=== PATIENT | female | born 1950 | race Caucasian/White ===

== ENCOUNTER 2022-07-20 09:27 | Outpatient (CLI) | payer SELFPAY | END 2022-07-20 09:28 | disposition home or self-care (01) | LOC: NFLDREF 09:28 | PROVIDERS: PCP Family Medicine; Visit Provider Obstetrics & Gynecology | DX: R30.0 Dysuria (principal) | CPT/HCPCS: 87086; 87186 ==

== ENCOUNTER 2022-08-10 17:22 | Outpatient (CLI) | payer MEDICARE, OTHER, SELFPAY | END 2022-08-10 17:23 | disposition home or self-care (01) | PROVIDERS: PCP Family Medicine; Visit Provider Obstetrics & Gynecology | DX: N39.0 Urinary tract infection, site not specified (principal); A49.9 Bacterial infection, unspecified | CPT/HCPCS: 87086; 87186 ==

== ENCOUNTER 2022-09-08 09:39 | Outpatient (CLI) | payer MEDICARE, OTHER, SELFPAY ==
--- OUTSIDE RECORDS SUMMARY | 2022-09-10 11:45 | XMS_ITS | Clinical Summary ---
:1950 Author Organization [facility] [place] [address] Care Team Providers Name Role Phone Radha Stockton MD Primary Care Provider Antonio Holbrook MD Unavailable Vinod Saavedra MD Unavailable Inés Rust MD Unavailable Allergies Active Allergy Reactions Severity Noted Date Comments Hydrocodone-Acetaminophen Rash High 03/12/2021 Prednisone Rash 12/21/2008 Sulfamethoxazole-Trimethoprim Tachycardia, Rash High 2020 Medications Medication Sig Dispensed Refills Start End Date Status Date multivitamin Take 1 tablet by 0 Active (MVI) tablet mouth once daily. 1 calcium 600 mg Take 1 capsule by 0 Active capsule mouth 2 times 1 daily with meals. sodium chloride IRRIGATE 20 CHEMO 5000 mL 3 Active 0.9% 0.9 % CYCLE EACH NOSTRIL 6 irrigationIndicat FOUR TIMES DAILY ions: Sinus congestion fluticasone (50 Inhale 1 [place] 48 g 11 Active mcg per into both nostrils 0 actuation) nasal 2 times daily. solution (FLONASE)Indicati ons: Rhinitis, unspecified type cetirizine Take 1 tablet by 90 tablet 0 Ac tive (ZYRTEC) 10 mg mouth once daily. 0 tabletIndications : Rhinitis, unspecified type lisinopriL Take 1 Tablet (10 93 Tablet 3 A ctive (PRINIVIL; mg) by mouth once 2 ZESTRIL) 10 mg daily. tabletIndications : Essential hypertension estradioL 0 Active (VAGIFEM) 10 mcg 2 tab vaginal tablet amitriptyline Take 10 mg by 0 Ac tive (ELAVIL) 10 mg mouth once daily. 2 tablet medication order Estriol 0.3% 60 g 1 08/26/20 Discontinued composerIndicatio vaginal cream 1g 2 22 (*Discontinued ns: Vaginal of cream by anoth er atrophy intravaginally 1-2 c linician) times per week as needed amitriptyline Take 25 mg by 0 08/26/20 Di scontinued (ELAVIL) 25 mg mouth once daily. 2 22 (*Medication tablet adjustment ) nirmatrelvir-ranjana Take 2 30 Tablet 0 08/31/20 Ex pired navir 300-100mg, nirmatrelvir 150 2 22 EUA, (PAXLOVID, mg pink-oval EUA,) tablets and 1 tabletIndications ritonavir 100 mg : COVID-19 virus white-oval tablet infection together twice daily for 5 days. Date of Symptom Onset: 08/23/22; 07/02/2022: CREATININE 0.73 mg/dL Active Problems Problem Noted Date Urinary urgency 07/02/2022 Osteopenia of multiple sites 06/02/2021 DDD (degenerative disc disease), lumbar 05/11/2019 Adenomatous colon polyp 08/06/2011 Overview: Colonoscopy 2007 - folow up in 5 years Colonoscopy 03/2013 diverticulosis repeat in 5 years Colonoscopy 04/2017 hyperplastic polyp re peat in 5 years Otosclerosis, unspecified 11/22/2009 Overview: History of stapedectomy right Sensorineural hearing loss, unilateral 11/22/2009 Overview: left Mixed hearing loss, unilateral 11/22/2009 Overview: right Unspecified essential hypertension 06/09/2007 Esophageal reflux Overview: EGD: 2019 reactive gastropthy EGD 03/2011 Reactive gastropathy Salcedo workup 09/2011 negative for GERD - felt to be visceral hypersensitivity Hypertensive LES but normal swallow EGD 05/2016 mild gastritis normal esophag us and duodenum Encounters Date Type Specialty Care Team Description 08/26/2022 Phone Office Visit Radha Stockton, [facility] (COVID-19 MD positive - symp jarod onset 08/23/22 - coug h, fever, runny nose) 08/26/2022 Travel 07/24/2022 Orders Only Lab, [facility] 07/23/2022 Travel 07/07/2022 Orders Only Lab, [facility] 07/07/2022 Travel 07/02/2022 Office Visit Radha Stockton, Medicare A NNUAL (subsequent) MD Visit (72 year old female); Musculoskeletal Problem (Right leg pain at night when lying on b ack) 07/02/2022 Travel from Last 3 Months Immunizations Name Administration Dates Next Due COVID-19 vaccine ([employer] 08/14/2022 30mcg/0.3mL) 12YO+ BIVALENT BOOSTER PF, MDV COVID-19 vaccine ([employer] 02/18/2022 30mcg/0.3mL) 12YO+ TITI-SUCROSE PF, MDV COVID-19 vaccine ([employer] 07/30/2021, 12/21/2020, 30mcg/0.3mL) PF, MDV Influenza, Inactivated AIIV4 (Age 65+ 08/12/2020 Years) Preserv Free Pneumococcal Poly,23-Valent (Pneumovax) 02/20/2019 Pneumococcal conj 13-Valent (Prevnar 13) 06/21/2017 Td (Age >=7 Years) 02/16/1997 Tdap 10/19/2017, 06/09/2007 Zoster (Shingrix-RZV, recombinant) 09/24/2020, 07/10/2020 Zoster (Zostavax-ZVL, live) 10/21/2012 Family History Medical History Relation Name Comments Hypertension Brother 1 Diabetes Brother 2 Diabetes Father Hypertension Father Psychiatric illness Mother Dementia Cancer-breast No Family History Cancer-ovarian No Family History Relation Name Status Comments Brother 1 Brother 2 Father Mother Social History Tobacco Use Types Packs/Day Years Used Date Never Smoker Smokeless Tobacco: Never Used Tobacco Cessation: Counseling Given: Yes Alcohol Use Standard Drinks/Week Comments No 0 (1 standard drink = 0.6 oz pure alcoho l) Sex Assigned at Date Recorded Female 04/29/2020 2:36 PM CDT COVID-19 Exposure Response Date Recorded In the last 10 days, have you been in contact Unable to asse ss 08/26/2022 11:54 AM CDT with someone who was confirmed or suspected to have Coronavirus/COVID-19? Obstetrics History Para Term AB IAB SAB Ectopic Multiple Living Live Births 3 3 3 0 0 0 0 0 3 Date Outcome GA Total Labor/2nd/3rd Weight Sex Delivery Anes PTL Meghna A 1 A5 Name Clin Labor Term Term Term Last Filed Vital Signs Vital Sign Reading Time Taken Comments Blood Pressure 127/73 07/02/2022 9:42 AM CDT Pulse 89 07/02/2022 9:42 AM CDT Temperature 36.6 ??C (97.9 ??F) 08/05/2021 10:28 AM CDT Respiratory Rate 16 12/24/2021 9:02 AM PRODUCTION CELL LEADER Oxygen Saturation 100% 07/02/2022 9:42 AM CDT Inhaled Oxygen Concentration - - Weight 59.1 kg (130 lb 6.4 oz) 07/02/2022 9:42 AM CDT Height 155.8 cm (5' 1.34) 07/02/2022 9:42 AM CDT Body Mass Index 24.37 07/02/2022 9:42 AM CDT Plan of Treatment Upcoming Encounters Date Type Specialty Care Team Description 11/12/2022 Procedure Only Vinod Saavedra MD [address] [place], [place] [address] (Wo rk) Health Maintenance Due Date Last Done Comments Colonoscopy through age 75 05/20/2022 05/20/2017, 7, 04/20/2013, Additional history exists Influenza for age 65+ 06/25/2022 08/12/2020 Mammogram for age 45-75 06/08/2023 06/08/2022, 06/02/2021, 05/29/2020, Additional history exists BMI (ht and wt on same day) for 07/02/2023 07/02/2022, 07/25, age 18+ 06/02/2021, Additional history exists Depression screening for age 12+ 07/02/2023 07/02/2022, 06/2021, 05/29/2020, Additional history exists Medicare Wellness for age 65+ 07/02/2023 07/02/2022, 2020, 05/29/2020, Additional history exists Lipids for age 45-75 12/26/2025 12/26/2020, 01/15/2016, 11/15/2014, Additional history exists Tetanus booster 10/19/2027 10/19/2017, 06/09/2007, 02/16/1997 Tdap Completed 10/19/2017, 06/09/2007 Hepatitis C screening for age Completed 02/17/2018 18-79 Pneumococcal series for age 65+ Completed 02/20/2019, 05/26 Zoster (shingles) series for age Completed 09/24/2020, , 50+ 10/21/2012 DEXA/DXA scan for age 65+ Completed 06/09/2021, 04/12/2017 , 01/10/2013, Additional history exists COVID-19 vaccine series Completed 08/14/2022, 02/18/2022, 07/30/2021, Additional history exists Procedures Procedure Name Priority Date/Time Associated Diagnosis Comme nts URINALYSIS Routine 07/24/2022 3:22 PM UTI symptoms Results f or this MICROSCOPIC CDT procedure are i n the results section. UA W/ SEDIMENT EXAM Routine 07/24/2022 3:22 PM UTI symptoms Re sults for this REFLEXED PER CDT procedure are i n CRITERIA the results section. POTASSIUM Routine 07/07/2022 10:45 Serum potassium Results for this AM CDT elevated procedure are i n the results section. BASIC METABOLIC Routine 07/02/2022 10:44 Unspecified essential Results for this PANEL AM CDT hypertension procedure are i n the results section. from Last 3 Months Results (ABNORMAL) URINALYSIS MICROSCOPIC (07/24/2022 3:22 PM CDT) [facility] Method Time Signature RBC 3-5 (A) 0-2, None 07/24/2022 [facility] Seen /HPF 4:25 PM T [facility] WBC >100 (A) 0-2, 3-5, 07/24/2022 [facility] None Seen 4:25 PM CDT [place] /HPF CLINIC BACTERIA Many (A) None 07/24/2022 [facility] Seen, 4:25 PM CDT [place] Rare, Few CLINIC Bacteria/ HPF EPITHELIAL Moderate (A) None 07/24/2022 [facility] CELLS Seen, Few 4:25 PM T [place] Epi/HPF CLINIC YEAST Present (A) (none) 07/24/2022 [facility] 4:25 PM CDT [facility] Mucus Present 07/24/2022 [facility] 4:25 PM CDT [facility] WHITE CELL Present (A) (none) 07/24/2022 [facility] CLUMPS 4:25 PM [facility] Specimen Anatomical Collection Method Collection Time Receive d Time (Source) Location / / Volume Laterality Urine URINE SPECIMEN / Non-Blood / 07/24/2022 3:22 PM 07/24 3:22 Unknown Unknown CDT PM CDT Radha Stockton MD URINE Performing Organization Address City/State/ZIP Code Phon e Number [facility] [address] [place] [address] (ABNORMAL) UA W/ SEDIMENT EXAM REFLEXED PER CRITERIA (07/24/2022 3:22 PM CDT) [facility] Method Time Signature COLOR Yellow Yellow Color 07/24/2022 [facility] 4:22 PM [facility] CLARITY Slightly Clear 07/24/2022 [facility] Cloudy (A) Clarity 4:22 PM T [facility] SPECIFIC >=1.030 (A) 1.010, 07/24/2022 [facility] GRAVITY,URINE 1.015, 4:22 PM [facility] 1.020, 1.025 [facility] PH,URINE 5.5 6.0, 7.0, 07/24/2022 [facility] 8.0, 5.5, 4:22 PM [facility] 6.5, 7.5, CLINIC 8.5 UROBILINOGEN, Normal Normal EU/dl 07/24/2022 [facility] 4:22 PM CDT [facility] PROTEIN, Negative Negative 07/24/2022 [facility] URINE mg/dL 4:22 PM CDT [facility] GLUCOSE, Negative Negative 07/24/2022 [facility] URINE mg/dL 4:22 PM CDT [facility] KETONES,URINE Trace (A) Negative 07/24/2022 [facility] mg/dL 4:22 PM CDT [facility] BILIRUBIN,URI Negative Negative 07/24/2022 [facility] NE 4:22 PM CDT [facility] OCCULT Small (A) Negative 07/24/2022 [facility] BLOOD,URINE 4:22 PM CDT [facility] NITRITE Negative Negative 07/24/2022 [facility] 4:22 PM CDT [facility] LEUKOCYTE Negative Negative 07/24/2022 [facility] ESTERASE 4:22 PM CDT [facility] Specimen Anatomical Collection Method Collection Time Receive d Time (Source) Location / / Volume Laterality Urine URINE SPECIMEN / Non-Blood / 07/24/2022 3:22 PM 07/24 3:22 Unknown Unknown CDT PM CDT Radha Stockton MD URINE Performing Organization Address City/State/ZIP Code Phon e Number [facility] [address] [place] [address] POTASSIUM (07/07/2022 10:45 AM CDT) P athologist Signature POTASSIUM 4.8 3.5 - 5.0 07/08/2022 [facility] mmol/L 10:31 AM CDT [facility] Specimen Anatomical Collection Method / Collection Time Recei calvin Time (Source) Location / Volume Laterality Blood BLOOD SPECIMEN / Venipuncture / 07/07/2022 10:45 07/07 Unknown Unknown AM CDT 10:45 AM CDT Radha Stockton MD CHEMISTRY Performing Organization Address City/State/ZIP Code Phon e Number [facility] [address] [place] [address] LABORATORY-[facility]ENTRAL [address] LAB[facility]ATORY (ABNORMAL) BASIC METABOLIC PANEL (07/02/2022 10:44 AM CDT) Analysis Performed At Patho logist Time Signature SODIUM 140 135 - 145 07/03/2022 [facility] mmol/L 6:38 AM CDT [facility] POTASSIUM 5.3 (H) 3.5 - 5.0 07/03/2022 [facility] mmol/L 6:38 AM CDT [facility] CHLORIDE 103 98 - 110 07/03/2022 [facility] mmol/L 6:38 AM CDT [facility] CO2,TOTAL 30 21 - 31 07/03/2022 [facility] mmol/L 6:38 AM CDT [facility] ANION GAP 7 5 - 18 07/03/2022 [facility] 6:38 AM CDT [facility] GLUCOSE 83 65 - 100 07/03/2022 [facility] mg/dL 6:38 AM CDT [facility] CALCIUM 9.2 8.5 - 10.5 07/03/2022 [facility] mg/dL 6:38 AM CDT [facility] BUN 19 8 - 25 07/03/2022 [facility] mg/dL 6:38 AM CDT [facility] CREATININE 0.73 0.57 - 07/03/2022 [facility] 1.11 mg/dL 6:38 AM CDT [facility] BUN/CREAT RATIO 26 (H) 10 - 20 07/03/2022 [facility] 6:38 AM CDT [facility] eGFR 89 (L) >90 07/03/2022 [facility] mL/min/1.7 6:38 AM CDT [facility] 3m2 TRAL LABORATORY Comment: As of 2022, eGFR is calcu lated by the CKD-EPI creatinine equation without race adjustment. eGFR can be inf luenced by muscle mass, exercise, and diet. The reported eGFR is an estimation only and is only applicable if the renal function is stable. Specimen Anatomical Collection Method / Collection Time Recei calvin Time (Source) Location / Volume Laterality Blood BLOOD SPECIMEN / Venipuncture / 07/02/2022 10:44 07/02 Unknown Unknown AM CDT 10:45 AM CDT Radha Stockton MD CHEMISTRY Performing Organization Address City/State/ZIP Code Phon e Number [facility] [address] [place] [address] LAB[facility]ATORY[facility] [address] LABORATORY from Last 3 Months Insurance Payer Benefit Plan / Subscriber ID Effective Dates Phone Addre ss Type Group MEDICA MR MEDICA PRIME [id number] 2018-Present [address] [address] [place] [address] MEDICARE PART A MEDICARE PART A [id number] 2016-Present ATTN: CLAIMS - HB USE ONLY HB ONLY [address] [place] [address] MEDICARE PART B MEDICARE PART B [id number] 2018-Present ATTN: CLAIMS - HB USE ONLY HB ONLY [address] [place] [address] MEDICA MEDICA PRIME [id number] 2018-Present [address] [address] [place] [address] (Home) [place] [address] Care Teams Angio Technologist Relationship Specialty Start Date End Date Radha Stockton MD PCP - General Family Practice 07/02/22 [address] [place] [address] Antonio Holbrook MD Surgery - Urology 07/02/22 [address] [place] [address] Vinod Saavedra MD Gastroenterology 07/02/22 [address] [place] [address] Inés Rust MD Obstetrics and Gynecology 07/02/22[address] [place] [address]
== END 2022-09-08 09:40 | disposition home or self-care (01) ==
LOC: NFLDREF 09-10 11:43
PROVIDERS: PCP Family Medicine; Visit Provider Obstetrics & Gynecology
DX: N39.0 Urinary tract infection, site not specified (principal); N95.2 Postmenopausal atrophic vaginitis; I10 Essential (primary) hypertension
CPT/HCPCS: 87086

== ENCOUNTER 2023-11-12 15:17 | Outpatient (CLI) | payer MEDICARE, OTHER, SELFPAY ==
--- OUTSIDE RECORDS SUMMARY | 2023-11-12 15:27 | XMS_ITS | Clinical Summary ---
Author Name Unknown Organization [facility] Address [place], [place] [address] Care Team Providers Care Truckman Name Role Phone Antonio Holbrook MD Unavailable Vinod Saavedra MD Unavailable Inés Rust MD Unavailable Nancy Camara MD Primary Care Provider Allergies Active Allergy Reactions Criticality Noted Date Comments Hydrocodone-Acetaminophen Rash High 03/12/2021 Prednisone Rash 12/21/2008 Sulfamethoxazole-Trimethoprim Tachycardia,Rash High 08/06/2021 Medications Medication Sig Dispensed Refills Start Date End Date Status multivitamin (MVI) tablet Take 1 tablet by mouth once daily. 0 04/10/2011 Active calcium 600 mg capsule Take 1 capsule by mouth 2 times daily with meals. 0 04/10/2011 Active sodium chloride 0.9% 0.9 % irrigationIndicati ons:Sinus congestion IRRIGATE 20 CHEMO CYCLE EACH NOSTRIL FOUR TIMES DAILY 5000 mL 3 01/23/2016 Active fluticasone (50 mcg per actuation) nasal solution (FLONASE)Indicatio ns:Rhinitis, unspecified type Inhale 1 [place] into both nostrils 2 times daily. 48 g 11 05/29/2020 Active cetirizine (ZYRTEC) 10 mg tabletIndications: Rhinitis, unspecified type Take 1 tablet by mouth once daily. 90 tablet 0 05/29/2020 Active estradioL (VAGIFEM) 10 mcg tab vaginal tablet 0 08/15/2022 Active gabapentin 10 % crpk Apply topically to affected area(s). 0 Active lisinopriL (PRINIVIL; ZESTRIL) 10 mg tabletIndications: Essential hypertension Take 1 Tablet (10 mg) by mouth once daily. 100 Tablet 3 07/05/2023 Active Graduated Compression StockingsIndicatio ns:Varicose veins of both lower extremities with inflammation For personal use. Length: calf Strength: 20-30 mmHg Circumference in cm: Measure patient at pharmacy 1 Packet 0 07/19/2023 Active Active Problems Problem Noted Date Diagnosed Date Genitourinary syndrome of menopause 07/05/2023 Urinary urgency 07/02/2022 Osteopenia of multiple sites 06/02/2021 DDD (degenerative disc disease), lumbar 05/11/20 19 Adenomatous colon polyp 08/06/2011 Overview: Colonoscopy 2007 - folow up in 5 years Colonoscopy 03/2013 diverticulosis repeat in 5 years Colonoscopy 04/2017 hyperplastic polyp repeat in 5 years Colonoscopy 10/2022 diverticulosis, repeat in 10 years Otosclerosis, unspecified 11/22/2009 Overview: History of stapedectomy right Sensorineural hearing loss, unilateral 0 Overview: left Mixed hearing loss, unilateral 11/22/2009 Overview: right Unspecified essential hypertension 06/09/2007 Esophageal reflux Overview: EGD: 2019 reactive gastropthy EGD 03/2011 Reactive gastropathy Salcedo workup 09/2011 negative for GERD - felt to be visceral hypersensitivity Hypertensive LES but normal swallow EGD 05/2016 mild gastritis normal esophagus and duodenum Encounters Date Type Department Care Team Description 11/05/2023 2:10 PM MARKETING AND PROMOTIONS MANAGER Office Visit [facility] [address] [place] [address] Selma Rodriguez PA Arm Pain/problem (Pain in right deltoid area for about a month-hurts to raise arm up to a certain point-also with some burning in chest-hurts to push on area) 11/05/2023 Travel from Last 3 Months Immunizations Name Administration Dates Next Due COVID-19 vaccine ([facility] 30mcg/0.3mL) 12YO+ BIVALENT PF, MDV 08/14/2022 COVID-19 vaccine ([employer] 30mcg/0.3mL) 12YO+ TITI-SUCROSE PF, MDV 02/18/2022 COVID-19 vaccine ([facility] 30mcg/0.3mL) PF, MDV 07/30/2021,12/21/2020,11/30/2020 Influenza, Inactivated AIIV4 (Age 65+ Years) Preserv Free 09/21/2022,08/12/2020 Pneumococcal Poly,23-Valent (Pneumovax) 02/21/20 19 Pneumococcal conj 13-Valent (Prevnar 13) 017 Td (Age >=7 Years) 02/16/1997 Tdap 10/19/2017,06/09/2007 Zoster (Shingrix-RZV, recombinant) 09/24/2020, Zoster (Zostavax-ZVL, live) 10/21/2012 Family History Medical History Relation Name Comments Hypertension Brother 1 Diabetes Brother 2 Diabetes Father Hypertension Father Psychiatric illness Mother Dementia Cancer-breast No Family History Cancer-ovarian No Family History Relation Name Status Comments Brother 1 Brother 2 Father Mother Social History Tobacco Use Types Packs/Day Years Used Date Smoking Tobacco: Never Smokeless Tobacco: Never Tobacco Cessation:Counseling Given: Yes Alcohol Use Standard Drinks/Week Comments No 0 (1 standard drink = 0.6 oz pur e alcohol) PHQ-2 Answer Date Recorded PHQ-2 TOTAL SCORE 0 07/05/2023 Social Connections Answer Date Recorded Frequency of Communication with Friends and Fami ly 0 04/09/2023 Financial Resource Strain Answer Date R ecorded Difficulty of Paying Living Expenses 3 04/09/2023 Difficulty of Paying Living Expenses Not on file 04/09/2023 Food Insecurity Answer Date Recorded Worried About Running Out of Food in the Last Ye ar 1 04/09/2023 Transportation Needs Answer Date Record ed Lack of Transportation (Medical) 1 04/09/2023 Housing Stability Answer Date Recorded Unable to Pay for Housing in the Last Year 1 04/09/2023 Sex and Gender Information Value Date Recorded Sex Assigned at Female 04/29/2020 2:36 PM CDT Gender Identity Not on file Sexual Orientation Not on file Obstetrics History Para Term AB IAB SAB Ectopic Multiple Livin g Live Births 3 3 3 0 0 0 0 0 3 Date Outcome GA Total Labor Labor/2nd/3rd Weight Sex Delivery Anes PTL Meghna A1 A5 Name Cl in Term Term Term Last Filed Vital Signs Vital Sign Reading Time Taken Comments Blood Pressure 148/77 11/05/2023 2:09 PM MARKETING AND PROMOTIONS MANAGER Pulse 72 11/05/2023 2:09 PM MARKETING AND PROMOTIONS MANAGER Temperature 36.9 ??C (98.4 ??F) 04/20/2023 1:50 PM CD T Respiratory Rate 20 04/10/2023 12:56 PM CDT Oxygen Saturation 99% 11/05/2023 2:09 PM MARKETING AND PROMOTIONS MANAGER Inhaled Oxygen Concentration - - Weight 59.9 kg (132 lb) 11/05/2023 2:09 PM MARKETING AND PROMOTIONS MANAGER Height 156 cm (5' 1.42) 07/05/2023 10:05 AM CDT Body Mass Index 24.6 07/05/2023 10:05 AM CDT Plan of Treatment Health Maintenance Due Date Last Done Comments COVID-19 vaccine series ( season) 2023 08/14/2022, 02/18/2022, 07/30/2021, Additional history exists Influenza for age 65+ 06/25/2023 09/21/2022, 020 Medicare Wellness for age 65+ 07/04/2024, 07/02/2022, 06/02/2021, Additional history exists BMI (ht and wt on same day) for age 18+ 07/05/2024 07/05/2023, 07/02/2022, 08/05/2021, Additional history exists Depression screening for age 12+ 07/05/2024 07/05/2023, 07/02/2022, 06/02/2021, Additional history exists Mammogram for age 45-75 07/05/2024 07/05/20, 06/08/2022, 06/02/2021, Additional history exists Lipids for age 45-75 12/26/2025 12/26/2020, 01/15/2016, 11/15/2014, Additional history exists Tetanus booster 10/19/2027 10/19/2017, 05/25, 02/16/1997 Colonoscopy through age 75 11/12/203211/12, 11/12/2022, 05/20/2017, Additional history exists Tdap Completed 10/19/2017, 06/09/2007 Hepatitis C screening for ag e 18-79 Completed 02/17/2018 Pneumococcal series for age 65+ Completed 9, 06/21/2017 Zoster (shingles) series for age 50+ Completed 09/24/2020, 07/10/2020, 10/21/2012 DEXA/DXA scan for age 65+ Completed 2020, 04/12/2017, 01/10/2013, Additional history exists Care Teams Truckman Relationship Specialty Start Date End Date Nancy Camara MD [address] [place] [address] PCP - General Family Practice 03/08/23 Antonio Holbrook MD [address] [address] Surgery - Urology 07/02/22 Vinod Saavedra MD [address] [place] [id number] Gastroenterology 07/02/22 Inés Rust MD [address] [place] [address] Obstetrics and Gynecology 07/02/22
--- NOTE | 2023-11-12 15:30 | MR_ITS ---
[address] [address] Phone:?[phone] Fax:?[phone] Referring Physician Information: Marty William [address] [place] [address] Phone:?[phone] Fax:?[phone] Patient:Valeria Kirkland D.O.B:?1950 Sex:?Female Phone:?[phone] [facility] MRN:?[id number] Exam Date:?11/12/2023 EXAM: MRI RIGHT HUMERUS CLINICAL INFORMATION: The patient is a 73-year-old with right proximal upper arm pain. Evaluate for biceps tendon injury. TECHNICAL INFORMATION: Imaging was produced on a high-field, 1.5 Quynh MR scanner. Axial T2 and fat-suppressed T2 imaging was produced in addition to axial T1 imaging. Coronal proton-density, T2, and STIR imaging was performed in addition to sagittal proton-density and T2 imaging. There are no prior studies available for comparison. INTERPRETATION: Imaging of the right humerus shows no evidence for marrow edema or cortical injury. There is no evidence for fracture, stress injury, or destructive bony lesion. No evidence for periosteal reaction is identified. No definite evidence for acute bony abnormality of the right shoulder can be seen, however mild acromioclavicular joint arthrosis is noted. The long head of the biceps tendon appears intact. No injuries to the short head of the biceps tendon can be seen. No abnormalities of the visualized portions of the biceps muscle belly or myotendinous junction regions can be seen. There is a suspected tear involving the anterior and distal supraspinatus tendon fibers seen on axial series 4 images 5 and 6, measuring approximately 10 mm in greatest dimension. The finding is suboptimally evaluated in this humerus study and a dedicated MRI of the right shoulder may be helpful in further evaluation of the rotator cuff pathology if clinically warranted. No other well-defined rotator cuff abnormalities can be seen on the basis of this examination, however adjacent moderate subacromial/subdeltoid bursitis can be seen on coronal series 6 image 3 and on axial series 4 image 5. No other musculotendinous injuries are identified. No neurovascular abnormalities are seen. CONCLUSION: 1. No definite evidence for well-defined injury to the long head of the biceps or biceps muscle belly can be seen. The biceps myotendinous junction regions are within normal limits. 2. Suspected injury to the supraspinatus tendon distally. A dedicated MRI of the shoulder may be helpful in further evaluation of the patient's symptoms. 3. Moderate subacromial/subdeltoid bursal fluid, in keeping with changes of bursitis. 4. Mild acromioclavicular joint arthrosis. AEC Electronically signed on 11/15/2023 1:17:00 PM by Victoriano Day M.D.
== END 2023-11-12 15:18 | disposition home or self-care (01) ==
LOC: MRI 15:19
PROVIDERS: PCP Family Medicine; Visit Provider Physician Assistant
DX: M79.621 Pain in right upper arm (principal); M75.51 Bursitis of right shoulder
CPT/HCPCS: 73218

== ENCOUNTER 2023-11-24 14:13 | Outpatient (CLI) | payer MEDICARE, OTHER, SELFPAY ==
--- OUTSIDE RECORDS SUMMARY | 2023-11-24 14:20 | XMS_ITS | Clinical Summary ---
Author Name Unknown Organization [facility] Address [place], [place] [address] Care Team Providers Care 3Rd Grade Reading Teacher Name Role Phone Antonio Holbrook MD Unavailable [phone] Vindo Saavedra MD Unavailable Inés Rust MD Unavailable [...] solution (FLONASE)Indicatio ns:Rhinitis, unspecified type Inhale 1 [place] into both nostrils 2 times daily. 48 [...] Encounters Date Type Department Care Team Description 11/17/2023 Orders Only [facility] [address] [place] [address] Selma Rodriguez PA 1 scan: (1-Ord) [facility], MR HUMERUS RT WO CON, 11/12/2023 11/16/2023 Orders Only [facility] Scanner 1 scan: (1-Ord) INCOMING RECORDS-MRI, [facility], 11/16/2023 11/16/2023 Orders Only [facility] Scanner 1 scan: (1-Ord) INCOMING RECORDS-MRI, [facility], 11/16/2023 11/16/2023 Telephone [facility] [address] [facility] [address] Selma Rodriguez PA Questions (MRI ) 11/05/2023 2:10 PM FINE UNHAIRER Office Visit [facility] [address] [place] [address] Selma Rodriguez PA Arm Pain/problem (Pain in right deltoid area for about a month-hurts to raise arm up to a certain point-also with some burning in chest-hurts to push on area) 11/05/2023 Travel from Last 3 Months Immunizations Name Administration Dates Next Due COVID-19 vaccine (Pfizer-Bio NTech 30mcg/0.3mL) 12YO+ BIVALENT PF, MDV 08/14/2022 COVID-19 vaccine (Pfizer-Bio NTech 30mcg/0.3mL) 12YO+ TITI-SUCROSE PF, MDV 02/18/2022 COVID-19 vaccine (Pfizer-Bio NTech 30mcg/0.3mL) PF, MDV 07/30/2021,12/21/2020,11/30/2020 Influenza, Inactivated [...] Comments Blood Pressure 148/77 11/05/2023 2:09 PM FINE UNHAIRER Pulse 72 11/05/2023 2:09 PM FINE UNHAIRER Temperature 36.9 ??C (98.4 ??F) 04/20/2023 1:50 PM CD T Respiratory Rate 20 04/10/2023 12:56 PM CDT Oxygen Saturation 99% 11/05/2023 2:09 PM FINE UNHAIRER Inhaled Oxygen Concentration - - Weight 59.9 kg (132 lb) 11/05/2023 2:09 PM FINE UNHAIRER Height 156 cm (5' 1.42) 07/05/2023 10:05 [...] Completed 2020, 04/12/2017, 01/10/2013, Additional history exists Procedures Procedure Name Priority Date/Time Associated Diagnosis Comments SCAN CORRESP-IMAGING 11/16/2023 12:00 AM FINE UNHAIRER SCAN CORRESP-IMAGING 11/16/2023 12:00 AM FINE UNHAIRER MR HUMERUS RIGHT WO Routine 11/12/2023 1 2:00 AM FINE UNHAIRER Right arm pain Acquired deformity of right upper arm from Last 3 Months Results * SCAN CORRESP-IMAGING (11/16/2023 12:00 AM FINE UNHAIRER) Only the most recent of2 resultswithin the time period is included. Anatomical Region Laterality Modality Other Scanner OTHER * MR HUMERUS RIGHT WO (11/12/2023 12:00 AM FINE UNHAIRER) Anatomical Region Laterality Modality HUMERUS R Magnetic Resonan ce Selma HAMEED MR from Last 3 Months Care Teams 3Rd Grade Reading Teacher Relationship Specialty Start Date End Date Nancy Camara MD [address] [place] [address] PCP - General Family Practice 03/08/23 Antonio Holbrook MD [address] [facility] [address] Surgery - Urology 07/02/22 Vinod Saavedra MD [address] [place] [address] Gastroenterology 07/02/22 Inés Rust MD [address] [place] [address] (work) Obstetrics and Gynecology 07/02/22
--- NOTE | 2023-11-24 14:30 | MR_ITS ---
[address] [address] Phone:?[phone] Fax:?[phone] Referring Physician Information: Fan Cline M.D. [address] [facility] [address] Phone:?[phone] Fax:?[phone] Patient:Vaelria Kirkland D.O.B:?1950 Sex:?Female Phone:?[phone] [facility] MRN:?[id number] Exam Date:?11/24/2023 EXAM: MRI OF THE RIGHT SHOULDER CLINICAL INFORMATION: The patient is a 73-year-old with right shoulder pain. Evaluate rotator cuff. PRIOR SURGERY: None reported. COMPARISON STUDIES: There are no prior studies available for comparison. TECHNICAL INFORMATION: Using a 1.5T MR scanner and a localizing shoulder surface coil: 3.0 mm?coronal obliques: PD, T2, STIR 3.0 mm?sagittal obliques: PD, T2 3.0 mm?axials: PD, T2 FINDINGS: Articular/Extraarticular collections: Effusion: Mild. Subacromial/subdeltoid: Mild to moderate fluid is seen within the subacromial/subdeltoid bursa. Subcoracoid: No evidence for bursitis. Osseous structures: Proximal humerus: Reactive marrow edema can be seen involving the anterior aspect of the greater tuberosity in the region of the rotator cuff pathology discussed below. There is no evidence for greater or lesser tuberosity fracture. No Hill-Sachs or reverse Hill-Sachs lesion is identified. Glenoid: No acute bony abnormality of the glenoid fossa or glenoid neck can be seen. Acromioclavicular joint: Mild to moderate changes of acromioclavicular joint arthrosis are present. Coracoacromial arch: Acromion morphology: Type II. No evidence for os acromiale. Acromiohumeral space: Moderately narrowed. Coracohumeral space: Within normal limits. Rotator cuff and deltoid: Supraspinatus: Moderate changes of supraspinatus tendinosis are present. There is superimposed full-thickness or near full-thickness tearing of the anterior and distal tendon fibers, seen to best advantage on coronal series 4 image 9, coronal series 6 image 9, and on sagittal series 8 image 7. The area of full- thickness or near full-thickness tearing measures 9 mm in anteroposterior dimension and 10 mm in mediolateral dimension. No atrophic changes of the supraspinatus muscle belly are present. Infraspinatus: Mild to moderate infraspinatus tendinosis can be seen. There is no evidence for full or partial-thickness tearing. No atrophic changes of the infraspinatus muscle belly are identified. Teres minor: No evidence for tendinosis, tearing, or associated muscle belly atrophy. Subscapularis: Mild to moderate subscapularis tendinosis can be seen. There is no evidence for full or partial-thickness tearing. No atrophic changes of the subscapularis muscle belly are noted. Deltoid: No evidence for strain or tearing. Biceps tendon: The intra-articular and biceps sulcus portions of the biceps tendon are normal. There is no evidence for rupture, dislocation, or subluxation. Glenohumeral joint and labrum: Articular Cartilage: No chondral injuries along the articular surfaces of the glenohumeral articulation can be seen. No osteoarthritic changes are identified. Labrum: The anterior, posterior, superior, and inferior portions of the labrum appear intact. No evidence for paralabral ganglion cyst formation can be seen. Capsular Soft Tissues: No definite capsular abnormalities of the glenohumeral joint are seen. No evidence for capsular tearing is present and there are no MR signs of adhesive capsulitis. CONCLUSION: 1. Moderate supraspinatus tendinosis with superimposed full-thickness or near full-thickness tearing of the anterior and distal tendon fibers. 2. Mild to moderate infraspinatus and subscapularis tendinosis. 3. Mild to moderate subacromial/subdeltoid bursitis and mild glenohumeral joint effusion. 4. 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 5. No osteoarthritic changes of the glenohumeral articulation are seen. AEC Electronically signed on 11/25/2023 6:36:00 AM by Victoriano Day M.D.
== END 2023-11-24 14:14 | disposition home or self-care (01) ==
LOC: MRI 14:15
PROVIDERS: PCP Family Medicine; Visit Provider Orthopaedic Surgery
DX: M25.511 Pain in right shoulder (principal); M75.101 Unspecified rotator cuff tear or rupture of right shoulder, not specified as traumatic; M75.51 Bursitis of right shoulder; M25.411 Effusion, right shoulder; M19.011 Primary osteoarthritis, right shoulder
CPT/HCPCS: 73221

== ENCOUNTER 2024-02-14 09:55 | Outpatient (CLI) | payer MEDICARE, OTHER, SELFPAY ==
--- OUTSIDE RECORDS SUMMARY | 2024-02-14 09:59 | XMS_ITS | Clinical Summary ---
Author Name Unknown Organization [facility] Address [place], [place] [address] Care Team Providers Care Patient Support Associate Name Role Phone Antonio Holbrook MD Unavailable [phone] Vinod Saavedra MD Unavailable Inés Rust MD Unavailable Nancy Camara MD Primary Care Provider [phone] Allergies Active Allergy Reactions Criticality Noted Date [...] 04/10/2011 Active sodium chloride 0.9% 0.9 % irrigationIndicatio ns:Sinus congestion IRRIGATE 20 CHEMO CYCLE EACH NOSTRIL FOUR TIMES DAILY 5000 mL 3 01/23/2016 Active fluticasone (50 mcg per actuation) nasal solution (FLONASE)Indication s:Rhinitis, unspecified type Inhale 1 [place] into both nostrils 2 times daily. 48 g 11 05/29/2020 Active cetirizine (ZYRTEC) 10 mg tabletIndications:R hinitis, unspecified type Take 1 tablet by mouth once daily. 90 tablet 05/29/2020 Active estradioL (VAGIFEM) 10 mcg tab vaginal tablet 08/15/2022 Active gabapentin 10 % crpk Apply topically to affected area(s). Active lisinopriL (PRINIVIL; ZESTRIL) 10 mg tabletIndications:E ssential hypertension Take 1 Tablet (10 mg) by mouth once daily. 100 Tablet 3 07/05/2023 Active Graduated Compression StockingsIndication s:Varicose veins of both lower extremities with inflammation For personal use. Length: calf Strength: 20-30 mmHg Circumference in cm: Measure patient at pharmacy 1 Packet 07/19/2023 Active fluocinolone 0.01% TOPICAL (SYNALAR) 0.01 % external solution Apply topically to affected area(s) one time if needed. 08/20/2023 Active ciprofloxacin HCl (CIPRO) 500 mg tabletIndications:U TI (urinary tract infection), uncomplicated Take 1 Tablet (500 mg) by mouth two times daily for 5 days. 10 Tablet 02/11/2024 Active Active Problems Problem Noted Date Diagnosed [...] Encounters Date Type Department Care Team Description 02/11/2024 Telephone [facility] [address] [place] [address] Nancy Camara MD Follow Up (UTI Questions) 02/09/2024 11:30 AM CDT Orders Only [facility] [address] [facility] [id number] Lab, ld Lab 02/09/2024 Travel 02/02/2024 10:25 AM CDT Office Visit [facility] [place] [address] Nancy Camara MD Urinary Problem (frequency, x3 nightly, pressure of need to go) 02/02/2024 Travel 01/20/2024 9:45 AM CDT Orders Only [facility] [address] [place] [address] Lab, ld Lab 01/20/2024 Travel 01/18/2024 Telephone [facility] [place] [address] Nancy Camara MD Lab 01/14/2024 10:20 AM CDT Preop Visit [facility] [place] [address] Nancy Camara MD Preoperative Exam (01/27/2024, Right rotator cuff, Dr. Clifton, [facility]) 01/14/2024 Travel 11/30/2023 11:35 AM SCIENTIFIC PROCESS OPERATOR Office Visit [facility] [facility] [place] [address] Cassy Coffey PA Fatigue (Chills. //COVID-19- positive around november 03. ) 11/30/2023 Travel 11/24/2023 Orders Only [facility] Scanner 1 scan: (1-Ord) [facility], MR SHOULDER RT WO CON, 11/24/2023 11/17/2023 Orders Only [facility] [place] [address] Selma Rodriguez PA 1 scan: (1-Ord) [facility], MR HUMERUS RT WO CON, 11/12/2023 11/16/2023 Orders Only [facility] Scanner 1 scan: (1-Ord) INCOMING RECORDS-MRI, [facility], 11/16/2023 11/16/2023 Orders Only [facility] Scanner 1 scan: (1-Ord) INCOMING RECORDS-[facility], [facility] and [facility], 11/16/2023 11/16/2023 Telephone [facility] [address] [place] [address] Selma Rodriguez PA Questions (MRI ) from Last 3 Months Immunizations Name Administration Dates Next Due COVID-19 vaccine (Pfizer-Bio NTech 30mcg/0.3mL) 12YO+ BIVALENT PF, MDV 08/14/2022 COVID-19 vaccine (Pfizer-Bio NTech 30mcg/0.3mL) 12YO+ TITI-SUCROSE PF, MDV 02/18/2022 COVID-19 vaccine (Pfizer-Bio NTech 30mcg/0.3mL) PF, MDV 07/30/2021,12/21/2020,11/30/2020 Influenza, Inactivated AIIV4 (Age 65+ Years) Preserv Free 10/04/2023,09/21/2022,08/12/2020 Pneumococcal Poly,23-Valent (Pneumovax) 02/21/20 19 Pneumococcal conj [...] Answer Date Recorded PHQ-2 TOTAL SCORE 0 01/14/2024 Social Connections Answer Date Recorded Frequency of [...] Sign Reading Time Taken Comments Blood Pressure 137/78 02/02/2024 10:32 AM CDT Pulse 80 02/02/2024 10:32 AM CDT Temperature 36.9 ??C (98.4 ??F) 04/20/2023 1:50 PM CD T Respiratory Rate 20 04/10/2023 12:56 PM CDT Oxygen Saturation 100% 02/02/2024 10:32 AM CDT Inhaled Oxygen Concentration - - Weight 60.3 kg (133 lb) 02/02/2024 10:32 AM CDT Height 156.5 cm (5' 1.61) 01/14/2024 10:19 AM C DT Body Mass Index 24.63 01/14/2024 10:19 AM CDT Plan of Treatment Health Maintenance Due Date Last Done Comments COVID-19 vaccine series ( season) 2023 08/14/2022, 02/18/2022, 07/30/2021, Additional history exists Influenza for age 65+ 06/25/2024 10/04/2023 , 09/21/2022, 08/12/2020 Mammogram for age 45-75 07/05/2024 07/05/20 23, 06/08/2022, 06/02/2021, Additional history exists Medicare Wellness for age 65+ 07/05/2024, 07/02/2022, 06/02/2021, Additional history exists BMI (ht and wt on same day) for age 18+ 01/13/2025 01/14/2024, 07/05/2023, 07/02/2022, Additional history exists Depression screening for age 12+ 01/17/2025 01/18/2024, 01/14/2024, 07/05/2023, Additional history exists Lipids for age 45-75 [...] Procedure Name Priority Date/Time Associated Diagnosis Comments URINALYSIS MICROSCOPIC Routine 11:28 AM CDT Microscopic hematuria UA W/ SEDIMENT EXAM REFLEXED PER CRITERIA Routine 02/09/2024 11:28 AM CDT Microscopic hematuria TRICHOMONAS, CHAIM, AND BACTERIAL VAGINOSIS BY JOSE ANTONIO Routine 02/02/2024 11:31 AM CDT Vaginal irritation URINE CULTURE Add On 02/02/2024 10:24 AM CDT Frequency of urination URINALYSIS MICROSCOPIC Routine 10:24 AM CDT Frequency of urination UA W/ SEDIMENT EXAM REFLEXED PER CRITERIA Routine 02/02/2024 10:24 AM CDT Frequency of urination POTASSIUM Routine 01/20/2024 9:37 AM CDT Hyperkalemia POTASSIUM Routine 01/14/2024 11:16 AM CDT Pre-op exam CBC WITH AUTO DIFFERENTIAL Routine 11/30/2023 12:37 PM SCIENTIFIC PROCESS OPERATOR Chills Fatigue, unspecified type TSH WITH REFLEX Routine 11/30/2023 12:37 PM SCIENTIFIC PROCESS OPERATOR Fatigue, unspecified type FERRITIN Routine 11/30/2023 12:37 PM SCIENTIFIC PROCESS OPERATOR Fatigue, unspecified type Iron deficiency anemia, unspecified iron deficiency anemia type CBC WITH AUTO DIFFERENTIAL Routine 11/30/2023 12:37 PM SCIENTIFIC PROCESS OPERATOR Chills Fatigue, unspecified type VITAMIN D 25 (DEFICIENCY) Routine 11/30/2023 12:37 PM SCIENTIFIC PROCESS OPERATOR Fatigue, unspecified type Other obesity INFLUENZA A/B PCR Routine 11/30/2023 11: 38 AM SCIENTIFIC PROCESS OPERATOR Chills SCAN-MRI INTERPRETATION 11/24/2023 12:00 AM SCIENTIFIC PROCESS OPERATOR SCAN CORRESP-IMAGING 11/16/2023 12:00 AM SCIENTIFIC PROCESS OPERATOR SCAN CORRESP-IMAGING 11/16/2023 12:00 AM SCIENTIFIC PROCESS OPERATOR XR MAMMO BILAT SCREENING Routine 07/05/2023 9:51 AM CDT Visit for screening mammogram COLONOSCOPY 11/12/2022 10:51 AM SCIENTIFIC PROCESS OPERATOR XR DXA BONE DENSITY 2 SITES AXIAL Routine 06/09/2021 9:24 AM CDT Osteopenia, unspecified location Other specified disorders of bone density and structure, multiple sites LIPID PANEL W REFLEX MEASURED LDL Routine 12/26/2020 3:07 PM SCIENTIFIC PROCESS OPERATOR Screening for lipid disorders ANTI HCV Routine 02/17/2018 4:26 PM CDT Need for hepatitis C screening test from Last 3 Months or Most Recently Relevant to Health Maintenance Results * (ABNORMAL) URINALYSIS MICROSCOPIC (02/09/2024 11:28 AM CDT) Only the most recent of2 resultswithin the time period is included. RBC 3-5(A) 0-2, None Seen /HPF 02/09/2024 11:50 AM CDT [facility] WBC 3-5 0-2, 3-5, None Seen /HPF 02/09/2024 11:50 AM CDT [facility] BACTERIA Many(A) None Seen, Rare, Few Bacteria/H PF 02/09/2024 11:50 AM CDT [facility] EPITHELIAL CELLS Few None Seen, Few Epi/HPF 02/09/2024 11:50 AM CDT [facility] Urine URINE SPECIMEN / Unknown Non-Blood / Unknown 02/09/2024 11:28 AM CDT 02/09/2024 11:28 AM CDT Nancy Camara MD URINE [facility] [address] [place] [address], * (ABNORMAL) UA W/ SEDIMENT EXAM REFLEXED PER CRITERIA (02/09/2024 11:28 AM CDT) Only the most recent of2 resultswithin the time period is included. COLOR Yellow Yellow Color 02/09/2024 11:49 AM CDT [facility] CLARITY Clear Clear Clarity 02/09/2024 11:49 AM CDT [facility] SPECIFIC GRAVITY,URINE 1.015 1.010, 1.015, 1.020, 1.025 02/09/2024 11:49 AM CDT [facility] PH,URINE 5.5 6.0, 7.0, 8.0, 5.5, 6.5, 7.5, 8.5 02/09/2024 11:49 AM CDT [facility] UROBILINOGEN, QUALITATIVE Normal Normal EU/dl 02/09/2024 11:49 AM CDT [facility] PROTEIN, URINE Negative Negative mg/dL 02/09/2024 11:49 AM CDT [facility] GLUCOSE, URINE Negative Negative mg/dL 02/09/2024 11:49 AM CDT [facility] KETONES,URINE Negative Negative mg/dL 02/09/2024 11:49 AM CDT [facility] BILIRUBIN,URI NE Negative Negative 02/09/2024 11:49 AM CDT [facility] OCCULT BLOOD,URINE Trace(A) Negative 02/09/2024 11:49 AM CDT [facility] NITRITE Positive(A) Negative 02/09/2024 11:49 AM CDT [facility] LEUKOCYTE ESTERASE Negative Negative 02/09/2024 11:49 AM CDT [facility] Urine URINE SPECIMEN / Unknown Non-Blood / Unknown 02/09/2024 11:28 AM CDT 02/09/2024 11:28 AM CDT Nancy Camara MD URINE [facility] [address] [place] [address], * TRICHOMONAS, CHAIM, AND BACTERIAL VAGINOSIS BY JOSE ANTONIO (02/02/2024 11:31 AM CDT) CHAIM SPECIES Negative Negative 4 2:33 AM CDT [facility] CHAIM GLABRATA Negative Negative 02/03/2024 2:33 AM CDT [facility] TRICHOMONAS VVA Negative Negative 4 2:33 AM CDT [facility] BACTERIAL VAGINOSIS Negative Negative 02/03/2024 2:33 AM CDT [facility] Other VAGINAL SWAB / Unknown Non-Blood / Unknown 02/02/2024 11:31 AM CDT 02/02/2024 12:11 PM CDT Nancy Camara MD MICROBIOLOGY Performing Organization Address [facility] Co de Phone Number [facility] [address] [place] [address], [place] * URINE CULTURE (02/02/2024 10:24 AM CDT) CULTURE <10,000 CFU/mL multiple organisms 02/04/2024 11:04 AM CDT [facility] Urine URINE SPECIMEN / Unknown Non-Blood / Unknown 02/02/2024 10:24 AM CDT 02/02/2024 10:34 AM CDT Nancy Camara MD MICROBIOLOGY Performing Organization Address [facility] Co de Phone Number [facility] [address] [place] [address], [place] * POTASSIUM (01/20/2024 9:37 AM CDT) Only the most recent of2 resultswithin the time period is included. POTASSIUM 3.9 3.5 - 5.1 mmol/L 01/20/2024 4:57 PM CDT [facility] Blood BLOOD SPECIMEN / Unknown Venipuncture / Unknown 01/20/2024 9:37 AM CDT 01/20/2024 9:38 AM CDT Nancy Camara MD CHEMISTRY Performing Organization Address [facility] Co de Phone Number [facility] [address] [address], [place] * CBC WITH AUTO DIFFERENTIAL (11/30/2023 12:37 PM SCIENTIFIC PROCESS OPERATOR) WHITE BLOOD COUNT 8.2 4.5 - 11.0 thou/cu mm 11/30/2023 12:41 PM SCIENTIFIC PROCESS OPERATOR [facility] RED BLOOD COUNT 4.62 4.00 - 5.20 mil/cu mm 11/30/2023 12:41 PM [facility] HEMOGLOBIN 13.3 12.0 - 16.0 g/dL 11/30/2023 12:41 PM [facility] HEMATOCRIT 40.9 33.0 - 51.0 % 11/30/2023 12:41 PM [facility] MCV 89 80 - 100 fL 11/30/2023 12:41 PM [facility] MCH 28.8 26.0 - 34.0 pg 11/30/2023 12:41 PM [facility] MCHC 32.5 32.0 - 36.0 g/dL 11/30/2023 12:41 PM [facility] RDW 14.0 11.5 - 15.5 % 11/30/2023 12:41 PM [facility] PLATELET COUNT 259 140 - 440 thou/cu mm 11/30/2023 12:41 PM [facility] MPV 10.4 6.5 - 11.0 fL 11/30/2023 12:41 PM [facility] % NEUT 67.4 % 11/30/2023 12:41 PM [facility] % LYMPH 24.6 % 11/30/2023 12:41 PM [facility] % MONO 6.4 % 11/30/2023 12:41 PM [facility] % EOS 1.2 % 11/30/2023 12:41 PM [facility] % BASO 0.4 % 11/30/2023 12:41 PM [facility] ABSOLUTE NEUTROPHILS 5.6 1.7 - 7.0 thou/cu mm 11/30/2023 12:41 PM [facility] ABSOLUTE LYMPHOCYTES 2.0 0.9 - 2.9 thou/cu mm 11/30/2023 12:41 PM [facility] ABSOLUTE MONOCYTES 0.5 <0.9 thou/cu mm 11/30/2023 12:41 PM [facility] ABSOLUTE EOSINOPHILS 0.1 <0.5 thou/cu mm 11/30/2023 12:41 PM [facility] ABSOLUTE BASOPHILS 0.0 <0.3 thou/cu mm 11/30/2023 12:41 PM SCIENTIFIC PROCESS OPERATOR [facility] Blood BLOOD SPECIMEN / Unknown Venipuncture / Unknown 11/30/2023 12:37 PM SCIENTIFIC PROCESS OPERATOR 11/30/2023 12:37 PM SCIENTIFIC PROCESS OPERATOR Cassy HAMEED HEMATOLOGY [facility] [address] [place] [address], * TSH WITH REFLEX (11/30/2023 12:37 PM SCIENTIFIC PROCESS OPERATOR) TSH 1.33 0.27 - 4.20 uIU/mL 11/30/2023 10:34 PM SCIENTIFIC PROCESS OPERATOR [facility] Blood BLOOD SPECIMEN / Unknown Venipuncture / Unknown 11/30/2023 12:37 PM SCIENTIFIC PROCESS OPERATOR 11/30/2023 12:37 PM SCIENTIFIC PROCESS OPERATOR Narrative [facility] - 11/30/2023 10:34 PM SCIENTIFIC PROCESS OPERATOR In Adults, TSH values between 5.00 and 10.00 uIU/ml do not necessarily indicate the presence of Hypothyroidism. Correlation with clinical findings such as presence of goiter and/or Thyroperoxidase (TPO) Antibody may be helpful. For more information please refer to DELROY 2004; 291: 228-238. Cassy HAMEED CHEMISTRY [facility] [address] [place] [id number], * VITAMIN D 25 (DEFICIENCY) (11/30/2023 12:37 PM SCIENTIFIC PROCESS OPERATOR) VITAMIN D TOTAL 42.5 20.0 - 80.0 ng/mL 11/30/2023 10:34 PM SCIENTIFIC PROCESS OPERATOR [facility] Blood BLOOD SPECIMEN / Unknown Venipuncture / Unknown 11/30/2023 12:37 PM SCIENTIFIC PROCESS OPERATOR 11/30/2023 12:37 PM SCIENTIFIC PROCESS OPERATOR Narrative [facility] - 11/30/2023 10:34 PM SCIENTIFIC PROCESS OPERATOR ? Vitamin D Status Deficiency: ? <20 ng/mL Insufficiency: ?20-29 ng/mL Sufficiency: ?30-80 ng/mL Possible Toxicity: ??>80 ng/mL Based on [place] of Medicine recommendations Biotin supplements may cause clinically significant interference for this test assay. ??If interference is suspected, it is strongly recommended that biotin is discontinued for at least one week prior to retesting. Cassy HAMEED SEND OUTS Performing Organization Address City/[facility] Co de Phone Number [facility] [address] [place] [address], * FERRITIN (11/30/2023 12:37 PM SCIENTIFIC PROCESS OPERATOR) Pathologist [facility] FERRITIN 97.3 15.0 - 150.0 ng/mL 11/30/2023 10:34 PM SCIENTIFIC PROCESS OPERATOR [facility] Blood BLOOD SPECIMEN / Unknown Venipuncture / Unknown 11/30/2023 12:37 PM SCIENTIFIC PROCESS OPERATOR 11/30/2023 12:37 PM SCIENTIFIC PROCESS OPERATOR Cassy HAMEED CHEMISTRY Performing Organization Address [facility] Co de Phone Number [facility] [address] [place] [address], * INFLUENZA A/B PCR (11/30/2023 11:38 AM SCIENTIFIC PROCESS OPERATOR) Pathologist [facility] INFLUENZA A PCR Negative 12/01/2023 1:48 AM SCIENTIFIC PROCESS OPERATOR [facility] INFLUENZA B PCR Negative 12/01/2023 1:48 AM SCIENTIFIC PROCESS OPERATOR [facility] Other SPECIMEN FROM NASAL FOSSAE / Unknown Non-Blood / Unknown 11/30/2023 11:38 AM SCIENTIFIC PROCESS OPERATOR 11/30/2023 12:05 PM SCIENTIFIC PROCESS OPERATOR Cassy HAMEED MICROBIOLOGY Performing Organization Address [facility] Co de Phone Number [facility] [address] [place] [address], * SCAN-MRI INTERPRETATION (11/24/2023 12:00 AM SCIENTIFIC PROCESS OPERATOR) Anatomical Region Laterality Modality Other Scanner OTHER * SCAN CORRESP-IMAGING (11/16/2023 12:00 AM SCIENTIFIC PROCESS OPERATOR) Only the most recent of2 resultswithin the time period is included. Anatomical Region Laterality Modality Other Scanner OTHER * XR MAMMO BILAT SCREENING (07/05/2023 9:51 AM CDT) Anatomical Region Laterality Modality BREASTS, Breast Left, Breast Right Bilateral Mammography Impressions 07/05/2023 2:17 PM CDT ??There is no radiographic evidence for malignancy. ??Recommend annual mammograms. MAMMOGRAM ASSESSMENT: ??ACR 1 Negative PATIENTS: You will also receive a letter with your examination results in an easy to read format. ??If you have questions about your results, please contact your referring provider. Narrative 07/05/2023 2:17 PM CDT For Patients: As a result of the Century Cures Act, medical imaging exams and procedure reports are released immediately into your electronic medical record. You may view this report before your referring provider. If you have questions, please contact your health care provider. XR MAMMO BILAT SCREENING [[id number]] CLINICAL HISTORY: ??This is an asymptomatic 73 y.o. patient. INDICATION FOR EXAM: Mammogram Screening. TECHNIQUE: CC & MLO views were obtained. ??This study was evaluated with the assistance of Computer-Aided Detection. COMPARISON FILM: Yes 06/08/22 [facility] 06/02/21 [facility] FINDINGS: ??The breasts have scattered areas of fibroglandular density. There are no dominant masses, suspicious micro calcifications or areas of architectural distortion. Nancy Camara MD MAMMO * COLONOSCOPY (11/12/2022 10:51 AM SCIENTIFIC PROCESS OPERATOR) 11/12/2022 10:5 1 AM SCIENTIFIC PROCESS OPERATOR Narrative Transcriptions Vinod Saavedra MD - 11/12/2022 11:34 AM CST Patient Name: Kendy Kirkland Procedure Date: 11/12/2022 Gender: Female Date of : 1950 Admit Type: Outpatient Procedure: Colonoscopy Proceduralist: Vinod Saavedra MD , Cassy Carrasquillo RN (Nurse), Linsey Hill (Nurse) Indications/Pre-Op Diagnosis: High risk colon cancer surveillance:Personal history of colonic polyps, Last colonoscopy: April 2017 Medications: Fentanyl 100 micrograms IV, Midazolam 4 mgIV, The level of sedation administered wasmoderate Procedure Description: The patient had risks, benefits and alternatives explained to andgave informed consent. The patient had a stable cardiopulmonary status and judged an adequate candidate for conscious sedation. The endoscope [id number] was passed through the anus and advanced to the cecum, identified by appendiceal orifice and ileocecal valve. The colonoscopy was performed without difficulty. The patient toleratedthe procedure well. The quality of the bowel preparation was good. The ileocecal valve, appendiceal orifice, and rectum were photographed. Complications: No immediate complications. Estimated Blood Loss & Specimen: Estimated blood loss: none. Specimen collected - None Findings: The perianal and digital rectal examinations were normal. Scattered small-mouthed diverticula were found in the sigmoidcolon. The exam was otherwise without abnormality on direct and retroflexion views. Impressions/Post-Op Diagnosis: - Diverticulosis in the sigmoid colon. - The examination was otherwise normal on direct and retroflexionviews. - No specimens collected. Recommendation: - Patient has a contact number available for emergencies. The signsand symptoms of potential delayed complications were discussed with the patient. Return to normal activities tomorrow. Written discharge instructions were provided to the patient. - Resume previous diet. - Continue present medications. - Repeat colonoscopy in 10 years. Moderate Sedation: A time out was performed before the procedure. Moderate (conscious) sedation was administered by the endoscopy nurse and supervised bythe endoscopist. The following parameters were monitored: oxygensaturation, heart rate, blood pressure, EKG, CO2, respiratory rate, adequacy of pulmonary ventilation and reponse to care. Please refer to the patient's medical record flowsheets and nursing notes for moderate sedation details. Total physician intraservice time was 14 minutes. Vinod Saavedra MD 11/12/2022 11:34:03 AM This report has been signed electronically. Note Initiated On: 11/12/2022 10:51 AM Procedure Code(s): --- Professional --- 04603, Colonoscopy, flexible; diagnostic, including collection of specimen(s) bybrushing or washing, when performed (separateprocedure) Diagnosis Code(s): --- Professional --- Z86.010, Personal history of colonicpolyps K57.30, Diverticulosis of large intestine without perforation or abscess withoutbleeding CPT copyright 2020 [employer]. All rights reserved. The codes documented in this report are preliminary and upon nail feeder reviewmay be revised to meet current compliance requirements. Scope In: 11:18:51 AM Scope Withdrawal Time 0 hours 7 minutes 17 seconds Scope Out: 11:30:34 AM Vinod Saavedra MD PROCEDURE ORD * (ABNORMAL) XR DXA BONE DENSITY 2 SITES AXIAL (06/09/2021 9:24 AM CDT) Anatomical Region Laterality Modality Spine, HIPS, HIPL, HIPR Other Impressions 06/16/2021 10:10 AM CDT Osteopenia. RECOMMENDATIONS: The National Osteoporosis Foundation recommends pharmacologic treatment for patients with T-scores of -2.5 or less, patients with prior history of fragility fractures, or patients with 10-year probability of greater than 3% at hips or greater than 20% of suffering major osteoporotic fractures. Recommend continued optimization of calcium and vitamin D intake through dietary means and/or supplementation and regular exercise. Repeat scan recommended in 3-5 years. Barb Abernathy PA-C [facility] 06/16/2021 Narrative 06/16/2021 10:10 AM CDT For Patients: Results are automatically released to your [facility] ([employer]) account once available, in compliance with federal regulations. This means that you may see your results before your provider has had a chance to review them. Please allow 2-3 business days for your provider to comment on the results. XR DXA Bone Mineral Density (BMD) EXAM LOCATION: [facility] [address] [facility] [address] PATIENT NAME: Kendy Kirkland DATE OF : 1950 EXAM DATE: 06/09/2021 REQUESTING PROVIDER: Radha Stockton MD GENDER AT : female HEIGHT: 5' 1.42 (06/02/2021) WEIGHT: ??121 lb 9.6 oz (06/02/2021) MENOPAUSAL STATUS: Postmenopausal RACE/ETHNICITY: White RISK FACTORS: Weight < 127 lbs. and White Race CURRENT MEDICATION FOR BONE LOSS: NONE INDICATION: Follow-up of existing osteopenia COMPARISON DATE(S): 2017 DXA scans are compared to prior studies for a patient only when the two (or more) studies were performed on the same scanner. It is not possible to compare data generated on one scanner to data from another because there are not standards in DXA equipment. This applies even if the two scanners are made by the same strip winder. PROCEDURE: Dual-energy x-ray absorptiometry performed with routine technique. Reporting is completed in the form of a T-score. The T-score represents the standard deviation from peak bone mass based on young healthy adult. A Z-score is used for diagnosis in premenopausal women, and for men under the age of 50. FINDINGS: RESULT LUMBAR SPINE L1 - L4 BMD: 1.093 g/cm2 T-Score: - 0.7 Z-Score: + 1.3 Comparison to most recent scan ??in 2017: ??Decrease -0.8%. ?? RESULT FEMORAL NECK Right Femoral Neck T-Score: - 1.3 Left Femoral Neck T-Score: - 0.9 ?? Right Femoral Neck Z-Score: + 0.6 Left Femoral Neck Z-Score: + 1.0 RESULT TOTAL HIP Total T-Score: - 0.6 Total Z-Score: + 1.0 Comparison to most recent scan ??in 2017: ??Decrease -0.8%. ?? WHO criteria: Normal: T-score at or above -1 SD Osteopenia: T-score between -1.1 and -2.4 SD Osteoporosis: T-score at or below -2.5 SD FRAX RISK CALCULATION (USED FOR OSTEOPENIA ONLY): 10-year probability of major osteoporotic fracture: 8.9%. 10-year probability of hip fracture: 1.1%. Radha Stockton MD DEXA * LIPID PANEL W REFLEX MEASURED LDL (12/26/2020 3:07 PM SCIENTIFIC PROCESS OPERATOR) [facility] CHOLESTEROL,TOTAL 155 100 - 199 mg/dL 12/26/2020 10:26 PM SCIENTIFIC PROCESS OPERATOR [facility] TRIGLYCERIDES 72 <150 mg/dL 12/26/2020 10:26 PM SCIENTIFIC PROCESS OPERATOR [facility] HDL CHOLESTEROL 45 >40 mg/dL 10:26 PM SCIENTIFIC PROCESS OPERATOR [facility] NON-HDL CHOLESTEROL 110 <145 mg/dl 12/26/2020 10:26 PM SCIENTIFIC PROCESS OPERATOR [facility] CHOL/HDL RATIO 3.44 <4.50 12/26/2020 10:26 PM SCIENTIFIC PROCESS OPERATOR [facility] LDL CHOLESTEROL 96 <=130 mg/dL 12/26/2020 10:26 PM SCIENTIFIC PROCESS OPERATOR [facility] PROVIDER ORDERED STATUS RANDOM 12/26/2020 10:26 PM SCIENTIFIC PROCESS OPERATOR [facility] Blood BLOOD SPECIMEN / Unknown Venipuncture / Unknown 12/26/2020 3:07 PM SCIENTIFIC PROCESS OPERATOR 12/26/2020 3:07 PM SCIENTIFIC PROCESS OPERATOR Nicole HAMEED CHEMISTRY [facility] [address] [place] [address], [place] * ANTI HCV [61744.2] (02/17/2018 4:26 PM CDT) HEPATITIS C ANTIBODY Non-React rajiv Non-React rajiv 02/18/2018 2:40 PM CDT [facility] Comment:Antibodies to HCV no t detected; does not exclude the possibility of exposure to HCV. Blood BLOOD SPECIMEN / Unknown Venipuncture / Unknown 02/17/2018 4:26 PM CDT 02/17/2018 4:26 PM CDT Radha Stockton MD SEND OUTS [facility] [employer] [facility] [address] [place] [address], from Last 3 Months or Most Recently Relevant to Health Maintenance Care Teams Patient Support Associate Relationship Specialty Start Date End Date Nancy Camara MD [address] [place] [address] PCP - General Family Practice 03/08/23 Antonio Holbrook MD [address] [address] Surgery - Urology 07/02/22 Vinod Saavedra [facility] [place] [address] Gastroenterology 07/02/22 Inés Rust MD [address] [place] [address] Obstetrics and Gynecology 07/02/22
[2024-02-14 16:20] LABS: Bacterial Vaginosis* Negative (Negative); Candida glab/krus NOT DETECTED (No Detected); Candida species NOT DETECTED (No Detected); Trichomonas vaginalis NOT DETECTED (No Detected)
== END 2024-02-14 09:56 | disposition home or self-care (01) ==
PROVIDERS: PCP Family Medicine; Visit Provider Obstetrics & Gynecology
DX: N94.819 Vulvodynia, unspecified (principal); R82.90 Unspecified abnormal findings in urine
CPT/HCPCS: 81513; 87086; 87481; 87661

== ENCOUNTER 2024-02-17 06:49 | Day surgery (SDC) | payer MEDICARE, OTHER, SELFPAY ==
[2024-02-17] VITALS (17 sets, daily range): BP systolic 93–145; BP diastolic 49–70; PULSE 62–85; RESP 14–16; TEMP 36–36.6; O2SAT 90–98; BMI 25.0
--- OUTSIDE RECORDS SUMMARY | 2024-02-17 06:51 | XMS_ITS | Clinical Summary ---
Author Name Unknown Organization [employer] [employer] Address [place], [place] [address] Care Team Providers Care Marker Machine Name Role Phone Antonio Holbrook MD Unavailable [...] solution (FLONASE)Indicatio ns:Rhinitis, unspecified type Inhale 1 [place] into both nostrils 2 times daily. 48 g 11 05/29/2020 Active cetirizine (ZYRTEC) 10 mg tabletIndications: Rhinitis, unspecified type Take 1 tablet by mouth once daily. 90 tablet 05/29/2020 Active estradioL (VAGIFEM) 10 mcg tab vaginal tablet 08/15/2022 Active gabapentin 10 % crpk Apply topically to affected area(s). Active lisinopriL (PRINIVIL; ZESTRIL) 10 mg tabletIndications: [...] 08/20/2023 Active ciprofloxacin HCl (CIPRO) 500 mg tabletIndications: UTI (urinary tract infection), uncomplicated Take 1 Tablet (500 mg) by mouth two times daily for 5 days. 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 [place] workup 09/2011 negative for GERD - felt to be visceral hypersensitivity Hypertensive LES but normal swallow EGD 05/2016 mild gastritis normal esophagus and duodenum Encounters Date Type Department Care Team Description 02/16/2024 1:55 PM CDT Preop Visit [facility] [address] [place] [address] Mami Moore DO Pre-Op Exam (02/17/[address] [facility] [address] Cline ) 02/16/2024 Travel 02/11/2024 Telephone [facility] [address] [place] [address] Nancy Camara MD Follow Up (UTI Questions) 02/09/2024 11:30 AM CDT Orders Only [facility] [address] [place] [address] Lab [facility] Lab 02/09/2024 Travel 02/02/2024 10:25 AM CDT Office Visit [facility] [address] Nancy Camara MD Urinary Problem (frequency, x3 nightly, pressure of need to go) 02/02/2024 Travel 01/20/2024 9:45 AM CDT Orders Only [facility] [place] [address] [facility] Lab 01/20/2024 Travel 01/18/2024 Telephone [facility] [address] [facility] [address] Nancy Camara MD Lab 01/14/2024 10:20 AM CDT Preop Visit [facility] [place] [address] Nancy Camara MD Preoperative Exam (01/27/2024, Right rotator cuff, Dr. Clifton, [facility]) 01/14/2024 Travel 11/30/2023 11:35 AM SOCIAL MEDIA MARKETING SPECIALIST Office Visit [facility] [place] [address] Cassy Coffey PA Fatigue (Chills. //COVID-19- positive around november 03. ) 11/30/2023 Travel 11/24/2023 Orders Only [facility] Scanner 1 scan: (1-Ord) [facility], MR SHOULDER RT WO CON, 11/24/2023 from Last 3 Months Immunizations Name Administration [...] Sign Reading Time Taken Comments Blood Pressure 124/60 02/16/2024 2:41 PM CDT Pulse 70 02/16/2024 2:07 PM CDT Temperature 36.9 ??C (98.4 ??F) 04/20/2023 1:50 PM CD T Respiratory Rate 20 04/10/2023 12:56 PM CDT Oxygen Saturation 100% 02/16/2024 2:07 PM CDT Inhaled Oxygen Concentration - - Weight 60.1 kg (132 lb 8 oz) 02/16/2024 2:07 PM CDT Height 156.5 cm (5' 1.61) 01/14/2024 10:19 AM C DT Body Mass Index 24.54 01/14/2024 10:19 AM CDT Plan of Treatment [...] WITH AUTO DIFFERENTIAL Routine 11/30/2023 12:37 PM SOCIAL MEDIA MARKETING SPECIALIST Chills Fatigue, unspecified type TSH WITH REFLEX Routine 11/30/2023 12:37 PM SOCIAL MEDIA MARKETING SPECIALIST Fatigue, unspecified type FERRITIN Routine 11/30/2023 12:37 PM SOCIAL MEDIA MARKETING SPECIALIST Fatigue, unspecified type Iron deficiency anemia, unspecified iron deficiency anemia type CBC WITH AUTO DIFFERENTIAL Routine 11/30/2023 12:37 PM SOCIAL MEDIA MARKETING SPECIALIST Chills Fatigue, unspecified type VITAMIN D 25 (DEFICIENCY) Routine 11/30/2023 12:37 PM SOCIAL MEDIA MARKETING SPECIALIST Fatigue, unspecified type Other obesity INFLUENZA A/B PCR Routine 11/30/2023 11: 38 AM SOCIAL MEDIA MARKETING SPECIALIST Chills SCAN-MRI INTERPRETATION 11/24/2023 12:00 AM SOCIAL MEDIA MARKETING SPECIALIST XR MAMMO BILAT SCREENING Routine 07/05/2023 9:51 AM CDT Visit for screening mammogram COLONOSCOPY 11/12/2022 10:51 AM SOCIAL MEDIA MARKETING SPECIALIST XR DXA BONE DENSITY 2 SITES AXIAL Routine 06/09/2021 9:24 AM CDT Osteopenia, unspecified location Other specified disorders of bone density and structure, multiple sites LIPID PANEL W REFLEX MEASURED LDL Routine 12/26/2020 3:07 PM SOCIAL MEDIA MARKETING SPECIALIST Screening for lipid disorders ANTI HCV Routine 02/17/2018 4:26 PM CDT Need for hepatitis C screening test from Last 3 Months or Most Recently Relevant to Health Maintenance Results * (ABNORMAL) URINALYSIS MICROSCOPIC (02/09/2024 11:28 AM CDT) Only the most recent of2 resultswithin the time period is included. RBC 3-5(A) 0-2, None Seen /HPF 02/09/2024 11:50 AM CDT [facility] WBC 3-5 0-2, 3-5, None Seen /HPF 02/09/2024 11:50 AM CDT [facility] BACTERIA Many(A) None Seen, Rare, Few Bacteria/H PF 02/09/2024 11:50 AM CDT [facility] EPITHELIAL CELLS Few None Seen, Few Epi/HPF 02/09/2024 11:50 AM CDT [facility] Urine URINE SPECIMEN / Unknown Non-Blood / Unknown 02/09/2024 11:28 AM CDT 02/09/2024 11:28 AM CDT Nancy Camara MD URINE [facility] [address] [place] [address], * (ABNORMAL) UA W/ SEDIMENT EXAM REFLEXED PER CRITERIA (02/09/2024 11:28 AM CDT) Only the most recent of2 resultswithin the time period is included. COLOR Yellow Yellow Color 02/09/2024 11:49 AM CDT [facility] CLARITY Clear Clear Clarity 02/09/2024 11:49 AM CDT [facility] SPECIFIC GRAVITY,URINE 1.015 1.010, 1.015, 1.020, 1.025 02/09/2024 11:49 AM CDT [facility] PH,URINE 5.5 6.0, 7.0, 8.0, 5.5, 6.5, 7.5, 8.5 02/09/2024 11:49 AM CDT [facility] UROBILINOGEN, QUALITATIVE Normal Normal EU/dl 02/09/2024 11:49 AM CDT [facility] PROTEIN, URINE Negative Negative mg/dL 02/09/2024 11:49 AM CDT [facility] GLUCOSE, URINE Negative Negative mg/dL 02/09/2024 11:49 AM CDT [facility] KETONES,URINE Negative Negative mg/dL 02/09/2024 11:49 AM CDT [facility] BILIRUBIN,URI NE Negative Negative 02/09/2024 11:49 AM CDT [facility] OCCULT BLOOD,URINE Trace(A) Negative 02/09/2024 11:49 AM CDT [facility] NITRITE Positive(A) Negative 02/09/2024 11:49 AM CDT [facility] LEUKOCYTE ESTERASE Negative Negative 02/09/2024 11:49 AM CDT [facility] Urine URINE SPECIMEN / Unknown Non-Blood / Unknown 02/09/2024 11:28 AM CDT 02/09/2024 11:28 AM CDT Nancy Camara MD URINE [facility] [address] [place] [address], * TRICHOMONAS, CHAIM, AND BACTERIAL VAGINOSIS BY JOSE ANTONIO (02/02/2024 11:31 AM CDT) CHAIM SPECIES Negative Negative 2:33 AM CDT [facility] CHAIM GLABRATA Negative Negative 02/03/2024 2:33 AM CDT [facility] TRICHOMONAS VVA Negative Negative 2:33 AM CDT [facility] BACTERIAL VAGINOSIS Negative Negative 02/03/2024 2:33 AM CDT [facility] Other VAGINAL SWAB / Unknown Non-Blood / Unknown 02/02/2024 11:31 AM CDT 02/02/2024 12:11 PM CDT Nancy Camara MD MICROBIOLOGY [facility] [address] [place] [address], * URINE CULTURE (02/02/2024 10:24 AM CDT) CULTURE <10,000 CFU/mL multiple organisms 02/04/2024 11:04 AM CDT [facility] Urine URINE SPECIMEN / Unknown Non-Blood / Unknown 02/02/2024 10:24 AM CDT 02/02/2024 10:34 AM CDT Nancy Camara MD MICROBIOLOGY Performing Organization Address City/[facility]/ZIP Co de Phone Number [facility] [address] [place] [address], * POTASSIUM (01/20/2024 9:37 AM CDT) Only the most recent of2 resultswithin the time period is included. POTASSIUM 3.9 3.5 - 5.1 mmol/L 01/20/2024 4:57 PM CDT [facility] Blood BLOOD SPECIMEN / Unknown Venipuncture / Unknown 01/20/2024 9:37 AM CDT 01/20/2024 9:38 AM CDT Nancy Camara MD CHEMISTRY Performing Organization Address [facility]UST Co de Phone Number [facility] [address] [place] [address], * CBC WITH AUTO DIFFERENTIAL (11/30/2023 12:37 PM SOCIAL MEDIA MARKETING SPECIALIST) WHITE BLOOD COUNT 8.2 4.5 - 11.0 thou/cu mm 11/30/2023 12:41 PM SOCIAL MEDIA MARKETING SPECIALIST [facility] RED BLOOD COUNT 4.62 4.00 - 5.20 mil/cu mm 11/30/2023 12:41 PM SOCIAL MEDIA MARKETING SPECIALIST [facility] HEMOGLOBIN 13.3 12.0 - 16.0 g/dL 11/30/2023 12:41 PM SOCIAL MEDIA MARKETING SPECIALIST [facility] HEMATOCRIT 40.9 33.0 - 51.0 % 11/30/2023 12:41 PM SOCIAL MEDIA MARKETING SPECIALIST [facility] MCV 89 80 - 100 fL 11/30/2023 12:41 PM SOCIAL MEDIA MARKETING SPECIALIST [facility] MCH 28.8 26.0 - 34.0 pg 11/30/2023 12:41 PM SOCIAL MEDIA MARKETING SPECIALIST [facility] MCHC 32.5 32.0 - 36.0 g/dL 11/30/2023 12:41 PM [facility] RDW 14.0 11.5 - 15.5 % 11/30/2023 12:41 PM [facility] PLATELET COUNT 259 140 - 440 thou/cu mm 11/30/2023 12:41 PM [facility] MPV 10.4 6.5 - 11.0 fL 11/30/2023 12:41 PM [facility] % NEUT 67.4 % 11/30/2023 12:41 PM SOCIAL MEDIA MARKETING SPECIALIST [facility] % LYMPH 24.6 % 11/30/2023 12:41 PM [facility] % MONO 6.4 % 11/30/2023 12:41 PM [facility] % EOS 1.2 % 11/30/2023 12:41 PM [facility] % BASO 0.4 % 11/30/2023 12:41 PM [facility] ABSOLUTE NEUTROPHILS 5.6 1.7 - 7.0 thou/cu mm 11/30/2023 12:41 PM [facility] ABSOLUTE LYMPHOCYTES 2.0 0.9 - 2.9 thou/cu mm 11/30/2023 12:41 PM [facility] ABSOLUTE MONOCYTES 0.5 <0.9 thou/cu mm 11/30/2023 12:41 PM [facility] ABSOLUTE EOSINOPHILS 0.1 <0.5 thou/cu mm 11/30/2023 12:41 PM [facility] ABSOLUTE BASOPHILS 0.0 <0.3 thou/cu mm 11/30/2023 12:41 PM [facility] Blood BLOOD SPECIMEN / Unknown Venipuncture / Unknown 11/30/2023 12:37 PM SOCIAL MEDIA MARKETING SPECIALIST 11/30/2023 12:37 PM SOCIAL MEDIA MARKETING SPECIALIST Cassy HAMEED HEMATOLOGY [facility] [address] [place] [address], [place] [phone] * TSH WITH REFLEX (11/30/2023 12:37 PM SOCIAL MEDIA MARKETING SPECIALIST) TSH 1.33 0.27 - 4.20 uIU/mL 11/30/2023 10:34 PM SOCIAL MEDIA MARKETING SPECIALIST [facility] Blood BLOOD SPECIMEN / Unknown Venipuncture / Unknown 11/30/2023 12:37 PM SOCIAL MEDIA MARKETING SPECIALIST 11/30/2023 12:37 PM SOCIAL MEDIA MARKETING SPECIALIST Narrative [facility] - 11/30/2023 10:34 PM SOCIAL MEDIA MARKETING SPECIALIST In Adults, TSH values between 5.00 and 10.00 uIU/ml do not necessarily indicate the presence of Hypothyroidism. Correlation with clinical findings such as presence of goiter and/or Thyroperoxidase (TPO) Antibody may be helpful. For more information please refer to DELROY 2004; 291: 228-238. Cassy HAMEED CHEMISTRY Performing Organization Address [facility] Co de Phone Number [facility] [address] [place] [address], * VITAMIN D 25 (DEFICIENCY) (11/30/2023 12:37 PM SOCIAL MEDIA MARKETING SPECIALIST) Pathologist [facility] VITAMIN D TOTAL 42.5 20.0 - 80.0 ng/mL 11/30/2023 10:34 PM SOCIAL MEDIA MARKETING SPECIALIST [facility] Blood BLOOD SPECIMEN / Unknown Venipuncture / Unknown 11/30/2023 12:37 PM SOCIAL MEDIA MARKETING SPECIALIST 11/30/2023 12:37 PM SOCIAL MEDIA MARKETING SPECIALIST Narrative [facility] - 11/30/2023 10:34 PM SOCIAL MEDIA MARKETING SPECIALIST ? Vitamin D Status Deficiency: ? <20 ng/mL Insufficiency: ?20-29 ng/mL Sufficiency: ?30-80 ng/mL Possible Toxicity: ??>80 ng/mL Based on [place] of Medicine recommendations Biotin supplements may cause clinically significant interference for this test assay. ??If interference is suspected, it is strongly recommended that biotin is discontinued for at least one week prior to retesting. Cassy HAMEED SEND OUTS Performing Organization Address City/[facility]/ZIP Co de Phone Number [facility] [address] [place] [id number], * FERRITIN (11/30/2023 12:37 PM SOCIAL MEDIA MARKETING SPECIALIST) FERRITIN 97.3 15.0 - 150.0 ng/mL 11/30/2023 10:34 PM SOCIAL MEDIA MARKETING SPECIALIST [facility] Blood BLOOD SPECIMEN / Unknown Venipuncture / Unknown 11/30/2023 12:37 PM SOCIAL MEDIA MARKETING SPECIALIST 11/30/2023 12:37 PM SOCIAL MEDIA MARKETING SPECIALIST Cassy HAMEED CHEMISTRY Performing Organization Address City/[facility]/ZIP Co de Phone Number [facility] [address] [place] [address], * INFLUENZA A/B PCR (11/30/2023 11:38 AM SOCIAL MEDIA MARKETING SPECIALIST) INFLUENZA A PCR Negative 12/01/2023 1:48 AM SOCIAL MEDIA MARKETING SPECIALIST [facility] INFLUENZA B PCR Negative 12/01/2023 1:48 AM SOCIAL MEDIA MARKETING SPECIALIST [facility] Other SPECIMEN FROM NASAL FOSSAE / Unknown Non-Blood / Unknown 11/30/2023 11:38 AM SOCIAL MEDIA MARKETING SPECIALIST 11/30/2023 12:05 PM SOCIAL MEDIA MARKETING SPECIALIST Cassy HAMEED MICROBIOLOGY Performing Organization Address City/[facility] Co de Phone Number [facility] [address] [place] [address], * SCAN-MRI INTERPRETATION (11/24/2023 12:00 AM SOCIAL MEDIA MARKETING SPECIALIST) Anatomical Region Laterality Modality Other Scanner OTHER [...] health care provider. XR MAMMO BILAT SCREENING [[id number]] CLINICAL HISTORY: ??This is an asymptomatic 73 y.o. patient. INDICATION FOR EXAM: Mammogram Screening. TECHNIQUE: CC & MLO views were obtained. ??This study was evaluated with the assistance of Computer-Aided Detection. COMPARISON FILM: Yes 06/08/22 [facility] 06/02/21 [facility] FINDINGS: ??The breasts have scattered areas of fibroglandular density. There are no dominant masses, suspicious micro calcifications or areas of architectural distortion. Nancy Camara MD MAMMO * COLONOSCOPY (11/12/2022 10:51 AM SOCIAL MEDIA MARKETING SPECIALIST) 11/12/2022 10:5 1 AM SOCIAL MEDIA MARKETING SPECIALIST Narrative Transcriptions Vinod Saavedra MD - 11/12/2022 11:34 AM CST Patient Name: Kendy Kirkland Procedure Date: 11/12/2022 Gender: Female Date of : 1950 Admit Type: Outpatient Procedure: Colonoscopy Proceduralist: Vinod Saavedra MD , Cassy Carrasquillo, RN (Nurse), Linsey Hill (Nurse) Indications/Pre-Op Diagnosis: [...] adequate candidate for conscious sedation. The endoscope [id number] was passed through the anus and advanced [...] 10:51 AM Procedure Code(s): --- Professional --- 01240, Colonoscopy, flexible; diagnostic, including collection of specimen(s) bybrushing or washing, when performed (separateprocedure) Diagnosis Code(s): --- Professional --- Z86.010, Personal history of colonicpolyps K57.30, Diverticulosis of large intestine without perforation or abscess withoutbleeding CPT copyright 2020 [employer]. All rights reserved. The codes documented in this report are preliminary and upon personal lines advisor reviewmay be revised to meet current compliance [...] recommended in 3-5 years. Barb Abernathy PA-C [facility] 06/16/2021 Narrative 06/16/2021 10:10 AM CDT For Patients: Results are automatically released to your [employer] [facility] ([facility]) account once available, in compliance with federal regulations. This means that you may see your results before your provider has had a chance to review them. Please allow 2-3 business days for your provider to comment on the results. XR DXA Bone Mineral Density (BMD) EXAM LOCATION: [address] [address] PATIENT NAME: Kendy Kirkland DATE OF : 1950 EXAM DATE: 06/09/2021 REQUESTING PROVIDER: Radha Stockton MD GENDER AT : female HEIGHT: 5' 1.42 (06/02/2021) WEIGHT: ??121 lb 9.6 oz (06/02/2021) MENOPAUSAL STATUS: Postmenopausal RACE/ETHNICITY: White RISK FACTORS: Weight < 127 lbs. and White Race CURRENT MEDICATION FOR BONE LOSS: NONE INDICATION: Follow-up of existing osteopenia COMPARISON DATE(S): 2016 DXA scans are compared to prior studies for a patient only when the two (or more) studies were performed on the same scanner. It is not possible to compare data generated on one scanner to data from another because there are not standards in DXA equipment. This applies even if the two scanners are made by the same house registry rn. PROCEDURE: Dual-energy x-ray absorptiometry performed with routine [...] W REFLEX MEASURED LDL (12/26/2020 3:07 PM SOCIAL MEDIA MARKETING SPECIALIST) [facility] CHOLESTEROL,TOTAL 155 100 - 199 mg/dL 12/26/2020 10:26 PM SOCIAL MEDIA MARKETING SPECIALIST [facility]ATORY TRIGLYCERIDES 72 <150 mg/dL 12/26/2020 10:26 PM SOCIAL MEDIA MARKETING SPECIALIST [facility] HDL CHOLESTEROL 45 >40 mg/dL 10:26 PM SOCIAL MEDIA MARKETING SPECIALIST [facility] NON-HDL CHOLESTEROL 110 <145 mg/dl 12/26/2020 10:26 PM [facility] CHOL/HDL RATIO 3.44 <4.50 12/26/2020 10:26 PM [facility] LDL CHOLESTEROL 96 <=130 mg/dL 12/26/2020 10:26 PM SOCIAL MEDIA MARKETING SPECIALIST [facility] PROVIDER ORDERED STATUS RANDOM 12/26/2020 10:26 PM SOCIAL MEDIA MARKETING SPECIALIST [facility] Blood BLOOD SPECIMEN / Unknown Venipuncture / Unknown 12/26/2020 3:07 PM SOCIAL MEDIA MARKETING SPECIALIST 12/26/2020 3:07 PM SOCIAL MEDIA MARKETING SPECIALIST Nicole HAMEED CHEMISTRY [facility] [address] [place] [address], * ANTI HCV [17455.2] (02/17/2018 4:26 PM CDT) Pathologist [facility] HEPATITIS C ANTIBODY Non-React rajiv Non-React rajiv 02/18/2018 2:40 PM CDT [facility] Comment:Antibodies to HCV no t detected; does not exclude the possibility of exposure to HCV. Blood BLOOD SPECIMEN / Unknown Venipuncture / Unknown 02/17/2018 4:26 PM CDT 02/17/2018 4:26 PM CDT Radha Stockton MD SEND OUTS [facility] [address] [place] [address], from Last 3 Months or Most Recently Relevant to Health Maintenance Care Teams Marker Machine Relationship Specialty Start Date End Date Nancy Camara MD [address] [place] [address] PCP - General Family Practice 03/08/23 Antonio Holbrook MD [address] [place] [address] Surgery - Urology 07/02/22 Vinod Saavedra MD [address] [place] [address] Gastroenterology 07/02/22 Inés Rust MD [address] [place] [address] Obstetrics and Gynecology 07/02/22
[2024-02-17] MEDS: ACETAMINOPHEN 500 MG TABLET 1000 MG PO (07:05)
[2024-02-17] MEDS: OXYCODONE (CR) 10 MG TAB.ER.12H PO (07:05)
[2024-02-17] MEDS: LACTATED RINGERS 1000 ML 1,000 ML 100 ML IV ×2 (07:10→11:15)
[2024-02-17] MEDS: SODIUM CHLORIDE 0.9 % (FLUSH) 10 ML SYRINGE IVF (07:10)
[2024-02-17] MEDS: MIDAZOLAM HCL 1 MG/ML inj IVP (08:37)
[2024-02-17] MEDS: fentaNYL 100 MCG/2 ML inj IVP (08:37)
--- NOTE | 2024-02-17 08:46 | SUR.PREOP ---
TIME?OUT:?0837 PT/Andrei CONDE RN/Rin HWANG MDA?VERIFICATION?OF?SURGICAL?SITE,?PROCEDURE,?AND?CONSENT OBTAINED?PRIOR?TO?INVASIVE?PROCEDURE.
[2024-02-17] MEDS: EPINEPHrine 1 MG in SODIUM CHLORIDE IRRIG SOLUTION 3,000 ML 9003 MG IRRIGATION ×4 (09:40→10:10)
--- NOTE | 2024-02-17 10:50 | PM.ORPRC ---
Procedure Note Date of procedure: 02/17/24 Procedure: PREOPERATIVE DIAGNOSIS: Right shoulder rotator cuff tear, AC joint arthrosis POSTOPERATIVE DIAGNOSIS: Right shoulder rotator cuff tear, AC joint arthrosis NAME OF OPERATION: Right shoulder arthroscopic subacromial decompression, distal clavicle excision, mini open rotator cuff repair SURGEON: Fan Cline MD POWER SWEEPER OPERATOR: Alisson Lynch PA-C ANESTHESIA: Supraclavicular block plus general endotracheal ESTIMATED BLOOD LOSS: 5 mL COMPLICATIONS: None SPECIMENS: None DRAINS: None PREOPERATIVE ANTIBIOTICS: Ancef 1 g INDICATIONS: The patient is a 74-year-old with a history of right shoulder pain secondary to the above diagnoses. Despite appropriate non operative management, they continue to have symptoms. Operative intervention was recommended. The risks, benefits and expected outcomes were discussed in detail. These included but were not limited to: Infection, bleeding, injury to blood vessel or nerve, venous thromboembolism. All questions were answered to their satisfaction. PROCEDURE: A supraclavicular block was placed by Anesthesia. General anesthesia was administered. The patient was placed in the high beach chair position. The right shoulder was prepped and draped in the usual sterile fashion. The glenohumeral joint was infiltrated with 20 mL of normal saline with epinephrine. The posterior portal was established, the arthroscope was introduced. The anterior portal was established, Diagnostic arthroscopy was performed with findings as follows: The biceps and biceps anchor are intact. The anterior, posterior and superior labrum are normal. Articular surfaces on the humeral head and glenoid are normal. There are no loose bodies. There is a high-grade partial-thickness, near full-thickness tear of the anterior aspect of the supraspinatus. The arthroscope was placed in the subacromial space, the lateral portal was established. The Arthrex [place] was used to dissect the acromion free. The CA ligament was recessed off the anterior acromion, the AC joint was exposed. The acromioplasty was performed with the bur in the posterior portal. The bur was then placed in the lateral portal and the lateral and anterior aspect of the acromion were resected. The undersurface of the distal clavicle was resected through the lateral portal. Finally, the bur was placed in the anterior portal and the remainder of the distal clavicle was resected for a total of 10 mm. An accessory anterolateral portal was placed. The subacromial/subdeltoid bursa was aggressively debrided. There is a longitudinal split in the supraspinatus from the musculotendinous junction, and to near the insertion. Arthroscopic instruments were removed. The accessory anterolateral portal was extended proximally and distally, subcutaneous dissection was taken with electrocautery to the deltoid. The deltoid was divided in line with its fibers. The static retractor was placed. The subacromial/subdeltoid bursa was debrided with the Salcedo scissors. The insertion of the supraspinatus is quite tendinopathic and appears necrotic. The few insertional fibers of the supraspinatus on the tuberosity were debrided with the scalpel. Tendinopathic tissue was aggressively debrided. The greater tuberosity was debrided to punctate bleeding bone using the Lempert rongeur. A # 2 FiberWire was placed as a margin convergence suture. This was tied and nicely reapproximates the longitudinal portion of the tear. A 5.5 mm corkscrew anchor was placed in the greater tuberosity. A single limb of each suture was passed through the anterior and posterior aspect of the tear, resulting in 2 margin convergence sutures to bone. Finally, we placed a FiberLink in the leading edge of anterior portion of the tear. These and FiberTape sutures on the corkscrew anchor were placed in a single 4.75 mm lateral row SwiveLock anchor. This provides a reasonable repair of the rotator cuff given how diseased the tissue was. The wound was irrigated with normal saline off the pump. The deltoid was repaired with an 0 Vicryl in an interrupted [id number] fashion. Subcutaneous tissues were closed with a 3-0 Vicryl. Skin was closed with a 3-0 Monocryl in a subcuticular fashion. A dry dressing and sling were applied. Sponge and needle counts were correct x2. The patient tolerated the procedure well. There were no apparent complications. They were carefully transferred to the hospital bed and taken to the postanesthesia care unit in satisfactory condition. PLAN: The patient will be discharged to home. No active range of motion of the shoulder will be allowed for 6 weeks postoperatively. They can work on active range of motion of the elbow, wrist and fingers. They will follow up in the office next week for a wound check and an AP and transscapular Y-view of the shoulder prior to being seen.
--- NOTE | 2024-02-17 11:16 | W.ANESCHARGE ---
Anesthesia Charges Start Date/Time Anesthesia Start Date: 02/17/24 Anesthesia Start Time: 09:07 Stop Date/Time Anesthesia Stop Date: 02/17/24 Anesthesia Stop Time: 11:19 Summary Extremes of Age - Over 70 or under 1: MDA
--- NOTE | 2024-02-17 11:17 | P.NB_ITS ---
Nerve Block Nerve Block Time Seen by Provider: 08:40 Date Seen: 02/17/24 Type of block requested by surgeon for post-operative analgesia: supraclavicular Side: right Time out performed: Yes Verification of patient name: Yes Verification of date of : Yes Site marking: site marked Name of person performing procedure: Timoteo Continuous monitoring Was continuous monitoring of O2 sat, B/P, color television console monitor, recorded every 15 minutes?: Yes Procedure Checklist: sterile prep, needles and gloves Ultrasound guided. Images saved: Yes Medications given in 5ml increments after negative aspiration: Ropivicaine %: 0.5 mL: 20 Needle gauge: 22 Decadron (mg): 10 Precedex (mcg): 25 Patient tolerated procedure well: Yes Block Charges Block Charge (with Pro Fee): Brachial Plexus Use of Ultrasound Machine for Block: Yes- US Guidance/pain block
--- NOTE | 2024-02-17 11:20 | W.ANESCHARGE ---
Anesthesia Charges Start Date/Time Anesthesia Start Date: 02/17/24 Anesthesia Start Time: 09:07 Stop Date/Time Anesthesia Stop Date: 02/17/24 Anesthesia Stop Time: 11:19 Summary Extremes of Age - Over 70 or under 1: SEARCH ENGINE OPTIMIZATION MANAGER
== END 2024-02-17 13:58 | disposition home or self-care (01) ==
PROVIDERS: PCP Family Medicine; Visit Provider Orthopaedic Surgery
PROC: (CPT 23412; principal; 2024-02-17 09:00)
DX: M75.101 Unspecified rotator cuff tear or rupture of right shoulder, not specified as traumatic (principal); M19.011 Primary osteoarthritis, right shoulder; G89.18 Other acute postprocedural pain
CPT/HCPCS: 29824; 29826; 23412; 01630; 64415; 76942; 99100; A9270; C1713; J0171; J0330; J1100; J2250; J2371; J2405; J2704; J2710; J2795; J3010; J7120

== ENCOUNTER 2024-04-14 11:21 | Outpatient (CLI) | payer MEDICARE, OTHER, SELFPAY ==
--- OUTSIDE RECORDS SUMMARY | 2024-04-14 11:24 | XMS_ITS | Encounter Summary ---
Author Organization [facility] Address [address] [place] [address] Care Team Providers Care Halftone Operator Name Role Phone Unavailable Primary Care Provider Unavailabl e Reason for Visit * Reason Comments Incomplete Bladder Emptying * Appointment Request (Routine) - Closed Specialty Diagnoses / Procedures Referred By Louise jc Referred To Contact Urology Referral ID Status Reason Start Date Expiration Date Visits Re quested Visits Authorized [id number] Closed 03/07/2024 03/07/2025 1 1 Encounter Details Date Type Department Care Team (Late st Contact Info) Description 04/10/2024 11:00 AM CDT Comprehensive Visit Department of Urology in [place] [address] [place] [id number] Gale Calzada, DELI SLICER, C.N.P. [address] [phone] Social History Tobacco Use Types Packs/Day Years Used Date Smoking Tobacco: Never Nutrition Answer Date Recorded Nutrition: EVOO Fat Source Unknown 12/27 Nutrition: Servings of Fruits/Vegetables per Day Not on file 12/27/2020 Dental Answer Date Recorded Dental: Regular Dentist Unknown 12/28/19 21 Sex and Gender Information Value Date Recorded Sex Assigned at Not on file Gender Identity Not on file Sexual Orientation Not on file documented as of this encounter Plan of Treatment Not on file documented as of this encounter Visit Diagnoses Not on filedocumented in this encounter
--- OUTSIDE RECORDS SUMMARY | 2024-04-14 11:24 | XMS_ITS | Clinical Summary ---
Author Organization [facility] Address [place], [place] [address] Care Team Providers Care Director Machine Name Role Phone Antonio Holbrook MD Unavailable [phone] Vinod Saavedra MD Unavailable Inés Rust MD Unavailable Nancy Camara MD Primary Care Provider [phone] Allergies Active Allergy Reactions Criticality Noted Date [...] solution (FLONASE)Indicatio ns:Rhinitis, unspecified type Inhale 1 Orange into both nostrils 2 times daily. 48 [...] area(s) one time if needed. 08/20/2023 Active Active Problems Problem Noted Date Diagnosed [...] Encounters Date Type Department Care Team Description 04/03/2024 Orders Only [facility] Scanner 1 scan: (1-Ord) [place], [place] UROGRAM, 04/03/2024 03/27/2024 Telephone [facility] [address] [place] [address] Nancy Camara MD order (creatinine lab) 02/16/2024 1:55 PM CDT Preop Visit [facility] [address] [facility] [address] Mami Moore DO Pre-Op Exam (02/17/[address] [facility] [address] Cline ) 02/16/2024 Travel 02/11/2024 Telephone [facility] [address] [facility] [place] [address] Nancy Camara MD Follow Up (UTI Questions) 02/09/2024 11:30 AM CDT Orders Only [facility] Zamzam Zaidierson Moe [place] [address] Lab, [facility] 02/09/2024 Travel 02/02/2024 10:25 AM CDT Office Visit [facility] [address] [facility] [place] [address] Nancy Camara MD Urinary Problem (frequency, x3 nightly, pressure of need to go) 02/02/2024 Travel 01/20/2024 9:45 AM CDT Orders Only [facility] [address] [place] [address] Lab, [facility] 01/20/2024 Travel 01/18/2024 Telephone [facility] [address] [facility] [place] [address] Nancy Camara MD Lab 01/14/2024 10:20 AM CDT Preop Visit [facility] [address] [facility] [place] [address] Nancy Camara MD Preoperative Exam (01/27/2024, Right rotator cuff, Dr. Clifton, [facility]) 01/14/2024 Travel from Last 3 Months Immunizations Name Administration Dates Next Due COVID-19 vaccine (Pfizer-Bio NTech 30mcg/0.3mL) 12YO+ BIVALENT PF, MDV 08/14/2022 COVID-19 vaccine (Pfizer-Bio NTech 30mcg/0.3mL) 12YO+ TITI-SUCROSE PF, MDV 02/18/2022 COVID-19 vaccine (Force Impact TechnologiesBio NTech 30mcg/0.3mL) PF, MDV 07/30/2021,12/21/2020,11/30/2020 Influenza, Inactivated [...] Outcome GA Total Labor Labor/2nd/3rd Weight Sex Type Anes PTL Meghna A1 A5 Name Clin Term Term Term Last Filed Vital Signs [...] 09/21/2022, 08/12/2020 Mammogram for age 45-75 07/05/2024 07/05/20, 06/08/2022, 06/02/2021, Additional history exists Medicare Wellness [...] Procedure Name Priority Date/Time Associated Diagnosis Comments SCAN-CT INTERPRETATION 12:00 AM CDT URINALYSIS MICROSCOPIC Routine 4 11:28 AM CDT Microscopic hematuria UA W/ [...] Routine 01/14/2024 11:16 AM CDT Pre-op exam XR MAMMO BILAT SCREENING Routine 07/05/2023 9:51 AM CDT Visit for screening mammogram COLONOSCOPY 11/12/2022 10:51 AM [facility] XR DXA BONE DENSITY 2 SITES AXIAL Routine 06/09/2021 9:24 AM CDT Osteopenia, unspecified location Other specified disorders of bone density and structure, multiple sites LIPID PANEL W REFLEX MEASURED LDL Routine 12/26/2020 3:07 PM [facility] Screening for lipid disorders ANTI HCV Routine 02/17/2018 4:26 PM CDT Need for hepatitis C screening test from Last 3 Months or Most Recently Relevant to Health Maintenance Results * SCAN-CT INTERPRETATION (04/03/2024 12:00 AM CDT) Anatomical Region Laterality Modality Other Scanner OTHER * (ABNORMAL) URINALYSIS MICROSCOPIC (02/09/2024 11:28 AM CDT) Only the most recent of2 resultswithin the time period is included. RBC 3-5(A) 0-2, None Seen /HPF 02/09/2024 11:50 AM CDT [facility] WBC 3-5 0-2, 3-5, None Seen /HPF 02/09/2024 11:50 AM CDT [facility] BACTERIA Many(A) None Seen, Rare, Few Bacteria/H PF 02/09/2024 11:50 AM CDT [facility] EPITHELIAL CELLS Few None Seen, Few Epi/HPF 02/09/2024 11:50 AM CDT [facility] Urine URINE SPECIMEN / Unknown Non-Blood / Unknown 02/09/2024 11:28 AM CDT 02/09/2024 11:28 AM CDT Nancy Camara MD URINE [facility] [address] [place] [address], [place] [phone] * (ABNORMAL) UA W/ SEDIMENT EXAM REFLEXED PER CRITERIA (02/09/2024 11:28 AM CDT) Only the most recent of2 resultswithin the time period is included. COLOR Yellow Yellow Color 02/09/2024 11:49 AM CDT [facility] CLARITY Clear Clear Clarity 02/09/2024 11:49 AM CDT [facility] SPECIFIC GRAVITY,URINE 1.015 1.010, 1.015, 1.020, 1.025 02/09/2024 11:49 AM CDT [facility] PH,URINE 5.5 6.0, 7.0, 8.0, 5.5, 6.5, 7.5, 8.5 02/09/2024 11:49 AM CDT [facility] UROBILINOGEN, QUALITATIVE Normal Normal EU/dl 02/09/2024 11:49 AM CDT [facility] PROTEIN, URINE Negative Negative mg/dL 02/09/2024 11:49 AM CDT [facility] GLUCOSE, URINE Negative Negative mg/dL 02/09/2024 11:49 AM CDT [facility] KETONES,URINE Negative Negative mg/dL 02/09/2024 11:49 AM CDT [facility] BILIRUBIN,URI NE Negative Negative 02/09/2024 11:49 AM CDT [facility] OCCULT BLOOD,URINE Trace(A) Negative 02/09/2024 11:49 AM CDT [facility] NITRITE Positive(A) Negative 02/09/2024 11:49 AM CDT [facility] LEUKOCYTE ESTERASE Negative Negative 02/09/2024 11:49 AM CDT [facility] Urine URINE SPECIMEN / Unknown Non-Blood / Unknown 02/09/2024 11:28 AM CDT 02/09/2024 11:28 AM CDT Nancy Camara MD URINE [facility] [address] [place] [address], * TRICHOMONAS, CHAIM, AND BACTERIAL VAGINOSIS BY JOSE ANTONIO (02/02/2024 11:31 AM CDT) CHAIM SPECIES Negative Negative 2:33 AM CDT [facility] CHAIM GLABRATA Negative Negative 02/03/2024 2:33 AM CDT [facility] TRICHOMONAS VVA Negative Negative 2:33 AM CDT [facility] BACTERIAL VAGINOSIS Negative Negative 02/03/2024 2:33 AM CDT [facility] Other VAGINAL SWAB / Unknown Non-Blood / Unknown 02/02/2024 11:31 AM CDT 02/02/2024 12:11 PM CDT Nancy Camara MD MICROBIOLOGY Performing Organization Address [facility]/ZIP Co de Phone Number [facility] [address] [place] [address], [place] * URINE CULTURE (02/02/2024 10:24 AM CDT) CULTURE <10,000 CFU/mL multiple organisms 02/04/2024 11:04 AM CDT [facility] Urine URINE SPECIMEN / Unknown Non-Blood / Unknown 02/02/2024 10:24 AM CDT 02/02/2024 10:34 AM CDT Nancy Camara MD MICROBIOLOGY Performing Organization Address [facility] Co de Phone Number [facility] [address] [place] [address], [place] * POTASSIUM (01/20/2024 9:37 AM CDT) Only the most recent of2 resultswithin the time period is included. POTASSIUM 3.9 3.5 - 5.1 mmol/L 01/20/2024 4:57 PM CDT [facility] Blood BLOOD SPECIMEN / Unknown Venipuncture / Unknown 01/20/2024 9:37 AM CDT 01/20/2024 9:38 AM CDT Nancy Camara MD CHEMISTRY Performing Organization Address [facility] Co de Phone Number [facility] [address] [place] [address], [place] * XR MAMMO BILAT SCREENING (07/05/2023 9:51 [...] health care provider. XR MAMMO BILAT SCREENING [[id number]] CLINICAL HISTORY: ??This is an asymptomatic 73 [...] MD MAMMO * COLONOSCOPY (11/12/2022 10:51 AM [facility]) 11/12/2022 10:5 1 AM [facility] Narrative Transcriptions Vinod Saavedra MD - 11/12/2022 [...] adequate candidate for conscious sedation. The endoscope [id number] was passed through the anus and advanced [...] 10:51 AM Procedure Code(s): --- Professional --- 52506, Colonoscopy, flexible; diagnostic, including collection of specimen(s) bybrushing or washing, when performed (separateprocedure) Diagnosis Code(s): --- Professional --- Z86.010, Personal history of colonicpolyps K57.30, Diverticulosis of large intestine without perforation or abscess withoutbleeding CPT copyright 2020 [employer]. All rights reserved. The codes documented in this report are preliminary and upon material specialist reviewmay be revised to meet current compliance [...] recommended in 3-5 years. Barb Abernathy PA-C [facility] 06/16/2021 Narrative 06/16/2021 10:10 AM CDT For Patients: Results are automatically released to your [facility] [employer] [facility] account once available, in compliance with federal regulations. This means that you may see your results before your provider has had a chance to review them. Please allow 2-3 business days for your provider to comment on the results. XR DXA Bone Mineral Density (BMD) EXAM LOCATION: [facility] [address] [facility] [address] PATIENT NAME: Kendy Kirkland DATE OF : [...] two scanners are made by the same retail field representative. PROCEDURE: Dual-energy x-ray absorptiometry performed with routine [...] W REFLEX MEASURED LDL (12/26/2020 3:07 PM [facility]) Pathologist [facility] [place] CHOLESTEROL,TOTAL 155 100 - 199 mg/dL 12/26/2020 10:26 PM [facility] TRIGLYCERIDES 72 <150 mg/dL 12/26/2020 10:26 PM [facility] HDL CHOLESTEROL 45 >40 mg/dL 10:26 PM [facility] NON-HDL CHOLESTEROL 110 <145 mg/dl 12/26/2020 10:26 PM [facility] CHOL/HDL RATIO 3.44 <4.50 12/26/2020 10:26 PM [facility] LDL CHOLESTEROL 96 <=130 mg/dL 12/26/2020 10:26 PM [facility] PROVIDER ORDERED STATUS RANDOM 12/26/2020 10:26 PM [facility] Blood BLOOD SPECIMEN / Unknown Venipuncture / Unknown 12/26/2020 3:07 PM [facility] 12/26/2020 3:07 PM [facility] Nicole HAMEED CHEMISTRY [facility] [address] [place] [address], * ANTI HCV [[id number]] (02/17/2018 4:26 PM CDT) Pathologist [facility] [place] HEPATITIS C ANTIBODY Non-React rajiv Non-React rajiv 02/18/2018 2:40 PM CDT [facility] Comment:Antibodies to HCV no t detected; does not exclude the possibility of exposure to HCV. Blood BLOOD SPECIMEN / Unknown Venipuncture / Unknown 02/17/2018 4:26 PM CDT 02/17/2018 4:26 PM CDT Radha Stockton MD [facility] [facility] [address] [place], [place] [address]E [address] [place] [address], from Last 3 Months or Most Recently Relevant to Health Maintenance Care Teams Director Machine Relationship Specialty Start Date End Date Nancy Camara MD [address] [place] [address] PCP - General Family Practice 03/08/23 Antonio Holbrook MD [address] [facility] [place] [address] Surgery - Urology 07/02/22 Vinod Saavedra MD [address] [place] [address] Gastroenterology 07/02/22 Inés Rust MD [address] [place] [address] Obstetrics and Gynecology 07/02/22
--- OUTSIDE RECORDS SUMMARY | 2024-04-14 11:24 | XMS_ITS ---
Author Organization [facility] Address [address] [place] [address] Care Team Providers Care Health Sanitarian Name Role Phone Unavailable Unavailable Unavailable Surgery Details Not on file Complications Check Surgery Details section. Procedure Estimated Blood Loss Check Surgery Details section. Procedure Findings Check Surgery Details section. Procedure Specimens Taken Check Surgery Details section.
--- OUTSIDE RECORDS SUMMARY | 2024-04-14 11:24 | XMS_ITS | Encounter Summary ---
Author Organization [facility] Address [address] [place] [address] Care Team Providers Care Phosphoric Acid Supervisor Name Role Phone Unavailable Primary Care Provider Unavailabl e Encounter Details Date Type Department Care Team (Late st Contact Info) Description 02/29/2024 Clinical Communication Department of Family Medicine, [facility], in [place], [place] [address] [phone] Elsewhere, Pcp Social History Tobacco Use Types Packs/Day Years [...]
--- OUTSIDE RECORDS SUMMARY | 2024-04-14 11:24 | XMS_ITS | Referral Summary ---
Author Organization [facility] Address [address] [place] [address] Care Team Providers Care Seaman Name Role Phone Unavailable Primary Care Provider Unavailabl e Source Comments Patient records contain information from all sites at [facility]. For routine questions regarding patient records, call [phone] during business hours, M-F 8:00 AM - 5:00 PM Central Time. Record requests for emergency care only can be directed to [phone] at any time.[facility] Encounters Date Type Department Care Team Description 04/10/2024 11:00 AM CDT Comprehensive Visit Department of Urology in [place], [place] [address] [place] [phone] Gale Calzada, ENEIDA, C.N.P. 02/29/2024 Clinical Communication Department of Family Medicine, [facility], in [place], [place] [address] [phone] Elsewhere, Pcp from Last 3 Months Allergies Active Allergy Reactions Criticality Noted Date Comments Hydrocodone-Acetaminophen Rash High 03/12/2021 Prednisone Rash 09/01/2011 Sulfamethoxazole-Trimethoprim Rash,Palpitations High 08/06/2021 Medications Medication Sig Dispensed Refills Start Date End Date Status sodium chloride injection Inject 2 Syringes as directed as needed. As needed 20 cc 09/01/2011 Active fluticasone (FLONASE ALLERGY RELIEF) 50 mcg/actuation nasal spray Administer 1 spray into affected nostril(s) as needed. As needed. 09/01/2011 Active cetirizine 10 mg capsule Take 1 capsule by mouth daily. 09/02/2011 Active lisinopril (PRINIVIL,ZESTRIL) 10 mg tablet Take 1 tablet by mouth daily. 09/02/2011 Active multivitamin tablet Take 1 tablet by mouth daily. 09/02/2011 Active calcium carbonate (CALCIUM 600 ORAL) Take 1 tablet by mouth 2 (two) times a day. 09/01/[address] tablet Take 81 mg by mouth. 01/17/2013 Acti ve fluocinolone (CAPEX) 0.01 % shampoo 05/06/2017 Active estradioL (VAGIFEM) 10 mcg vaginal tablet 08/15/2022 Active calcium carbonate-vitamin D3 (Calcium 600 + D,3,) 600 mg-5 mcg (200 unit) capsule Take 1 capsule by mouth 2 (two) times a day with meals. 04/10/2011 Active gabapentin 10 % cream, metered-dose applicator Apply topically. Active Active Problems Problem Noted Date Diagnosed Date Gastroesophageal Reflux Disease NOS 04/10/2024 Overview: EGD: 2018 reactive gastropthy EGD 03/2011 Reactive gastropathy [place] workup 09/2011 negative for GERD - felt to be visceral hypersensitivity Hypertensive LES but normal swallow EGD 05/2016 mild gastritis normal esophagus and duodenum Other Specified Menopausal And Perimenopausal Di sorders 07/05/2023 Urgency Urinary 07/02/2022 Other Specified Disorders Of Bone Density And Structure Multiple Sites 06/02/2021 Degeneration Disc Lumbar 05/11/2019 Polyp Colon Adenomatous 08/06/2011 Overview: Colonoscopy 2008 - folow up in 5 years Colonoscopy 03/2013 diverticulosis repeat in 5 years Colonoscopy 04/2017 hyperplastic polyp repeat in 5 years Colonoscopy 10/2022 diverticulosis, repeat in 10 years Otosclerosis Bilateral 11/22/2009 Overview: Overview: History of stapedectomy right Hypertension Essential Primary 06/09/2007 Immunizations Name Administration Dates Next Due HZV (ZOSTAVAX) 10/21/2012 Influenza, Quadrivalent, Adj uvanted, Preservative Free 10/04/2023,09/21/2022,08/12/2020 PCV13 06/21/2017 PPSV23 02/20/2019 RZV (SHINGRIX) 09/24/2020,07/10/2020 SARS-COV-2 (COVID-19) - PFIZ ER BIVALENT TS(Discontinued)(12 YEARS OR OLDER) 08/14/2022 SARS-COV-2 (COVID-19) - PFIZ ER TS(Discontinued)(12 years or older) 02/18/2022 Td (Adult), adsorbed 02/16/1997 Tdap 10/19/2017,06/09/2007 Social History Tobacco Use Types Packs/Day Years [...] on file Sexual Orientation Not on file Plan of Treatment Not on file Procedures Procedure Name Priority Date/Time Associated Diagnosis Comments OUTSIDE CT Routine 04/03/2024 2:10 PM CDT EXTI POTASSIUM, S/P Routine 01/20/2024 9 :37 AM CDT EXTI BASIC METABOLIC PANEL, S/P Routine 07/05/2023 10:47 AM CDT from Last 3 Months or Most Recently Relevant to Health Maintenance Results * CT UROGRAM-Outside CT (04/03/2024 2:10 PM CDT) Narrative IIMS - 04/04/2024 3:09 PM CDT This order has been created and auto-finalized to support the import of outside images. If available, original interpretation can be found on the Media Tab in Chart Review, in Document Viewer, as an image in QREADS or as an Addendum. If a re-interpretation or overread is required please follow defined workflow.?? Provider Not In System IMG CT PROCEDURES IIOH NA from Last 3 Months or Most Recently Relevant to Health Maintenance
--- OUTSIDE RECORDS SUMMARY | 2024-04-14 11:24 | XMS_ITS | Clinical Summary ---
Author Organization [facility] Address [address] [place] [address] Care Team Providers Care Salesforce Specialist Name Role Phone Unavailable Primary Care Provider Unavailabl e Source Comments Patient records contain information from all sites at [facility]. For routine questions regarding patient records, call [phone] during business hours, M-F 8:00 AM - 5:00 PM Central Time. Record requests for emergency care only can be directed to [phone] at any time.[facility] Allergies Active Allergy Reactions Criticality Noted Date [...] 2018 reactive gastropthy EGD 03/2011 Reactive gastropathy Salcedo [...] of stapedectomy right Hypertension Essential Primary 06/09/2007 Encounters Date Type Department Care Team Description 04/10/2024 11:00 AM CDT Comprehensive Visit Department of Urology in [address] [phone] Gale Calzada APRN, C.N.P. 02/29/2024 Clinical Communication Department of Family Medicine, , in [place], [place] [address] [place] [phone] Elsewhere, Pcp from Last 3 Months Immunizations Name Administration Dates Next Due HZV [...] Orientation Not on file Plan of Treatment Health Maintenance Due Date Last Done Comments Bone Density Scan (Osteoporo sis Screen) 1952 CT Colonography 1950 Cologuard 1950 Hepatitis C Screening 1950 Office Visit for Blood Press ure Check / Re-check 1950 Mammogram 06/25/2012 06/25/2011 (Perf ormed elsewhere) COVID-19 Vaccine (2022-11 4 season) 2023 08/14/2022, 02/18/2022, 07/30/2021, Additional history exists Depression Screening (Annual PHQ-2) 10/25/2023 Fall Risk Screen (Annual) 10/25/2023 Creatinine Level (Kidney Fun ction Test) 07/05/2024 07/05/2023, 07/02/2022, 09/11/2021, Additional history exists Sodium Level 07/05/2024 07/05/2023, 05/2022, 09/11/2021, Additional history exists Potassium Level 01/19/2025 01/20/2024, 12/24, 07/05/2023, Additional history exists Fasting Glucose for Diabetes Screening 07/05/2026 07/05/2023, 07/02/2022, 09/11/2021, Additional history exists DTaP,Tdap,and Td Vaccines (3 - Td or Tdap) 10/19/2027 10/19/2017, 06/09/2007, 02/16/1997 Colonoscopy 11/12/2027 11/12/2022, 08/10/2006 (Performed elsewhere) Colorectal Cancer Surveillance 11/12/2027 Pneumococcal vaccine (65+ years) Completed 02/21/20, 06/21/2017 Zoster Vaccines Completed 09/24/2020, 06/25, 10/21/2012 Influenza Vaccine Completed 10/04/2023, , 08/12/2020 Procedures Procedure Name Priority Date/Time Associated Diagnosis [...] Provider Not In System IMG CT PROCEDURES IIMS NA from Last 3 Months or Most Recently Relevant to Health Maintenance
== END 2024-04-14 11:22 | disposition home or self-care (01) ==
LOC: NFLDREF 11:22
PROVIDERS: PCP Family Medicine; Visit Provider Obstetrics & Gynecology
DX: R30.0 Dysuria (principal); R39.15 Urgency of urination; N39.0 Urinary tract infection, site not specified
CPT/HCPCS: 87086; 87186

== ENCOUNTER 2024-06-27 06:13 | Day surgery (SDC) | payer MEDICARE, OTHER, SELFPAY ==
[2024-06-27] VITALS (12 sets, daily range): BP systolic 112–140; BP diastolic 59–75; PULSE 59–78; RESP 11–18; TEMP 36.2–36.5; O2SAT 95–99; BMI 25.4
--- OUTSIDE RECORDS SUMMARY | 2024-06-27 06:16 | XMS_ITS | Clinical Summary ---
Author Organization [employer] [facility] Address [place], [place] [address] Care Team Providers Care French Folder Name Role Phone Antonio Holbrook MD Unavailable Vinod Saavedra MD Unavailable Inés Rust MD Unavailable Nancy Camara MD Primary Care Provider [phone] Allergies Active Allergy Reactions Criticality Noted Date [...] 04/10/2011 Active sodium chloride 0.9% 0.9 % irrigationIndicat ions:Sinus congestion IRRIGATE 20 CHEMO CYCLE EACH NOSTRIL FOUR TIMES DAILY 5000 mL 3 01/23/2016 Active fluticasone (50 mcg per actuation) nasal solution (FLONASE)Indicati ons:Rhinitis, unspecified type Inhale 1 Ing[place] into both nostrils 2 times daily. 48 g 11 05/29/2020 Active cetirizine (ZYRTEC) 10 mg tabletIndications :Rhinitis, unspecified type Take 1 tablet by mouth once daily. 90 tablet 05/29/2020 Active gabapentin 10 % crpk Apply topically to affected area(s). Active lisinopriL (PRINIVIL; ZESTRIL) 10 mg tabletIndications :Essential hypertension Take 1 Tablet (10 mg) by mouth once daily. 100 Tablet 3 07/05/2023 Active estradioL (ESTRACE) 0.01% (0.1 mg/g) vaginal cream 04/14/2024 Active estradioL (VAGIFEM) 10 mcg tab vaginal tablet 08/15/2022 Discontinu ed(*Patien t states no longer taking) Graduated Compression StockingsIndicati ons:Varicose veins of both lower extremities with inflammation For personal use. Length: calf Strength: 20-30 mmHg Circumference in cm: Measure patient at pharmacy 1 Packet 07/19/2023 Discontinu ed(*Patien t states no longer taking) fluocinolone 0.01% TOPICAL (SYNALAR) 0.01 % external solution Apply topically to affected area(s) one time if needed. 08/20/2023 4 Discontinu ed(*Patien t states no longer taking) oxyCODONE-acetami nophen (PERCOCET) 5-325 mg per tablet 1 Tablet every 6 hours if needed. 02/17/2024 4 Discontinu ed(*Patien t states no longer taking) cephalexin (KEFLEX) 500 mg capsule 04/17/2024 Discontinu ed(*Patien t states no longer taking) Active Problems Problem Noted Date Diagnosed Date [...] Encounters Date Type Department Care Team Description 06/21/2024 10:15 AM CDT Office Visit [facility] [address] [place] [address] Nirali Osorio MD Preoperative Exam (pre op dos 06/27 [facility] Cline ) 06/21/2024 Travel 04/22/2024 Orders Only [facility] Scanner 1 scan: (1-Ord) INCOMING RECORDS-CT, [facility], 04/22/2024 04/22/2024 Orders Only [facility] Scanner 1 scan: (1-Ord) INCOMING RECORDS-LABS, [facility], 04/22/2024 04/22/2024 Orders Only [facility] Scanner 1 scan: (1-Ord) INCOMING RECORDS-LABS, [facility], 04/22/2024 04/22/2024 Orders Only [facility] Scanner 1 scan: (1-Ord) INCOMING RECORDS-LABS, [facility], 04/22/2024 04/22/2024 Orders Only [facility] Scanner 1 scan: (1-Ord) INCOMING RECORDS-LABS, [facility], 04/22/2024 04/21/2024 8:15 AM CDT Office Visit [facility] [address] [place] [address] Nancy Camara MD Follow Up (CT follow up) 04/21/2024 Travel 04/03/2024 Orders Only [facility] Scanner 1 scan: (1-Ord) [facility] CT UROGRAM, 04/03/2024 03/27/2024 Telephone [facility] [address] [place] [address] Nancy Camara MD order (creatinine lab) from Last 3 Months Immunizations Name Administration Dates Next Due COVID-19 vaccine ([employer] NTech 30mcg/0.3mL) 12YO+ BIVALENT PF, MDV 08/14/2022 COVID-19 vaccine ([employer] NTech 30mcg/0.3mL) 12YO+ TITI-SUCROSE PF, MDV 02/18/2022 COVID-19 vaccine (T[employer] NTech 30mcg/0.3mL) PF, MDV 07/30/2021,12/21/2020,11/30/2020 Influenza, Inactivated [...] Communication with Friends and Fami ly 0 04/21/2024 Financial Resource Strain Answer Date R ecorded Difficulty of Paying Living Expenses 3 04/21/2024 Difficulty of Paying Living Expenses Not on file 04/21/2024 Food Insecurity Answer Date Recorded Worried About Running Out of Food in the Last Ye ar 1 04/21/2024 Transportation Needs Answer Date Record ed Lack of Transportation (Medical) 1 04/21/2024 Housing Stability Answer Date Recorded Unable to Pay for Housing in the Last Year 1 04/21/2024 Sex and Gender Information Value Date Recorded [...] Sign Reading Time Taken Comments Blood Pressure 123/73 06/21/2024 10:16 AM CDT Pulse 73 06/21/2024 10:16 AM CDT Temperature 36.9 ??C (98.4 ??F) 04/20/2023 1:50 PM CD T Respiratory Rate 20 04/10/2023 12:56 PM CDT Oxygen Saturation 100% 06/21/2024 10:16 AM CDT Inhaled Oxygen Concentration - - Weight 61.2 kg (135 lb) 06/21/2024 10:16 AM CDT Height 156 cm (5' 1.42) 06/21/2024 10:16 AM CDT Body Mass Index 25.16 06/21/2024 10:16 AM CDT Plan of Treatment Upcoming Encounters Date Type Department Care Team (Late st Contact Info) Description 07/27/2024 9:40 AM CDT Ancillary Procedure [facility] [address] [place] [address] 07/27/2024 10:00 AM CDT Office Visit [facility] [address] [place] [address] Nancy Camara MD [address] [place] [address] Health Maintenance Due Date Last Done Comments COVID-19 vaccine series ( season) 2024 08/14/2022, 02/18/2022, 07/30/2021, Additional history exists Influenza for age 65+ 06/25/2024 10/04/2023 , 09/21/2022, 08/12/2020 Mammogram for age 45-75 07/05/2024 07/05/20 23, 06/08/2022, 06/02/2021, Additional history exists Medicare Wellness for age 65+ 07/05/2024, 07/02/2022, 06/02/2021, Additional history exists Depression screening for age 12+ 01/17/2025 01/18/2024, 01/14/2024, 07/05/2023, Additional history exists BMI (ht and wt on same day) for age 18+ 06/21/2025 06/21/2024, 01/14/2024, 07/05/2023, Additional history exists Lipids for [...] Procedure Name Priority Date/Time Associated Diagnosis Comments POTASSIUM Routine 06/21/2024 10:41 AM CDT Pre-op exam SCAN CORRESP-LABORATORY RESULTS 04/22/2024 12:00 AM CDT SCAN CORRESP-LABORATORY RESULTS 04/22/2024 12:00 AM CDT SCAN CORRESP-LABORATORY RESULTS 04/22/2024 12:00 AM CDT SCAN CORRESP-LABORATORY RESULTS 04/22/2024 12:00 AM CDT SCAN CORRESP-IMAGING 04/22/2024 12:00 AM CDT SCAN-CT INTERPRETATION 12:00 AM CDT XR MAMMO BILAT SCREENING Routine 07/05/2023 9:51 AM CDT Visit for screening mammogram COLONOSCOPY 11/12/2022 10:51 AM [facility] XR DXA BONE DENSITY 2 SITES AXIAL Routine 06/09/2021 9:24 AM CDT Osteopenia, unspecified location Other specified disorders of bone density and structure, multiple sites LIPID PANEL W REFLEX MEASURED LDL Routine 12/26/2020 3:07 PM [facility] Screening for lipid disorders ANTI HCV Routine 02/17/2018 4:26 PM CDT Need for hepatitis C screening test from Last 3 Months or Most Recently Relevant to Health Maintenance Results * POTASSIUM (06/21/2024 10:41 AM CDT) POTASSIUM 4.1 3.5 - 5.1 mmol/L 06/21/2024 7:23 PM CDT [facility] Blood BLOOD SPECIMEN / Unknown Venipuncture / Unknown 06/21/2024 10:41 AM CDT 06/21/2024 10:42 AM CDT Nirali Osorio MD CHEMISTRY [facility] [address] [address], * SCAN CORRESP-LABORATORY RESULTS (04/22/2024 12:00 AM CDT) Only the most recent of4 resultswithin the time period is included. Scanner OTHER * SCAN CORRESP-IMAGING (04/22/2024 12:00 AM CDT) Anatomical Region Laterality Modality Other Scanner OTHER * SCAN-CT INTERPRETATION (04/03/2024 12:00 AM CDT) [...] health care provider. XR MAMMO BILAT SCREENING [[id number]] CLINICAL HISTORY: ??This is an asymptomatic 73 y.o. patient. INDICATION FOR EXAM: Mammogram Screening. TECHNIQUE: CC & MLO views were obtained. ??This study was evaluated with the assistance of Computer-Aided Detection. COMPARISON FILM: Yes 06/08/22 [employer] 06/02/21 [employer] FINDINGS: ??The breasts have scattered areas of fibroglandular density. There are no dominant masses, suspicious micro calcifications or areas of architectural distortion. Nancy Camara MD MAMMO * COLONOSCOPY (11/12/2022 10:51 AM [facility]) 11/12/2022 10:5 1 AM [facility] Narrative Transcriptions Vinod Saavedra MD - 11/12/2022 [...] adequate candidate for conscious sedation. The endoscope [id number] was passed through the anus and advanced [...] 10:51 AM Procedure Code(s): --- Professional --- 70105, Colonoscopy, flexible; diagnostic, including collection of specimen(s) bybrushing or washing, when performed (separateprocedure) Diagnosis Code(s): --- Professional --- Z86.010, Personal history of colonicpolyps K57.30, Diverticulosis of large intestine without perforation or abscess withoutbleeding CPT copyright 2020 [employer]. All rights reserved. The codes documented in this report are preliminary and upon fleet manager reviewmay be revised to meet current compliance [...] recommended in 3-5 years. Barb Abernathy PA-C [facility] 06/16/2021 Narrative 06/16/2021 10:10 AM CDT For Patients: Results are automatically released to your [employer] account once available, in compliance with federal regulations. This means that you may see your results before your provider has had a chance to review them. Please allow 2-3 business days for your provider to comment on the results. XR DXA Bone Mineral Density (BMD) EXAM LOCATION: [facility] [address] [facility] [address] PATIENT NAME: Kendy Kirkland DATE OF : [...] two scanners are made by the same lever miller. PROCEDURE: Dual-energy x-ray absorptiometry performed with routine [...] W REFLEX MEASURED LDL (12/26/2020 3:07 PM [facility]) CHOLESTEROL,TOTAL 155 100 - 199 mg/dL 12/26/2020 10:26 PM [facility] TRIGLYCERIDES 72 <150 mg/dL 12/26/2020 10:26 PM [facility] HDL CHOLESTEROL 45 >40 mg/dL 10:26 PM [facility] NON-HDL CHOLESTEROL 110 <145 mg/dl 12/26/2020 10:26 PM [facility] CHOL/HDL RATIO 3.44 <4.50 12/26/2020 10:26 PM [facility] LDL CHOLESTEROL 96 <=130 mg/dL 12/26/2020 10:26 PM [facility] PROVIDER ORDERED STATUS RANDOM 12/26/2020 10:26 PM [facility] Blood BLOOD SPECIMEN / Unknown Venipuncture / Unknown 12/26/2020 3:07 PM [facility] 12/26/2020 3:07 PM [facility] Nicole HAMEED CHEMISTRY [facility] [address] [place] [address], * ANTI HCV [[id number]] (02/17/2018 4:26 PM CDT) HEPATITIS C ANTIBODY Non-React rajiv Non-React rajiv 02/18/2018 2:40 PM CDT [facility] Comment:Antibodies to HCV no t detected; does not exclude the possibility of exposure to HCV. Blood BLOOD SPECIMEN / Unknown Venipuncture / Unknown 02/17/2018 4:26 PM CDT 02/17/2018 4:26 PM CDT Radha Stockton MD [facility] [address] [place] [address], [place] from Last 3 Months or Most Recently Relevant to Health Maintenance Care Teams French Folder Relationship Specialty Start Date End Date Nancy Camara MD [address] [place] [address] PCP - General Family Practice 03/08/23 Antonio Holbrook MD [address] [place] [address] Surgery - Urology 07/02/22 Vinod Saavedra MD [address] [place] [address] Gastroenterology 07/02/22 Inés Rust MD [address] [place] [address] Obstetrics and Gynecology 07/02/22
--- OUTSIDE RECORDS SUMMARY | 2024-06-27 06:16 | XMS_ITS | Referral Summary ---
Author Organization [facility] Address [address] [place] [address] Care Team Providers Care Vice President Underwriting Name Role Phone Unavailable Primary Care Provider Unavailabl e Source Comments Patient records contain information from all sites at [facility]. For routine questions regarding patient records, call [phone] during business hours, M-F 8:00 AM - 5:00 PM Central Time. Record requests for emergency care only can be directed to [phone] at any time.[facility] Encounters Date Type Department Care Team Description 04/10/2024 11:00 AM CDT Comprehensive Visit Department of Urology in [place] [address] [place] [phone] Gale Calzada, ENEIDA, C.N.P. Urgency Urinary (Primary Dx); Infection Urinary Tract Personal History; Atrophy Vagina Due To Estrogen Deficiency from Last 3 Months Allergies Active Allergy [...] Diagnosed Date Gastroesophageal Reflux Disease NOS 04/10/2024 Overview (04/10/2024): EGD: 2018 reactive gastropthy EGD 03/2011 Reactive gastropathy [place] workup 09/2011 negative for GERD - felt to be visceral hypersensitivity Hypertensive LES but normal swallow EGD 05/2016 mild gastritis normal esophagus and duodenum Other Specified Menopausal And Perimenopausal Di sorders 07/05/2023 Urgency Urinary 07/02/2022 Other Specified Disorders Of Bone Density And Structure Multiple Sites 06/02/2021 Degeneration Disc Lumbar 05/11/2019 Polyp Colon Adenomatous 08/06/2011 Overview (04/10/2024): Colonoscopy 2007 - folow up in 5 years Colonoscopy 03/2013 diverticulosis repeat in 5 years Colonoscopy 04/2017 hyperplastic polyp repeat in 5 years Colonoscopy 10/2022 diverticulosis, repeat in 10 years Otosclerosis Bilateral 11/22/2009 Overview (04/10/2024): Overview: History of stapedectomy right Hypertension Essential [...] OUTSIDE CT Routine 04/03/2024 2:10 PM CDT from Last 3 Months Results * CT UROGRAM-Outside CT (04/03/2024 2:10 [...]
--- OUTSIDE RECORDS SUMMARY | 2024-06-27 06:16 | XMS_ITS | Encounter Summary ---
Author Organization [facility] Address [address] [place] [address] Care Team Providers Care Cigarette Machine Filler Name Role Phone Unavailable Primary Care Provider Unavailabl e Reason for Visit * Reason Comments Incomplete Bladder Emptying * Appointment Request (Routine) - Closed Specialty Diagnoses / Procedures Referred By Louise jc Referred To Contact Urology Referral ID Status Reason Start Date Expiration Date Visits Re quested Visits Authorized [id number] Closed 03/07/2024 03/07/2025 1 1 Encounter Details Date Type Department Care Team (Latest Contact Info) Description 04/10/2024 11:00 AM CDT Comprehensive Visit Department of Urology in [place] [address] [place] [phone] Gale Calzada APRN, C.N.P. [address] [phone] Urgency Urinary (Primary Dx); Infection Urinary Tract Personal History; Atrophy Vagina Due To Estrogen Deficiency Social History Tobacco Use Types Packs/Day Years [...] on file documented as of this encounter Consult Notes * Gale Calzada APRN, C.N.P. - 04/10/2024 11:00 AM CDT SUBJECTIVE REASON FOR CONSULT Urinary Symptoms HISTORY OF PRESENT ILLNESS Kendy is a pleasant 74-year-old female here today for consultation for urinary symptoms. She had urinary tract infection in January that resolved with antibiotics. She had lower abdominal pressure. Herlast urinary tract infection she was given ciprofloxacin for 3 days. She has history of vulvodynia and uses Sitz bath as needed. She also uses Vagifem 2 times a week, this has been quite helpful for her. She has been using gabapentin cream for redness and pain. In the past she has been on VESIcare for urinary urgency and frequency, this has last prescribed by Dr. Johnson. When she has a full bladder she has a bit of pain. She has not been on VESIcare for a few years, she has not feel that it has been necessary lately. She denies any symptoms of prolapse. She has not had hysterectomy. Lower Urinary Symptoms Lower Urinary Sx: hematuria (-) able to sense full bladder (+) 7 x per day 1 x nightly difficulty urinating (-) Obstructive Sx: kidney infections or required hospitalization for kidney failure (-) # of UTI's in past year: 1 or 2 Required catheter: no Incontinence: urge incontinence (+) unintentionally leaks urine (-) Treatments: Treatments taken for urinary symptoms: medications treatments helped (+) had surgical or office procedures to improve urinary symptoms (-) REVIEW OF SYSTEMS Gastrointestinal: - Negative for constipation and diarrhea. Genitourinary: Positive for pain with urination. - Negative for abnormal vaginal bleeding, incontinence, difficulty urinating, blood in urine, urgency, menses change or abnormal and frequent urination. No past medical history on file. No past surgical history on file. No family history on file. Allergies Allergen Reactions Hydrocodone-Acetaminophen Rash Sulfamethoxazole-Trimethoprim Rash and Palpitations Prednisone Rash Current Outpatient Medications on File Prior to Visit Medication Sig Dispense Refill calcium carbonate (CALCIUM 600 ORAL) Take 1 tablet by mouth 2 (two) times a day. cetirizine 10 mg capsule Take 1 capsule by mouth daily. estradioL (VAGIFEM) 10 mcg vaginal tablet fluticasone (FLONASE ALLERGY RELIEF) 50 mcg/actuation nasal spray Administer 1 spray into affected nostril(s) as needed. As needed. gabapentin 10 % cream, metered-dose applicator Apply topically. lisinopril (PRINIVIL,ZESTRIL) 10 mg tablet Take 1 tablet by mouth daily. multivitamin tablet Take 1 tablet by mouth daily. sodium chloride injection Inject 2 Syringes as directed as needed. As needed 20 cc aspirin [address] tablet Take 81 mg by mouth. calcium carbonate-vitamin D3 (Calcium 600 + D,3,) 600 mg-5 mcg (200 unit) capsule Take 1 capsule bymouth 2 (two) times a day with meals. fluocinolone (CAPEX) 0.01 % shampoo No current facility-administered medications on file prior to visit. Social History Tobacco Use Smoking status: Never OBJECTIVE There were no vitals filed for this visit. PHYSICAL EXAM Vitals and nursing note reviewed. General: Well developed, well nourished, well groomed female in no acute distress. Neurological: Alert, cooperative, oriented x3. Appropriate mood and affect. Abdomen: Soft, non-tender, non-distended Extremities: Warm, without edema or ulcerations. DIAGNOSTIC Postvoid residual by bladder scan 29 mL ASSESSMENT / PLAN 1. Urgency Urinary 2. Infection Urinary Tract Personal History 3. Atrophy Vagina Due To Estrogen Deficiency We had a good discussion about her urinary symptoms. She seems to be having difficulty with occasional bladder pain. She has not bothered by urinary urgency and frequency. She should continue with plan with her primary mental measurements teacher for vulvodynia and vaginal atrophy. She is given information about interstitial cystitis. I am not confident that this has what is happening but she should pay attention to dietary bladder irritants and see how they are affecting her bladder. If she has further concerns or continues to have infections, she can certainly return to clinic for cystoscopy, this would need to occur in [place]. All questions answered today. Signed by: Gale Calzada APRN, C.N.P. 04/16/2024 11:09 PM CDT documented in this encounter Plan of Treatment Not on file documented as of this encounter Visit Diagnoses Diagnosis Urgency Urinary- Primary Infection Urinary Tract Personal History Atrophy Vagina Due To Estrogen Deficiency documented in this encounter
--- OUTSIDE RECORDS SUMMARY | 2024-06-27 06:16 | XMS_ITS | Clinical Summary ---
Author Organization [facility] Address [address] [place] [address] Care Team Providers Care Breadman Name Role Phone Unavailable Primary Care Provider Unavailabl e Source Comments Patient records contain information from all sites at [facility]. For routine questions regarding patient records, call [phone] during business hours, M-F 8:00 AM - 5:00 PM Central Time. Record requests for emergency care only can be directed to [phone] at any time.[facility] Allergies Active Allergy Reactions Criticality Noted Date [...] Polyp Colon Adenomatous 08/06/2011 Overview (04/10/2024): Colonoscopy 2008 - folow up in 5 years Colonoscopy 03/2013 diverticulosis repeat in 5 years Colonoscopy 04/2017 hyperplastic polyp repeat in 5 years Colonoscopy 10/2022 diverticulosis, repeat in 10 years Otosclerosis Bilateral 11/22/2009 Overview (04/10/2024): Overview: History of stapedectomy right Hypertension Essential Primary 06/09/2007 Encounters Date Type Department Care Team Description 04/10/2024 11:00 AM CDT Comprehensive Visit Department of Urology in [address] [phone] Gale Calzada APRN, C.N.P. Urgency Urinary (Primary Dx); Infection Urinary Tract Personal History; Atrophy Vagina Due To Estrogen Deficiency from Last 3 Months Immunizations Name Administration [...] 1950 Mammogram 06/25/2012 06/25/2011 (Perf ormed elsewhere) Depression Screening (Annual PHQ-2) 10/25/2023 Fall Risk Screen (Annual) 10/25/2023 COVID-19 Vaccine (2022-11 4 season) 2024 08/14/2022, 02/18/2022, 07/30/2021, Additional history exists Creatinine Level (Kidney Fun ction Test) 07/05/2024 07/05/2023, 07/02/2022, 09/11/2021, Additional history exists Sodium Level 07/05/2024 07/05/2023, 05/2022, 09/11/2021, Additional history exists Influenza Vaccine (#1) 2024 , 09/21/2022, 08/12/2020 Potassium Level 01/19/2025 01/20/2024, 12/24, 07/05/2023, Additional history exists Fasting Glucose for Diabetes Screening 07/05/2026 07/05/2023, 07/02/2022, 09/11/2021, Additional history exists DTaP,Tdap,and Td Vaccines (3 - Td or Tdap) 10/19/2027 10/19/2017, 06/09/2007, 02/16/1997 Colonoscopy 11/12/2027 11/12/2022, 0810/2006 (Performed elsewhere) Colorectal Cancer Surveillance 11/12/2027 Pneumococcal vaccine (65+ years) Completed 02/21/20, 06/21/2017 Zoster Vaccines Completed 09/24/2020, 06/25, 10/21/2012 Procedures Procedure Name Priority Date/Time Associated Diagnosis [...]
--- OUTSIDE RECORDS SUMMARY | 2024-06-27 06:16 | XMS_ITS ---
Author Organization [facility] Address [address] [place] [address] Care Team Providers Care Studio Assistant Name Role Phone Unavailable Unavailable Unavailable Surgery Details Not on file Complications Check Surgery Details section. Procedure Estimated Blood Loss Check Surgery Details section. Procedure Findings Check Surgery Details section. Procedure Specimens Taken Check Surgery Details section.
--- OUTSIDE RECORDS SUMMARY | 2024-06-27 06:16 | XMS_ITS | Encounter Summary ---
Author Organization [facility] Address [address] [place] [address] Care Team Providers Care Bottle Labeler Name Role Phone Unavailable Primary Care Provider Unavailabl e Encounter Details Date Type Department Care Team (Late st Contact Info) Description 02/29/2024 Clinical Communication Department of Family Medicine, [facility], in [place], [place] [address] [phone] Elsewhere, Pcp Social History Tobacco Use Types [...]
[2024-06-27] MEDS: LACTATED RINGERS 1000 ML 1,000 ML 100 ML IV (06:43)
[2024-06-27] MEDS: SODIUM CHLORIDE 0.9 % (FLUSH) 10 ML SYRINGE IVF (06:43)
--- NOTE | 2024-06-27 07:28 | PM.ORPRC ---
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 Despite an aggressive physical therapy program, she has persistent stiffness. Manipulation under anesthesia was recommended. The risks, benefits and expected outcomes were discussed in detail. These included but were not limited to: Shoulder dislocation, fracture, brachial plexus injury. All questions were answered to their satisfaction. PROCEDURE: IV sedation was administered. The patient was left supine on the hospital cart. Examination under anesthesia was performed with findings as follows: External rotation at 0? abduction 30?, forward flexion 90?, external rotation at 90? abduction 45?. A gentle manipulation under anesthesia was performed in all planes. Release of adhesions was felt. Range of motion at the end of the procedure was as follows: 60? external rotation at 0? abduction, 170 ? of forward flexion, 85? of external rotation at 90? abduction. The patient tolerated the procedure well. There were no apparent complications. They were taken to the postanesthesia care unit in satisfactory condition. PLAN: The patient will be discharged to home. Use of the shoulder as tolerates. Continue physical therapy as scheduled. Follow up in the office in a week.
--- NOTE | 2024-06-27 07:42 | W.ANESCHARGE ---
Anesthesia Charges Start Date/Time Anesthesia Start Date: 06/27/24 Anesthesia Start Time: 07:15 Stop Date/Time Anesthesia Stop Date: 06/27/24 Anesthesia Stop Time: 07:39
--- NOTE | 2024-06-27 08:06 | W.ANESCHARGE ---
Anesthesia Charges Start Date/Time Anesthesia Start Date: 06/27/24 Anesthesia Start Time: 07:15 Stop Date/Time Anesthesia Stop Date: 06/27/24 Anesthesia Stop Time: 07:39 Summary Extremes of Age - Over 70 or under 1: MDA
--- NOTE | 2024-06-27 08:13 | SUR.PHASEI ---
patient met discharge criteria per anesthesia
--- NOTE | 2024-06-27 08:25 | SUR.PHASEII ---
pt tolerating juice and crackers. Ice pack applied to shoulder.
== END 2024-06-27 09:02 | disposition home or self-care (01) ==
LOC: OR 06:14
PROVIDERS: PCP Family Medicine; Visit Provider Orthopaedic Surgery
PROC: (CPT 27570; principal; 2024-06-27 07:15)
DX: M24.611 Ankylosis, right shoulder (principal); Z98.1 Arthrodesis status
CPT/HCPCS: 23700; 01620; 99100; J0330; J2704; J3010; J7120

== ENCOUNTER 2024-08-14 09:47 | Outpatient (CLI) | payer MEDICARE, OTHER, SELFPAY ==
--- OUTSIDE RECORDS SUMMARY | 2024-08-14 09:49 | XMS_ITS ---
Author Organization [facility] Address [address] [place] [address] Care Team Providers Care Carbon Paper Coating Machine Setter Name Role Phone Unavailable Unavailable Unavailable Surgery Details Not on file Complications Check Surgery Details section. Procedure Estimated Blood Loss Check Surgery Details section. Procedure Findings Check Surgery Details section. Procedure Specimens Taken Check Surgery Details section.
--- OUTSIDE RECORDS SUMMARY | 2024-08-14 09:49 | XMS_ITS | Encounter Summary ---
Author Organization [facility] Address [address] [place] [address] Care Team Providers Care Deployment Specialist Name Role Phone Unavailable Primary Care Provider Unavailabl e Encounter Details Date Type Department Care Team (Late st Contact Info) Description 07/11/2024 Clinical Communication Department of Urology in [place], [place] [address] [phone] Gale Calzaad APRN, C.N.P. 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 - 07/13/2024 8:02 PM CDT I spoke with Dr. Rust about this patient. If microscopic hematuria is present, patient will return for cystoscopy. documented in this encounter Plan of Treatment Not on file documented as of this encounter Visit Diagnoses Not on filedocumented in this encounter
--- OUTSIDE RECORDS SUMMARY | 2024-08-14 09:49 | XMS_ITS | Clinical Summary ---
Author Organization [facility] Address [address] [place] [address] Care Team Providers Care Cavalry Scout Name Role Phone Unavailable Primary Care Provider Unavailabl e Source Comments Patient records contain information from all sites at [facility]. For routine questions regarding patient records, call [phone] during business hours, M-F 8:00 AM - 5:00 PM Central Time. Record requests for emergency care only can be directed to [phone] at any time.[facility] Allergies Active Allergy Reactions Criticality Noted Date Comments Hydrocodone-Acetaminophen Rash High 03/12/2021 Prednisone Rash 09/01/2011 Sulfamethoxazole-Trimethoprim Rash,Palpitations High 08/06/2021 Medications sodium chloride injection Inject 2 Syringes as directed as needed. As needed 20 cc 1 Active fluticasone (FLONASE ALLERGY RELIEF) 50 mcg/actuation nasal spray Administer 1 spray into affected nostril(s) as needed. As needed. 1 Active cetirizine 10 mg capsule Take 1 capsule by mouth daily. 1 Active lisinopril (PRINIVIL,ZESTR [place]) 10 mg tablet Take 1 tablet by mouth daily. 1 Active multivitamin tablet Take 1 tablet by mouth daily. 1 Active calcium carbonate (CALCIUM 600 ORAL) Take 1 tablet by mouth 2 (two) times a day. [address] tablet Take 81 mg by mouth. 3 Active fluocinolone (CAPEX) 0.01 % shampoo 7 Active estradioL (VAGIFEM) 10 mcg vaginal tablet 2 Active calcium carbonate-vitam in D3 (Calcium 600 + D,3,) 600 mg-5 mcg (200 unit) capsule Take 1 capsule by mouth 2 (two) times a day with meals. 1 Active gabapentin 10 % cream, metered-dose applicator Apply topically. Active Active Problems Problem Noted Date Diagnosed Date Gastroesophageal Reflux Disease NOS 04/10/2024 Overview (04/10/2024): EGD: 2018 reactive gastropthy EGD 03/2011 Reactive gastropathy [place] workup 09/2011 negative for GERD - felt [...] Encounters Date Type Department Care Team Description 07/11/2024 Clinical Communication Department of Urology in [place], [place] [address], [place] [address] Gale Calzada APRN, C.N.P. 07/06/2024 Clinical Communication Department of Urology in [place], [place] [address], [place] [address] Gale Calzada APRN, C.N.P. 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 Gender Identity Not on file Sexual Orientation [...] Fall Risk Screen (Annual) 10/25/2023 COVID-19 Vaccine (2023-2 5 season) 2024 08/14/2022, 02/18/2022, 07/30/2021, Additional history exists Creatinine Level (Kidney Fun ction Test) 07/05/2024 07/05/2023, 07/02/2022, 09/11/2021, Additional history exists Sodium Level 07/05/2024 07/05/2023, 05/2022, 09/11/2021, Additional history exists Influenza Vaccine (#1) 2024 3, 09/21/2022, 08/12/2020 Potassium Level 06/21/2025 06/21/2024, /05/2024, 01/14/2024, Additional history exists Fasting Glucose for Diabetes Screening 07/05/2026 07/05/2023, 07/02/2022, 09/11/2021, Additional history exists DTaP,Tdap,and Td Vaccines (3 - Td or Tdap) 10/19/2027 10/19/2017, 06/09/2007, 02/16/1997 Colonoscopy 11/12/2027 11/12/2022, 10/2006 (Performed elsewhere) Colorectal Cancer Surveillance 11/12/2027 Pneumococcal vaccine (65+ years) Completed 02/21/20, 06/21/2017 Zoster Vaccines Completed 09/24/2020, 06/25, 10/21/2012 [place] [address]
--- OUTSIDE RECORDS SUMMARY | 2024-08-14 09:49 | XMS_ITS | Referral Summary ---
Author Organization [facility] Address [address] [place] [address] Care Team Providers Care Senior Wind Turbine Technician Name Role Phone Unavailable Primary Care Provider Unavailabl e Source Comments Patient records contain information from all sites at [facility]. For routine questions regarding patient records, call [phone] during business hours, M-F 8:00 AM - 5:00 PM Central Time. Record requests for emergency care only can be directed to [phone] at any time.[facility] Encounters Date Type Department Care Team Description 07/11/2024 Clinical Communication Department of Urology in [address] [phone] Gale Calzada APRN, C.N.P. 07/06/2024 Clinical Communication Department of Urology in [address] [phone] Gale Calzada APRN, C.N.P. 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
--- OUTSIDE RECORDS SUMMARY | 2024-08-14 09:49 | XMS_ITS | Encounter Summary ---
Author Organization [facility] Address [address] [place] [address] Care Team Providers Care Executive Pilot Name Role Phone Unavailable Primary Care Provider Unavailabl e Encounter Details Date Type Department Care Team (Late st Contact Info) Description 07/06/2024 Clinical Communication Department of Urology in [place], [place] [address] [phone] Gale Calzada, ENEIDA, C.N.P. 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
--- OUTSIDE RECORDS SUMMARY | 2024-08-14 09:50 | XMS_ITS | Clinical Summary ---
Author Organization [employer] [facility] Address [place], [place] [address] Care Team Providers Care Electrician Crane Maintenance Name Role Phone Antonio Holbrook MD Unavailable [...] solution (FLONASE)Indicatio ns:Rhinitis, unspecified type Inhale 1 [place] into both nostrils 2 times daily. 48 g 11 05/29/2020 Active cetirizine (ZYRTEC) 10 mg tabletIndications: Rhinitis, unspecified type Take 1 tablet by mouth once daily. 90 tablet 05/29/2020 Active gabapentin 10 % crpk Apply topically to affected area(s). Active estradioL (ESTRACE) 0.01% (0.1 mg/g) vaginal cream 04/14/2024 Active lisinopriL (PRINIVIL; ZESTRIL) 10 mg tabletIndications: Essential hypertension Take 1 Tablet (10 mg) by mouth once daily. 100 Tablet 3 07/27/2024 Active lisinopriL (PRINIVIL; ZESTRIL) 10 mg tabletIndications: Essential hypertension Take 1 Tablet (10 mg) by mouth once daily. 100 Tablet 3 07/05/2023 Discontinue d(Reorder (E-cancel not sent)) Active Problems Problem Noted Date Diagnosed Date Genitourinary syndrome of menopause 07/05/2023 Urinary urgency 07/02/2022 Osteopenia of multiple sites 06/02/2021 DDD (degenerative disc disease), lumbar 05/11/20 Adenomatous colon polyp 08/06/2011 Overview (11/12/2022): Colonoscopy 2007 - folow up in 5 years Colonoscopy 03/2013 diverticulosis repeat in 5 years Colonoscopy 04/2017 hyperplastic polyp repeat in 5 years Colonoscopy 10/2022 diverticulosis, repeat in 10 years Otosclerosis, unspecified 11/22/2009 Overview (11/22/2009): History of stapedectomy right Sensorineural hearing loss, unilateral 0 Overview (11/22/2009): left Mixed hearing loss, unilateral 11/22/2009 Overview (11/22/2009): right Unspecified essential hypertension 06/09/2007 Esophageal reflux Overview (01/08/2021): EGD: 2019 reactive gastropthy EGD 03/2011 Reactive gastropathy Irene workup 09/2011 negative for GERD - felt to be visceral hypersensitivity Hypertensive LES but normal swallow EGD 05/2016 mild gastritis normal esophagus and duodenum Encounters Date Type Department Care Team Description 07/27/2024 10:00 AM CDT Office Visit [facility] [address] [place] [address] Nancy Camara MD Medicare ANNUAL (subsequent) Visit (74 Year Old Female) 07/27/2024 9:40 AM CDT Ancillary Procedure [facility] [address] [place] [id number] 07/27/2024 Travel 07/22/2024 Travel 06/21/2024 10:15 AM CDT Office Visit [facility] [address] [facility] [place] [address] Nirali Osorio MD Preoperative Exam (pre op dos 06/27 shoulder manipulation [facility] Dr Cline ) 06/21/2024 Travel from Last 3 Months Immunizations Name [...] Answer Date Recorded PHQ-2 TOTAL SCORE 0 07/27/2024 Social Connections Answer Date Recorded Frequency of [...] Sign Reading Time Taken Comments Blood Pressure 124/73 07/27/2024 9:52 AM CDT Pulse 62 07/27/2024 9:52 AM CDT Temperature 36.8 ??C (98.2 ??F) 07/27/2024 9:52 AM CD T Respiratory Rate 20 04/10/2023 12:56 PM CDT Oxygen Saturation 99% 07/27/2024 9:52 AM CDT Inhaled Oxygen Concentration - - Weight 61.2 kg (135 lb) 07/27/2024 9:52 AM CDT Height 156.2 cm (5' 1.5) 07/27/2024 9:52 AM CDT Body Mass Index 25.1 07/27/2024 9:52 AM CDT Plan of Treatment Health Maintenance Due Date Last Done Comments COVID-19 vaccine series ( season) 2024 08/14/2022, 02/18/2022, 07/30/2021, Additional history exists Influenza for age 65+ 06/25/2024 10/04/2023 , 09/21/2022, 08/12/2020 BMI (ht and wt on same day) for age 18+ 07/27/2025 07/27/2024, 06/21/2024, 01/14/2024, Additional history exists Depression screening for age 12+ 07/27/2025 07/27/2024, 01/18/2024, 01/14/2024, Additional history exists Mammogram for age 45-75 07/27/2025 07/27/20 24, 07/05/2023, 06/08/2022, Additional history exists Medicare Wellness for age 65+ 07/28/2025, 07/05/2023, 07/02/2022, Additional history exists Lipids for age 45-75 [...] Procedure Name Priority Date/Time Associated Diagnosis Comments BASIC METABOLIC PANEL Routine 07/27/2024 10:51 AM CDT Unspecified essential hypertension XR MAMMO BILAT SCREENING Routine 07/27/2024 9:50 AM CDT Visit for screening mammogram POTASSIUM Routine 06/21/2024 10:41 AM CDT Pre-op exam COLONOSCOPY 11/12/2022 10:51 AM [facility] XR DXA BONE DENSITY 2 SITES AXIAL Routine 06/09/2021 9:24 AM CDT Osteopenia, unspecified location Other specified disorders of bone density and structure, multiple sites LIPID PANEL W REFLEX MEASURED LDL Routine 12/26/2020 3:07 PM [facility] Screening for lipid disorders ANTI HCV Routine 02/17/2018 4:26 PM CDT Need for hepatitis C screening test from Last 3 Months or Most Recently Relevant to Health Maintenance Results * BASIC METABOLIC PANEL (07/27/2024 10:51 AM CDT) GLUCOSE 86 65 - 99 mg/dL [facility] Comment: ? Fasting reference interval UREA NITROGEN (BUN) 20 7 - 25 mg/dL [facility] CREATININE 0.78 0.60 - 1.00 mg/dL [facility] EGFR 81 > OR = 60 mL/min/1. 73m2 [facility] BUN/CREATININE RATIO SEE NOTE: 6 - 22 (calc) [facility] Comment: ?? Not Reported: BUN and Creatinine are within ?? reference range. ? SODIUM 141 135 - 146 mmol/L [facility] POTASSIUM 5.0 3.5 - 5.3 mmol/L [facility] CHLORIDE 102 98 - 110 mmol/L [facility] CARBON DIOXIDE 31 20 - 32 mmol/L [facility] ELECTROLYTE BALANCE 8 7 - 17 mmol/L (calc) [facility] CALCIUM 10.3 8.6 - 10.4 mg/dL [facility] Blood BLOOD SPECIMEN / Unknown 07/27/2024 10:51 AM CDT 07/27/2024 10:52 AM CDT Nancy Camara MD CHEMISTRY [employer] [facility] [address] [place] [address], [facility] [address] [facility] [place] [address] * XR MAMMO BILAT SCREENING (07/27/2024 9:50 AM CDT) Anatomical Region Laterality Modality BREASTS, Breast Left, Breast Right Bilateral Mammography Impressions 07/27/2024 2:03 PM CDT ??There is no radiographic evidence for malignancy. ??Recommend annual mammograms. MAMMOGRAM ASSESSMENT: ??ACR 1 Negative PATIENTS: You will also receive a letter with your examination results in an easy to read format. ??If you have questions about your results, please contact your referring provider. Narrative 07/27/2024 2:03 PM CDT For Patients: As a result of the Century Cures Act, medical imaging exams and procedure reports are released immediately into your electronic medical record. You may view this report before your referring provider. If you have questions, please contact your health care provider. XR MAMMO BILAT SCREENING [[id number]] CLINICAL HISTORY: ??This is an asymptomatic 74 y.o. patient. INDICATION FOR EXAM: Mammogram Screening. TECHNIQUE: CC & MLO views were obtained. ??This study was evaluated with the assistance of Computer-Aided Detection. COMPARISON FILM: Yes [facility]05[facility]23 [facility] FINDINGS: ??There are scattered areas of fibroglandular density. There are no dominant masses, suspicious micro calcifications or areas of architectural distortion. Nancy Camara MD MAMMO * POTASSIUM (06/21/2024 10:41 AM CDT) POTASSIUM 4.1 3.5 - 5.1 mmol/L 06/21/2024 7:23 PM CDT [facility] Blood BLOOD SPECIMEN / Unknown Venipuncture / Unknown 06/21/2024 10:41 AM CDT 06/21/2024 10:42 AM CDT Nirali Osorio MD CHEMISTRY [facility] [address] [place] [address], * COLONOSCOPY (11/12/2022 10:51 AM [facility]) 11/12/2022 10:5 1 AM [facility] Narrative Transcriptions Vinod Saavedra MD - 11/12/2022 [...] adequate candidate for conscious sedation. The endoscope [id number] was passed through the anus and advanced [...] 10:51 AM Procedure Code(s): --- Professional --- 45227, Colonoscopy, flexible; diagnostic, including collection of specimen(s) bybrushing or washing, when performed (separateprocedure) Diagnosis Code(s): --- Professional --- Z86.010, Personal history of colonicpolyps K57.30, Diverticulosis of large intestine without perforation or abscess withoutbleeding CPT copyright 2020 [employer]. All rights reserved. The codes documented in this report are preliminary and upon certified coder reviewmay be revised to meet current compliance [...] recommended in 3-5 years. Barb Abernathy PA-C [facility] 06/16/2021 Narrative 06/16/2021 10:10 AM CDT For Patients: Results are automatically released to your [facility] account once available, in compliance with federal regulations. This means that you may see your results before your provider has had a chance to review them. Please allow 2-3 business days for your provider to comment on the results. XR DXA Bone Mineral Density (BMD) EXAM LOCATION: [address] [address] PATIENT NAME: Kendy Kirkland DATE OF : [...] two scanners are made by the same electrical prospecting supervisor. PROCEDURE: Dual-energy x-ray absorptiometry performed with routine [...] W REFLEX MEASURED LDL (12/26/2020 3:07 PM [facility]) [facility] CHOLESTEROL,TOTAL 155 100 - 199 mg/dL 12/26/2020 10:26 PM [facility] TRIGLYCERIDES 72 <150 mg/dL 12/26/2020 10:26 PM [facility] HDL CHOLESTEROL 45 >40 mg/dL 10:26 PM [facility] NON-HDL CHOLESTEROL 110 <145 mg/dl 12/26/2020 10:26 PM [facility] CHOL/HDL RATIO 3.44 <4.50 12/26/2020 10:26 PM [facility] LDL CHOLESTEROL 96 <=130 mg/dL 12/26/2020 10:26 PM [facility] PROVIDER ORDERED STATUS RANDOM 12/26/2020 10:26 PM [facility] Blood BLOOD SPECIMEN / Unknown Venipuncture / Unknown 12/26/2020 3:07 PM [facility] 12/26/2020 3:07 PM [facility] Nicole HAMEED [facility]MISTRY [facility] [address] [place] [address], * ANTI HCV [86517.2] (02/17/2018 4:26 PM CDT) HEPATITIS C ANTIBODY Non-React rajiv Non-React rajiv 02/18/2018 2:[address] [facility] Comment:Antibodies to HCV no t detected; does not exclude the possibility of exposure to HCV. Blood BLOOD SPECIMEN / Unknown Venipuncture / Unknown 02/17/2018 4:26 PM CDT 02/17/2018 4:26 PM CDT Radha Stockton MD SEND OUTS [facility] [address] [place] [address], from Last 3 Months or Most Recently Relevant to Health Maintenance Care Teams [employer] Crane Maintenance Relationship Specialty Start Date End Date Nancy Camara MD [address] [place] [address] [id number] PCP - General Family Practice 03/08/23 Antonio Holbrook MD [address] [address] Surgery - Urology 07/02/22 Vinod Saavedra MD [facility] [place] [address] Gastroenterology 07/02/22 Inés Rust MD [address] [address] Obstetrics and Gynecology 07/02/22
--- NOTE | 2024-08-14 10:00 | CRLHL7_ITS ---
For Patients: As a result of the 21st Century Cures Act, medical imaging exams and procedure reports are released immediately into your electronic medical record. You may view this report before your referring provider. If you have questions, please contact your health care provider. INDICATION: Lung nodule seen on CT urogram TECHNIQUE: CT chest without contrast. COMPARISON: 04/03/2024 CT urogram FINDINGS: Lungs and pleura: Multiple small peripheral impacted bronchi in the anterior inferior right upper lobe, inferior right middle lobe, and inferior lingula corresponding to the nodularity seen on the CT urogram. Scattered peripheral centrilobular micro nodules in the lateral left mid lung. Findings compatible with small airways disease. 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 The 6 mm anterior right middle lobe nodule on image 57 of series 3 is unchanged. Heart and vasculature: Heart size is normal. Thoracic aorta and pulmonary artery are normal in caliber. Lymph nodes/mediastinum: No mediastinal, hilar, or axillary adenopathy. Thyroid gland is normal. Chest wall: No masses. Upper abdomen: Cholecystectomy. Bones: Unremarkable for age. IMPRESSION: 1. 6 mm right middle lobe nodule is unchanged for 4 months. 2. Findings of small airways disease in the anterior lungs, potentially chronic MAC infection. [employer] GUID[employer]INES - SOLID NODULES: SINGLE LOW RISK - nodule less than 6 mm: No routine follow-up. - nodule 6-8 mm: CT at 6-12 months, then consider CT at 18-24 months. - nodule greater than 8 mm: Consider CT at 3 months, PET/CT or tissue sampling. SINGLE HIGH RISK - nodule less than 6 mm: Optional CT at 12 months. - nodule 6-8 mm: CT at 6-12 months, then CT at 18-24 months. - nodule greater than 8 mm: Consider CT at 3 months, PET/CT or tissue sampling. MULTIPLE LOW RISK - nodule less than 6 mm: No routine follow-up. - nodule 6-8 mm: CT at 3-6 months, then consider CT at 18-24 months. - nodule greater than 8 mm: CT at 3-6 months, then consider CT at 18-24 months. MULTIPLE HIGH RISK - nodule less than 6 mm: Optional CT at 12 months. - nodule 6-8 mm: CT at 3-6 months, then at 18-24 months. - nodule greater than 8 mm: CT at 3-6 months, then at 18-24 months. Please note that all CT scans at this facility use dose modulation, iterative reconstruction, and/or weight-based dosing when appropriate to reduce radiation dose to as low as reasonably achievable. Dictated by Fred Blakely MD @ 08/15/2024 11:40:07 AM (Electronically Signed)
== END 2024-08-14 09:48 | disposition home or self-care (01) ==
LOC: CT 09:48
PROVIDERS: PCP Family Medicine; Visit Provider Family Medicine
DX: R91.8 Other nonspecific abnormal finding of lung field (principal)
CPT/HCPCS: 71250

== ENCOUNTER 2024-09-07 09:30 | Outpatient (RCR) | payer MEDICARE, OTHER, SELFPAY ==
--- NOTE | 2023-12-23 16:26 | PT.OPEX ---
PT [place] Outpatient Eval PT [facility] Outpatient Eval Start: 12/23/23 11:22 Freq: Status: Active Protocol: Document 12/23/23 11:22 JAI (Rec: 12/23/23 16:13 JAI [id number]) E-signed By Rashmi Britt DPT Physical Therapy Outpatient Evaluation Insurance Information Recert Due Date 03/22/24 Insurance Name Medicare B Medical Diagnosis R shoulder RC tear, R shoulder pain Treating Diagnosis R shoulder pain, impaired R shoulder ROM, impaired R shoulder mobility/strength, impaired functional mobility/ use of R shoulder/UE Subjective Subjective Patient reports chronic R shoulder pain for the last several months. She reports noticing some R lateral shoulder pain back in Aug/Sep. She had to increase her lifting/activities, doing more of the chores after her had heart surgery. Feels she likely over did it but denies any specific injury /trauma. States that she's had very limited R shoulder ROM the last several months, really not able to lift/move her R arm. She is R handed. She has been avoiding using R shoulder/UE and really unable to use R shoulder/UE so using L shoulder/UE more. Reports going to her primary MD and initially having an MRI of her upper arm. Then referred to ortho and had MRI of her R shoulder showing RC tear - she has MRI reports showing tear in R supraspinatus. States MD reviewed options including PT and surgery but it was decided to try PT first to see how she does. Patient to return to MD for surgery if she is not improving. She denies pain at rest or with arm at her side. Increased R shoulder pain to 8/10 with use , trying to use R shoulder. She is not taking any pain meds. Has been using ice, that is helpful. Sleep has been ok. Date of Last Physician Visit 12/06/23 Current Work Status Retired Precautions Treatment Precautions/Contraindications HTN, R RC teat (supraspinatus) Assessment Assessment/Impression Patient is a 73 year old female with chronic R shoulder pain, impaired R shoulder ROM , impaired R shoulder mobility /strength, impaired functional mobility/use of R shoulder/UE . Patient had R shoulder MRI showing R RC tear ( supraspinatus). R shoulder pain range 0-8/10. Patient reports increased pain with any movement, use of R shoulder/UE, up to 8/10 with attempts to reach up/out. R shoulder AROM is significantly limited at this time. R shoulder AROM: flex 35 degrees , abd/scap 35 degrees, IR with hand to back of R hip, unable to reach R hand to R head. AROM is limited by tightness, weakness, pain. Patient wanting to review MRI results this session - she has MRI report with her. Patient seeking advice on whether or not she should have surgery - MD reviewed PT and surgery as options and they agreed to try PT first. Patient is unsure if she should just have the surgery. Reviewed current status, focus of PT for improvement, and discussed that if she was not making progress recommendation would be return to MD for surgery. Patient questions answered and encouragement provided. Patient in agreement with plan of trying PT and seeing how she does for the next 2-3 weeks. She reports use of R shoulder/UE has already been significantly limited for some time and she feels it has been staying about the same for the last month or so. Some MMT deferred this session as patient is unable to perform AROM to test positions . MMT for IR/ER both 4-/5 with pain reported. Able to initiate some shoulder/scap exercises, gentle ROM, codmans this session. Tolerated well . Patient would benefit from skilled PT for pain/sx management, improved R shoulder ROM, improved R shoulder/UE mobility/strength, return to functional use of R shoulder/UE, and establishment of HEP. Patient will be referred back to MD if she is not making progress with PT. Plan of Care Rehabilitation Potential Fair Rehabilitation Potential Comments Progress fair with MRI showing R RC tear (supraspinatus) and patient with significantly limited R shoulder AROM, limited use of R shoulder/UE for the last several months. Physical Therapy Goals 1. Decrease R shoulder pain to less than/equal to 3/10 with daily activities and with the progression of PT activities over the next 6-8 weeks. 2. Improve R shoulder PROM over the next 6-8 weeks to prepare for return to functional use of R shoulder/UE with AROM. 3. Improve R shoulder AROM over the next 8-10 weeks for return to functional use of R shoulder/ UE with daily activities. 4. Improve R shoulder/UE strength over the next 10-12 weeks for return to full functional use of R shoulder/UE with daily activities. 5. Patient will be I with HEP within 12 weeks for progression toward above goals, ongoing self management of pain/sx, ongoing self improvements in ROM/strength/function, and for return to full functional use of R shoulder/UE with daily activities. Coordination/Communication With Referral Source Treatment Plan/Direct Interventions Manual Therapy,Therapeutic Exercises,Ultrasound Frequency/Duration 1-2x/week Patient Will Be Discharged From Therapy Completion of LTG(s),Skills Plateau,Independent w/HEP, Independently Progressing Evaluation Billing Untimed Code Treatment Minutes 35 Complexity Moderate Certification Information Initial Certification Date 12/23/23 Ending Certification Date 03/22/24 Provider Signature Shows Agreement With POC & Medical Necessity Physician Signature & Date Requested Please Sign/Date Here Physician Comment/Change : Physician NPI Number #
--- NOTE | 2024-02-24 11:41 | PT.OPDNX ---
PT [facility] Daily Note PT [facility] Daily Note Start: 12/23/23 11:22 Freq: Status: Active Protocol: Document 02/24/24 11:22 JAI (Rec: 02/24/24 11:40 JAI [id number]) E-signed By Rashmi Britt DPT PT OP Daily Progress Note Visit Information Note Type Daily Note,Recert/Progress Note,Re-Evaluation Visit Number 6 Insurance Authorized Visits - Physician Authorized Visits - Insurance Information Recert Due Date 05/24/24 Insurance Name Medicare B Medical Diagnosis s/p R shoulder mini open RCR, SAD, DCE 02/17/24 Treating Diagnosis s/p R shoulder mini open RCR, SAD, DCE 02/17/24 with R shoulder pain, impaired R shoulder ROM, impaired R shoulder mobility/strength, impaired functional mobility/ use of R shoulder/UE, currently restricted in R UE sling. Subjective Subjective Patient returns to PT now s/p R shoulder RCR. States she can to reschedule her surgery from early January to last week. She has been wearing her sling since surgery. Reports tolerable pain levels. She was using pain meds for a couple of days and then tylenol. Hasn't been needing the tylenol the last few days. Still icing regularly. She had follow up with ZARI Duenas yesterday and reports that went well. She has been doing elbow, wrist, hand ROM exercises. Instructed yesterday to take sling off at rest to stretch elbow into ext - that is going fine. Has been sleeping in the recliner chair. Pain range 0-3/10. Home Exercise Home Exercise Comments elbow/wrist/hand ROM, elbow ext stretching R shoulder codmans Objective Other/Pertinent Objective Re-eval, 17 min - Patient now s/p R shoulder mini open RCR, SAD, DCE 02/17/24 with R shoulder pain, impaired R shoulder ROM, impaired R shoulder mobility/strength, impaired functional mobility/ use of R shoulder/UE, currently restricted in R UE sling. Pain range 0-3/10. Patient is wearing R UE sling. Reviewed use of sling, protection of R shoulder after surgery. Able to initiate PROM R shoulder this session and R shoulder codmans. R shoulder PROM: flex 80 degrees , scap 60 degrees, IR 50 degrees, ER to neutral. PT for R shoulder PROM at this time. No AROM x 6 weeks. Plan to progress into AAROM around 4-6 weeks as tolerated. Patient with a good understanding of plan. Patient Instructed in Risks/Benefits Yes Therapeutic Exercise Therapeutic Exercise Minutes (minutes) 30 Therapeutic Exercise: To Restore elbow/wrist/hand ROM, elbow Functional Status ext stretching R shoulder codmans. VC and hands on cueing to help with relaxation and improved technique. supine R shoulder PROM. Oscillation and VC for relaxation with PROM to improve ranges. Patient tight , guarded. Able to relax some and improve ranges during session. Treatment Minutes Untimed Code Treatment Minutes 18 Timed Code Treatment Minutes 30 Total Treatment Time 48 Billing Units Therapeutic Exercise Units 2 Re-Evaluation Units 1 Assessment/Impression Assessment/Impression Patient is a 74 year old female, now s/p R shoulder mini open RCR, SAD, DCE with R shoulder pain, impaired R shoulder ROM, impaired R shoulder mobility/ strength, impaired functional mobility/use of R shoulder/UE, currently restricted in R UE sling. Pain range 0-3/10. Patient is wearing R UE sling. Reviewed use of sling, protection of R shoulder after surgery. Able to initiate PROM R shoulder this session and R shoulder codmans. R shoulder PROM: flex 80 degrees , scap 60 degrees, IR 50 degrees, ER to neutral. PT for R shoulder PROM at this time. No AROM x 6 weeks. Plan to progress into AAROM around 4-6 weeks as tolerated. Patient with a good understanding of plan. Patient was seen in PT with RC tear prior to surgery with minimal improvement leading up to this RCR surgery. Rosa-mamta performed this session, now post op. PT goals updated for post op RCR. Plan to see patient 2x/week. alvaro Pantoja will be sent to for certification. Patient would benefit from skilled PT for pain/sx management, improved R shoulder ROM, improved R shoulder/UE strength, return to full functional use of R shoulder/UE, and establishment of HEP. Plan of Care Physical Therapy Goals 1. Decrease R shoulder pain to less than/equal to 3/10 with daily activities and with the progression of PT activities over the next 6-8 weeks. 2. Improve R shoulder PROM over the next 6-8 weeks to prepare for return to functional use of R shoulder/UE. 3. Improve R shoulder AROM over the next 8-10 weeks for return to functional use of R shoulder/ UE with daily activities. 4. Improve R shoulder/UE strength over the next 10-12 weeks for return to full functional use of R shoulder/UE with daily activities. 5. Patient will be I with HEP within 12 weeks for progression toward above goals, ongoing self management of pain/sx, ongoing self improvements in ROM/strength/function, and for return to full functional use of R shoulder/UE with daily activities. Daily Plan of Care Continue per POC Recertification Information Recertification Start Date 02/24/24 Recertification Due Date 05/24/24 Reasons to Continue Skilled Therapy s/p R mini open RCR, SAD, DCE 02/17/24. See above note. Rehabilitation Potential Good Continued Plan of Care and Interventions 2x/week MERCEDES FERRARI Provider Signature Shows Agreement With POC & Medical Necessity Physician Comment/Change Comment or Changes Physician NPI Number #
--- NOTE | 2024-05-11 11:53 | PT.OPDNX ---
PT [place] [facility] Daily Note [facility] Daily Note Start: 12/23/23 11:22 Freq: Status: Active Protocol: Document 05/11/24 08:27 JAI (Rec: 05/11/24 11:53 JAI [id number]) E-signed By Rashmi Britt DPT PT OP Daily Progress Note Visit Information Note Type Daily Note Visit Number [id number] Insurance Authorized Visits - Physician Authorized Visits - Insurance Information Recert Due Date 08/09/24 Insurance Name Medicare B Medical Diagnosis s/p R shoulder mini open RCR, SAD, DCE 02/17/24 Treating Diagnosis s/p R shoulder mini open RCR, SAD, DCE 02/17/24 with R shoulder pain, impaired R shoulder ROM, impaired R shoulder mobility/strength, impaired functional mobility/ use of R shoulder/UE, currently restricted in R UE sling. Subjective Subjective Patient continues to report doing well with her HEP. Feels she is getting up higher with her willie ROM. She denies any flare up of pain/sx with more aggressive PT stretching, ROM, over pressure with PT. She continues to work on her HEP regularly, pushing into bigger stretches. Trying to use R shoulder/UE more with daily activities but still limited. Using tylenol and ice as needed - that seems to help recover from flared up pain/soreness. Sleep is still interrupted, can't get back to sleeping in the bed so continues to sleep in the recliner chair. She has follow up with May 15. Home Exercise Home Exercise Comments elbow/wrist/hand ROM, elbow ext stretching R shoulder codmans table slide PROM flex willie flex, scap, circles wall slide flex, circles table ER stretch prone ext, flex, scap retraction HO issued for HEP Objective Patient Instructed in Risks/Benefits Yes Therapeutic Exercise Therapeutic Exercise Minutes (minutes) 30 Therapeutic Exercise: To Restore Review of HEP Functional Status nustep 6 min, L5 willie flex, scap, circles both directions lat pull down - 4 plates - 2 x 20 wall slide flex, circles CW/ CCW, snow angels 2 x 10 each R shoulder codmans circles. hands together flex 3 x 10 sidelying R shoulder/R scap ROM/mobs, stretching, contract /relax with passive stretching , shoulder flex/scap/abd/ circles supine R shoulder P/AAROM. Contract/relax stretching flex /IR/ER. Oscillation and VC for relaxation with P/AAROM and over pressure stretching and GHJ mobs to improve ranges . Patient remains tight, guarded, limited ROM. Tolerated increased over pressure and more aggressive stretching, GHJ mobs/scap mobs to improve ROM. Overhead reaching, side/side, hands behind head with elbows in/out . supine AAROM flex, circles using L UE to assist. Repeated with 4# wt. 5-10 reps each. Patient to add wt in her HEP. Manual Therapy Techniques Manual Therapy Minutes (minutes) 10 Manual Therapy Techniques GHJ mobs, scap mobs in sidelying and supine with ROM stretching to improve ranges. Treatment Minutes Timed Code Treatment Minutes 40 Total Treatment Time 40 Billing Units Manual Therapy Units 1 Therapeutic Exercise Units 2 Assessment/Impression Assessment/Impression Patient is s/p R shoulder mini open RCR, SAD, DCE 02/17/24. Patient R shoulder P/AA/AROM remains limited due to tightness, stiffness, pain, guarding. Patient with R shoulder compensation patterns for AA/AROM. She is tolerating aggressive stretching, ROM, GHJ/scap mobs . She reports some soreness but recovers with rest, time, ice, tylenol. Patient feels she is noticing some slow improvements with ROM and use of R shoulder for driving and some daily activities/ housework. Overall, patient's progress has been slow. Patient with R shoulder capsule tightness, ST tightness from extended time of limited/restricted ROM pre surgery and then post surgery in the sling (limited since last Sep). Continued with extra focus on ROM, stretching , GHJ/scap mobs, more aggressive over pressure stretching to improve ROM. Ongoing cracking, popping, grinding noted in R shoulder/R scap with over pressure stretching, GHJ/scap mobs as patient loosens up. Reviewed pushing into bigger stretches/ ROM in her home program and increasing use of R shoulder/ UE as able. Patient expressed understanding. R shoulder P/ AAROM: flex 110 degrees, scap 100 degrees, ER 30 degrees, IR 50 degrees. R shoulder AROM flex/scap limited at 90 degrees secondary to weakness. Plan to continue with PT with ongoing focus on improving R shoulder ROM and working into more strengthening/stabilization in the weeks ahead. Patient has follow up with 05/15. She will continue with her HEP. She is making progress toward her PT goals but again her overall rehab continues to progress slowly. Recheck in PT next week. Patient will likely need extended PT for her RCR rehab due to ongoing limited ROM, capsule and ST tightness, and weakness. Continue with PT POC. Recert/ progress note sent to MD for signature. PT goals ongoing. Plan of Care Physical Therapy Goals 1. Decrease R shoulder pain to less than/equal to 3/10 with daily activities and with the progression of PT activities over the next 6-8 weeks. 2. Improve R shoulder PROM over the next 6-8 weeks to prepare for return to functional use of R shoulder/UE. 3. Improve R shoulder AROM over the next 8-10 weeks for return to functional use of R shoulder/ UE with daily activities. 4. Improve R shoulder/UE strength over the next 10-12 weeks for return to full functional use of R shoulder/UE with daily activities. 5. Patient will be I with HEP within 12 weeks for progression toward above goals, ongoing self management of pain/sx, ongoing self improvements in ROM/strength/function, and for return to full functional use of R shoulder/UE with daily activities. Daily Plan of Care Continue per POC Recertification Information Recertification Start Date 05/11/24 Recertification Due Date 08/09/24 Reasons to Continue Skilled Therapy see above note Rehabilitation Potential good Continued Plan of Care and Interventions 2x/week for ongoing progress toward PT goals Provider Signature Shows Agreement With POC & Medical Necessity Physician Comment/Change Comment or Changes Physician NPI Number #
--- NOTE | 2024-06-09 12:01 | PT.OPDNX ---
PT [place] [facility] Daily Note [facility] Daily Note Start: 12/23/23 11:22 Freq: Status: Active Protocol: Document 06/09/24 10:05 JAI (Rec: 06/09/24 12:00 JAI [id number]) E-signed By Rashmi Britt DPT PT OP Daily Progress Note Visit Information Note Type Daily Note,Recert/Progress Note Visit Number [id number] Insurance Authorized Visits - Physician Authorized Visits - Insurance Information Recert Due Date 09/07/24 Insurance Name Medicare B Medical Diagnosis s/p R shoulder mini open RCR, SAD, DCE 02/17/24 Treating Diagnosis s/p R shoulder mini open RCR, SAD, DCE 02/17/24 with R shoulder pain, impaired R shoulder ROM, impaired R shoulder mobility/strength, impaired functional mobility/ use of R shoulder/UE, currently restricted in R UE sling. Subjective Subjective Patient reports some soreness after aggressive stretching yesterday. She used ice when she got home - recovered with rest, time, ice. Over the last several weeks, she has noticed some gradual improvements with R shoulder ROM but remains limited. She is able to reach up to 2nd shelf of cupboard but states this is still a big stretch. She is doing better with dressing, washing her hair. She continues with her HEP, ROM, stretching, strengthening . Has an appt with MD on Wednesday. Home Exercise Home Exercise Comments elbow/wrist/hand ROM, elbow ext stretching R shoulder codmans table slide PROM flex willie flex, scap, circles wall slide flex, circles table ER stretch prone ext, flex, scap retraction HO issued for HEP Objective Patient Instructed in Risks/Benefits Yes Therapeutic Exercise Therapeutic Exercise Minutes (minutes) 24 Therapeutic Exercise: To Restore Review of HEP Functional Status UBE x 5 min, mod-high resistance willie flex, circles both directions lat pull down - 5 plates x 20 wall slide flex x 10 R shoulder codmans circles. hands together flex x 10 sidelying R shoulder/R scap ROM/mobs, stretching, contract /relax with passive stretching , shoulder flex/scap/abd/ circles supine R shoulder P/AAROM. Oscillation and VC for relaxation with P/AAROM and over pressure stretching and GHJ mobs to improve ranges. Tolerating increased over pressure and more aggressive stretching, GHJ mobs/scap mobs to improve ROM. Manual Therapy Techniques Manual Therapy Minutes (minutes) 15 Manual Therapy Techniques GHJ mobs, scap mobs in sidelying and supine with ROM stretching to improve ranges. supine and sidelying AC joint mobs Treatment Minutes Timed Code Treatment Minutes 39 Total Treatment Time 39 Billing Units Manual Therapy Units 1 Therapeutic Exercise Units 2 Assessment/Impression Assessment/Impression Patient is s/p R shoulder mini open RCR, SAD, DCE 02/17/24. R shoulder/scap ROM/mobility remain tight, stiff, limited. Patient is tolerating more aggressive GHJ/scap mobs, more aggressive over pressure ROM stretching. Trial with dry needling treatments the last couple of weeks to decrease muscle tightness, tension to help improve ROM. Progress with ROM has been slow, limited. Patient continues with her HEP regularly. Despite more aggressive PT ROM /stretching, GHJ/scap mobs, and dry needling patient ROM remains limited by tightness, stiffness, capsule tightness, guarding, pain. P/AAROM are limited in all directions. Patient with shoulder compensation patterns with AAROM and AROM. R shoulder strength in lower level activities is improving. Patient R shoulder ROM was significantly limited going into surgery and then worse after surgery with her extended time in the sling. Patient has follow up with MD on Wednesday. Plan is for manipulation of R shoulder if her motion remained limited. Patient will review her progress with MD but is open to the manipulation at this time to help improve her ROM. Patient will update PT next week after her MD appt on the plan. Recheck in PT next week . Continue with PT POC. Plan of Care Physical Therapy Goals 1. Decrease R shoulder pain to less than/equal to 3/10 with daily activities and with the progression of PT activities over the next 6-8 weeks. 2. Improve R shoulder PROM over the next 6-8 weeks to prepare for return to functional use of R shoulder/UE. 3. Improve R shoulder AROM over the next 8-10 weeks for return to functional use of R shoulder/ UE with daily activities. 4. Improve R shoulder/UE strength over the next 10-12 weeks for return to full functional use of R shoulder/UE with daily activities. 5. Patient will be I with HEP within 12 weeks for progression toward above goals, ongoing self management of pain/sx, ongoing self improvements in ROM/strength/function, and for return to full functional use of R shoulder/UE with daily activities. Daily Plan of Care Continue per POC,Change POC; See Comments Daily Plan of Care Comments Patient will be seen in PT 2- 4x/week for the addition of dry needling treatments and for increased ROM/stretching in hopes of avoiding R shoulder manipulation and/or for ROM/stretching after MD appt/manipulation if needed. Recertification Information Recertification Start Date 06/09/24 Recertification Due Date 09/07/24 Reasons to Continue Skilled Therapy see above note - ongoing tightness, stiffness, capsule tightness, limited ROM Patient to review plan for manipulation with MD at her appt on Wednesday. Rehabilitation Potential good Continued Plan of Care and Interventions 2-4x/week as needed following manipulation (pending MD follow up) Provider Signature Shows Agreement With POC & Medical Necessity Physician Comment/Change Comment or Changes Physician NPI Number #
== END 2025-01-05 23:59 | disposition home or self-care (01) ==
PROVIDERS: PCP Family Medicine; Visit Provider Orthopaedic Surgery
DX: M75.101 Unspecified rotator cuff tear or rupture of right shoulder, not specified as traumatic (principal); M25.511 Pain in right shoulder; Z74.09 Other reduced mobility; Z51.89 Encounter for other specified aftercare
CPT/HCPCS: 36415; 74178; 82565; 87086; 97110; 97140; 97162; 97164; Q9967

== ENCOUNTER 2024-09-22 09:15 | Emergency (ER) | payer MEDICARE, OTHER, SELFPAY ==
[2024-09-22 09:22] VITALS: BP 145/71; PULSE 69; RESP 18; TEMP 36.4; O2SAT 100; BMI 25.5
--- NOTE | 2024-09-22 09:45 | CRLHL7_ITS ---
For Patients: As a result of the Century Cures Act, medical imaging exams and procedure reports are released immediately into your electronic medical record. You may view this report before your referring provider. If you have questions, please contact your health care provider. INDICATION: Shortness of breath TECHNIQUE: Chest 2 views. COMPARISON: CT chest July 2024 FINDINGS/ IMPRESSION: No focal consolidation, effusion or pneumothorax. Cardiac size is within normal limit without pulmonary edema. No acute osseous findings. Dictated by Maria Antonia Eng MD @ 09/22/2024 10:46:54 AM (Electronically Signed)
--- NOTE | 2024-09-22 09:49 | ED_ITS ---
HPI - General Adult General Chief complaint: Chest Pain Stated complaint: burning left chest Time Seen by Provider: 09/22/24 09:39 Source: patient Mode of arrival: ambulatory Limitations: no limitations History of Present Illness HPI narrative: 74-year-old female coming in today with chest pain going on for 5 days. It comes and goes. Is not associated with physical activity, not associated with eating. Nothing seems to make it better or worse. It is located in the left upper lateral chest and does not radiate. She denies feeling nauseated. She denies fevers or chills. She denies any vomiting. She denies feeling short of breath. She denies coughing. She denies recent traveling. She had rotator cuff surgery in January of this year, nothing in the last few months. Denies any personal history of blood clots in the past, no history of cancer. Related Data Home Medications ?Medication ?Instructions ?Recorded ?Confirmed calcium carbonate mg PO DAILY 05/13/22 08/23/24 cetirizine 10 mg tablet 10 mg PO DAILY 05/13/22 09/22/24 fluocinolone 0.01 % topical 1 applic topical .Daily as needed 05/13/22 09/22/24 solution PRN fluticasone propionate 50 1 spray intranasal ONCE PRN 05/13/22 09/22/24 mcg/actuation nasal spray,suspension lisinopril 10 mg tablet mg PO DAILY 05/13/22 08/23/24 multivitamin with minerals-ferrous tab PO 05/13/22 08/23/24 sulfate 4.5 mg iron tablet (One Daily Multivitamins with Minerals) Previous Rx's ?Medication ?Instructions ?Recorded estradiol 0.01% (0.1 mg/gram) 0.5 g vaginal 2XW #42.5 grams 04/14/24 vaginal cream (Estrace) GABAPENTIN 6% CREAM 6% Cream See Rx Instructions .Route 09/15/24 .COMPLEX #15 grams Allergies Allergy/AdvReac Type Severity Reaction Status Date / Time prednisone Allergy Severe Full body Verified 09/22/24 09:28 rash sulfasalazine Allergy Severe Skin Verified 09/22/24 09:28 eruption hydrocodone Allergy Mild Rash Verified 09/22/24 09:28 sulfamethoxazole (From Allergy Rash Verified 09/22/24 09:28 Sulfamethoxazole-Trimethoprim) trimethoprim (From Allergy Rash Verified 09/22/24 09:28 Sulfamethoxazole-Trimethoprim) Review of Systems Status of ROS: Reports: 10 or more systems reviewed and unremarkable except as noted in History and below PFSH [facility] Medical History Irregular heart rhythm ?I49.9 - Cardiac arrhythmia, unspecified (ICD-10) 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) Microscopic hematuria ?R31.29 - Other microscopic hematuria (ICD-10) Urinary retention ?R33.9 - Retention of urine, unspecified (ICD-10) Urinary tract infection ?N39.0 - Urinary tract infection, site not specified (ICD-10) Recurrent UTI ?N39.0 - Urinary tract infection, site not specified (ICD-10) Mixed hearing loss, unilateral ?H90.8 - Mixed conductive and sensorineural hearing loss, unspecified (ICD- 10) DDD (degenerative disc disease), lumbar ?M51.36 - Other intervertebral disc degeneration, lumbar region (ICD-10) Hypertension ?I10 - Essential (primary) hypertension (ICD-10) Rash ?R21 - Rash and other nonspecific skin eruption (ICD-10) Palpitations ?R00.2 - Palpitations (ICD-10) Allergic reaction ?T78.40XA - Allergy, unspecified, initial encounter (ICD-10) Vaginal atrophy ?N95.2 - Postmenopausal atrophic vaginitis (ICD-10) Vulvodynia ?N94.819 - Vulvodynia, unspecified (ICD-10) Encounter for follow-up ?Z09 - Encounter for follow-up examination after completed treatment for conditions other than malignant neoplasm (ICD-10) Surgical History Status post shoulder surgery (06/27/24) ?Z98.890 - Other specified postprocedural states (ICD-10) History of arthroscopy of right shoulder (02/17/24) ?Z98.890 - Other specified postprocedural states (ICD-10) History of stapedectomy ?Z90.09 - Acquired absence of other part of head and neck (ICD-10) Hx of cholecystectomy ?Z90.49 - Acquired absence of other specified parts of digestive tract (ICD- 10) Social History Narrative: -[place] Smoking Status: Never smoker Do you use any of these nicotine containing products: None Second hand tobacco smoke exposure: No How often do you have a drink containing alcohol: never How often do you have six or more drinks on one occasion: Never AUDIT-C Alcohol total score: 0 Non-prescribed substance use: denies use Caffeine: Yes Are you using contraception or practicing any form of control: No Exam Narrative: Exam Narrative: Well-nourished well-developed patient in no acute distress. Alert and oriented. Answers questions appropriately. Mood and affect are appropriate. Thoughts are goal oriented and rational. No tangential or magical thinking noted. Patient speaks in full sentences without needing to catch her breath. HEENT: Normocephalic atraumatic. Pupils are equally round reactive to light. Extraocular muscles are intact. Conjunctivae are moist without any icterus noted. Moist mucous membranes. Posterior pharynx is normal. Neck is soft without any lymphadenopathy. Cardiovascular: Heart is regular rate and rhythm S1 and S2 are present without any murmurs. Lungs: Clear to auscultation bilaterally no wheezes rhonchi or rales are appreciated. Patient takes deep breaths without any discomfort. Abdomen: Soft and nontender nondistended with normal bowel sounds. No guarding or rebound. Extremities: Bilateral lower extremities are without edema. Normal DP and PT pulses. Skin: Well perfused without any obvious rashes. Const: Vital Signs, click to edit/add: Vital Signs - 24 hr 09/22/24 09:22 Temperature 97.6 F Pulse Rate [Left P ulse Oximeter] 69 Respiratory Rate 18 Blood Pressure [Ri ght Upper Arm] 145/71 H Pulse Oximetry 100 Oxygen Delivery Me thod Room Air Course Course ED Course: EKG, read by me, and shows sinus bradycardia with a pulse of 59. CBC is unremarkable. Normal D-dimer. Chemistries are unremarkable. Normal lactate LFTs are normal. Normal troponin. Normal CRP. Normal lipase. Discussed results with patient. Given her history and physical as well as her workup her discomfort is likely secondary to musculoskeletal discomfort. Discussed symptomatic treatment and reasons for follow-up. Vital Signs Vital signs: Initial Vital Signs Temperature 97.6 F 09/22/24 09:22 Temperature Source Temporal Artery Scan 09/22/24 09:22 Pulse Rate 69 09/22/24 09:22 Pulse Rhythm Regular 09/22/24 09:22 Respiratory Rate 18 09/22/24 09:22 Blood Pressure 145/71 H 09/22/24 09:22 Blood Pressure Mean 95 09/22/24 09:22 Blood Pressure Position Supine 09/22/24 09:22 Pulse Oximetry 100 09/22/24 09:22 Oxygen Delivery Method Room Air 09/22/24 09:22 Vital Signs Temperature 97.6 F 09/22/24 09:22 Pulse Rate 69 09/22/24 09:22 Respiratory Rate 18 09/22/24 09:22 Blood Pressure 145/71 H 09/22/24 09:22 Pulse Oximetry 100 09/22/24 09:22 Oxygen Delivery Method Room Air 09/22/24 09:22 Temperature 97.6 F 09/22/24 09:22 Pulse Rate 69 09/22/24 09:22 Respiratory Rate 18 09/22/24 09:22 Blood Pressure 145/71 H 09/22/24 09:22 Pulse Oximetry 100 09/22/24 09:22 Oxygen Delivery Method Room Air 09/22/24 09:22 Medical Decision Making MDM Narrative Medical decision making narrative: Musculoskeletal chest pain. Symptomatic treatment. Lab Data Lab results reviewed: Yes I reviewed the patient's lab results Labs: Lab Results 09/22/24 Range/Units 09:55 WBC 5.24 (4.50-11.00) K/uL RBC 4.80 (4.00-5.20) m/uL Hgb 13.7 (12.0-16.0) gm/dL Hct 42.5 (33.0-51.0) % MCV 89 (80-100) fL MCH 29 (26-34) pg MCHC 32 (32-36) gm/dL RDW Coeff of Diana 12.9 (11.5-15.5) % Plt Count 237 (140-440) K/uL Neut % (Auto) 64.8 (42.0-72.0) % Lymph % (Auto) 26.3 (20-44) % [place] % (Auto) 7.3 (0.0-11.0) % Eos % (Auto) 0.8 (0.0-7.0) % Baso % (Auto) 0.6 (0.0-3.0) % Neut # (Auto) 3.40 (1.7-7.0) K/uL Lymph # (Auto) 1.38 (0.90-2.90) K/uL [place] # (Auto) 0.40 (0.00-0.90) K/UL Eos # (Auto) 0.04 (0.00-0.50) K/uL Baso # (Auto) 0.03 (0.00-0.30) K/uL Abs Immat Gran (auto) 0.01 (0.00-0.30) K/uL Imm/Tot Granulo (auto) 0.2 % D-Dimer Quant (PE/DVT) < 0.27 (0.00-0.50) ug/ml Sodium 141 (135-149) mmol/L Potassium 3.5 L (3.6-5.1) mmol/L Chloride 106 (96-114) mmol/L Carbon Dioxide 26 (20-32) mmol/L Anion Gap 9 (7-15) mEq/L BUN 18 (7-30) mg/dL Creatinine 0.7 (0.5-1.5) mg/dL Estimated Creat Clear 38.37 Estimated GFR 92 ml/min Glucose 102 (60-115) mg/dL Lactate 1.8 (0.5-1.9) mmol/L Calcium 9.6 (8.4-10.6) mg/dL Total Bilirubin 0.5 (0.1-1.5) mg/dL Direct Bilirubin 0.1 (0.0-0.5) mg/dL AST 22 (12-35) U/L ALT 16 (4-35) U/L Alkaline Phosphatase 62 (40-150) U/L Troponin I < 0.01 L (0.01-0.04) ng/mL C-Reactive Protein < 0.5 L (0.5-1.0) mg/dL Total Protein 7.4 (6.0-8.3) g/dL Albumin 4.6 (3.3-5.0) g/dL Lipase 61 (23-300) U/L Imaging Data Chest x-ray: Attestation: I have reviewed the pertinent imaging results. Radiologist's impression: Chest 2 views. COMPARISON: CT chest July 2024 FINDINGS/ IMPRESSION: No focal consolidation, effusion or pneumothorax. Cardiac size is within normal limit without pulmonary edema. No acute osseous findings. ECG Data Attestation: I personally reviewed and interpreted this ECG as follows: Discharge Plan Discharge Clinical Impression: Chest pain, musculoskeletal Patient Disposition: Home, Self-Care Condition: Stable Additional Instructions: Okay to take Tylenol as needed. Okay to use a heating pad to the sore area. Do not apply heat more than 20 minutes at a time and do not apply heat directly to the skin. If you feel like you are not improving over the next several days, follow-up with your primary care provider. Return to the emergency department if you develop vomiting, fevers, worsening pain or difficulty breathing. Prescriptions: No Action fluticasone propionate 50 mcg/actuation spray,suspension 1 spray intranasal ONCE PRN fluocinolone 0.01 % solution 1 applic topical .Daily as needed PRN Rx Instructions: to scalp lisinopril 10 mg tablet PO DAILY calcium carbonate 500 mg calcium (1,250 mg) tablet PO DAILY cetirizine 10 mg tablet 10 mg PO DAILY One Daily Multi-Vit w-Mineral 4.5 mg iron tablet PO estradiol [Estrace] 0.01 % (0.1 mg/gram) cream 0.5 g vaginal 2XW Qty: 42.5 3RF Rx Instructions: Use nightly for 2 weeks, then twice weekly. May apply with finger. GABAPENTIN 6% CREAM 6% Cream See Rx Instructions .ROUTE .COMPLEX Qty: 15 6RF Dose Instruction: APPLY PEA-SIZED AMOUNT TO AFFECTED AREA DAILY;MAY INCREASE TO TWICE A DAY IF NEEDED Rx Instructions: APPLY PEA-SIZED AMOUNT TO AFFECTED AREA DAILY;MAY INCREASE TO TWICE A DAY IF NEEDED Follow Up/Referrals: Nancy Camara MD [Primary Care Provider] - Stand Alone Forms: [employer] Info Instructions
--- OUTSIDE RECORDS SUMMARY | 2024-09-22 09:59 | XMS_ITS | Clinical Summary ---
Author Organization [facility] Address [address] [place] [address] Care Team Providers Care Blade Bender Furnace Tender Name Role Phone Unavailable Primary Care Provider Unavailabl e Source Comments Patient records contain information from all sites at [facility]. For routine questions regarding patient records, call [phone] during business hours, M-F 8:00 AM - 5:00 PM Central Time. Record requests for emergency care only can be directed to [phone] at any time.[facility] Allergies Active Allergy Reactions Criticality Noted Date Comments Hydrocodone-Acetaminophen Rash High 03/12/2021 Prednisone Rash 09/01/2011 Sulfamethoxazole-Trimethoprim Rash,Palpitations High 08/06/2021 Medications fluticasone (FLONASE ALLERGY RELIEF) 50 mcg/actuation nasal spray Administer 1 spray into affected nostril(s) as needed. As needed. 09/01/20 11 Active cetirizine 10 mg capsule Take 1 capsule by mouth daily. 09/02/20 11 Active lisinopril (PRINIVIL,ZES TRIL) 10 mg tablet Take 1 tablet by mouth daily. 09/02/20 11 Active multivitamin tablet Take 1 tablet by mouth daily. 09/02/20 11 Active calcium carbonate (CALCIUM 600 ORAL) Take 1 tablet by mouth 2 (two) times a day. 09/01/20 11 Active fluocinolone (CAPEX) 0.01 % shampoo 05/06/20 17 Active calcium carbonate-vit delong D3 (Calcium 600 + D,3,) 600 mg-5 mcg (200 unit) capsule Take 1 capsule by mouth 2 (two) times a day with meals. 04/10/20 11 Active gabapentin 10 % cream, metered-dose applicator Apply topically. Active estradioL (Estrace) 0.1 mg/g (0.01%) vaginal cream 0.5 g by other route. 04/14/20 24 Active fluocinolone (Clark-Smooth e/FS) 0.01 % scalp oil Apply 1 Application topically daily. Active sodium chloride injection Inject 2 Syringes as directed as needed. As needed 20 cc 09/01/20 11 024 Discontinued(Th erapy completed) aspirin [address] tablet Take 81 mg by mouth. 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 Urgency Urinary (Primary Dx); Benign Essential Microscopic Hematuria; Other Vulvodynia 07/11/2024 Clinical Communication Department of Urology in [place], [place] [address] [place] [phone] Gale Calzada APRN, C.N.P. 07/06/2024 Clinical Communication Department of Urology in [place], [place] [address] [place] [phone] Gale Calzada APRN, C.N.P. from Last 3 [...] Answer Date Recorded Nutrition: EVOO Fat Source 13 05/21 Nutrition: Servings of Fruits/Vegetables per Day Not on file 05/21/2020 Dental Answer Date Recorded Dental: Regular Dentist Unknown 12/28/19 21 Comments Unknown Sex and Gender Information Value Date Recorded Sex Assigned at Female 08/28/2024 7:46 PM VARIETY PERFORMER Legal Sex Female 3:29 PM VARIETY PERFORMER Gender Identity Female 08/28/2024 7:46 PM VARIETY PERFORMER Sexual Orientation Straight 08/28/2024 7: 46 PM VARIETY PERFORMER Plan of Treatment Health Maintenance Due Date Last Done Comments CT Colonography 1950 Cologuard 1950 Hepatitis C Screening 1950 Office Visit for Blood Pressure Check / Re-check 1950 Depression Screening (Annual PHQ-2) 10/25/2023 Fall Risk Screen (Annual) 10/25/2023 COVID-19 Vaccine ( season) 2024 08/14/2022, 02/18/2022, 07/30/2021, Additional history exists Creatinine Level (Kidney Function Test) 07/05/2024 07/05/2023, 07/02/2022, 09/11/2021, Additional history exists Sodium Level 07/05/2024 07/05/2023, 05/2022, 09/11/2021, Additional history exists Influenza Vaccine (#1) 2024 , 09/21/2022, 08/12/2020 Potassium Level 06/21/2025 06/21/2024, 12/24, 01/14/2024, Additional history exists Mammogram 07/27/2025 07/27/2024, 12/2023, 07/05/2023, Additional history exists Fasting Glucose for Diabetes Screening 07/05/2026 07/05/2023, 07/02/2022, 09/11/2021, Additional history exists DTaP,Tdap,and Td Vaccines (3 - Td or Tdap) 10/19/2027 10/19/2017, 06/09/2007, 02/16/1997 Colonoscopy 11/12/2027 11/12/2022, 10/2006 (Performed elsewhere) Colorectal Cancer Surveillance 11/12/2027 Pneumococcal vaccine (65+ years) Completed 02/20/2019, 06/21/2017 Zoster Vaccines Completed 09/24/2020, 06/25, 10/21/2012 Bone Density Scan (Osteoporosis Screen) Discontinued 06/09/2021 IPV Vaccines Aged Out No longer eligi ble based on patient's age to complete this topic Procedures Procedure Name Priority Date/Time Associated Diagnosis Comments UROLOGY IMAGE EXAM Routine 08/30/2024 12 :00 PM VARIETY PERFORMER UROLOGY IMAGE EXAM Routine 08/30/2024 11 :55 AM VARIETY PERFORMER AR CYSTOURETHROSCOPY Routine 08/30/2024 11:30 AM VARIETY PERFORMER Urgency Urinary Benign Essential Microscopic Hematuria from Last 3 Months Results * Urology Image Exam-Urology Image Exam (08/30/2024 12:00 PM VARIETY PERFORMER) Only the most recent of2 resultswithin the time period is included. 08/30/2024 11:5 4 AM VARIETY PERFORMER Narrative [facility] - 08/30/2024 12:59 PM VARIETY PERFORMER This order has been created and auto-finalized to support the import of images acquired without order. The clinical documentation to support these images can be found on the encounter that produced images. us Provider Not In System IMG NON RAD IMAGING PROCE DURES Final Result [facility] NA * AR CYSTOURETHROSCOPY (08/30/2024 11:30 AM VARIETY PERFORMER) Narrative Gale Calzada APRN, C.N.P. - 08/30/2024 11:30 AM VARIETY PERFORMER Gale Calzada APRN, C.N.P. 08/30/2024 11:57 AM Cystoscopy Performed by: Gale Calzada APRN, C.N.P. Authorized by: Gale Calzada APRN, C.N.P. Care team members present 1. Gale Calzada APRN, C.N.P. 2. Swapna Almeida C.N.A. IMPRESSION negative cystoscopy Additional procedures performed: cystoscopy PROCEDURE DETAILS: Urethra (female): Normal: yes Diverticulum present: no Sphincter: Characteristic: coapting Trigone: Normal: yes Ureters: Characteristics: Effluxing clear urine Effluxing clear urine - side: Bilateral Bladder: Normal: yes Capacity: Moderate Quality of urine: Clear Residual upon entry: Small Residual volume (cc): 50 Retroflex view: Normal: yes A flexible cystoscope was inserted through the urethra into the bladder. Cystoscope was removed at the end of procedure. Small area of cystitis cystica noted at bladder neck. CONSENT Consent obtained: verbal Consent given by: patient The benefits, risks and alternatives to the procedure and the potential need for sedation or anesthesia as well as the names, roles, and responsibilities of healthcare team members performing significant interventional tasks were discussed with the patient and/or decision maker. UNIVERSAL PROTOCOL All relevant documentation and testing were reviewed and available. All required blood products, implants, devices and or special equipment were made available as applicable. Pre-procedure verification was conducted and the correct site was marked if required. A fire risk and smoke assessment were done as applicable. The procedural time-out to verify correct patient, correct side/site, and procedure was conducted prior to performing the procedure and confirmed in a procedural pause. PRE-PROCEDURE DETAILS Procedure purpose: Diagnostic Indications: Microscopic hematuria Appropriate hand hygiene, gown, cap, mask, protective eyewear, sterile gloves, skin preparation, sterile drape, and strict aseptic technique were utilized as applicable for the procedure.: yes Site preparation: Povidone-iodine SEDATION / ANESTHESIA Anesthesia method: topical application Topical application type: lidocaine POST-PROCEDURE DETAILS Procedure completed successfully: yes Complications: no apparent complications Gale Calzada APRN C.N.P. UROLOGY ORDERABLE S Final Result from Last 3 Months Insurance MEDICA
--- OUTSIDE RECORDS SUMMARY | 2024-09-22 09:59 | XMS_ITS | Clinical Summary ---
Author Organization [facility] Address [place], [place] [address] Care Team Providers Care Columnist/Commentator Name Role Phone Antonio Holbrook MD Unavailable [...] times daily with meals. 0 04/10/2011 Active fluticasone (50 mcg per actuation) nasal solution (FLONASE)Indicatio ns:Rhinitis, unspecified type Inhale 1 [place] into both nostrils 2 times daily. 48 [...] once daily. 100 Tablet 3 07/27/2024 Active sodium chloride 0.9% 0.9 % irrigationIndicati ons:Sinus congestion IRRIGATE 20 CHEMO CYCLE EACH NOSTRIL FOUR TIMES DAILY 5000 mL 3 01/23/2016 4 Discontinued (*Patient states no longer taking) ciprofloxacin (Cipro) 500 mg tabletIndications: Complicated UTI (urinary tract infection) Take 1 Tablet (500 mg) by mouth two times daily for 7 days. 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 [address] [place] [address] Lab, [facility] 09/08/2024 Travel 09/04/2024 Telephone [facility] [address] [place] [address] Nancy Camara MD Questions (about CT scan ) 08/31/2024 Telephone [facility] [address] [place] [address] Reina Cruz PA Results; Return Call 08/28/2024 12:50 PM AGRICULTURAL EDUCATION INSTRUCTOR Office Visit [facility] [address] [place] [address] Reina Cruz PA UTI 08/28/2024 Travel 08/27/2024 Orders Only [facility] Scanner 1 scan: (1-Ord) TAREEN DERMATOLOGY, SHAVE BIOPSY, 08/27/2024 08/21/2024 Orders Only [facility] Scanner 1 scan: (1-Ord) TAREEN DERMATOLOGY, SHAVE BIOPSY, 08/21/2024 08/16/2024 Orders Only [facility] [address] [place] [address] Nancy Camara MD 1 scan: (1-Ord) [facility], CHEST WO CONTRAST, 08/14/2024 07/27/2024 10:00 AM CDT Office Visit [facility] [address] [place] [address] Nancy Camara MD Medicare ANNUAL (subsequent) Visit (74 Year Old Female) 07/27/2024 9:40 AM CDT Ancillary Procedure [facility] [address] [address] 07/27/2024 Travel 07/22/2024 Travel from Last 3 Months Immunizations Name Administration Dates Next Due COVID-19 vaccine (Pfizer-Bio NTech 30mcg/0.3mL) 12YO+ BIVALENT ALLIE VALLADARES 08/14/2022 COVID-19 vaccine (Pfizer-Bio NTech 30mcg/0.3mL) 12YO+ TITI-SUCROSE PFALLIE 02/18/2022 COVID-19 vaccine (Pfizer-Bio NTech 30mcg/0.3mL) MD JACQUELYNV 07/30/2021,12/21/2020,11/30/2020 Influenza, Inactivated AIIV4 (Age 65+ Years) [...] 0 07/27/2024 Social Connections Answer Date Recorded Do you often feel lonely or isolated from those around you? 0 04/21/2024 Financial Resource Strain Answer Date R ecorded Difficulty of Paying Living Expenses 3 04/21/2024 Difficulty of Paying Living Expenses Not on file 04/21/2024 Food Insecurity Answer Date Recorded Do you worry your food will run out before you are able to buy more? 1 04/21/2024 Transportation Needs Answer Date Record ed Does lack of transportation keep you from medica l appointments? 1 04/21/2024 Does lack of transportation keep you from work, meetings or getting things that you need? 1 04/21/2024 Housing Stability Answer Date Recorded What is your housing situation today? 1 04/21/2024 Sex and Gender Information Value [...] Sign Reading Time Taken Comments Blood Pressure 136/75 08/28/2024 10:00 AM AGRICULTURAL EDUCATION INSTRUCTOR Pulse 71 08/28/2024 10:00 AM AGRICULTURAL EDUCATION INSTRUCTOR Temperature 36.4 C (97.5 F) 08/28/2024 10:00 AM AGRICULTURAL EDUCATION INSTRUCTOR Respiratory Rate 20 04/10/2023 12:56 PM CDT Oxygen Saturation 99% 08/28/2024 10:00 AM AGRICULTURAL EDUCATION INSTRUCTOR Inhaled Oxygen Concentration - - Weight 62 kg (136 lb 11.2 oz) 08/28/2024 10:00 A M AGRICULTURAL EDUCATION INSTRUCTOR Height 156.2 cm (5' 1.5) 07/27/2024 9:52 AM CDT Body Mass Index 25.41 07/27/2024 9:52 AM CDT Plan of Treatment [...] Procedure Name Priority Date/Time Associated Diagnosis Comments URINE CULTURE Routine 09/08/2024 9:09 AM AGRICULTURAL EDUCATION INSTRUCTOR Pelvic pressure in female URINALYSIS MICROSCOPIC Routine 09/08/2024 9:09 AM AGRICULTURAL EDUCATION INSTRUCTOR Pelvic pressure in female URINE CULTURE Routine 08/28/2024 10:01 AM AGRICULTURAL EDUCATION INSTRUCTOR Lower urinary tract symptoms (LUTS) URINALYSIS MICROSCOPIC Routine 08/28/2024 10:01 AM AGRICULTURAL EDUCATION INSTRUCTOR Lower urinary tract symptoms (LUTS) URINALYSIS MACROSCOPIC - [facility] ONLY POC DIP ([facility]) Routine 08/28/2024 10:00 AM AGRICULTURAL EDUCATION INSTRUCTOR Lower urinary tract symptoms (LUTS) SCAN-OPERATIVE/PROCE DURE REPORT 08/27/2024 12:00 AM CDT SCAN-OPERATIVE/PROCE DURE REPORT 08/21/2024 12:[address] CHEST WO Routine 08/14/2024 12:00 AM CDT Pulmonary nodules BASIC METABOLIC PANEL Routine 07/27/2024 10:51 AM CDT Unspecified essential hypertension XR MAMMO BILAT SCREENING Routine 07/27/2024 9:50 AM CDT Visit for screening mammogram COLONOSCOPY 11/12/2022 10:51 AM AGRICULTURAL EDUCATION INSTRUCTOR XR DXA BONE DENSITY 2 SITES AXIAL Routine 06/09/2021 9:24 AM CDT Osteopenia, unspecified location Other specified disorders of bone density and structure, multiple sites LIPID PANEL W REFLEX MEASURED LDL Routine 12/26/2020 3:07 PM AGRICULTURAL EDUCATION INSTRUCTOR Screening for lipid disorders ANTI HCV Routine 02/17/2018 4:26 PM CDT Need for hepatitis C screening test from Last 3 Months or Most Recently Relevant to Health Maintenance Results * URINALYSIS MICROSCOPIC (09/08/2024 9:09 AM AGRICULTURAL EDUCATION INSTRUCTOR) Only the most recent of2 resultswithin the time period is included. WBC UA NONE SEEN < OR = 5 /HPF [facility] RBC UA NONE SEEN < OR = 2 /HPF [facility] SQUAMOUS EPITHELIAL CELLS UA 0-5 < OR = 5 /HPF [facility] BACTERIA UA NONE SEEN NONE SEEN /HPF [facility] HYALINE CAST NONE SEEN NONE SEEN /LPF [facility] NOTE UA [facility] Comment: This urine was analyzed for the presence of WBC, RBC, bacteria, casts, and other formed elements. Only those elements seen were reported. Urine URINE SPECIMEN / Unknown 09/08/2024 9:09 AM AGRICULTURAL EDUCATION INSTRUCTOR 09/08/2024 9:10 AM AGRICULTURAL EDUCATION INSTRUCTOR Nancy Camara MD URINE [facility] [address] [place] [address], [facility] [address] [place] [address] * URINE CULTURE (09/08/2024 9:09 AM AGRICULTURAL EDUCATION INSTRUCTOR) Only the most recent of2 resultswithin the time period is included. CULTURE, URINE, ROUTINE SEE NOTE [facility] Comment: CULTURE, URINE, ROUTINE Micro Number: [id number] Test Status: Final Specimen Source: Urine Specimen Quality: Adequate Result: Less than 10,000 CFU/mL of single Gram positive organism isolated. No further testing will be performed. If clinically indicated, recollection using a method to minimize contamination, with prompt transfer to Urine Culture Transport Tube, is recommended. Urine URINE SPECIMEN / Unknown 09/08/2024 9:09 AM AGRICULTURAL EDUCATION INSTRUCTOR 09/08/2024 9:10 AM AGRICULTURAL EDUCATION INSTRUCTOR Nancy Camara MD MICROBIOLOGY Performing Organization Address City/[facility]/ZIP Co de Phone Number [facility] [address] [place] [address], [place] [phone] [facility] [address] [place] [address] * (ABNORMAL) POCT Urinalysis Dipstick Only (08/28/2024 10:00 AM AGRICULTURAL EDUCATION INSTRUCTOR) PH 7.0 5.0 - 8.0 [facility] SPECIFIC GRAVITY < OR = 1.005 1.001 - 1.035 [facility] Comment: Specific [place] values resulted are outside the analytical measurement range of this device. Recommend repeat/additional testing as clinically indicated. GLUCOSE NEGATIVE NEGATIVE [facility] BILIRUBIN NEGATIVE NEGATIVE [facility] KETONES NEGATIVE NEGATIVE [facility] OCCULT BLOOD TRACE(A) NEGATIVE [facility] PROTEIN NEGATIVE NEGATIVE [facility] NITRITE NEGATIVE NEGATIVE [facility] LEUKOCYTE ESTERASE NEGATIVE NEGATIVE [facility] Urine URINE SPECIMEN / Unknown 08/28/2024 10:00 AM AGRICULTURAL EDUCATION INSTRUCTOR 08/28/2024 10:00 AM AGRICULTURAL EDUCATION INSTRUCTOR Reina HAMEED URINE Performing Organization Address City/[facility]/ZIP Co de Phone Number [facility] [address] [place] [address], [place] [phone] [facility] [address] [place] [address] * SCAN-OPERATIVE/PROCEDURE REPORT (08/27/2024 12:00 AM CDT) Scanner OTHER * SCAN-OPERATIVE/PROCEDURE REPORT (08/21/2024 12:00 AM CDT) Scanner OTHER * CT CHEST WO (08/14/2024 12:00 AM CDT) Anatomical Region Laterality Modality CHEST, THORAX, HEART Computed To mography Nancy Camara MD CT * BASIC METABOLIC PANEL (07/27/2024 10:51 AM CDT) GLUCOSE 86 65 - 99 mg/dL [facility] Comment: Fasting reference interval UREA NITROGEN (BUN) 20 7 - 25 mg/dL [facility] CREATININE 0.78 0.60 - 1.00 mg/dL [facility] EGFR 81 > OR = 60 mL/min/1. 73m2 [facility] BUN/CREATININE RATIO SEE NOTE: 6 - 22 (calc) [facility] Comment: Not Reported: BUN and Creatinine are within reference range. SODIUM 141 135 - 146 mmol/L [facility] [...] 10:52 AM CDT Nancy Camara MD CHEMISTRY [facility] [address] [place] [address], [facility] [address] [place] [address] * XR MAMMO BILAT SCREENING (07/27/2024 9:50 AM CDT) Anatomical Region Laterality Modality BREASTS, Breast Left, Breast Right Bilateral Mammography Impressions 07/27/2024 2:03 PM CDT There is no radiographic evidence for malignancy. Recommend annual mammograms. MAMMOGRAM ASSESSMENT: ACR 1 Negative PATIENTS: You will also receive a letter with your examination results in an easy to read format. If you have questions about your results, please contact your referring provider. Narrative 07/27/2024 2:03 PM CDT For Patients: As a result of the Century Cures Act, medical imaging exams and procedure reports are released immediately into your electronic medical record. You may view this report before your referring provider. If you have questions, please contact your health care provider. XR MAMMO BILAT SCREENING [[id number]] CLINICAL HISTORY: This is an asymptomatic 74 y.o. patient. INDICATION FOR EXAM: Mammogram Screening. TECHNIQUE: CC & MLO views were obtained. This study was evaluated with the assistance of Computer-Aided Detection. COMPARISON FILM: Yes 07/05/23 [facility] 06/08/22 [facility] FINDINGS: There are scattered areas of fibroglandular density. There are no dominant masses, suspicious micro calcifications or areas of architectural distortion. Nancy Camara MD MAMMO * COLONOSCOPY (11/12/2022 10:51 AM AGRICULTURAL EDUCATION INSTRUCTOR) 11/12/2022 10:5 1 AM AGRICULTURAL EDUCATION INSTRUCTOR Narrative Transcriptions Vinod Saavedra MD - 11/12/2022 [...] adequate candidate for conscious sedation. The endoscope [id number] was passed through the anus and advanced [...] 10:51 AM Procedure Code(s): --- Professional --- 18718, Colonoscopy, flexible; diagnostic, including collection of specimen(s) bybrushing or washing, when performed (separateprocedure) Diagnosis Code(s): --- Professional --- Z86.010, Personal history of colonicpolyps K57.30, Diverticulosis of large intestine without perforation or abscess withoutbleeding CPT copyright 2020 [place] [employer]. All rights reserved. The codes documented in this report are preliminary and upon composite laminator reviewmay be revised to meet current compliance [...] recommended in 3-5 years. Barb Abernathy PA-C [facility] 06/16/2021 Narrative 06/16/2021 10:10 AM CDT For Patients: Results are automatically released to your [facility] ([employer]) account once available, in compliance with federal regulations. This means that you may see your results before your provider has had a chance to review them. Please allow 2-3 business days for your provider to comment on the results. XR DXA Bone Mineral Density (BMD) EXAM LOCATION: [facility] [address] [facility] [address] PATIENT NAME: Kendy Kirkland DATE OF : 1950 EXAM DATE: 06/09/2021 REQUESTING PROVIDER: Radha Stockton MD GENDER AT : female HEIGHT: 5' 1.42 (06/02/2021) WEIGHT: 121 lb 9.6 oz (06/02/2021) MENOPAUSAL STATUS: Postmenopausal [...] two scanners are made by the same turfgrass management professor. PROCEDURE: Dual-energy x-ray absorptiometry performed with routine [...] + 1.3 Comparison to most recent scan in 2017: Decrease -0.8%. RESULT FEMORAL NECK Right Femoral Neck T-Score: - 1.3 Left Femoral Neck T-Score: - 0.9 Right Femoral Neck Z-Score: + 0.6 Left Femoral Neck Z-Score: + 1.0 RESULT TOTAL HIP Total T-Score: - 0.6 Total Z-Score: + 1.0 Comparison to most recent scan in 2017: Decrease -0.8%. WHO criteria: Normal: T-score at or above -1 SD Osteopenia: T-score between -1.1 and -2.4 SD Osteoporosis: T-score at or below -2.5 SD FRAX RISK CALCULATION (USED FOR OSTEOPENIA ONLY): 10-year probability of major osteoporotic fracture: 8.9%. 10-year probability of hip fracture: 1.1%. Radha Stockton MD DEXA * LIPID PANEL W REFLEX MEASURED LDL (12/26/2020 3:07 PM AGRICULTURAL EDUCATION INSTRUCTOR) CHOLESTEROL,TOTAL 155 100 - 199 mg/dL 12/26/2020 10:26 PM AGRICULTURAL EDUCATION INSTRUCTOR [facility] TRIGLYCERIDES 72 <150 mg/dL 12/26/2020 10:26 PM AGRICULTURAL EDUCATION INSTRUCTOR [facility] HDL CHOLESTEROL 45 >40 mg/dL 10:26 PM AGRICULTURAL EDUCATION INSTRUCTOR [facility] NON-HDL CHOLESTEROL 110 <145 mg/dl 12/26/2020 10:26 PM AGRICULTURAL EDUCATION INSTRUCTOR [facility] CHOL/HDL RATIO 3.44 <4.50 12/26/2020 10:26 PM AGRICULTURAL EDUCATION INSTRUCTOR [facility] LDL CHOLESTEROL 96 <=130 mg/dL 12/26/2020 10:26 PM AGRICULTURAL EDUCATION INSTRUCTOR [facility] PROVIDER ORDERED STATUS RANDOM 12/26/2020 10:26 PM AGRICULTURAL EDUCATION INSTRUCTOR [facility] Blood BLOOD SPECIMEN / Unknown Venipuncture / Unknown 12/26/2020 3:07 PM AGRICULTURAL EDUCATION INSTRUCTOR 12/26/2020 3:07 PM AGRICULTURAL EDUCATION INSTRUCTOR Nicole HAMEED CHEMISTRY [facility] [address] [place] [address], * ANTI HCV [99367.2] (02/17/2018 4:26 PM CDT) HEPATITIS C ANTIBODY Non-React rajiv Non-React rajiv 02/18/2018 2:40 PM CDT [facility] Comment:Antibodies to HCV no t detected; does not exclude the possibility of exposure to HCV. Blood BLOOD SPECIMEN / Unknown Venipuncture / Unknown 02/17/2018 4:26 PM CDT 02/17/2018 4:26 PM CDT Radha Stockton MD SEND OUTS [facility] [address] [place] [address], from Last 3 Months or Most Recently Relevant to Health Maintenance Care Teams Columnist/Commentator Relationship Specialty Start Date End Date Nancy Camara MD [address] [place] [address] PCP - General Family Practice 03/08/23 Antonio Holbrook MD [address] [place] [address] Surgery - Urology 07/02/22 Vinod Saavedra MD [address] [place] [address] Gastroenterology 07/02/22 Inés Rust MD [address] [place] [address] Obstetrics and Gynecology 07/02/22
--- OUTSIDE RECORDS SUMMARY | 2024-09-22 09:59 | XMS_ITS | Encounter Summary ---
Author Organization [facility] Address [address] [place] [address] Care Team Providers Care Sound Controller Name Role Phone Unavailable Primary Care Provider Unavailabl e Encounter Details Date Type Department Care Team (Late st Contact Info) Description 07/06/2024 Clinical Communication Department of Urology in [place], [place] [address] [address] Gale Calzada, ENEIDA, C.N.P. [address] [address] Social History Tobacco Use Types Packs/Day Years Used Date Smoking Tobacco: Never Nutrition Answer Date Recorded Nutrition: EVOO Fat Source 13 05/21 Nutrition: Servings of Fruits/Vegetables per Day Not on file 05/21/2020 Dental Answer Date Recorded Dental: Regular Dentist Unknown 12/28/19 21 Comments Unknown Sex and Gender Information Value Date Recorded Sex Assigned at Female 08/28/2024 7:46 PM GATE SUPERVISOR Legal Sex Female 3:29 PM GATE SUPERVISOR Gender Identity Female 08/28/2024 7:46 PM GATE SUPERVISOR Sexual Orientation Straight 08/28/2024 7: 46 PM GATE SUPERVISOR documented as of this encounter Plan of Treatment Not on file documented as of this encounter Visit Diagnoses Not on filedocumented in this encounter
--- OUTSIDE RECORDS SUMMARY | 2024-09-22 09:59 | XMS_ITS | Encounter Summary ---
Author Organization [facility] Address [address] [place] [address] Care Team Providers Care Chip Drier Name Role Phone Unavailable Primary Care Provider Unavailabl e Reason for Referral * Outpatient (Routine) - Closed Specialty Diagnoses / Procedures Referred By Louise jc Referred To Contact Diagnoses Urgency Urinary Benign Essential Microscopic Hematuria Procedures Cystoscopy Gale Calzada APRN, C.N.P. [address] [place] [phone] Phone: tel: fax: [facility] Region Referral ID Status Reason Start Date Expiration Date Visits Re quested Visits Authorized [id number] Closed 08/30/2024 08/30/2025 1 1 TRUCK LOADER Reason for Visit * Reason Comments Urinary Frequency pelvic pressure * Appointment Request (Routine) - Closed Specialty Diagnoses / Procedures Referred By Contac t Referred To Contact Urology Referral ID Status Reason Start Date Expiration Date Visits Re quested Visits Authorized [id number] Closed 08/28/2024 08/28/2025 1 1 Encounter Details Date Type Department Care Team (Late st Contact Info) Description 08/30/2024 11:30 AM TANK TRUCK LOADER Office Visit Department of Urology in [place], [place] [address] [place] [phone] Gale Calzada APRN, C.N.P. [address] [place] [phone] Urgency Urinary (Primary Dx); Benign Essential Microscopic Hematuria; Other Vulvodynia Social History Tobacco Use Types Packs/Day Years Used Date Smoking Tobacco: Never Nutrition Answer Date Recorded Nutrition: EVOO Fat Source 13 05/21 Nutrition: Servings of Fruits/Vegetables per Day Not on file 05/21/2020 Dental Answer Date Recorded Dental: Regular Dentist Unknown 12/28/19 21 Comments Unknown Sex and Gender Information Value Date Recorded Sex Assigned at Female 08/28/2024 7:46 PM [employer] Legal Sex Female 3:29 PM [employer] TR[employer] Gender Identity Female 08/28/2024 7:46 PM [employer] Sexual Orientation Straight 08/28/2024 7: 46 PM [employer] TR[employer] documented as of this encounter Progress Notes * Gale Calzada APRN, C.N.P. - 08/30/2024 11:30 AM CST SUBJECTIVE CHIEF COMPLAINT/REASON FOR VISIT Chief Complaint Patient presents with Urinary Frequency pelvic pressure HISTORY OF PRESENT ILLNESS Kendy is a pleasant 74 year old female here today for follow-up. She was seen here in March and did not need further treatment at that time. She has significant vulvodynia which when it flares up can cause worsening urinary symptoms. Last week she had increased bladder pressure and was suspicious that she had a UTI so was seen in same day care. Urinalysis did not show any sign of infection, no microscopic hematuria was noted. She was advised to use some olive oil externally which did soothe her external tissue. She has been taking Cranberry tablets as needed and thinks they have been helpful. She typically gets up one time in the night to void, was previously getting up 2-3 times at night when vulvodynia was flaring up. She now has decreased abdominal pressure. She has not had any change in bowels. She uses sitz baths as needed. She feels that her urinary symptoms are quite normal when her vulvodynia is well controlled. The following portions of the patient's history were reviewed and updated as appropriate: allergies, current medications, family history, medical history, social history, surgical history, and problem list. REVIEW OF SYSTEMS Gastrointestinal: - Negative for constipation and diarrhea. Genitourinary: - Negative for incontinence, difficulty urinating, pain with urination, blood in urine, urgency andfrequent urination. OBJECTIVE There were no vitals filed for this visit. PHYSICAL EXAM Vitals and nursing note reviewed. General: Well developed, well nourished, well groomed female in no acute distress. Neurological: Alert, cooperative, oriented x3. Appropriate mood and affect. Abdomen: Soft, non-tender, non-distended : Skin color and turgor appropriate for region. No ulcers, erythema, rashes, or pigmented lesionsnoted. External genitalia negative for masses, lesions, or swelling. No labial agglutination noted,minimal atrophy noted. No unusual odors or discharge noted. Vaginal mucosa pink and moist with rugae present. No cystocele or rectocele exhibited on straining. DIAGNOSTIC Postvoid residual by bladder scan 2 mL. ASSESSMENT / PLAN 1. Urgency Urinary (Primary) 2. Benign Essential Microscopic Hematuria 3. Other Vulvodynia Cystoscopy was performed today, please see separate procedure note and images in QREADS for full details. Briefly, her bladder appears to be very normal. No areas of concern, no masses or stones present. There was a small area of cystitis cystica. We discussed options for her urinary frequency including behavioral changes, physical therapy, medication options. After some discussion about risks and benefits of this, she would like to continue with behavioral changes that she is working on, especially changes to keep her vulvodynia under control. If she wishes to start medications such as Sanctura, mirabegron, or Gemtesa she will contact us. Follow-up in the Urology Department as needed. All questions answered today. - Cystoscopy Signed by: Gale Calzada APRN, C.N.P. 08/30/2024 5:12 PM TANK TRUCK LOADER Answers submitted by the patient for this visit: Urinary Symptoms (Submitted on 08/29/2024) Frequent urination (more than what you would consider normal): Yes Strong urge to urinate: Yes None of the above: Yes None of the above: Yes Are you able to sense when your bladder is full?: Yes How many times daily do you typically urinate during the day?: 8 How many times do you typically wake up and urinate at night?: 1 Have you had a urinary tract infection (UTI) within the past 1 year, and if so how many?: 1 or 2 Have you had any kidney infections or required hospitalized for kidney failure?: No Have you required a catheter placed because you could not empty your bladder?: No Do you ever unintentionally leak urine?: No Have you ever or are currently taking any treatments to treat your urinary symptoms?: none Have you ever had any surgical or office procedures to improve your urinary symptoms?: No TRUCK LOADER documented in this encounter Procedure Notes * Gale Calzada APRN C.N.P. - 08/30/2024 11:30 AM CSTAssociated Order(s): Cystoscopy Post-Procedure Diagnose(s): Urgency Urinary; Benign Essential Microscopic Hematuria Cystoscopy Performed by: Gale Calzada APRN C.N.PBaldemar Authorized by: Gale Calzada APRN, C.N.PBaldemar Care team members present 1. Gale Calzada APRN C.N.PBaldemar 2. Swapna Almeida C.NBaldemarABaldemar IMPRESSION negative cystoscopy Additional procedures performed: cystoscopy [...] completed successfully: yes Complications: no apparent complications TRUCK LOADER documented in this encounter Plan of Treatment Not on file documented as of this encounter Procedures Procedure Name Priority Date/Time Associated Diagnosis Comments [place] CYSTOURETHROSCOPY Routine 08/30/2024 11:30 AM TANK TRUCK LOADER Urgency Urinary Benign Essential Microscopic Hematuria documented in this encounter Results * [place] CYSTOURETHROSCOPY (08/30/2024 11:30 AM TANK TRUCK LOADER) Narrative Gale Calzada APRN, C.N.P. - 08/30/2024 11:30 AM TANK TRUCK LOADER Gale Calzada APRN, C.N.P. 08/30/2024 11:57 AM Cystoscopy Performed by: Gale Calzada APRN, C.N.P. Authorized by: Gale Calzada APRN, C.N.P. Care team members present 1. Gale Calzada APRN, C.N.P. 2. Swapna Almeida C.N.ABaldemar IMPRESSION negative cystoscopy Additional procedures performed: cystoscopy [...] completed successfully: yes Complications: no apparent complications us Gale Calzada APRN, C.N.P. UROLOGY ORDERABLE S Final Result documented in this encounter Visit Diagnoses Diagnosis Urgency Urinary- Primary Benign Essential Microscopic Hematuria Other Vulvodynia documented in this encounter
--- OUTSIDE RECORDS SUMMARY | 2024-09-22 09:59 | XMS_ITS | Referral Summary ---
Author Organization [facility] Address [address] [place] [address] Care Team Providers Care Environmental Associate Name Role Phone Unavailable Primary Care Provider Unavailabl e Source Comments Patient records contain information from all sites at [facility]. For routine questions regarding patient records, call [phone] during business hours, M-F 8:00 AM - 5:00 PM Central Time. Record requests for emergency care only can be directed to [phone] at any time.[facility] Encounters Date Type Department Care Team Description 08/30/2024 12:00 PM MANAGER TECHNICAL Ancillary Procedure Department of Urology 08/30/2024 11:55 AM MANAGER TECHNICAL Ancillary Procedure Department of Urology 08/30/2024 11:30 AM MANAGER TECHNICAL Office Visit Department of Urology in [address] [phone] Gale Calzada APRN, C.N.P. Urgency Urinary (Primary Dx); Benign Essential Microscopic Hematuria; Other Vulvodynia 07/11/2024 Clinical Communication Department of Urology in [address] [phone] Gale Calzada APRN, C.N.P. 07/06/2024 Clinical Communication Department of Urology in [address] [phone] Gale Calzada APRN, C.N.P. from Last 3 [...] by other route. 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 [...] Sex Assigned at Female 08/28/2024 7:46 PM MANAGER TECHNICAL Legal Sex Female 3:29 PM MANAGER TECHNICAL Gender Identity Female 08/28/2024 7:46 PM MANAGER TECHNICAL Sexual Orientation Straight 08/28/2024 7: 46 PM MANAGER TECHNICAL Plan of Treatment Not on file Procedures Procedure Name Priority Date/Time Associated Diagnosis Comments UROLOGY IMAGE EXAM Routine 08/30/2024 12 :00 PM MANAGER TECHNICAL UROLOGY IMAGE EXAM Routine 08/30/2024 11 :55 AM MANAGER TECHNICAL [place] CYSTOURETHROSCOPY Routine 08/30/2024 11:30 AM MANAGER TECHNICAL Urgency Urinary Benign Essential Microscopic Hematuria from Last 3 Months Results * Urology Image Exam-Urology Image Exam (08/30/2024 12:00 PM MANAGER TECHNICAL) Only the most recent of2 resultswithin the time period is included. 08/30/2024 11:5 4 AM MANAGER TECHNICAL Narrative [facility] - 08/30/2024 12:59 PM MANAGER TECHNICAL This order has been created and auto-finalized to support the import of images acquired without order. The clinical documentation to support these images can be found on the encounter that produced images. us Provider Not In System IMG NON RAD IMAGING PROCE DURES Final Result [facility] NA * [place] CYSTOURETHROSCOPY (08/30/2024 11:30 AM MANAGER TECHNICAL) Narrative Gale Calzada APRN, C.N.P. - 08/30/2024 11:30 AM MANAGER TECHNICAL Gale Calzada APRN, C.N.P. 08/30/2024 11:57 AM [...] Complications: no apparent complications Gale Calzada APRN C.N.PBaldemar UROLOGY ORDERABLE S Final Result from Last 3 Months Insurance [employer]
--- OUTSIDE RECORDS SUMMARY | 2024-09-22 09:59 | XMS_ITS | Encounter Summary ---
Author Organization [facility] Address [address] [place] [address] Care Team Providers Care Operations And Maintenance Supervisor Name Role Phone Unavailable Primary Care Provider Unavailabl e Encounter Details Date Type Department Care Team (Late st Contact Info) Description 07/11/2024 Clinical Communication Department of Urology in [place], [place] [address] [phone] Gale Calzada APRN, C.N.P. [address] [phone] Social History Tobacco Use Types Packs/Day Years Used Date Smoking Tobacco: Never Nutrition Answer Date Recorded Nutrition: EVOO Fat Source 13 05/21 Nutrition: Servings of Fruits/Vegetables per Day Not on file 05/21/2020 Dental Answer Date Recorded Dental: Regular Dentist Unknown 12/28/19 21 Comments Unknown Sex and Gender Information Value Date Recorded Sex Assigned at Female 08/28/2024 7:46 PM [facility] Legal Sex Female 3:29 PM [facility] Gender Identity Female 08/28/2024 7:46 PM [facility] Sexual Orientation Straight 08/28/2024 7: 46 PM [facility] documented as of this encounter Miscellaneous Notes [...]
--- OUTSIDE RECORDS SUMMARY | 2024-09-22 09:59 | XMS_ITS | Encounter Summary ---
Author Organization [facility] Address [address] [place] [address] Care Team Providers Care Chemical Manager Name Role Phone Unavailable Primary Care Provider Unavailabl e Encounter Details Date Type Department Care Team (Late st Contact Info) Description 08/30/2024 11:55 AM DIRECTOR CLIENT SERVICES Ancillary Procedure Department of Urology Social History Tobacco Use Types Packs/Day Years Used Date Smoking Tobacco: Never Nutrition Answer Date Recorded Nutrition: EVOO Fat Source 13 05/21 Nutrition: Servings of Fruits/Vegetables per Day Not on file 05/21/2020 Dental Answer Date Recorded Dental: Regular Dentist Unknown 12/28/19 21 Comments Unknown Sex and Gender Information Value Date Recorded Sex Assigned at Female 08/28/2024 7:46 PM DIRECTOR CLIENT SERVICES Legal Sex Female 3:29 PM DIRECTOR CLIENT SERVICES Gender Identity Female 08/28/2024 7:46 PM DIRECTOR CLIENT SERVICES Sexual Orientation Straight 08/28/2024 7: 46 PM DIRECTOR CLIENT SERVICES documented as of this encounter Plan of Treatment Not on file documented as of this encounter Procedures Procedure Name Priority Date/Time Associated Diagnosis Comments UROLOGY IMAGE EXAM Routine 08/30/2024 11 :55 AM DIRECTOR CLIENT SERVICES documented in this encounter Results * Urology Image Exam-Urology Image Exam (08/30/2024 11:55 AM DIRECTOR CLIENT SERVICES) 08/30/2024 11:5 4 AM DIRECTOR CLIENT SERVICES Narrative [facility] - 08/30/2024 12:16 PM DIRECTOR CLIENT SERVICES This order has been created and auto-finalized to support the import of images acquired without order. The clinical documentation to support these images can be found on the encounter that produced images. us Provider Not In System IMG NON RAD IMAGING PROCE DURES Final Result [facility] NA documented in this encounter Visit Diagnoses Not on filedocumented in this encounter
--- OUTSIDE RECORDS SUMMARY | 2024-09-22 09:59 | XMS_ITS | Encounter Summary ---
Author Organization [facility] Address [address] [place] [address] Care Team Providers Care Shale Processing Technician Name Role Phone Unavailable Primary Care Provider Unavailabl e Encounter Details Date Type Department Care Team (Late st Contact Info) Description 08/30/2024 12:00 PM FORESTRY ADVISER Ancillary Procedure Department of Urology Social History Tobacco Use Types Packs/Day Years Used Date Smoking Tobacco: Never Nutrition Answer Date Recorded Nutrition: EVOO Fat Source 13 05/21 Nutrition: Servings of Fruits/Vegetables per Day Not on file 05/21/2020 Dental Answer Date Recorded Dental: Regular Dentist Unknown 12/28/19 21 Comments Unknown Sex and Gender Information Value Date Recorded Sex Assigned at Female 08/28/2024 7:46 PM FORESTRY ADVISER Legal Sex Female 3:29 PM FORESTRY ADVISER Gender Identity Female 08/28/2024 7:46 PM FORESTRY ADVISER Sexual Orientation Straight 08/28/2024 7: 46 PM FORESTRY ADVISER documented as of this encounter Plan of Treatment Not on file documented as of this encounter Procedures Procedure Name Priority Date/Time Associated Diagnosis Comments UROLOGY IMAGE EXAM Routine 08/30/2024 12 :00 PM FORESTRY ADVISER documented in this encounter Results * Urology Image Exam-Urology Image Exam (08/30/2024 12:00 PM FORESTRY ADVISER) 08/30/2024 11:5 4 AM FORESTRY ADVISER Narrative [facility] - 08/30/2024 12:59 PM FORESTRY ADVISER This order has been created and auto-finalized [...]
--- OUTSIDE RECORDS SUMMARY | 2024-09-22 09:59 | XMS_ITS ---
Author Organization [facility] Address [address] [place] [address] Care Team Providers Care Vocational Ed Instructor Name Role Phone Unavailable Unavailable Unavailable Surgery Details Not on file Complications Check Surgery Details section. Procedure Estimated Blood Loss Check Surgery Details section. Procedure Findings Check Surgery Details section. Procedure Specimens Taken Check Surgery Details section.
[2024-09-22 10:01] LABS: Basophils Absolute Auto 0.03 K/uL (0.00-0.30); Basophils Percent Auto 0.6 % (0.0-3.0); Eosinophils Absolute Auto 0.04 K/uL (0.00-0.50); Eosinophils Percent Auto 0.8 % (0.0-7.0); Hematocrit 42.5 % (33.0-51.0); Hemoglobin* 13.7 gm/dL (12.0-16.0); Immature Granulocytes Abs Auto 0.01 K/uL (0.00-0.30); Immature Granulocytes Pct Auto 0.2 %; Lymphocytes Absolute Auto 1.38 K/uL (0.90-2.90); Lymphocytes Percent Auto 26.3 % (20-44); Mean Corpuscular HGB Conc 32 gm/dL (32-36); Mean Corpuscular Hemoglobin 29 pg (26-34); Mean Corpuscular Volume 89 fL (80-100); Monocytes Percent Auto 7.3 % (0.0-11.0); Neutrophils Percent Auto 64.8 % (42.0-72.0); Platelet Count* 237 K/uL (140-440); RDW Coefficient of Variation % 12.9 % (11.5-15.5); White Blood Count* 5.24 K/uL (4.50-11.00)
[2024-09-22 10:02] LABS: Lactate* 1.8 mmol/L (0.5-1.9)
[2024-09-22 10:08] LABS: Slide Review Reflex No
[2024-09-22 10:24] LABS: Albumin* 4.6 g/dL (3.3-5.0); Chloride* 106 mmol/L (96-114); Sodium* 141 mmol/L (135-149)
[2024-09-22 10:25] LABS: Potassium* 3.5 mmol/L (3.6-5.1)
[2024-09-22 10:27] LABS: Creatinine* 0.7 mg/dL (0.5-1.5); Est. Creatinine Clearance* 38.37; Estimated Glomerular Filt Rate 92 ml/min
[2024-09-22 10:28] LABS: Alanine Aminotransferase* 16 U/L (4-35); Alkaline Phosphatase* 62 U/L (40-150); Anion Gap 9 mEq/L (7-15); Aspartate Amino Transferase* 22 U/L (12-35); Bilirubin Direct* 0.1 mg/dL (0.0-0.5); Bilirubin Total* 0.5 mg/dL (0.1-1.5); Blood Urea Nitrogen* 18 mg/dL (7-30); Calcium* 9.6 mg/dL (8.4-10.6); Carbon Dioxide* 26 mmol/L (20-32); Glucose* 102 mg/dL (60-115); Lipase* 61 U/L (23-300); Total Protein* 7.4 g/dL (6.0-8.3)
[2024-09-22 10:49] LABS: C Reactive Protein* < 0.5 mg/dL (0.5-1.0); Troponin I* < 0.01 ng/mL (0.01-0.04)
[2024-09-22 11:03] LABS: D Dimer Quantitative* < 0.27 ug/ml (0.00-0.50)
== END 2024-09-22 11:37 | disposition home or self-care (01) ==
PROVIDERS: Emergency Provider Family Medicine; PCP Family Medicine
DX: R07.9 Chest pain, unspecified (principal)
CPT/HCPCS: 36415; 71046; 80048; 80076; 83605; 83690; 84484; 85025; 85379; 86140; 93005; 99284

== ENCOUNTER 2024-10-04 10:12 | Emergency (ER) | payer MEDICARE, OTHER, SELFPAY ==
[2024-10-04] VITALS (16 sets, daily range): BP systolic 120–150; BP diastolic 59–72; PULSE 60–81; RESP 18–96; TEMP 36.6; O2SAT 95–99; BMI 25.5
--- NOTE | 2024-10-04 10:33 | ED.GENADULT ---
HPI - General Adult General Chief complaint: Abdominal Pain Stated complaint: burning chest pain/abd pain Time Seen by Provider: 10/04/24 10:33 History of Present Illness HPI narrative: was seen here 10 days ago with similar symptoms. the pain-discomfort is constant now. has abd discomfort mostly on the right lower to rib area. has hx of cholecystectomy 3 years ago. no n/v/d. does have some tightness/ burning in left side of chest. has had vague symptoms in the past. 74-year-old woman presenting to the emergency department with concern right low chest area pain. Reports maybe 3 weeks ago was treated for a urinary tract infection with ciprofloxacin. This right middle to upper abdominal pain has started along with the burning left-sided chest pain and been intermittent over the last week and a half. She had noted over the last 2 weeks near or stool caliber smaller output. She is wondering about maybe irritable bowel as being a cause with that she might have a ?blockage?. She does recall in all this started was passing much more gas and belching more. She did take about 5 days of famotidine. Prior to having her gallbladder out was being treated with omeprazole. Pain is not pleuritic. Related Data Home Medications ?Medication ?Instructions ?Recorded ?Confirmed calcium carbonate mg PO DAILY 05/13/22 08/23/24 cetirizine 10 mg tablet 10 mg PO DAILY 05/13/22 09/22/24 fluocinolone 0.01 % topical 1 applic topical .Daily as needed 05/13/22 09/22/24 solution PRN fluticasone propionate 50 1 spray intranasal ONCE PRN 05/13/22 09/22/24 mcg/actuation nasal spray,suspension lisinopril 10 mg tablet mg PO DAILY 05/13/22 08/23/24 multivitamin with minerals-ferrous tab PO 05/13/22 08/23/24 sulfate 4.5 mg iron tablet (One Daily Multivitamins with Minerals) Previous Rx's ?Medication ?Instructions ?Recorded estradiol 0.01% (0.1 mg/gram) 0.5 g vaginal 2XW #42.5 grams 04/14/24 vaginal cream (Estrace) GABAPENTIN 6% CREAM 6% Cream See Rx Instructions .Route 09/15/24 .COMPLEX #15 grams pantoprazole 20 mg tablet,delayed 20 mg PO DAILY #30 tabs 10/04/24 release Allergies Allergy/AdvReac Type Severity Reaction Status Date / Time prednisone Allergy Severe Full body Verified 09/22/24 09:28 rash sulfasalazine Allergy Severe Skin Verified 09/22/24 09:28 eruption hydrocodone Allergy Mild Rash Verified 09/22/24 09:28 sulfamethoxazole (From Allergy Rash Verified 09/22/24 09:28 Sulfamethoxazole-Trimethoprim) trimethoprim (From Allergy Rash Verified 09/22/24 09:28 Sulfamethoxazole-Trimethoprim) Review of Systems Status of ROS: Reports: 6 or more systems reviewed and unremarkable except as noted in History and below [facility] Medical History Irregular heart rhythm ?I49.9 - Cardiac arrhythmia, unspecified (ICD-10) 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) Microscopic hematuria ?R31.29 - Other microscopic hematuria (ICD-10) Urinary retention ?R33.9 - Retention of urine, unspecified (ICD-10) Urinary tract infection ?N39.0 - Urinary tract infection, site not specified (ICD-10) Recurrent UTI ?N39.0 - Urinary tract infection, site not specified (ICD-10) Mixed hearing loss, unilateral ?H90.8 - Mixed conductive and sensorineural hearing loss, unspecified (ICD-10) DDD (degenerative disc disease), lumbar ?M51.36 - Other intervertebral disc degeneration, lumbar region (ICD-10) Hypertension ?I10 - Essential (primary) hypertension (ICD-10) Rash ?R21 - Rash and other nonspecific skin eruption (ICD-10) Palpitations ?R00.2 - Palpitations (ICD-10) Allergic reaction ?T78.40XA - Allergy, unspecified, initial encounter (ICD-10) Vaginal atrophy ?N95.2 - Postmenopausal atrophic vaginitis (ICD-10) Vulvodynia ?N94.819 - Vulvodynia, unspecified (ICD-10) Encounter for follow-up ?Z09 - Encounter for follow-up examination after completed treatment for conditions other than malignant neoplasm (ICD-10) Surgical History Status post shoulder surgery (06/27/24) ?Z98.890 - Other specified postprocedural states (ICD-10) History of arthroscopy of right shoulder (02/17/24) ?Z98.890 - Other specified postprocedural states (ICD-10) History of stapedectomy ?Z90.09 - Acquired absence of other part of head and neck (ICD-10) Hx of cholecystectomy ?Z90.49 - Acquired absence of other specified parts of digestive tract (ICD-10) Social History Narrative: -Anand Smoking Status: Never smoker Do you use any of these nicotine containing products: None Second hand tobacco smoke exposure: No How often do you have a drink containing alcohol: never How often do you have six or more drinks on one occasion: Never AUDIT-C Alcohol total score: 0 Non-prescribed substance use: denies use Caffeine: Yes Are you using contraception or practicing any form of control: No service: No Exam Narrative: Exam Narrative: Pleasant. NAD. Lungs are clear. Heart in regular rate and rhythm. Abdomen is soft and nontender other than maybe at the right upper abdomen and this is mild. Soreness that she was describing is in the left low periscapular to perispinal musculature. Reproducible. Well-perfused peripherally without edema. Skin is warm dry without rash. Const: Vital Signs, click to edit/add: Vital Signs - 24 hr 10/04/24 10:24 10/04/24 10:26 10/04/24 10:41 Temperature 97.8 F Pulse Rate 77 63 Pulse Rate [Pulse Oximeter] 70 Respiratory Rate 18 96 H Blood Pressure 150/72 H 131/70 Blood Pressure [Le ft Upper Arm] 150/72 H Pulse Oximetry 98 99 Oxygen Delivery Me thod Room Air 10/04/24 11:00 10/04/24 11:30 10/04/24 12:02 Temperature Pulse Rate 62 64 64 Pulse Rate [Pulse Oximeter] Respiratory Rate Blood Pressure 135/65 133/66 136/59 L Blood Pressure [Le ft Upper Arm] Pulse Oximetry 96 96 98 Oxygen Delivery Me thod 10/04/24 12:03 10/04/24 12:15 10/04/24 12:30 Temperature Pulse Rate 69 60 65 Pulse Rate [Pulse Oximeter] Respiratory Rate Blood Pressure Blood Pressure [Le ft Upper Arm] Pulse Oximetry 96 98 96 Oxygen Delivery Me thod 12/11/24 12:32 10/04/24 12:45 10/04/24 13:00 Temperature Pulse Rate 81 64 66 Pulse Rate [Pulse Oximeter] Respiratory Rate Blood Pressure 120/69 Blood Pressure [Le ft Upper Arm] Pulse Oximetry 96 97 97 Oxygen Delivery Me thod 10/04/24 13:01 10/04/24 13:15 10/04/24 13:30 Temperature Pulse Rate 66 66 62 Pulse Rate [Pulse Oximeter] Respiratory Rate Blood Pressure 129/66 Blood Pressure [Le ft Upper Arm] Pulse Oximetry 95 95 96 Oxygen Delivery Me thod 10/04/24 13:32 Temperature Pulse Rate 62 Pulse Rate [Pulse Oximeter] Respiratory Rate Blood Pressure 133/68 Blood Pressure [Le ft Upper Arm] Pulse Oximetry 97 Oxygen Delivery Me thod Documenting provider has reviewed patient's vital signs: yes Course Vital Signs Vital signs: Initial Vital Signs Temperature 97.8 F 10/04/24 10:24 Temperature Source Temporal Artery Scan 10/04/24 10:24 Pulse Rate 70 10/04/24 10:24 Pulse Rhythm Regular 10/04/24 10:24 Respiratory Rate 18 10/04/24 10:24 Blood Pressure 150/72 H 10/04/24 10:24 Blood Pressure Mean 98 10/04/24 10:24 Blood Pressure Position Semi-Fowlers 10/04/24 10:24 Pulse Oximetry 98 10/04/24 10:24 Oxygen Delivery Method Room Air 10/04/24 10:24 Vital Signs Temperature 97.8 F 10/04/24 10:24 Pulse Rate 70 10/04/24 10:24 Respiratory Rate 18 10/04/24 10:24 Blood Pressure 150/72 H 10/04/24 10:24 Pulse Oximetry 98 10/04/24 10:24 Oxygen Delivery Method Room Air 10/04/24 10:24 Temperature 97.8 F 10/04/24 10:24 Pulse Rate 62 10/04/24 13:32 Respiratory Rate 96 H 10/04/24 10:26 Blood Pressure 133/68 10/04/24 13:32 Pulse Oximetry 97 10/04/24 13:32 Oxygen Delivery Method Room Air 10/04/24 10:24 Medications Administered Medications: Discontinued Medications Generic Name Dose Route Start Last Admin Trade Name Freq PRN Reason Stop Dose Admin Lidocaine 1 patch 10/04/24 13:22 10/04/24 13:48 Lidocaine 5% Patch TRANSDERMA 10/04/24 13:23 1 patch ONCE ONE Administration Protocol Lidocaine/Aluminum/Magnesium/Simeth 30 ml 10/04/24 12:17 10/04/24 12:31 Gi Cocktail (Visc Lido/Antacid) 30 Ml PO 10/04/24 12:18 30 ml ONCE ONE Administration Medical Decision Making MDM Narrative Medical decision making narrative: Does not have symptoms consistent with bowel obstruction. May be having some indigestion. Chest wall pain it appears as well. I suppose this could represent some urinary tract infection. Given GI cocktail and placed lidocaine patch at low mid ribs. Overall improved Urinalysis does not look to be infected. See patient discharge plan for further discussion If this lidocaine patche is helpful, you can purchase more [id number]. See handout for some stretches for some upper back that might help you with some of the discomfort you are experiencing. Consider doing these daily. Prescribing pantoprazole to take over the next 2 weeks. For breakthrough stomach discomfort, might try liquid antacid/anti-gas. Medical Records Medical records reviewed: Yes I reviewed the patient's medical records Lab Data Lab results reviewed: Yes I reviewed the patient's lab results Labs: Lab Results 10/04/24 Range/Units 12:00 Urine Color Light yellow (Yellow) Urine Appearance Clear (Clear) Urine pH 6.0 (5.0-8.5) Ur Specific [place] 1.010 (1.000-1.030) Urine Protein Negative (Negative) Urine Glucose (UA) Negative (Negative) Urine Ketones Negative (Negative) Urine Blood Trace-lysed A (Negative) Urine Nitrite Negative (Negative) Urine Bilirubin Negative (Negative) Urine Urobilinogen 0.2 (0.2-1.0) Ur Leukocyte Esterase Negative (Negative) Urine RBC 0-2 (0-2) Urine WBC 0-2 (0-5) Ur Squamous Epith Cells Few (None-Few) Urine Bacteria Few A (None) ECG Data Attestation: I personally reviewed and interpreted this ECG as follows: (Normal sinus rhythm at a rate of 68) Discharge Plan Discharge Clinical Impression: Abdominal pain, Chest wall pain Patient Disposition: Home w/ Parent or Adult Condition: Improved Additional Instructions: If this lidocaine patche is helpful, you can purchase more [id number]. See handout for some stretches for some upper back that might help you with some of the discomfort you are experiencing. Consider doing these daily. Prescribing pantoprazole to take over the next 2 weeks. For breakthrough stomach discomfort, might try liquid antacid/anti-gas. Prescriptions: New pantoprazole 20 mg tablet,delayed release (DR/EC) 20 mg PO DAILY Qty: 30 0RF No Action fluticasone propionate 50 mcg/actuation spray,suspension 1 spray intranasal ONCE PRN fluocinolone 0.01 % solution 1 applic topical .Daily as needed PRN Rx Instructions: to scalp lisinopril 10 mg tablet PO DAILY calcium carbonate 500 mg calcium (1,250 mg) tablet PO DAILY cetirizine 10 mg tablet 10 mg PO DAILY One Daily Multi-Vit w-Mineral 4.5 mg iron tablet PO estradiol [Estrace] 0.01 % (0.1 mg/gram) cream 0.5 g vaginal 2XW Qty: 42.5 3RF Rx Instructions: Use nightly for 2 weeks, then twice weekly. May apply with finger. GABAPENTIN 6% CREAM 6% Cream See Rx Instructions .ROUTE .COMPLEX Qty: 15 6RF Dose Instruction: APPLY PEA-SIZED AMOUNT TO AFFECTED AREA DAILY;MAY INCREASE TO TWICE A DAY IF NEEDED Rx Instructions: APPLY PEA-SIZED AMOUNT TO AFFECTED AREA DAILY;MAY INCREASE TO TWICE A DAY IF NEEDED Follow Up/Referrals: Nancy Camara MD [Primary Care Provider] - Stand Alone Forms: [employer] Info Instructions
--- NOTE | 2024-10-04 10:52 | CRLHL7_ITS ---
For Patients: As a result of the Century Cures Act, medical imaging exams and procedure reports are released immediately into your electronic medical record. You may view this report before your referring provider. If you have questions, please contact your health care provider. INDICATION: Right mid abdominal pain COMPARISON: None TECHNIQUE: 1 view abdomen, supine. FINDINGS: Devices: Surgical clips right upper quadrant. Mild stool. No dilated bowel. No unusual mass effect. Round calcified left pelvic phleboliths. IMPRESSION: Normal abdominal radiographs. Dictated by Dilma Giron MD @ 10/04/2024 11:30:12 AM (Electronically Signed)
[2024-10-04 12:12] LABS: Appearance Urine Clear (Clear); Bilirubin Urine Negative (Negative); Blood Urine Trace-lysed (Negative); Color Urine Light yellow (Yellow); Glucose Urine Negative (Negative); Ketones Urine Negative (Negative); Leukocyte Esterase Urine Negative (Negative); Nitrite Urine Negative (Negative); Protein Urine Negative (Negative); Urobilinogen Urine 0.2 (0.2-1.0)
[2024-10-04 12:25] LABS: Bacteria Urine Few; RBC Urine 0-2 (0-2); Squamous Epithelial Cell Urine Few (None-Few); WBC Urine 0-2 (0-5)
[2024-10-04] MEDS: GI COCKTAIL (VISC LIDO/ANTACID) 30 ML PO (12:31)
[2024-10-04] MEDS ORDERED: LIDOCAINE 5% PATCH 1 PATCH TRANSDERMA (13:22)
== END 2024-10-04 13:51 | disposition home or self-care (01) ==
PROVIDERS: Emergency Provider Family Medicine; PCP Family Medicine
DX: R07.89 Other chest pain (principal); R82.90 Unspecified abnormal findings in urine
CPT/HCPCS: 74018; 81001; 84484; 87086; 99284; A9270

== ENCOUNTER 2024-12-03 23:06 | Emergency (ER) | payer MEDICARE, OTHER, SELFPAY ==
--- OUTSIDE RECORDS SUMMARY | 2024-12-03 23:09 | XMS_ITS | Clinical Summary ---
Author Organization [facility] Address [address] [place] [address] Care Team Providers Care Loop Tender Name Role Phone Unavailable Primary Care Provider Unavailabl e Source Comments Patient records contain information from all sites at [facility]. For routine questions regarding patient records, call [phone] during business hours, M-F 8:00 AM - 5:00 PM Central Time. Record requests for emergency care only can be directed to [phone] at any time.[facility] Allergies Active Allergy Reactions Criticality Noted [...] 2 (two) times a day. 1 Active fluocinolone (CAPEX) 0.01 % shampoo 7 Active calcium carbonate-vitam in D3 (Calcium 600 + D,3,) 600 mg-5 mcg (200 unit) capsule Take 1 capsule by mouth 2 (two) times a day with meals. 1 Active gabapentin 10 % cream, metered-dose applicator Apply topically. Ac tive estradioL (Estrace) 0.1 mg/g (0.01%) vaginal cream 0.5 g by other route. 4 Active fluocinolone ([place]-Smoothe/ FS) 0.01 % scalp oil Apply 1 Application topically daily. Active pantoprazole (Protonix) 20 mg EC tablet Take 1 tablet by mouth daily. 5 Active sodium chloride (Hyper-William) 7 % nebulizer solutionIndicat ions:Bronchiect asis (HCC) Inhale 4 mL by nebulization 2 (two) times a day. 480 mL 3 5 Active albuterol 2.5 mg /3 mL nebulizer solutionIndicat ions:Bronchiect asis (HCC) Inhale 3 mL (2.5 mg total) by nebulization 2 (two) times a day. 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 [facility] L.R.T. Bronchiectasis (HCC) 11/29/2024 2:31 PM COREMAKER FLOOR - 11/29/2024 11:59 PM COREMAKER FLOOR Hospital Encounter Department of Laboratory Medicine and Pathology, [place], [place] [address] [place] [phone] Michael Lovett M.D., M.P.H. Bronchiectasis (HCC) Discharge Disposition: Home or Self Care 11/29/2024 2:03 PM COREMAKER FLOOR - 11/29/2024 2:30 PM COREMAKER FLOOR Hospital Encounter Department of Laboratory Medicine and Pathology, [place], [place] [address] [place] [phone] Michael Lovett M.D., M.P.H. Bronchiectasis (HCC) Discharge Disposition: Home or Self Care 11/29/2024 1:30 PM COREMAKER FLOOR Comprehensive Visit Division of Pulmonary Medicine in [address] [phone] Michael Lovett M.D., M.P.H. Bronchiectasis (HCC) (Primary Dx) 11/29/2024 7:09 AM COREMAKER FLOOR - 11/29/2024 2:02 PM COREMAKER FLOOR Hospital Encounter Division of Pulmonary Medicine in [place], [place] [address] [place] [phone] Michael Lovett M.D., M.P.H. Disseminated Mycobacterium Avium Intracellulare Complex (HCC) Discharge Disposition: Home or Self Care 11/27/2024 8:45 AM COREMAKER FLOOR Clinical Communication Virtual Review in [place], [place] 200 [place] [address] Pre-visit Intake 10/20/2024 Clinical Communication Division of Pulmonary Medicine in [address] [phone] Michael Lovett M.D., M.P.H. Appt Request from Last 3 Months Immunizations Immunization Administration Dates Next Due HZV (ZOSTAVAX) 10/21/2012 Influenza, Quadrivalent, Adj uvanted, Preservative Free 10/04/2023,09/21/2022,08/12/2020 PCV13 06/21/2017 PPSV23 02/20/2019 RZV (SHINGRIX) 09/24/2020,07/10/2020 SARS-COV-2 (COVID-19) - PFIZ ER BIVALENT TS(Discontinued)(12 YEARS OR OLDER) 08/14/2022 SARS-COV-2 (COVID-19) - PFIZ ER TS(Discontinued)(12 years or older) 02/18/2022 Td (Adult), adsorbed 02/16/1997 Tdap 10/19/2017,06/09/2007 Social History Tobacco Use Types Packs/Day Years Used Date Smoking Tobacco: Never Passive Smoke Exposure: Never Smokeless Tobacco: Never Tobacco Cessation:Counseling Given: Not Answered [facility] [employer] Answer Date Recorded In the past 12 months has th e Personal Capital, gas, oil, or water [employer] threatened to shut off services in your home? No 11/28/2024 Exercise Vital Sign Answer Date Recorde d On average, how many days pe r week do you engage in moderate to strenuous exercise (like a brisk walk)? 0 days 11/28/2024 On average, how many minutes do you engage in exercise at this level? 0 min 11/28/2024 Hunger Vital Sign Answer Date Recorded Within the past 12 months, y ou worried that your food would run out before you got the money to buy more. Never true 11/28/19 25 Within the past 12 months, t he food you bought just didn't last and you didn't have money to get more. Never true 11/28/2024 PRAPARE - Transportation Answer Date Re corded In the past 12 months, has l ack of transportation kept you from medical appointments or from getting medications? No 01/2025 In the past 12 months, has l ack of transportation kept you from meetings, work, or from getting things needed for daily living? No 11/28/2024 Nutrition Answer Date Recorded On average, how many serving s of fruits and vegetables do you eat per day (serving size is equal to 1 cup or approximately the size of a tennis ball)? 0-2 11/28/2024 Dental Answer Date Recorded Dental: Regular Dentist Yes 11/28/19 Employment Answer Date Recorded Employment status Retired 11/28/2024 Housing Stability Answer Date Recorded What is your living situation today? I have a [facility] place to live 11/28/2024 Comments Unknown Sex and Gender Information Value Date Recorded Sex Assigned at Female 08/28/2024 7:46 PM COREMAKER FLOOR Legal Sex Female 3:29 PM COREMAKER FLOOR Gender Identity Female 08/28/2024 7:46 PM COREMAKER FLOOR Sexual Orientation Straight 08/28/2024 7: 46 PM COREMAKER FLOOR Last Filed Vital Signs Vital Sign Reading Time Taken Comments Blood Pressure 118/59 11/29/2024 1:06 PM COREMAKER FLOOR Pulse 81 11/29/2024 1:06 PM COREMAKER FLOOR Temperature 36.3 C (97.3 F) 11/29/2024 1:06 PM COREMAKER FLOOR Respiratory Rate - - Oxygen Saturation 99% 11/29/2024 1:06 PM COREMAKER FLOOR Inhaled Oxygen Concentration - - Weight 58.6 kg (129 lb 3 oz) 11/29/2024 1:06 PM COREMAKER FLOOR Height 156.5 cm (5' 1.61) 11/29/2024 1:06 PM CS T Body Mass Index 23.93 11/29/2024 1:06 PM COREMAKER FLOOR Plan of Treatment Health Maintenance Due Date Last Done Comments CT Colonography 1950 Cologuard 1950 Hepatitis C Screening 1950 COVID-19 Vaccine ( season) 2024 08/14/2022, 02/18/2022, 07/30/2021, Additional history exists Creatinine Level (Kidney Function Test) 07/05/2024 07/05/2023, 07/02/2022, 09/11/2021, Additional history exists Sodium Level 07/05/2024 07/05/2023, 0905/2022, 09/11/2021, Additional history exists Influenza Vaccine (#1) 2024 3, 09/21/2022, 08/12/2020 Depression Screening (Annual PHQ-2) 10/25/2024 Fall Risk Screen (Annual) 10/25/2024 Potassium Level 06/21/2025 06/21/2024, 12/24, 01/14/2024, Additional history exists Mammogram 07/27/2025 07/27/2024, 12/2023, 07/27/2024, Additional history exists Office Visit for Blood Pressure Check / Re-check 11/29/2025 11/29/2024 Fasting Glucose for Diabetes Screening 07/05/2026 07/05/2023, 07/02/2022, 09/11/2021, Additional history exists DTaP,Tdap,and Td Vaccines (3 - Td or Tdap) 10/19/2027 10/19/2017, 06/09/2007, 02/16/1997 Colonoscopy 11/12/2027 11/12/2022, 10/2006 (Performed elsewhere) Colorectal Cancer Surveillance 11/12/2027 Pneumococcal vaccine (50+ years) Completed 02/20/2019, 06/21/2017 Zoster Vaccines Completed 09/24/2020, 06/25, 10/21/2012 Bone Density Scan (Osteoporosis Screen) Discontinued 06/09/2021 IPV Vaccines Aged Out No longer eligi ble based on patient's age to complete this topic Procedures Procedure Name Priority Date/Time Associated Diagnosis Comments C-REACTIVE PROTEIN (CRP), S/P Routine 11/29/2024 2:25 PM COREMAKER FLOOR Bronchiectasis (HCC) RHEUMATOID FACTOR, S/P Routine 2:25 PM COREMAKER FLOOR Bronchiectasis (HCC) ANTINUCLEAR ABS (KATYA), S Routine 11/29/2024 2:25 PM COREMAKER FLOOR Bronchiectasis (HCC) IMMUNOGLOBULINS (IGG, IGA, AND IGM), S Routine 11/29/2024 2:25 PM COREMAKER FLOOR Bronchiectasis (HCC) [id number], S Routine 2:25 PM COREMAKER FLOOR Bronchiectasis (HCC) PULMONARY FUNCTION TESTS Routine 11/29/2024 8:51 AM COREMAKER FLOOR Disseminated Mycobacterium Avium Intracellulare Complex (HCC) OUTSIDE MG MAMMOGRAM Routine 07/27/2024 9:55 AM CDT from Last 3 Months or Most Recently Relevant to Health Maintenance Results * Ytetf-8-Ktwywobqngj (11/29/2024 2:25 PM COREMAKER FLOOR) Pathologist [facility] [place] Demwj-4-Xxtflup psin, S 136 100 - 190 mg/dL 11/30/2024 8:38 AM COREMAKER FLOOR [facility] Blood (Blood, Venous) 11/29/2024 2:25 PM COREMAKER FLOOR 11/30/2024 6:19 AM COREMAKER FLOOR Michael Lovett M.D., M.P.H. LAB BLOOD ADD-ON Final Result Performing Organization Address City/[facility]/ZIP Co de Phone Number [facility] [address] [place] [address] Formerly [facility] [address] [place] [address] * Rheumatoid Factor (11/29/2024 2:25 PM COREMAKER FLOOR) [facility] Rheumatoid Factor, S <15 <15 IU/mL 11/29/2024 7:36 PM COREMAKER FLOOR [facility] Blood (Blood, Venous) 11/29/2024 2:25 PM COREMAKER FLOOR 11/29/2024 7:07 PM COREMAKER FLOOR Michael Lovett M.D., M.P.H. LAB BLOOD ADD-ON Final Result Performing Organization Address City/[facility]/ZIP Co de Phone Number [facility] [address] [place] [address] Formerly [facility] [address] [place] [address] * Immunoglobulins (IgG, IgA, and IgM) (11/29/2024 2:25 PM COREMAKER FLOOR) [facility] Immunoglobulin A (IgA), S 257 61 - 356 mg/dL 11/30/2024 7:47 AM COREMAKER FLOOR [facility] Immunoglobulin M (IgM), S 57 37 - 286 mg/dL 11/30/2024 7:47 AM COREMAKER FLOOR SDS Immunoglobulin G (IgG), S 806 767 - 1590 mg/dL 11/30/2024 7:47 AM COREMAKER FLOOR [facility] Blood (Blood, Venous) 11/29/2024 2:25 PM COREMAKER FLOOR 11/30/2024 6:20 AM COREMAKER FLOOR Michael Lovett M.D., M.P.H. LAB BLOOD ADD-ON Final Result Performing Organization Address City/[facility]/ZIP Co de Phone Number [facility] [address] [place], [place] [id number] [place] [address] [place] [address] * CRP (C-Reactive Protein) (11/29/2024 2:25 PM COREMAKER FLOOR) C-Reactive Protein (CRP), S <3.0 <5.0 mg/L 11/29/2024 3:15 PM COREMAKER FLOOR ON LICENSE OF [facility] Blood (Blood, Venous) 11/29/2024 2:25 PM COREMAKER FLOOR 11/29/2024 2:58 PM COREMAKER FLOOR Michael Lovett M.D., M.P.H. LAB BLOOD ADD-ON Final Result Performing Organization Address City/[facility]/ZIP Co de Phone Number [facility] [address] [place] [address], [facility] [address] [place] [address] * KATYA (Antinuclear Antibodies) (11/29/2024 2:25 PM COREMAKER FLOOR) Antinuclear Ab, S 0.2 <=1.0 (Negative) U 11/30/2024 12:56 PM COREMAKER FLOOR [facility] Comment: ----ADDITIONAL INFORMATION---- Method: Enzyme-linked immunoassay using HEp-2 nuclear extract supplemented with purified antigens. Blood (Blood, Venous) 11/29/2024 2:25 PM COREMAKER FLOOR 11/30/2024 7:06 AM COREMAKER FLOOR Michael Lovett M.D., M.P.H. LAB BLOOD ADD-ON Final Result [facility] [address] [place] [address] Formerly [facility] [address] [place] [address] * Pulmonary Function Tests (11/29/2024 8:51 AM COREMAKER FLOOR) PostFVC 2.56 L 11/29/2024 10:05 AM COREMAKER FLOOR [place] [address] PostFEV1 1.98 L 11/29/2024 10:05 AM [facility] [address] FEV1/FVC POST 77.46 % 11/29/2024 10:05 AM [facility]AKER FLOOR [place] [address] FEF 25-75 % POST 1.53 L/s 11/29/2024 10:05 AM [facility] [address] PEF POST 5.42 L/s 11/29/2024 10:05 AM [facility]ER FLOOR [place] [address] PIF POST 3.34 L/s 11/29/2024 10:05 AM [facility] 5.31 sec 11/29/2024 10:[facility] TLC POST 5.16 L 11/29/2024 10:05 [facility] RV 2.54 L 11/29/2024 10:05 [facility] % TLC POST 49.28 % 11/29/2024 10:05 [facility] DLCO 18.31 ml/(min*mm Hg) 11/29/2024 10:05 AM [facility] [address] FVC 2.58 L 11/29/2024 10:05 AM [facility] [address] FEV1 1.85 L 11/29/2024 10:05 [facility] FEV1/FVC 71.71 % 11/29/2024 10:05 AM [facility] [address] YBM75-69% 1.27 L/s 11/29/2024 10:05 AM [facility] [address] PEF PRE 4.91 L/s 11/29/2024 10:05 AM COREMAKER FLOOR [facility] PIF PRE 3.65 L/s 11/29/2024 10:05 AM COREMAKER FLOOR [facility] FET PRE 11.13 sec 11/29/2024 10:05 AM COREMAKER FLOOR [facility] SUBSTANCE POST Albuterol 11/29/2024 10:05 AM COREMAKER FLOOR [facility] 11/29/2024 8:51 AM COREMAKER FLOOR Impressions [facility] - 11/29/2024 10:05 AM COREMAKER FLOOR Normal studies without significant bronchodilator response. Narrative Procedure Note Ankit Gold M.D. - 11/29/2024 IMPRESSION: Normal studies without significant bronchodilator response. Michael Loevtt M.D., M.P.H. PFT ORDERABLES Final Result Performing Organization Address [facility] Co de Phone Number [facility] NA * XR MAMMO BILAT SCREENING-Outside Mammogram (07/27/2024 9:55 AM CDT) Narrative [facility] - 10/08/2024 11:13 AM COREMAKER FLOOR This order has been created and auto-finalized to support the import of outside images. If available, original interpretation can be found on the Media Tab in Chart Review, in Document Viewer, as an image in QREADS or as an Addendum. If a re-interpretation or overread is required please follow defined workflow. us Provider Not In System IMG BI PROCEDURES Final R esult Performing Organization Address City/[facility]/ZIP Co de Phone Number [facility] NA from Last 3 Months or Most Recently Relevant to Health Maintenance Insurance MEDICARE MEDICA
--- OUTSIDE RECORDS SUMMARY | 2024-12-03 23:09 | XMS_ITS | Encounter Summary ---
Author Organization [facility] Address [address] [place] [address] Care Team Providers Care Insole Reinforcer Name Role Phone Unavailable Primary Care Provider Unavailabl e Encounter Details Date Type Department Care Team (Latest Contact Info) Description 11/29/2024 2:03 PM HOOK PULLER - 11/29/2024 2:30 PM HOOK PULLER Hospital Encounter Department of Laboratory Medicine and Pathology, [facility] in [place], [place] [address] [place] [phone] Michael Lovett M.D., M.P.H. [address] [place] [phone] Bronchiectasis (HCC) Discharge Disposition: Home or Self Care Social History Tobacco Use Types Packs/Day Years Used Date Smoking Tobacco: Never Passive Smoke Exposure: Never Smokeless Tobacco: Never [facility] Utilities Answer Date Recorded In the past 12 months has [employer], gas, oil, or water [employer] threatened to shut off services in your [...] your living situation today? I have a [facility] place to live 11/28/2024 Comments Unknown Sex and Gender Information Value Date Recorded Sex Assigned at Female 08/28/2024 7:46 PM HOOK PULLER Legal Sex Female 3:29 PM HOOK PULLER Gender Identity Female 08/28/2024 7:46 PM HOOK PULLER Sexual Orientation Straight 08/28/2024 7: 46 PM HOOK PULLER documented as of this encounter Medications at Time of Discharge albuterol 2.5 mg /3 mL nebulizer solutionIndicati ons:Bronchiectas is (HCC) Inhale 3 mL (2.5 mg total) by nebulization 2 (two) times a day. 300 mL 5 11/29/2024 calcium carbonate (CALCIUM 600 ORAL) Take 1 tablet by mouth 2 (two) times a day. 09/01/2011 calcium carbonate-vitami n D3 (Calcium 600 + D,3,) 600 mg-5 mcg (200 unit) capsule Take 1 capsule by mouth 2 (two) times a day with meals. 04/10/2011 cetirizine 10 mg capsule Take 1 capsule by mouth daily. 09/02/2011 estradioL (Estrace) 0.1 mg/g (0.01%) vaginal cream 0.5 g by other route. 04/14/2024 fluocinolone (CAPEX) 0.01 % shampoo 05/06/2017 fluocinolone ([place]-Smoothe/F S) 0.01 % scalp oil Apply 1 Application topically daily. fluticasone (FLONASE ALLERGY RELIEF) 50 mcg/actuation nasal spray Administer 1 spray into affected nostril(s) as needed. As needed. 09/01/2011 gabapentin 10 % cream, metered-dose applicator Apply topically. lisinopril (PRINIVIL,ZESTRI L) 10 mg tablet Take 1 tablet by mouth daily. 09/02/2011 multivitamin tablet Take 1 tablet by mouth daily. 09/02/2011 pantoprazole (Protonix) 20 mg EC tablet Take 1 tablet by mouth daily. 11/06/2024 sodium chloride (Hyper-William) 7 % nebulizer solutionIndicati ons:Bronchiectas is (HCC) Inhale 4 mL by nebulization 2 (two) times a day. 480 mL 3 11/29/2024 documented as of this encounter Plan of Treatment Not on file documented as of this encounter Procedures Procedure Name Priority Date/Time Associated Diagnosis Comments [id number], S Routine 2:25 PM HOOK PULLER Bronchiectasis (HCC) RHEUMATOID FACTOR, S/P Routine 2:25 PM HOOK PULLER Bronchiectasis (HCC) IMMUNOGLOBULINS (IGG, IGA, AND IGM), S Routine 11/29/2024 2:25 PM HOOK PULLER Bronchiectasis (HCC) C-REACTIVE PROTEIN (CRP), S/P Routine 11/29/2024 2:25 PM HOOK PULLER Bronchiectasis (HCC) ANTINUCLEAR ABS (KATYA), S Routine 11/29/2024 2:25 PM HOOK PULLER Bronchiectasis (HCC) documented in this encounter Results * CRP (C-Reactive Protein) (11/29/2024 2:25 PM HOOK PULLER) C-Reactive Protein (CRP), S <3.0 <5.0 mg/L 11/29/2024 3:15 PM HOOK PULLER DTL Blood (Blood, Venous) 11/29/2024 2:25 PM HOOK PULLER 11/29/2024 2:58 PM HOOK PULLER us Michael Lovett M.D., M.P.H. LAB BLOOD ADD-ON Final Result [facility] [address] [place] [address], [place] [facility] [address] [place] [address] * Rheumatoid Factor (11/29/2024 2:25 PM HOOK PULLER) Pathologist [facility] Rheumatoid Factor, S <15 <15 IU/mL 11/29/2024 7:36 PM HOOK PULLER [facility] Blood (Blood, Venous) 11/29/2024 2:25 PM HOOK PULLER 11/29/2024 7:07 PM HOOK PULLER Michael Lovett M.D., M.P.H. LAB BLOOD ADD-ON Final Result Performing Organization Address City/[facility]/ZIP Co de Phone Number [facility] [address] [place] [address] [facility] [address] [place] [address] * KATYA (Antinuclear Antibodies) (11/29/2024 2:25 PM HOOK PULLER) Pathologist [facility] Antinuclear Ab, S 0.2 <=1.0 (Negative) U 11/30/2024 12:56 PM HOOK PULLER [facility] Comment: ----ADDITIONAL INFORMATION---- Method: Enzyme-linked immunoassay using HEp-2 nuclear extract supplemented with purified antigens. Blood (Blood, Venous) 11/29/2024 2:25 PM HOOK PULLER 11/30/2024 7:06 AM HOOK PULLER us Michael Lovett M.D., M.P.H. LAB BLOOD ADD-ON Final Result [facility] [address] [place] [address] [facility] [address] [place] [address] * Immunoglobulins (IgG, IgA, and IgM) (11/29/2024 2:25 PM HOOK PULLER) Immunoglobulin A (IgA), S 257 61 - 356 mg/dL 11/30/2024 7:47 AM HOOK PULLER SDS Immunoglobulin M (IgM), S 57 37 - 286 mg/dL 11/30/2024 7:47 AM HOOK PULLER SDS Immunoglobulin G (IgG), S 806 767 - 1590 mg/dL 11/30/2024 7:47 AM HOOK PULLER SDS Blood (Blood, Venous) 11/29/2024 2:25 PM HOOK PULLER 11/30/2024 6:20 AM HOOK PULLER Michael Lovett M.D., M.P.H. LAB BLOOD ADD-ON Final Result [facility] [address] [place] [address] [facility] [address] [place] [address] * Gnufv-3-Ovejelcpkze (11/29/2024 2:25 PM HOOK PULLER) Jxnhm-1-Wcipuyd psin, S 136 100 - 190 mg/dL 11/30/2024 8:38 AM HOOK PULLER [facility] Blood (Blood, Venous) 11/29/2024 2:25 PM HOOK PULLER 11/30/2024 6:19 AM HOOK PULLER Michael Lovett M.D., M.P.H. LAB BLOOD ADD-ON Final Result [facility] [address] [place] [address] [facility] [address] [place] [address] documented in this encounter Visit Diagnoses Diagnosis Bronchiectasis (HCC) documented in this encounter
--- OUTSIDE RECORDS SUMMARY | 2024-12-03 23:09 | XMS_ITS | Encounter Summary ---
Author Organization [facility] Address [address] [place] [address] Care Team Providers Care Claims Clerk Name Role Phone Unavailable Primary Care Provider Unavailabl e Reason for Referral * MRI/CAT/PET Scan (Routine) - Authorized Specialty Diagnoses / Procedures Referred By Louise jc Referred To Contact Radiology Diagnoses Bronchiectasis (HCC) Procedures CT Chest without IV Contrast Michael Lovett M.D., M.P.H. [address] [place] [address] Phone: tel: fax: [facility] Referral ID Status Reason Start Date Expiration Date V isits Requested Visits Authorized [id number] Authorized 11/29/2024 03/01/2026 1 1 ITY FUNDRAISER * Outpatient (Routine) - Closed Specialty Diagnoses / Procedures Referred By Louise t Referred To Contact Pulmonary Medicine Diagnoses Bronchiectasis (HCC) Michael Lovett M.D., M.P.H. [address] [place] [address] Phone: tel: fax: [facility] Referral ID Status Reason Start Date Expiration Date Visits Re quested Visits Authorized [id number] Closed 11/29/2024 05/31/2026 1 1 ITY FUNDRAISER Reason for Visit * Appointment Request (Routine) - Closed Specialty Diagnoses / Procedures Referred By Contac t Referred To Contact Pulmonary Medicine Diagnoses Mycobacterium Avium Complex (MAC) Nancy Camara M.D. [address] [place] [address] Phone: tel: fax: Referral ID Status Reason Start Date Expiration Date Visits Re quested Visits Authorized [id number] Closed 10/02/2024 10/02/2025 1 1 Encounter Details Date Type Department Care Team (Latest Contact Info) Description 11/29/2024 1:30 PM CHARITY FUNDRAISER Comprehensive Visit Division of Pulmonary Medicine in [place], [place] [address] [place] [id number] Michael Lovett M.D., M.P.H. [address] [place] [address] Bronchiectasis (HCC) (Primary Dx) Social History Tobacco Use Types Packs/Day Years Used Date Smoking Tobacco: Never Passive Smoke Exposure: Never Smokeless Tobacco: Never [facility] Utilities Answer Date Recorded In the past 12 months has th e [employer], gas, oil, or water [employer] threatened to shut off services in your [...] your living situation today? I have a [facility] place to live 11/28/2024 Comments Unknown Sex and Gender Information Value Date Recorded Sex Assigned at Female 08/28/2024 7:46 PM CHARITY FUNDRAISER Legal Sex Female 3:29 PM CHARITY FUNDRAISER Gender Identity Female 08/28/2024 7:46 PM CHARITY FUNDRAISER Sexual Orientation Straight 08/28/2024 7: 46 PM CHARITY FUNDRAISER documented as of this encounter Last Filed Vital Signs Vital Sign Reading Time Taken Comments Blood Pressure 118/59 11/29/2024 1:06 PM CHARITY FUNDRAISER Pulse 81 11/29/2024 1:06 PM CHARITY FUNDRAISER Temperature 36.3 C (97.3 F) 11/29/2024 1:06 PM CHARITY FUNDRAISER Respiratory Rate - - Oxygen Saturation 99% 11/29/2024 1:06 PM CHARITY FUNDRAISER Inhaled Oxygen Concentration - - Weight 58.6 kg (129 lb 3 oz) 11/29/2024 1:06 PM CHARITY FUNDRAISER Height 156.5 cm (5' 1.61) 11/29/2024 1:06 PM CS T Body Mass Index 23.93 11/29/2024 1:06 PM CHARITY FUNDRAISER documented in this encounter Consult Notes * Michael Lovett M.D., M.P.H. - 11/29/2024 1:30 PM CST SUBJECTIVE CHIEF COMPLAINT / REASON FOR VISIT Kendy Kirkland is a 74 y.o. female presenting in referral from Nancy Camara M.D. for consultation in the evaluation of bronchiectasis HISTORY OF PRESENT ILLNESS 74-year-old woman, never smoker, presenting for evaluation of mild mid-lung nodular bronchiectatic changes. She has no respiratory symptoms whatsoever, but nodular abnormalities were seen on a CT urogram performed in March for recurrent UTIs, prompting a chest CT scan in July 2024. She denies fevers, chills, or night sweats. She has no exertional dyspnea, cough, or wheezing. She reports occasional postnasal drainage. She has symptomatic GERD, despite being on PPIs for 6 weeks. She also reports a 5 lb unintentional weight loss. We reviewed her chest CT scan, demonstrating mild mid-lung nodular bronchiectatic changes. Lower lung nodules were unchanged. The esophagus is mildly dilated. We also reviewed her PFTs, which were entirely normal. The following portions of the patient's history were reviewed and updated as appropriate: allergies, current medications, family history, medical history, social history, surgical history, and problem list. 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 REVIEW OF SYSTEMS Twelve point ROS negative except what is mentioned in HPI. OBJECTIVE PHYSICAL EXAM General: Alert, oriented and comfortable HEENT: Wet uvula, anicteric sclera Respiratory: No wheezes Cardiac: Normal rate and rhythm Extremities: Non-edematous Neuro: No obvious deficits ASSESSMENT / PLAN #Mild mid-lung nodular bronchiectatic changes #Gastroesophageal reflux disease, symptomatic despite PPIs Mild mid-lung nodular bronchiectatic changes with no respiratory symptoms and normal pulmonary function tests. 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 She was unable to provide a sputum sample, even after induction with 10% saline. Given thecomplete absence of respiratory symptoms and the apparent low disease activity level, we do not believe that pursuing a definitive diagnosis at this time would alter our treatment plan. Instead, we will proceed with a trial of twice-daily airway clearance (sinus saline rinses, nebulized albuterol/7% saline/Aerobika with Huston cough), in addition to exercise. I will mail three AF[employer] sputum collectionkits and recommend avoiding macrolides, such as azithromycin/Z-Cirilo, going forward. Regarding symptomatic GERD despite PPIs, I have recommended that she follow up to inquire about theneed for additional testing, such as an upper endoscopy, especially she has noted some mild unintentional weight loss. I have also provided counseling on important lifestyle measures for gastroesophageal reflux prophylaxis. Laboratory studies obtained after the visit are consistent with low diseaseactivity. We will plan for a repeat chest CT in one year, along with PFTs, after which she can continue follow-up locally. ITY FUNDRAISER documented in this encounter Plan of Treatment Scheduled Orders Name Type Priority Associated Diagnoses Order Schedule Acid Fast Smear for Mycobacterium Microbiology Routine Bronchiectasis ([facility]) Expected: 11/29/2024 (Approximate), Expires: 02/26/2026 Mycobacterial Culture Microbiology Routine Bronchiectasis ([facility]) Expected: 11/29/2024 (Approximate), Expires: 02/26/2026 CT Chest without IV Contrast Imaging RAD - Routine (most inpatients and all outpatients) Bronchiectasis (HCC) Expected: 11/29/2025, Expires: 02/26/2026 Scheduled Referrals Name Type Priority Associated Diagnoses Order Schedule Pulmonary Medicine - Respiratory therapy consult (clinic) Outpatient Referral Routine Bronchiectasis ([facility]) Expected: 11/29/2024, Expires: 02/26/2026 documented as of this encounter Results * CRP (C-Reactive Protein) (11/29/2024 2:25 PM CHARITY FUNDRAISER) C-Reactive Protein (CRP), S <3.0 <5.0 mg/L 11/29/2024 3:15 PM CHARITY FUNDRAISER DT Blood (Blood, Venous) 11/29/2024 2:25 PM CHARITY FUNDRAISER 11/29/2024 2:58 PM CHARITY FUNDRAISER Michael Lovett M.D., M.P.H. LAB BLOOD ADD-ON Final Result [facility] [address] [place] [address], [facility] [address] [place] [address] * Rheumatoid Factor (11/29/2024 2:25 PM CHARITY FUNDRAISER) Rheumatoid Factor, S <15 <15 IU/mL 11/29/2024 7:36 PM CHARITY FUNDRAISER [facility] Blood (Blood, Venous) 11/29/2024 2:25 PM CHARITY FUNDRAISER 11/29/2024 7:07 PM CHARITY FUNDRAISER Michael Lovett M.D., M.P.H. LAB BLOOD ADD-ON Final Result Performing Organization Address City/[facility]/ZIP Co de Phone Number [facility] [address] [place] [address] [facility] [address] [place] [address] * KATYA (Antinuclear Antibodies) (11/29/2024 2:25 PM CHARITY FUNDRAISER) Antinuclear Ab, S 0.2 <=1.0 (Negative) U 11/30/2024 12:56 PM CHARITY FUNDRAISER [facility] Comment: ----ADDITIONAL INFORMATION---- Method: Enzyme-linked immunoassay using HEp-2 nuclear extract supplemented with purified antigens. Blood (Blood, Venous) 11/29/2024 2:25 PM CHARITY FUNDRAISER 11/30/2024 7:06 AM CHARITY FUNDRAISER Michael Lovett M.D., M.P.H. LAB BLOOD ADD-ON Final Result Performing Organization Address [facility] [[email or web address]] Co de Phone Number [facility] [address] [place] [address] [facility] [address] [place] [address] * Immunoglobulins (IgG, IgA, and IgM) (11/29/2024 2:25 PM CHARITY FUNDRAISER) Immunoglobulin A (IgA), S 257 61 - 356 mg/dL 11/30/2024 7:47 AM CHARITY FUNDRAISER [facility] Immunoglobulin M (IgM), S 57 37 - 286 mg/dL 11/30/2024 7:47 AM CHARITY FUNDRAISER SDS Immunoglobulin G (IgG), S 806 767 - 1590 mg/dL 11/30/2024 7:47 AM CHARITY FUNDRAISER [facility] Blood (Blood, Venous) 11/29/2024 2:25 PM CHARITY FUNDRAISER 11/30/2024 6:20 AM CHARITY FUNDRAISER Michael Lovett M.D., M.P.H. LAB BLOOD ADD-ON Final Result Performing Organization Address City/[facility]/ZIP Co de Phone Number [place] [address] [address] [place] [address] [facility] [address] [place] [phone] * [id number] (11/29/2024 2:25 PM CHARITY FUNDRAISER) [id number] psin, S 136 100 - 190 mg/dL 11/30/2024 8:38 AM CHARITY FUNDRAISER [facility] Blood (Blood, Venous) 11/29/2024 2:25 PM CHARITY FUNDRAISER 11/30/2024 6:19 AM CHARITY FUNDRAISER us Michael Lovett M.D., M.P.H. LAB BLOOD ADD-ON Final Result [facility] [address] [place] [address] [facility] [address] [place] [phone] documented in this encounter Visit Diagnoses Diagnosis Bronchiectasis (HCC)- Primary documented in this encounter
--- OUTSIDE RECORDS SUMMARY | 2024-12-03 23:09 | XMS_ITS | Encounter Summary ---
Author Organization [facility] Address [address] [place] [address] Care Team Providers Care Recovery Coach Name Role Phone Unavailable Primary Care Provider Unavailabl e Reason for Visit * Reason Onset Date Comments Pre-visit Intake 11/27/2024 * Appointment Request (Routine) - Authorized Specialty Diagnoses / Procedures Referred By Louise jc Referred To Contact Pulmonary Medicine Referral ID Status Reason Start Date Expiration Date V isits Requested Visits Authorized [id number] Authorized 10/20/2024 10/20/2025 1 1 Encounter Details Date Type Department Care Team (Latest Contact Info) Description 11/27/2024 8:45 AM PERINATAL DIRECTOR Clinical Communication Virtual Review in [address] [address] Pre-visit Intake Social History Tobacco Use Types Packs/Day Years Used Date Smoking Tobacco: Never Passive Smoke Exposure: Never Smokeless Tobacco: Never Tobacco Cessation:Counseling Given: Not Answered [facility] Utilities Answer Date Recorded In the past 12 months has e [employer], gas, oil, or water [employer] threatened to shut off services in your [...] your living situation today? I have a [facility] place to live 11/28/2024 Comments Unknown Sex and Gender Information Value Date Recorded Sex Assigned at Female 08/28/2024 7:46 PM PERINATAL DIRECTOR Legal Sex Female 3:29 PM PERINATAL DIRECTOR Gender Identity Female 08/28/2024 7:46 PM PERINATAL DIRECTOR Sexual Orientation Straight 08/28/2024 7: 46 PM PERINATAL DIRECTOR documented as of this encounter Plan of Treatment Not on file documented as of this encounter Visit Diagnoses Not on filedocumented in this encounter
--- OUTSIDE RECORDS SUMMARY | 2024-12-03 23:09 | XMS_ITS | Clinical Summary ---
Author Organization [facility] Address [place], [place] [address] Care Team Providers Care Measurement Superintendent Name Role Phone Antonio Holbrook MD Unavailable Vinod Saavedra MD Unavailable [phone] Inés Rust MD Unavailable Nancy Camara MD Primary Care Provider Allergies Active Allergy Reactions Criticality Noted Date Comments Hydrocodone-Acetaminophen Rash High 03/12/2021 Prednisone Rash 12/21/2008 Sulfamethoxazole-Trimethoprim Tachycardia,Rash High 08/06/2021 Medications multivitamin (MVI) tablet Take 1 tablet by mouth once daily. 0 1 Active calcium 600 mg capsule Take 1 capsule by mouth 2 times daily with meals. 0 1 Active fluticasone (50 mcg per actuation) nasal solution (FLONASE)Indicat ions:Rhinitis, unspecified type Inhale 1 Evarts into both nostrils 2 times daily. 48 g 11 0 Active cetirizine (ZYRTEC) 10 mg tabletIndication s:Rhinitis, unspecified type Take 1 tablet by mouth once daily. 90 tablet 0 Active gabapentin 10 % crpk Apply topically to affected area(s). Active estradioL (ESTRACE) 0.01% (0.1 mg/g) vaginal cream 4 Active lisinopriL (PRINIVIL; ZESTRIL) 10 mg tabletIndication s:Essential hypertension Take 1 Tablet (10 mg) by mouth once daily. 100 Tablet 3 4 Active pantoprazole (PROTONIX) 20 mg tabletIndication s:Abdominal pain, RUQ (right upper quadrant) Take 1 Tablet (20 mg) by mouth two times daily before meals. Take 30-60 minutes before breakfast and evening meal. 60 Tablet 5 Active pantoprazole (PROTONIX) 20 mg tabletIndication s:Abdominal pain, RUQ (right upper quadrant) Take 1 Tablet (20 mg) by mouth once daily. 100 Tablet 3 5 11/30/19 25 Discontin ued(Reord er (E-cancel not sent)) pantoprazole (PROTONIX) 40 mg delayed-release tabletIndication s:Abdominal pain, RUQ (right upper quadrant) Take 1 Tablet (40 mg) by mouth two times daily before meals. Take 30-60 minutes before breakfast and evening meal. 60 Tablet 5 12/01/19 25 Discontin ued(*Medi cation adjustmen t) Active Problems Problem Noted Date Diagnosed Date Angiomyolipoma of both kidneys 11/30/2024 Overview (11/30/2024): 4 mm right kidney, [address] Nov 2024; repeat CT in 6 months for size stability? Genitourinary syndrome of menopause 07/05/2023 Urinary urgency 07/02/2022 Osteopenia of multiple sites 06/02/2021 DDD (degenerative disc disease), lumbar 05/11/20 19 Adenomatous colon polyp 08/06/2011 Overview (11/12/2022): Colonoscopy [...] Date Type Department Care Team Description 12/01/2024 Telephone [facility] [place] [address] [address] Nancy Camara MD Medication Management (clarification ) 11/30/2024 8:30 AM COO Ancillary Procedure [facility] [place] [address] [address] Arrived 11/30/2024 8:15 AM COO Orders Only [facility] [place] [address] [address] Lab, [place] [facility] 11/30/2024 Travel 11/25/2024 Travel 11/23/2024 Orders Only [facility] [place] [address] [address] Nancy Camara MD <No scans attached> 11/08/2024 11:00 AM COO Orders Only [facility] [place] [address] [address] Lab, [place] 11/08/2024 Travel 11/06/2024 10:50 AM COO Office Visit [facility] [place] [address] [address] Nancy Camara MD Gi Problem ( Right side pain, Small soft Stool, going on, feels fiber did not help) 11/06/2024 Travel 11/02/2024 Travel 10/19/2024 8:15 AM COO Ancillary Procedure [facility] [place] [address] [address] 10/18/2024 Travel 10/12/2024 9:10 AM COO Office Visit [facility] [address] Nancy Camara MD ER Follow up (Right side is feeling better/Irregular stools, pain still on the LRQ, ) 10/11/2024 Travel 10/04/2024 Orders Only [facility] Scanner 1 scan: (1-Ord) ERWIN, XR ABDOMEN 1V, 10/04/2024 10/04/2024 Telephone [facility] [address] [place] [address] Nancy Camara MD Appointment Request (POST ED) 10/02/2024 Travel 09/26/2024 Telephone [facility] [address] [facility] [address] Nancy Camara MD Questions 09/22/2024 Orders Only [facility] Scanner 1 scan: (1-Ord) ERWIN, ECG, 09/22/2024 09/22/2024 Orders Only [facility] Scanner 1 scan: (1-Ord) ERWIN, MULTIPLE LABS, 09/22/2024 09/22/2024 Orders Only [facility] Scanner 1 scan: (1-Ord) [facility], XR CHEST 2V, 09/22/2024 09/08/2024 9:00 AM COO Orders Only [facility] [address] [place] [address] Lab, [place] [facility] 09/08/2024 Travel 09/04/2024 Telephone [facility] [address] [place] [address] Nancy Camara MD Questions (about CT scan ) from Last 3 Months Immunizations Name [...] is your housing situation today? 1 04/21/2024 Utilities Answer Date Recorded Do you have trouble paying f or utilities (for example, heat, electricity, water, phone)? 1 04/21/2024 Comments No Sex and Gender Information Value Date Recorded Sex Assigned at Female 04/29/2020 2:36 PM CDT Legal Sex Female 5:24 AM COO Gender Identity Not on file Sexual Orientation Not on file Occupation Industry Job Start Date Job End Date Not on file Not on file Not on file Not on file Obstetrics History Para Term AB IAB SAB Ectopic Multiple Livin g Live Births 3 3 3 0 0 0 0 0 3 Date Outcome GA Total Labor Labor/2nd/3rd Weight Sex Type Anes PTL Meghna A1 A5 Name Clin Term Term Term Last Filed Vital Signs Vital Sign Reading Time Taken Comments Blood Pressure 131/75 11/06/2024 10:54 AM COO Pulse 71 11/06/2024 10:54 AM COO Temperature 36.4 C (97.5 F) 08/28/2024 10:00 AM COO Respiratory Rate 20 04/10/2023 12:56 PM CDT Oxygen Saturation 100% 11/06/2024 10:54 AM COO Inhaled Oxygen Concentration - - Weight 60.1 kg (132 lb 6.4 oz) 11/06/2024 10:54 AM COO Height 156.2 cm (5' 1.5) 07/27/2024 9:52 AM CDT Body Mass Index 24.61 07/27/2024 9:52 AM CDT Plan of Treatment Health Maintenance Due Date Last Done Comments RSV vaccine for adults or (1 - Risk 60-74 years 1-dose series) 2012 COVID-19 vaccine series ( season) 2024 08/14/2022, [...] 18-79 Completed 02/17/2018 Pneumococcal series for age 50+ Completed 9, 06/21/2017 Zoster (shingles) series for age 50+ Completed 09/24/2020, 07/10/2020, 10/21/2012 DEXA/DXA scan for age 65+ Completed 2020, 04/12/2017, 01/10/2013, Additional history exists Procedures Procedure Name Priority Date/Time Associated Diagnosis Comments CT ABDOMEN PELVIS W Routine 11/30/2024 8 :54 AM COO Abdominal pain, RUQ (right upper quadrant) Change in stool CREATININE,ISTAT Routine 11/30/2024 8:25 AM COO Observation or evaluation for suspected condition CLOSTRIDIOIDES DIFFICILE TOXIN PCR Routine 11/08/2024 11:03 AM COO Change in stool CRYPTOSPORIDIUM GIARDIA RAPID ANTIGEN Routine 11/08/2024 11:03 AM COO Change in stool STOOL PATHOGEN MULTIPLEX PCR PANEL Routine 11/08/2024 8:30 AM COO Change in stool US ABDOMEN LIMITED RUQ Routine 9:26 AM COO Abdominal pain, RUQ (right upper quadrant) COMP METABOLIC PANEL Routine 10/12/2024 10:08 AM COO Abdominal pain, RUQ (right upper quadrant) Change in stool CBC WITH AUTO DIFFERENTIAL Routine 10/12/2024 10:08 AM COO Abdominal pain, RUQ (right upper quadrant) Change in stool SCAN-RADIOLOGY REPORT 10/04/2024 12:00 AM COO SCAN-ELECTROCARDIOGRAM EKG 09/22/2024 12:00 AM COO SCAN-LABORATORY REPORT 12:00 AM COO SCAN-RADIOLOGY REPORT 09/22/2024 12:00 AM COO URINE CULTURE Routine 09/08/2024 9:09 AM COO Pelvic pressure in female URINALYSIS MICROSCOPIC Routine 9:09 AM COO Pelvic pressure in female XR MAMMO BILAT SCREENING Routine 07/27/2024 9:50 AM CDT Visit for screening mammogram COLONOSCOPY 11/12/2022 10:51 AM COO XR DXA BONE DENSITY 2 SITES AXIAL Routine 06/09/2021 9:24 AM CDT Osteopenia, unspecified location Other specified disorders of bone density and structure, multiple sites LIPID PANEL W REFLEX MEASURED LDL Routine 12/26/2020 3:07 PM COO Screening for lipid disorders ANTI HCV Routine 02/17/2018 4:26 PM CDT Need for hepatitis C screening test from Last 3 Months or Most Recently Relevant to Health Maintenance Results * CT ABDOMEN PELVIS W (11/30/2024 8:54 AM COO) Anatomical Region Laterality Modality Abdomen, Pelvis, AORTA, LIVER, SPLEEN Computed Tomography 11/30/2024 10:5 4 AM COO Impressions 11/30/2024 10:54 AM COO 1. Etiology of abdominal pain not evident. 2. Sigmoid diverticulosis but no evidence of diverticulitis. 3. Post cholecystectomy. 4. 4 mm right renal angiomyolipoma and 3 mm left renal angiomyolipoma or cyst. 5. Parametrial varicosities bilaterally, as before. Please note that all CT scans at this facility use dose modulation, iterative reconstruction, and/or weight-based dosing when appropriate to reduce radiation dose to as low as reasonably achievable. Dictated by Juarez Castelan MD @ 11/30/2024 10:54:49 AM (Electronically Signed) Narrative 11/30/2024 10:54 AM COO For Patients: As a result of the Cures Act, medical imaging exams and procedure reports are released immediately into your electronic medical record. You may view this report before your referring provider. If you have questions, please contact your health care provider. INDICATION: Right upper quadrant pain. Change in stool. TECHNIQUE: Volumetric helical scanning of the abdomen and pelvis was performed with 75 cc of Omnipaque 350 contrast material IV. Coronal and sagittal reconstructions were obtained. COMPARISON: 03/12/2021 FINDINGS: Sigmoid diverticulosis is demonstrated. There is no evidence of diverticulitis. The bowel is otherwise unremarkable. A normal appendix is noted. The liver is normal in size, shape and attenuation. Postop changes of cholecystectomy are again demonstrated. The bile ducts are within normal limits. The spleen, adrenal glands and pancreas are negative. The kidneys are unremarkable except for a 4 mm angiomyolipoma in the inferior right kidney and a 3 mm angiomyolipoma or cyst in the inferior left kidney. No lymphadenopathy is evident. No free fluid is demonstrated. Uterus and ovaries are grossly negative. Parametrial varicosities are demonstrated bilaterally, as on the previous examination. The lung bases are essentially clear, and heart size is normal. Procedure Note Juarez Castelan MD - 11/30/2024 For Patients: As a result of the Cures Act, medical imagingexams and procedure reports are released immediately into your electronicmedical record. You may view this report before your referring provider.If you have questions, please contact your health care provider. INDICATION: Right upper quadrant pain. Change in stool. TECHNIQUE: Volumetric helical scanning of the abdomen and pelvis was performed with75 cc of Omnipaque 350 contrast material IV. Coronal and sagittalreconstructions were obtained. COMPARISON: 03/12/2021 FINDINGS: Sigmoid diverticulosis is demonstrated. There is no evidence ofdiverticulitis. The bowel is otherwise unremarkable. A normal appendix isnoted. The liver is normal in size, shape and attenuation. Postop changes ofcholecystectomy are again demonstrated. The bile ducts are within normallimits. The spleen, adrenal glands and pancreas are negative. The kidneysare unremarkable except for a 4 mm angiomyolipoma in the inferior rightkidney and a 3 mm angiomyolipoma or cyst in the inferior left kidney. Nolymphadenopathy is evident. No free fluid is demonstrated. Uterus andovaries are grossly negative. Parametrial varicosities are demonstratedbilaterally, as on the previous examination. The lung bases are essentially clear, and heart size is normal. IMPRESSION: 1. Etiology of abdominal pain not evident. 2. Sigmoid diverticulosis but no evidence of diverticulitis. 3. Post cholecystectomy. 4. 4 mm right renal angiomyolipoma and 3 mm left renal angiomyolipoma orcyst. 5. Parametrial varicosities bilaterally, as before. Please note that all CT scans at this facility use dose modulation,iterative reconstruction, and/or weight-based dosing when appropriate toreduce radiation dose to as low as reasonably achievable. Dictated by Juarez Castelan MD @ 11/30/2024 10:54:49 AM (Electronically Signed) Nancy Camara MD CT Final Resul t * POCT Creatinine (11/30/2024 8:25 AM COO) [facility] POCT,CREATININ E, ISTAT 0.7 0.6 - 1.3 mg/dL [facility] Blood BLOOD SPECIMEN / Unknown 11/30/2024 8:25 AM COO 11/30/2024 8:25 AM COO Nancy Camara MD CHEMISTRY Final Resul t [facility] [address] [place] [address], [facility] [address] [place] [address] * CRYPTOSPORIDIUM GIARDIA RAPID ANTIGEN (11/08/2024 11:03 AM COO) [facility] GIARDIA AND CRYPTOSPORIDIUM ANTIGEN PANEL SEE NOTE [facility] Comment: CRYPTOSPORIDIUM ANTIGEN, EIA Micro Number: [id number] Test Status: Final Specimen Source: Stool Specimen Quality: Adequate Cryptosporidium: Not Detected Reference Range: Not Detected NOTE: Due to intermittent shedding, one negative sample does not necessarily rule out the presence of a parasitic infection. GIARDIA AND CRYPTOSPORIDIUM ANTIGEN PANEL SEE NOTE [facility] Comment: GIARDIA AG, EIA, STOOL Micro Number: [id number] Test Status: Final Specimen Source: Stool Specimen Quality: Adequate Giardia Result 1: Not Detected Reference Range: Not Detected NOTE: Due to intermittent shedding, one negative sample does not necessarily rule out the presence of a parasitic infection. Stool STOOL SPECIMEN / Unknown 11/08/2024 11:03 AM COO 11/08/2024 11:05 AM COO Nancy Camara MD MICROBIOLOGY Final Resul t Performing Organization Address [facility] de Phone Number amSTATZ [address] [address], [employer] [address] * CLOSTRIDIOIDES DIFFICILE TOXIN PCR (11/08/2024 11:03 AM COO) CLOSTRIDIUM DIFFICILE TOXIN/GDH W/REFL TO PCR SEE NOTE [facility] Comment: CLOSTRIDIUM DIFFICILE TOXIN/GDH W/REFL TO PCR Micro Number: [id number] Test Status: Final Specimen Source: Stool Specimen Quality: Adequate GDH Antigen: Not Detected Toxin A and B: Not Detected COMMENT: No toxigenic C. difficile detected For additional information, please refer to http://education.[employer]/faq/NUZ033 (This link is being provided for informational/educational purposes only.) Stool STOOL SPECIMEN / Unknown 11/08/2024 11:03 AM COO 11/08/2024 11:05 AM COO Nancy Camara MD MICROBIOLOGY Final Resul t Performing Organization Address [facility] Co de Phone Number [facility]Z [address] [address] [place] [address], [facility] [address] [place] [address] * STOOL PATHOGEN MULTIPLEX PCR PANEL (11/08/2024 8:30 AM COO) Campylobacter NOT Detected NOT Detected 11/09/2024 4:39 AM [facility] Salmonella NOT Detected NOT Detected 11/09/2024 4:39 AM COO [facility] Shigella NOT Detected NOT Detected 11/09/2024 4:39 AM [facility] Vibrio NOT Detected NOT Detected 11/09/2024 4:39 AM [facility] Yersinia Enterocolitica NOT Detected NOT Detected 11/09/2024 4:39 AM [facility] Shiga Toxin 1 NOT Detected NOT Detected 11/09/2024 4:39 AM [facility] Shiga Toxin 2 NOT Detected NOT Detected 11/09/2024 4:39 AM [facility] Norovirus NOT Detected NOT Detected 11/09/2024 4:39 AM [facility] Rotavirus NOT Detected NOT Detected 11/09/2024 4:39 AM [facility] Stool STOOL SPECIMEN / Unknown Non-Blood / Unknown 11/08/2024 8:30 AM COO 11/08/2024 11:01 AM COO [facility] - 11/09/2024 4:39 AM COO This test is a Culture Independent Diagnostic Test (CIDT) therefore isolates are not available for susceptibility testing. Antibiotic treatment is often contraindicated and may be detrimental in cases of enteric infections, thus routine susceptibility testing is not recommended. us Nancy Camara MD MICROBIOLOGY Final Resul t [facility] [address] [place] [address], [place] * US ABDOMEN LIMITED RUQ (10/19/2024 9:26 AM COO) Anatomical Region Laterality Modality Abdomen, LIVER Ultrasound 10/19/2024 3:10 PM COO Impressions 10/19/2024 3:10 PM COO 1. Post cholecystectomy. 2. Pancreatic head and body grossly negative. Pancreatic tail suboptimally visualized. 3. 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 Dictated by Juarez Castelan MD @ 10/19/2024 3:10:22 PM (Electronically Signed) Narrative 10/19/2024 3:10 PM COO For Patients: As a result of the Cures Act, medical imaging exams and procedure reports are released immediately into your electronic medical record. You may view this report before your referring provider. If you have questions, please contact your health care provider. INDICATION: Right upper quadrant pain TECHNIQUE: Conventional two-dimensional velazquez-scale ultrasound of the right upper quadrant. COMPARISON: Abdomen/pelvis CT of 03/12/2021 FINDINGS: Postop changes of cholecystectomy are again demonstrated. No biliary ductal dilation is evident. The common bile duct measures 3 mm. The liver is normal is size, shape and echogenicity. The pancreatic head and body are grossly negative. The pancreatic tail is suboptimally visualized. Right kidney is unremarkable except for a 0.7 cm angiomyolipoma in the lower pole. The visualized portions of the abdominal aorta and inferior vena cava are negative. Procedure Note Juarez Castelan MD - 10/19/2024 For Patients: As a result of the Cures Act, medical imagingexams and procedure reports are released immediately into your electronicmedical record. You may view this report before your referring provider.If you have questions, please contact your health care provider. INDICATION: Right upper quadrant pain TECHNIQUE: Conventional two-dimensional velazquez-scale ultrasound of the right upperquadrant. COMPARISON: Abdomen/pelvis CT of 03/12/2021 FINDINGS: Postop changes of cholecystectomy are again demonstrated. No biliaryductal dilation is evident. The common bile duct measures 3 mm. The liver is normal is size, shape and echogenicity. The pancreatic head and body are grossly negative. The pancreatic tail issuboptimally visualized. Right kidney is unremarkable except for a 0.7 cm angiomyolipoma in thelower pole. The visualized portions of the abdominal aorta and inferior vena cava arenegative. IMPRESSION: 1. Post cholecystectomy. 2. Pancreatic head and body grossly negative. Pancreatic tail suboptimallyvisualized. 3. 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 Dictated by Juarez Castelan MD @ 10/19/2024 3:10:22 PM (Electronically Signed) us Nancy Camara MD US Final Resul t * (ABNORMAL) CBC AND DIFFERENTIAL (10/12/2024 10:08 AM COO) WHITE BLOOD CELL COUNT 5.3 3.8 - 10.8 Thousand/u L [facility] RED BLOOD CELL COUNT 4.89 3.80 - 5.10 Million/uL [facility] HEMOGLOBIN 13.9 11.7 - 15.5 g/dL [facility] HEMATOCRIT 43.8 35.0 - 45.0 % [facility] MCV 89.6 80.0 - 100.0 fL [facility] MCH 28.4 27.0 - 33.0 pg [facility] MCHC 31.7(L) 32.0 - 36.0 g/dL [facility] Comment: For adults, a slight decrease in the calculated MCHC value (in the range of 30 to 32 g/dL) is most likely not clinically significant; however, it should be interpreted with caution in correlation with other red cell parameters and the patient's clinical condition. RDW 12.6 11.0 - 15.0 % [facility] PLATELET COUNT 301 140 - 400 Thousand/u L [facility] MPV 11.1 7.5 - 12.5 fL [facility] ABSOLUTE NEUTROPHILS 3,217 1,500 - 7,800 cells/uL [facility] ABSOLUTE LYMPHOCYTES 1,569 850 - 3,900 cells/uL [facility] ABSOLUTE MONOCYTES 387 200 - 950 cells/uL [facility] ABSOLUTE EOSINOPHILS 48 15 - 500 cells/uL [facility] ABSOLUTE BASOPHILS 80 0 - 200 cells/uL [facility] NEUTROPHILS 60.7 % [facility] LYMPHOCYTES 29.6 % [facility] MONOCYTES 7.3 % [facility] EOSINOPHILS 0.9 % [facility] BASOPHILS 1.5 % [facility] Blood BLOOD SPECIMEN / Unknown 10/12/2024 10:08 AM COO 10/12/2024 10:09 AM COO us Nancy Camara MD HEMATOLOGY Final Resul t [facility] [address] [place] [address], [email or web address] [address] [place] [address] * COMP METABOLIC PANEL (10/12/2024 10:08 AM COO) Pathologist [facility] GLUCOSE 85 65 - 99 mg/dL [facility] Comment: Fasting reference interval UREA NITROGEN (BUN) 17 7 - 25 mg/dL [facility] CREATININE 0.79 0.60 - 1.00 mg/dL [facility] EGFR 79 > OR = 60 mL/min/1. 73m2 [facility] BUN/CREATININE RATIO SEE NOTE: 6 - 22 (calc) [facility] Comment: Not Reported: BUN and Creatinine are within reference range. SODIUM 140 135 - 146 mmol/L [facility] POTASSIUM 4.2 3.5 - 5.3 mmol/L [facility] CHLORIDE 103 98 - 110 mmol/L [facility] CARBON DIOXIDE 28 20 - 32 mmol/L [facility] CALCIUM 10.0 8.6 - 10.4 mg/dL [facility] PROTEIN, TOTAL 7.1 6.1 - 8.1 g/dL [facility] ALBUMIN 4.7 3.6 - 5.1 g/dL [facility] GLOBULIN 2.4 1.9 - 3.7 g/dL (calc) [facility] ALBUMIN/GLOBULIN RATIO 2.0 1.0 - 2.5 (calc) [facility] BILIRUBIN, TOTAL 0.6 0.2 - 1.2 mg/dL [facility] ALKALINE PHOSPHATASE 75 37 - 153 U/L [facility] AST 18 10 - 35 U/L [facility] ALT 12 6 - 29 U/L [facility] Blood BLOOD SPECIMEN / Unknown 10/12/2024 10:08 AM COO 10/12/2024 10:09 AM COO us Nancy Camara MD CHEMISTRY Final Resul t [facility] [address] [place] [address], [facility] [address] [place] [address] * SCAN-RADIOLOGY REPORT (10/04/2024 12:00 AM COO) Only the most recent of2 resultswithin the time period is included. Anatomical Region Laterality Modality Other us Scanner OTHER Final Result * SCAN-LABORATORY REPORT (09/22/2024 12:00 AM COO) us Scanner OTHER Final Result * SCAN-ELECTROCARDIOGRAM EKG (09/22/2024 12:00 AM COO) us Scanner OTHER Final Result * URINALYSIS MICROSCOPIC (09/08/2024 9:09 AM COO) WBC UA NONE SEEN < OR = 5 /HPF [facility] RBC UA NONE SEEN < OR = 2 /HPF [facility] SQUAMOUS EPITHELIAL CELLS UA 0-5 < OR = 5 /HPF [facility] BACTERIA UA NONE SEEN NONE SEEN /HPF [facility] HYALINE CAST NONE SEEN NONE SEEN /LPF [facility] NOTE UA [facility] Comment: This urine was analyzed for the presence of WBC, RBC, bacteria, casts, and other formed elements. Only those elements seen were reported. Urine URINE SPECIMEN / Unknown 09/08/2024 9:09 AM COO 09/08/2024 9:10 AM COO Nancy Camara MD URINE Final Resul t Performing Organization Address [facility] de Phone Number amSTATZ [facility] [address] [place] [address], [facility] [address] [place] [address] * URINE CULTURE (09/08/2024 9:09 AM COO) CULTURE, URINE, ROUTINE SEE NOTE [facility] Comment: CULTURE, URINE, ROUTINE Micro Number: [id number] Test Status: Final Specimen Source: Urine Specimen Quality: Adequate Result: Less than 10,000 CFU/mL of single Gram positive organism isolated. No further testing will be performed. If clinically indicated, recollection using a method to minimize contamination, with prompt transfer to Urine Culture Transport Tube, is recommended. Urine URINE SPECIMEN / Unknown 09/08/2024 9:09 AM COO 09/08/2024 9:10 AM COO Nancy Camara MD MICROBIOLOGY Final Resul t Performing Organization Address [facility] de Phone Number amSTATZ [facility] [address] [place] [phone], [facility] [address] [place] [phone] * XR MAMMO BILAT SCREENING (07/27/2024 9:50 [...] For Patients: As a result of the Cures Act, medical imaging exams and procedure reports are released immediately into your electronic medical record. You may view this report before your referring provider. If you have questions, please contact your health care provider. XR MAMMO BILAT SCREENING [[id number]] CLINICAL HISTORY: This is an asymptomatic 74 y.o. patient. INDICATION FOR EXAM: Mammogram Screening. TECHNIQUE: CC & MLO views were obtained. This study was evaluated with the assistance of Computer-Aided Detection. COMPARISON FILM: Yes 07/05/23 [facility] 06/08/22 [facility] FINDINGS: There are scattered areas of fibroglandular density. There are no dominant masses, suspicious micro calcifications or areas of architectural distortion. us Nancy Camara MD MAMMO Final Resul t * COLONOSCOPY (11/12/2022 10:51 AM COO) 11/12/2022 10:5 1 AM COO Narrative Transcriptions Vinod Saavedra MD - 11/12/2022 [...] adequate candidate for conscious sedation. The endoscope [id number] was passed through the anus and advanced [...] 10:51 AM Procedure Code(s): --- Professional --- 77325, Colonoscopy, flexible; diagnostic, including collection of specimen(s) bybrushing or washing, when performed (separateprocedure) Diagnosis Code(s): --- Professional --- Z86.010, Personal history of colonicpolyps K57.30, Diverticulosis of large intestine without perforation or abscess withoutbleeding CPT copyright 2020 [employer]. All rights reserved. The codes documented in this report are preliminary and upon pin setter reviewmay be revised to meet current compliance requirements. Scope In: 11:18:51 AM Scope Withdrawal Time 0 hours 7 minutes 17 seconds Scope Out: 11:30:34 AM us Vinod Saavedra MD PROCEDURE ORD Final Res ult * (ABNORMAL) XR DXA BONE DENSITY 2 [...] recommended in 3-5 years. Barb Abernathy PA-C [facility] 06/16/2021 Narrative 06/16/2021 10:10 AM CDT For Patients: Results are automatically released to your [employer]) account once available, in compliance with federal regulations. This means that you may see your results before your provider has had a chance to review them. Please allow 2-3 business days for your provider to comment on the results. XR DXA Bone Mineral Density (BMD) EXAM LOCATION: [address] [address] PATIENT NAME: Kendy Kirkland DATE OF : 1950 EXAM DATE: 06/09/2021 REQUESTING PROVIDER: Radha Stcokton MD GENDER AT : female HEIGHT: 5' [...] two scanners are made by the same manager speech. PROCEDURE: Dual-energy x-ray absorptiometry performed with routine [...] 8.9%. 10-year probability of hip fracture: 1.1%. us Radha Stockton MD DEXA Final Result * LIPID PANEL W REFLEX MEASURED LDL (12/26/2020 3:07 PM COO) CHOLESTEROL,TOTAL 155 100 - 199 mg/dL 12/26/2020 10:26 PM COO [facility] TRIGLYCERIDES 72 <150 mg/dL 12/26/2020 10:26 PM COO [facility] HDL CHOLESTEROL 45 >40 mg/dL 10:26 PM COO [facility] NON-HDL CHOLESTEROL 110 <145 mg/dl 12/26/2020 10:26 PM COO [facility] CHOL/HDL RATIO 3.44 <4.50 12/26/2020 10:26 PM COO [facility] LDL CHOLESTEROL 96 <=130 mg/dL 12/26/2020 10:[address] [facility] PROVIDER ORDERED STATUS RANDOM 12/26/2020 10:26 PM COO [facility] Blood BLOOD SPECIMEN / Unknown Venipuncture / Unknown 12/26/2020 3:07 PM COO 12/26/2020 3:07 PM COO us Nicole HAMEED CHEMISTRY Final Resu lt [facility] [address] [place] [address], [place] * ANTI HCV [[id number]] (02/17/2018 4:26 PM CDT) HEPATITIS C ANTIBODY Non-React rajiv Non-React rajiv 02/18/2018 2:40 PM CDT [facility] Comment:Antibodies to HCV no t detected; does not exclude the possibility of exposure to HCV. Blood BLOOD SPECIMEN / Unknown Venipuncture / Unknown 02/17/2018 4:26 PM CDT 02/17/2018 4:26 PM CDT us Radha Stockton MD SEND OUTS Final Result [facility] [address] [place] [address], [place] from Last 3 Months or Most Recently Relevant to Health Maintenance Insurance MEDICA PRIME ARKeX MR PB ONLY MEDICA PRIME SOLUTION HB MEDICARE PART B HB ONLY MEDICARE PART A HB ONLY Care Teams Measurement Superintendent Relationship Specialty Start Date End Date Nancy Camara MD [address] [place] [address] PCP - General Family Practice 03/08/23 Antonio Holbrook MD [address] [place] [address] Surgery - Urology 07/02/22 Vinod Saavedra MD [address] [place] [address] Gastroenterology 07/02/22 Inés Rust MD [address] [place] [address] Obstetrics and Gynecology 07/02/22
--- OUTSIDE RECORDS SUMMARY | 2024-12-03 23:09 | XMS_ITS | Encounter Summary ---
Author Organization [facility] Address [address] [place] [address] Care Team Providers Care Slide Forming Machine Tender Name Role Phone Unavailable Primary Care Provider Unavailabl e Encounter Details Date Type Department Care Team (Latest Contact Info) Description 11/29/2024 7:09 AM FIRST FRONT VENTILATOR - 11/29/2024 2:02 PM [facility] Hospital Encounter Division of Pulmonary Medicine in [place], [place] [address] [place] [phone] Michael Lovett M.D., M.P.H. [address] [place] [phone] Disseminated Mycobacterium Avium Intracellulare Complex (HCC) Discharge Disposition: Home or Self Care Social History Tobacco Use Types Packs/Day Years Used Date Smoking Tobacco: Never Passive Smoke Exposure: Never Smokeless Tobacco: Never [facility] Utilities Answer Date Recorded In the past 12 months has [employer], oil, or water [employer] threatened to shut off services in your [...] your living situation today? I have a [facility] place to live 11/28/2024 Comments Unknown Sex and Gender Information Value Date Recorded Sex Assigned at Female 08/28/2024 7:46 PM FIRST FRONT VENTILATOR Legal Sex Female 3:29 PM FIRST FRONT VENTILATOR Gender Identity Female 08/28/2024 7:46 PM FIRST FRONT VENTILATOR Sexual Orientation Straight 08/28/2024 7: 46 PM FIRST FRONT VENTILATOR documented as of this encounter Medications at [...] fluocinolone (CAPEX) 0.01 % shampoo 05/06/2017 fluocinolone (Mcnabb-Smoothe/F S) 0.01 % scalp oil Apply 1 [...] 3 11/29/2024 documented as of this encounter Progress Notes * Porter Titus R.R.T., L.R.T. - 11/29/2024 7:26 AM CST Mrs. Kendy Kirkland arrived in [facility] for out-patient sputum induction. Unable toobtain sample. Aerosol generating procedure done wearing N95 mask. Electronically signed by: Porter Titus R.R.T., L.R.T. 11/29/24 7:26 AM FIRST FRONT VENTILATOR T FRONT VENTILATOR documented in this encounter Plan of Treatment Scheduled Orders Name Type Priority Associated Diagnoses Orde r Schedule Sputum Induction PFT Routine Disseminated Mycobacterium Avium Intracellulare Complex (HCC) Once for 1 Occurrences starting 11/29/2024 until 11/29/2024 Gram Stain Microbiology Routine Disseminated Mycobacterium Avium Intracellulare Complex (HCC) Once for 1 Occurrences starting 11/29/2024 until 11/29/2024 Bacterial Culture, Aerobic + Susceptibility, Respiratory Microbiology Routine Disseminated Mycobacterium Avium Intracellulare Complex (HCC) Once for 1 Occurrences starting 11/29/2024 until 11/29/2024 Fungal Smear Microbiology Routine Disseminated Mycobacterium Avium Intracellulare Complex (HCC) Once for 1 Occurrences starting 11/29/2024 until 11/29/2024 Fungal Culture, Routine Microbiology Routine Disseminated Mycobacterium Avium Intracellulare Complex (HCC) Once for 1 Occurrences starting 11/29/2024 until 11/29/2024 Acid Fast Smear for Mycobacterium Microbiology Routine Disseminated Mycobacterium Avium Intracellulare Complex (HCC) Once for 1 Occurrences starting 11/29/2024 until 11/29/2024 Mycobacterial Culture Microbiology Routine Disseminated Mycobacterium Avium Intracellulare Complex (HCC) Once for 1 Occurrences starting 11/29/2024 until 11/29/2024 documented as of this encounter Visit Diagnoses Diagnosis Disseminated Mycobacterium Avium Intracellulare Complex (HCC) documented in this encounter
--- OUTSIDE RECORDS SUMMARY | 2024-12-03 23:09 | XMS_ITS | Encounter Summary ---
Author Organization [facility] Address [address] [place] [address] Care Team Providers Care Rubber Stamp Die Inspector Name Role Phone Unavailable Primary Care Provider Unavailabl e Reason for Visit * Outpatient (Routine) - Closed Specialty Diagnoses / Procedures Referred By Contjael t Referred To Contact Pulmonary Medicine Diagnoses Bronchiectasis (HCC) Michael Lovett M.D., M.P.H. [address] [place] [phone] Phone: tel: fax: [facility] Referral ID Status Reason Start Date Expiration Date Visits Re quested Visits Authorized [id number] Closed 11/29/2024 05/31/2026 1 1 Encounter Details Date Type Department Care Team (Late st Contact Info) Description 12/01/2024 8:00 AM [facility] Telemedicine Division of Pulmonary Medicine in [place], [place] [address] [place] [phone] Michael Lovett M.D., M.P.H. [address] [place] [phone] Wero Elias R.R.T., L.R.T. [address] [place] [phone] Bronchiectasis (HCC) Social History Tobacco Use Types Packs/Day Years Used Date Smoking Tobacco: Never Passive Smoke Exposure: Never Smokeless Tobacco: Never [facility] Utilities Answer Date Recorded In the past 12 months has th e electric, gas, oil, or water company threatened to shut off services in your [...] money to buy more. Never true 11/28/19 Within the past 12 months, t he [...] your living situation today? I have a [facility] place to live 11/28/2024 Comments Unknown Sex and Gender Information Value Date Recorded Sex Assigned at Female 08/28/2024 7:46 PM SANITARY ENGINEERING TEACHER Legal Sex Female 3:29 PM SANITARY ENGINEERING TEACHER Gender Identity Female 08/28/2024 7:46 PM SANITARY ENGINEERING TEACHER Sexual Orientation Straight 08/28/2024 7: 46 PM SANITARY ENGINEERING TEACHER documented as of this encounter Progress Notes * Wero Elias, R.R.T., L.R.T. - 12/01/2024 8:00 AM CST PAST MEDICAL HISTORY #Mild mid-lung nodular bronchiectatic changes #Gastroesophageal reflux disease, symptomatic despite PPIs ASSESSMENT The patient was present for a consult via real-time audio/video technology by Bossman Elias RRT. I was asked to see Kendy Kirkland by Dr. Lovett via video. Also on the call is her , Anand. Kendy Kirkland is a 74 y.o. with the above PMH. I am seeing her today for airway clearance education. Her plan will include Albuterol, 7% Sodium Chloride, Aerobika OPEP, and newell coughing. Kendy did pepper picker a home nebulizer. We discussed how to use. We also discussed the potential benefits of using a simple side stream nebulizer like an AeroEclipse. I will mail her one. She is already performing sinus rinses as directed by ENT. They did ask about making the saline for the nebulizer as they make it for the sinus rinses. I can send her a recipe for the 7%. They need to use Kosher salt, distilled or boiled water. This is only good for 48 hrs after making and should be kept in the refrigerator in a sealed container. Finally, we discussed Aerobika OPEP, along with newell coughing, see below. AIRWAY CLEARANCE Aerobika Teaching with Newell cough Put the mouthpiece in your mouth. Tightly seal your lips around it so no air escapes around the mouthpiece when you breathe in or out. Make sure your hand isn't blocking the hole on the other side ofthe device. With the mouthpiece still in your mouth, breathe in. Take a deeper breath than usual, but don't tryto fill your lungs all the way. Hold your breath for about 2 to 3 seconds. With the mouthpiece still in your mouth, breathe out. Breathe out more strongly than usual, but nothard enough that you get dizzy. Don't puff your cheeks. The device should vibrate slightly and makea fluttering noise while you breathe out. Keep breathing out until you no longer hear a flutter. Repeat steps 1-3 about 10 times. Try not to cough yet. Take the mouthpiece out of your mouth and newell cough. A newell cough is a special type of cough that helps bring up mucus that's usually hard to clear. To newell cough: Sit comfortably with back straight. Tilt head back slightly for glottic opening. Take 2-3 slow deep breaths, inhaling through nose, exhaling through pursed lips, using diaphragmatic, or belly, breathing. Take a deep breath and hold it for 2-5 seconds (this gets the air behind mucus) Exhale by tightening the abdominal and chest wall muscles, with the mouth and glottis open, while saying the word ???newell?? or ???who?? during exhalation. The ???newell?? exhalation should be done quickly and forcefully. (Do not exhaled as forcefully as possible). Perform newell cough until secretions are clear or you become tired. 6. Repeat steps 1-5 for 6 cycles. Reviewed Aerobika cleaning/sanitizing instruction. PLAN Well: Administer the Albuterol if needed. Next, connect the AeroEclipse to the back of the Aerobika device. Administer the 7% Sodium Chloride while performing Aerobika with newell coughing, breath hold on each breath, 10 inhalations/exhalations followed by newell coughing. Newell until no mucus is produced. Repeat this for 5-6 total cycles 10 Aerobika, newell cough or for the duration of the nebulizer. Do thisall of this two times per day when well. Ill: Increase the above therapy regimen to 3-4 times per day when ill. TARY ENGINEERING TEACHER documented in this encounter Plan of Treatment Not on file documented as of this encounter Visit Diagnoses Diagnosis Bronchiectasis (HCC) documented in this encounter
--- OUTSIDE RECORDS SUMMARY | 2024-12-03 23:09 | XMS_ITS | Encounter Summary ---
Author Organization [facility] Address [address] [place] [address] Care Team Providers Care Insurance Clerk Name Role Phone Unavailable Primary Care Provider Unavailabl e Encounter Details Date Type Department Care Team (Latest Contact Info) Description 11/29/2024 2:31 PM APPLICATION INTERNSHIP - 11/29/2024 11:59 PM APPLICATION INTERNSHIP Hospital Encounter Department of Laboratory Medicine and Pathology, [facility] in [place], [place] [address] [place] [phone] Michael Lovett M.D., M.P.H. [address] [place] [phone] Bronchiectasis (HCC) Discharge Disposition: Home or Self Care Social History Tobacco Use Types Packs/Day Years Used Date Smoking Tobacco: Never Passive Smoke Exposure: Never Smokeless Tobacco: Never [facility] Utilities Answer Date Recorded In the past 12 months has [employer], gas, oil, or water [employer] threatened to shut off services in your [...] your living situation today? I have a [facility] place to live 11/28/2024 Comments Unknown Sex and Gender Information Value Date Recorded Sex Assigned at Female 08/28/2024 7:46 PM APPLICATION INTERNSHIP Legal Sex Female 3:29 PM APPLICATION INTERNSHIP Gender Identity Female 08/28/2024 7:46 PM APPLICATION INTERNSHIP Sexual Orientation Straight 08/28/2024 7: 46 PM APPLICATION INTERNSHIP documented as of this encounter Medications at [...] fluocinolone (CAPEX) 0.01 % shampoo 05/06/2017 fluocinolone ([place]ardley-Smoothe/F S) 0.01 % scalp oil Apply 1 [...] as of this encounter Plan of Treatment Scheduled Orders Name Type Priority Associated Diagnoses Orde r Schedule Acid Fast Smear for Mycobacterium Microbiology Routine Bronchiectasis (HCC) Once for 1 Occurrences starting 11/29/2024 until 11/29/2024 Mycobacterial Culture Microbiology Routine Bronchiectasis (HCC) Once for 1 Occurrences starting 11/29/2024 until 11/29/2024 documented as of this encounter Visit Diagnoses Diagnosis Bronchiectasis (HCC) documented in this encounter
--- OUTSIDE RECORDS SUMMARY | 2024-12-03 23:09 | XMS_ITS | Encounter Summary ---
Author Organization [facility] Address [address] [place] [address] Care Team Providers Care Mannequin Refinisher Name Role Phone Unavailable Primary Care Provider Unavailabl e Reason for Visit * Reason Onset Date Comments Appt Request 10/20/2024 Encounter Details Date Type Department Care Team ([facility] st Contact Info) Description 10/20/2024 Clinical Communication Division of Pulmonary Medicine in [place], [place] [address] [place] [phone] Michael Lovett M.D., M.P.H. [address] [place] [phone] Appt Request Social History Tobacco Use Types Packs/Day Years Used Date Smoking Tobacco: Never Nutrition Answer Date Recorded Nutrition: EVOO Fat Source 13 05/21 Nutrition: Servings of Fruits/Vegetables per Day Not on file 05/21/2020 Dental Answer Date Recorded Dental: Regular Dentist Unknown 12/28/19 21 Comments Unknown Sex and Gender Information Value Date Recorded Sex Assigned at Female 08/28/2024 7:46 PM BULB BRANDER Legal Sex Female 3:29 PM BULB BRANDER Gender Identity Female 08/28/2024 7:46 PM BULB BRANDER Sexual Orientation Straight 08/28/2024 7: 46 PM BULB BRANDER documented as of this encounter Plan of Treatment Scheduled Orders Name Type Priority Associated Diagnoses Orde r Schedule Sputum Induction PFT Routine Disseminated Mycobacterium Avium Intracellulare Complex (HCC) Expected: 11/29/2024, Expires: 11/29/2026 Gram Stain Microbiology Routine Disseminated Mycobacterium Avium Intracellulare Complex (HCC) Expected: 11/29/2024, Expires: 11/29/2026 Bacterial Culture, Aerobic + Susceptibility, Respiratory Microbiology Routine Disseminated Mycobacterium Avium Intracellulare Complex (HCC) Expected: 11/29/2024, Expires: 11/29/2026 Fungal Smear Microbiology Routine Disseminated Mycobacterium Avium Intracellulare Complex (HCC) Expected: 11/29/2024, Expires: 11/29/2026 Fungal Culture, Routine Microbiology Routine Disseminated Mycobacterium Avium Intracellulare Complex (HCC) Expected: 11/29/2024, Expires: 11/29/2026 Acid Fast Smear for Mycobacterium Microbiology Routine Disseminated Mycobacterium Avium Intracellulare Complex (HCC) Expected: 11/29/2024, Expires: 11/29/2026 Mycobacterial Culture Microbiology Routine Disseminated Mycobacterium Avium Intracellulare Complex (HCC) Expected: 11/29/2024, Expires: 11/29/2026 documented as of this encounter Results * Pulmonary Function Tests (11/29/2024 8:51 AM BULB BRANDER) PostFVC 2.56 L 11/29/2024 10:05 AM BULB BRANDER [facility] PostFEV1 1.98 L 11/29/2024 10:05 AM [facility] FEV1/FVC POST 77.46 % 11/29/2024 10:05 AM [facility] FEF 25-75 % POST 1.53 L/s 11/29/2024 10:05 AM [facility] PEF POST 5.42 L/s 11/29/2024 10:05 AM [facility] PIF POST 3.34 L/s 11/29/2024 10:05 AM [facility] FET POST 5.31 sec 11/29/2024 10:05 AM [facility] TLC POST 5.16 L 11/29/2024 10:05 AM [facility] RV 2.54 L 11/29/2024 10:05 AM [facility] RV % TLC POST 49.28 % 11/29/2024 10:05 AM [facility] DLCO 18.31 ml/(min*mm Hg) 11/29/2024 10:05 AM [facility] FVC 2.58 L 11/29/2024 10:05 AM [facility] FEV1 1.85 L 11/29/2024 10:05 AM BULB BRANDER [facility] FEV1/FVC 71.71 % 11/29/2024 10:05 AM BULB BRANDER [facility] EFL42-23% 1.27 L/s 11/29/2024 10:05 AM BULB BRANDER [facility] PEF PRE 4.91 L/s 11/29/2024 10:05 AM BULB BRANDER [facility] PIF PRE 3.65 L/s 11/29/2024 10:05 AM BULB BRANDER [facility] FET PRE 11.13 sec 11/29/2024 10:05 AM BULB BRANDER [facility] SUBSTANCE POST Albuterol 11/29/2024 10:05 AM BULB BRANDER [facility] 11/29/2024 8:51 AM BULB BRANDER Impressions [facility] - 11/29/2024 10:05 AM BULB BRANDER Normal studies without significant bronchodilator response. Narrative Procedure Note Ankit Gold M.D. - 11/29/2024 IMPRESSION: Normal studies without significant bronchodilator response. Michael Lovett M.D., M.P.H. PFT ORDERABLES Final Result [facility] NA documented in this encounter Visit Diagnoses Diagnosis Disseminated Mycobacterium Avium Intracellulare Complex (HCC)- Primary documented in this encounter
[2024-12-03 23:10] VITALS: BP 151/71; PULSE 69; RESP 16; TEMP 36.8; O2SAT 99; BMI 24.6
--- NOTE | 2024-12-03 23:25 | CRLHL7_ITS ---
For Patients: As a result of the Century Cures Act, medical imaging exams and procedure reports are released immediately into your electronic medical record. You may view this report before your referring provider. If you have questions, please contact your health care provider. Indication: Chest pain Technique: Single view of the chest Comparison: Chest radiograph performed 09/22/2024 Findings/Impression: No acute cardiopulmonary process detected. Dictated by Francisco Kim MD @ 12/03/2024 11:47:08 PM (Electronically Signed)
--- NOTE | 2024-12-03 23:27 | ED.GENADULT ---
HPI - General Adult General Chief complaint: Unspecified Complaint, Adult <Conrad Alvarez MD - Last Filed: 12/05/24 09:24> Stated complaint: chest pressure, low bp <Conrad Alvarez MD - Last Filed: 12/05/24 09:24> Time Seen by Provider: 12/03/24 23:08 <Conrad Alvarez MD - Last Filed: 12/05/24 09:24> History of Present Illness HPI narrative: 74-year-old female without any history of coronary artery disease but a history of hypertension and lot of psychosocial stressors recently as well as gastroesophageal reflux presents with some left upper chest pressure and ?not feeling well?. Patient denies any fever, chills, shortness of breath, does say occasionally she gets a tightness in 1 finger point area of her left upper chest. But that is sporadic and she has also noticed some increased sticking when she swallows unless she eat soft food. She has had a history gas softer reflux and takes pantoprazole once a day. She also reports a lot of psychosocial stress with her having bypass surgery and her daughter having medical concerns. She has had no leg swelling, edema, bleeding or clotting problems. No fever as mention. She also reports that her blood pressures been lower at home with her diastolic in the 50s and 60s. She has been on a small dose of lisinopril. Her blood pressure here is in the 150 systolic. <Conrad Alvarez MD - Last Filed: 12/05/24 09:24> Related Data Home medications: Home Medications ?Medication ?Instructions ?Recorded ?Confirmed calcium carbonate mg PO DAILY 05/13/22 08/23/24 cetirizine 10 mg tablet 10 mg PO DAILY 05/13/22 09/22/24 fluocinolone 0.01 % topical 1 applic topical .Daily as needed 05/13/22 09/22/24 solution PRN fluticasone propionate 50 1 spray intranasal ONCE PRN 05/13/22 09/22/24 mcg/actuation nasal spray,suspension lisinopril 10 mg tablet mg PO DAILY 05/13/22 08/23/24 multivitamin with minerals-ferrous tab PO 05/13/22 08/23/24 sulfate 4.5 mg iron tablet (One Daily Multivitamins with Minerals) Previous Rx's ?Medication ?Instructions ?Recorded estradiol 0.01% (0.1 mg/gram) 0.5 g vaginal 2XW #42.5 grams 04/14/24 vaginal cream (Estrace) GABAPENTIN 6% CREAM 6% Cream See Rx Instructions .Route 09/15/24 .COMPLEX #15 grams pantoprazole 20 mg tablet,delayed 20 mg PO DAILY #30 tabs 10/04/24 release <Conrad Alvarez MD - Last Filed: 12/05/24 09:24> Allergies/adverse reactions: Allergies Allergy/AdvReac Type Severity Reaction Status Date / Time prednisone Allergy Severe Full body Verified 12/03/24 23:14 rash sulfasalazine Allergy Severe Skin Verified 12/03/24 23:14 eruption hydrocodone Allergy Mild Rash Verified 12/03/24 23:14 sulfamethoxazole (From Allergy Rash Verified 12/03/24 23:14 Sulfamethoxazole-Trimethoprim) trimethoprim (From Allergy Rash Verified 12/03/24 23:14 Sulfamethoxazole-Trimethoprim) <Conrad Alvarez MD - Last Filed: 12/05/24 09:24> Review of Systems Status of ROS: Reports: 6 or more systems reviewed and unremarkable except as noted in History and below <Conrad Alvarez MD - Last Filed: 12/05/24 09:24> [facility] Medical History: Medical History Irregular heart rhythm ?I49.9 - Cardiac arrhythmia, unspecified (ICD-10) 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) Microscopic hematuria ?R31.29 - Other microscopic hematuria (ICD-10) Urinary retention ?R33.9 - Retention of urine, unspecified (ICD-10) Urinary tract infection ?N39.0 - Urinary tract infection, site not specified (ICD-10) Recurrent UTI ?N39.0 - Urinary tract infection, site not specified (ICD-10) Mixed hearing loss, unilateral ?H90.8 - Mixed conductive and sensorineural hearing loss, unspecified (ICD-10) DDD (degenerative disc disease), lumbar ?M51.36 - Other intervertebral disc degeneration, lumbar region (ICD-10) Hypertension ?I10 - Essential (primary) hypertension (ICD-10) Rash ?R21 - Rash and other nonspecific skin eruption (ICD-10) Palpitations ?R00.2 - Palpitations (ICD-10) Allergic reaction ?T78.40XA - Allergy, unspecified, initial encounter (ICD-10) Vaginal atrophy ?N95.2 - Postmenopausal atrophic vaginitis (ICD-10) Vulvodynia ?N94.819 - Vulvodynia, unspecified (ICD-10) Encounter for follow-up ?Z09 - Encounter for follow-up examination after completed treatment for conditions other than malignant neoplasm (ICD-10) <Conrad Alvarez MD - Last Filed: 12/05/24 09:24> Surgical History: Surgical History Status post shoulder surgery (06/27/24) ?Z98.890 - Other specified postprocedural states (ICD-10) History of arthroscopy of right shoulder (02/17/24) ?Z98.890 - Other specified postprocedural states (ICD-10) History of stapedectomy ?Z90.09 - Acquired absence of other part of head and neck (ICD-10) Hx of cholecystectomy ?Z90.49 - Acquired absence of other specified parts of digestive tract (ICD-10) <Conrad Alvarez MD - Last Filed: 12/05/24 09:24> Social History: Social History Narrative: -[place] Smoking Status: Never smoker Do you use any of these nicotine containing products: None Second hand tobacco smoke exposure: No How often do you have a drink containing alcohol: never How often do you have six or more drinks on one occasion: Never AUDIT-C Alcohol total score: 0 Non-prescribed substance use: denies use Caffeine: Yes Are you using contraception or practicing any form of control: No service: No <Conrad Alvarez MD - Last Filed: 12/05/24 09:24> Exam Narrative: Exam Narrative: Objective: Patient's vital signs show blood pressure 151/71 afebrile, O2 sat 99% on room air HEENT is unremarkable no facial asymmetry neck is supple chest is clear no rales or wheezing heart rhythm regular 2/6 systolic murmur occasional ectopic beat noted abdomen benign soft extremities are no edema neurologic nonfocal good peripheral perfusion noted <Conrad Alvarez MD - Last Filed: 12/05/24 09:24> Const: Vital Signs, click to edit/add: Vital Signs - 24 hr 12/03/24 23:10 12/03/24 23:53 12/04/24 00:00 Temperature 98.3 F Pulse Rate [Left P ulse Oximeter] 69 Respiratory Rate 16 33 H 10 L Blood Pressure Blood Pressure [Ri ght Upper Arm] 151/71 H Pulse Oximetry 99 Oxygen Delivery Me thod Room Air 12/04/24 00:02 12/04/24 00:02 12/04/24 00:02 Temperature Pulse Rate [Left P ulse Oximeter] Respiratory Rate 11 L 11 L 11 L Blood Pressure 137/69 137/69 137/69 Blood Pressure [Ri ght Upper Arm] Pulse Oximetry Oxygen Delivery Me thod <Conrad Alvarez MD - Last Filed: 12/05/24 09:24> Vital Signs, click to edit/add: Vital Signs - 24 hr 12/03/24 23:10 12/03/24 23:53 12/04/24 00:00 Temperature 98.3 F Pulse Rate [Left P ulse Oximeter] 69 Respiratory Rate 16 33 H 10 L Blood Pressure Blood Pressure [Ri ght Upper Arm] 151/71 H Pulse Oximetry 99 Oxygen Delivery Me thod Room Air 12/04/24 00:02 12/04/24 00:02 12/04/24 00:02 Temperature Pulse Rate [Left P ulse Oximeter] Respiratory Rate 11 L 11 L 11 L Blood Pressure 137/69 137/69 137/69 Blood Pressure [Ri ght Upper Arm] Pulse Oximetry Oxygen Delivery Me thod <Allison Foss MD - Last Filed: 12/04/24 00:28> Course Course ED Course: Patient reporting stable symptoms at the time of discharge. Labs are reassuring that there is no cardiac or dangerous pulmonary etiology of her symptoms. Per Dr. Alvarez, suspected GI source. He discussed plan of care with her prior to shift change. 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 Will discharge home with his current plan primary care follow-up to arrange outpatient EGD. Written instructions provided alarm symptoms reviewed by nursing team prior to discharge according to Dr. Alvarez previous instructions. <Allison Foss MD - Last Filed: 12/04/24 00:28> Vital Signs Vital signs: Initial Vital Signs Temperature 98.3 F 12/03/24 23:10 Temperature Source Temporal Artery Scan 12/03/24 23:10 Pulse Rate 69 12/03/24 23:10 Respiratory Rate 16 12/03/24 23:10 Blood Pressure 151/71 H 12/03/24 23:10 Blood Pressure Mean 97 12/03/24 23:10 Blood Pressure Position Sitting 12/03/24 23:10 Pulse Oximetry 99 12/03/24 23:10 Oxygen Delivery Method Room Air 12/03/24 23:10 Vital Signs Temperature 98.3 F 12/03/24 23:10 Pulse Rate 69 12/03/24 23:10 Respiratory Rate 16 12/03/24 23:10 Blood Pressure 151/71 H 12/03/24 23:10 Pulse Oximetry 99 12/03/24 23:10 Oxygen Delivery Method Room Air 12/03/24 23:10 Temperature 98.3 F 12/03/24 23:10 Pulse Rate 66 12/04/24 00:33 Respiratory Rate 16 12/04/24 00:33 Blood Pressure 136/67 12/04/24 00:33 Pulse Oximetry 98 12/04/24 00:33 Oxygen Delivery Method Room Air 12/04/24 00:33 <Conrad Alvarez MD - Last Filed: 12/05/24 09:24> Initial Vital Signs Temperature 98.3 F 12/03/24 23:10 Temperature Source Temporal Artery Scan 12/03/24 23:10 Pulse Rate 69 12/03/24 23:10 Respiratory Rate 16 12/03/24 23:10 Blood Pressure 151/71 H 12/03/24 23:10 Blood Pressure Mean 97 12/03/24 23:10 Blood Pressure Position Sitting 12/03/24 23:10 Pulse Oximetry 99 12/03/24 23:10 Oxygen Delivery Method Room Air 12/03/24 23:10 Vital Signs Temperature 98.3 F 12/03/24 23:10 Pulse Rate 69 12/03/24 23:10 Respiratory Rate 16 12/03/24 23:10 Blood Pressure 151/71 H 12/03/24 23:10 Pulse Oximetry 99 12/03/24 23:10 Oxygen Delivery Method Room Air 12/03/24 23:10 Temperature 98.3 F 12/03/24 23:10 Pulse Rate 66 12/04/24 00:33 Respiratory Rate 16 12/04/24 00:33 Blood Pressure 136/67 12/04/24 00:33 Pulse Oximetry 98 12/04/24 00:33 Oxygen Delivery Method Room Air 12/04/24 00:33 <Allison Foss MD - Last Filed: 12/04/24 00:28> Medical Decision Making [facility] Narrative Medical decision making narrative: [age] year white female with presentation of malaise, some intermittent chest tightness., but mostly in the left upper sternal area. She has also had reflux it has been chronic with some dysphagia. I think at this point would be reasonable to get an EKG, troponin, would check COVID studies as she states she had felt well, and monitor blood pressure during her stay here as well as telemetry. If her labs come back reassuring and troponin is negative and EKG is reassuring I think we can allow her to go home. I would double her pantoprazole to 20 mg b.i.d. for a week. Would have her follow up with regular doctor in the next few days to reassess and to consider EGD. She certainly could have some chest symptoms from dysphagia. Offered her some anxiolytics medicine and she declined this. She does report a lot of psychosocial stress with her surgery and her daughters medical illnesses. Again if labs and EKG are reassuring I think we could allow to go home and then follow up with regular doctor. Addendum: The patient's EKG by my read shows normal sinus rhythm no acute ST T wave changes. Chest x-ray by my read shows no acute findings <Conrad Alvarez MD - Last Filed: 12/05/24 09:24> Lab Data Lab results reviewed: Yes I reviewed the patient's lab results <Allison Foss MD - Last Filed: 12/04/24 00:28> Lab results narrative: Reassuring. Troponins negative. BNP not elevated, creatinine and electrolytes stable. No signs of viral abnormalities. <Allison Foss MD - Last Filed: 12/04/24 00:28> Labs: Lab Results 12/03/24 12/03/24 Range/Units 23:25 23:35 WBC 6.57 (4.50-11.00) K/uL RBC 4.64 (4.00-5.20) m/uL Hgb 13.3 (12.0-16.0) gm/dL Hct 40.5 (33.0-51.0) % MCV 87 (80-100) fL MCH 29 (26-34) pg MCHC 33 (32-36) gm/dL RDW Coeff of Diana 12.8 (11.5-15.5) % Plt Count 236 (140-440) K/uL Neut % (Auto) 62.2 (42.0-72.0) % Lymph % (Auto) 28.6 (20-44) % Ralls % (Auto) 7.0 (0.0-11.0) % Eos % (Auto) 0.9 (0.0-7.0) % Baso % (Auto) 0.5 (0.0-3.0) % Neut # (Auto) 4.09 (1.7-7.0) K/uL Lymph # (Auto) 1.88 (0.90-2.90) K/uL Ralls # (Auto) 0.50 (0.00-0.90) K/UL Eos # (Auto) 0.06 (0.00-0.50) K/uL Baso # (Auto) 0.03 (0.00-0.30) K/uL Abs Immat Gran (auto) 0.05 (0.00-0.30) K/uL Imm/Tot Granulo (auto) 0.8 % Sodium 138 (135-149) mmol/L Potassium 3.6 (3.6-5.1) mmol/L Chloride 101 (96-114) mmol/L Carbon Dioxide 27 (20-32) mmol/L Anion Gap 10 (7-15) mEq/L BUN 21 (7-30) mg/dL Creatinine 0.7 (0.5-1.5) mg/dL Estimated Creat Clear 38.37 Estimated GFR 92 ml/min Glucose 95 (60-115) mg/dL Calcium 9.6 (8.4-10.6) mg/dL Total Bilirubin 0.6 (0.1-1.5) mg/dL Direct Bilirubin 0.2 (0.0-0.5) mg/dL AST 23 (12-35) U/L ALT 20 (4-35) U/L Alkaline Phosphatase 70 (40-150) U/L C-Reactive Protein < 0.5 L (0.5-1.0) mg/dL NT-Pro-B Natriuret Pep 42 pg/mL Total Protein 7.2 (6.0-8.3) g/dL Albumin 4.7 (3.3-5.0) g/dL SARS-CoV-2 (PCR) Negative SARS-CoV-2 (Negative) Influenza Type A (PCR) Negative PCR FLU A (Negative) Influenza Type B (PCR) Negative PCR FLU B (Negative) RSV (PCR) Negative PCR RSV (Negative) POC Troponin I 0.00 L (0.01-0.04) ng/ml <Conrad Alvarez MD - Last Filed: 12/05/24 09:24> Lab Results 12/03/24 12/03/24 Range/Units 23:25 23:35 WBC 6.57 (4.50-11.00) K/uL RBC 4.64 (4.00-5.20) m/uL Hgb 13.3 (12.0-16.0) gm/dL Hct 40.5 (33.0-51.0) % MCV 87 (80-100) fL MCH 29 (26-34) pg MCHC 33 (32-36) gm/dL RDW Coeff of Diana 12.8 (11.5-15.5) % Plt Count 236 (140-440) K/uL Neut % (Auto) 62.2 (42.0-72.0) % Lymph % (Auto) 28.6 (20-44) % Ralls % (Auto) 7.0 (0.0-11.0) % Eos % (Auto) 0.9 (0.0-7.0) % Baso % (Auto) 0.5 (0.0-3.0) % Neut # (Auto) 4.09 (1.7-7.0) K/uL Lymph # (Auto) 1.88 (0.90-2.90) K/uL Ralls # (Auto) 0.50 (0.00-0.90) K/UL Eos # (Auto) 0.06 (0.00-0.50) K/uL Baso # (Auto) 0.03 (0.00-0.30) K/uL Abs Immat Gran (auto) 0.05 (0.00-0.30) K/uL Imm/Tot Granulo (auto) 0.8 % Sodium 138 (135-149) mmol/L Potassium 3.6 (3.6-5.1) mmol/L Chloride 101 (96-114) mmol/L Carbon Dioxide 27 (20-32) mmol/L Anion Gap 10 (7-15) mEq/L BUN 21 (7-30) mg/dL Creatinine 0.7 (0.5-1.5) mg/dL Estimated Creat Clear 38.37 Estimated GFR 92 ml/min Glucose 95 (60-115) mg/dL Calcium 9.6 (8.4-10.6) mg/dL Total Bilirubin 0.6 (0.1-1.5) mg/dL Direct Bilirubin 0.2 (0.0-0.5) mg/dL AST 23 (12-35) U/L ALT 20 (4-35) U/L Alkaline Phosphatase 70 (40-150) U/L C-Reactive Protein < 0.5 L (0.5-1.0) mg/dL NT-Pro-B Natriuret Pep 42 pg/mL Total Protein 7.2 (6.0-8.3) g/dL Albumin 4.7 (3.3-5.0) g/dL SARS-CoV-2 (PCR) Negative SARS-CoV-2 (Negative) Influenza Type A (PCR) Negative PCR FLU A (Negative) Influenza Type B (PCR) Negative PCR FLU B (Negative) RSV (PCR) Negative PCR RSV (Negative) POC Troponin I 0.00 L (0.01-0.04) ng/ml <Allison Foss MD - Last Filed: 12/04/24 00:28> Imaging Data Chest x-ray: Attestation: I have reviewed the pertinent imaging results. <Allison Foss MD - Last Filed: 12/04/24 00:28> My impression: Normal chest x-ray <Allison Foss MD - Last Filed: 12/04/24 00:28> Radiologist's impression: Findings/Impression: No acute cardiopulmonary process detected. Dictated by Francisco Kim MD @ 12/03/2024 11:47:08 PM <Allison Foss MD - Last Filed: 12/04/24 00:28> ECG Data Interpretation: Sinus rhythm with a rate of 65. Normal intervals and axis. No significant ST or T-wave abnormalities. Normal EKG <Allison Foss MD - Last Filed: 12/04/24 00:28> Discharge Plan Discharge Clinical Impression: Gastro-esophageal reflux, Psychosocial stressors, Chest pressure <Conrad Alvarez MD - Last Filed: 12/05/24 09:24> Patient Disposition: Home w/ Parent or Adult <Conrad Alvarez MD - Last Filed: 12/05/24 09:24> Condition: Stable <Conrad Alvarez MD - Last Filed: 12/05/24 09:24> Additional Instructions: Light activity, soft foods, follow-up with your regular doctor next few days, recommend you consider getting an upper GI endoscopy given your having food sticking occasionally. You could double year pantoprazole medicine for to twice a day for the next week or 2. Return if problems or concerns. <Conrad Alvarez MD - Last Filed: 12/05/24 09:24> Activity Level: Light activity <Conrad Alvarez MD - Last Filed: 12/05/24 09:24> Light activity <Allison Foss MD - Last Filed: 12/04/24 00:28> Diet Detail: Soft diet <Conrad Alvarez MD - Last Filed: 12/05/24 09:24> Soft diet <Allison Foss MD - Last Filed: 12/04/24 00:28> Prescriptions: No Action fluticasone propionate 50 mcg/actuation spray,suspension 1 spray intranasal ONCE PRN fluocinolone 0.01 % solution 1 applic topical .Daily as needed PRN Rx Instructions: to scalp lisinopril 10 mg tablet PO DAILY calcium carbonate 500 mg calcium (1,250 mg) tablet PO DAILY cetirizine 10 mg tablet 10 mg PO DAILY One Daily Multi-Vit w-Mineral 4.5 mg iron tablet PO estradiol [Estrace] 0.01 % (0.1 mg/gram) cream 0.5 g vaginal 2XW Qty: 42.5 3RF Rx Instructions: Use nightly for 2 weeks, then twice weekly. May apply with finger. 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
[2024-12-03 23:44] LABS: Basophils Absolute Auto 0.03 K/uL (0.00-0.30); Basophils Percent Auto 0.5 % (0.0-3.0); Eosinophils Absolute Auto 0.06 K/uL (0.00-0.50); Eosinophils Percent Auto 0.9 % (0.0-7.0); Hematocrit 40.5 % (33.0-51.0); Hemoglobin* 13.3 gm/dL (12.0-16.0); Immature Granulocytes Abs Auto 0.05 K/uL (0.00-0.30); Immature Granulocytes Pct Auto 0.8 %; Lymphocytes Absolute Auto 1.88 K/uL (0.90-2.90); Lymphocytes Percent Auto 28.6 % (20-44); Mean Corpuscular HGB Conc 33 gm/dL (32-36); Mean Corpuscular Hemoglobin 29 pg (26-34); Mean Corpuscular Volume 87 fL (80-100); Neutrophils Absolute Auto 4.09 K/uL (1.7-7.0); Neutrophils Percent Auto 62.2 % (42.0-72.0); Platelet Count* 236 K/uL (140-440); RDW Coefficient of Variation % 12.8 % (11.5-15.5); Red Blood Count 4.64 m/uL (4.00-5.20); White Blood Count* 6.57 K/uL (4.50-11.00)
[2024-12-03 23:49] LABS: Slide Review Reflex No
[2024-12-03 23:53] VITALS: RESP 33
--- OUTSIDE RECORDS SUMMARY | 2024-12-03 23:54 | XMS_ITS | Clinical Summary ---
Author Organization [facility] Address [address] [place] [address] Care Team Providers Care Senior Teradata Developer Name Role Phone Unavailable Primary Care Provider Unavailabl e Source Comments Patient records contain information from all sites at [facility]. For routine questions regarding patient records, call [phone] during business hours, M-F 8:00 AM - 5:00 PM Central Time. Record requests for emergency care only can be directed to [phone] at any time.[facility] Allergies Active Allergy Reactions Criticality Noted [...] g by other route. 4 Active fluocinolone (Sabattus-Smoothe/ FS) 0.01 % scalp oil Apply 1 [...] 2018 reactive gastropthy EGD 03/[address] workup 09/2011 negative for GERD - felt [...] Department Care Team Description 12/01/2024 8:00 AM ERCO MACHINE OPERATOR Telemedicine Division of Pulmonary Medicine in [place], [place] [address] [place] [phone] Michael Lovett M.D., M.P.H. Wero Elias R.R.T., L.R.T. Bronchiectasis (HCC) 11/29/2024 2:31 PM ERCO MACHINE OPERATOR - 11/29/2024 11:59 PM ERCO MACHINE OPERATOR Hospital Encounter Department of Laboratory Medicine and Pathology, [place], [place] [address] [place] [phone] Michael Lovett M.D., M.P.H. Bronchiectasis (HCC) Discharge Disposition: Home or Self Care 11/29/2024 2:03 PM ERCO MACHINE OPERATOR - 11/29/2024 2:30 PM ERCO MACHINE OPERATOR Hospital Encounter Department of Laboratory Medicine and Pathology, [place], [place] [address] [place] [phone] Michael Lovett M.D., M.P.H. Bronchiectasis (HCC) Discharge Disposition: Home or Self Care 11/29/2024 1:30 PM ERCO MACHINE OPERATOR Comprehensive Visit Division of Pulmonary Medicine in [address] [phone] Michael Lovett M.D., M.P.H. Bronchiectasis (HCC) (Primary Dx) 11/29/2024 7:09 AM ERCO MACHINE OPERATOR - 11/29/2024 2:02 PM ERCO MACHINE OPERATOR Hospital Encounter Division of Pulmonary Medicine in [place], [place] [address] [place] [phone] Michael Lovett M.D., M.P.H. Disseminated Mycobacterium Avium Intracellulare Complex (HCC) Discharge Disposition: Home or Self Care 11/27/2024 8:45 AM ERCO MACHINE OPERATOR Clinical Communication Virtual Review in [place], [place] [address] [place] [address] Pre-visit Intake 10/20/2024 Clinical Communication Division of Pulmonary Medicine in [address] [phone] Michael Lovett M.D., M.P.H. Appt Request from [...] Tobacco: Never Tobacco Cessation:Counseling Given: Not Answered [facility] My Own Crown[employer] Answer Date Recorded In the past 12 months has th e [employer], gas, oil, or water [employer] threatened to shut off services in your [...] your living situation today? I have a [facility] to live 11/28/2024 Comments Unknown Sex and Gender Information Value Date Recorded Sex Assigned at Female 08/28/2024 7:46 PM ERCO MACHINE OPERATOR Legal Sex Female 3:29 PM ERCO MACHINE OPERATOR Gender Identity Female 08/28/2024 7:46 PM ERCO MACHINE OPERATOR Sexual Orientation Straight 08/28/2024 7: 46 PM ERCO MACHINE OPERATOR Last Filed Vital Signs Vital Sign Reading Time Taken Comments Blood Pressure 118/59 11/29/2024 1:06 PM ERCO MACHINE OPERATOR Pulse 81 11/29/2024 1:06 PM ERCO MACHINE OPERATOR Temperature 36.3 C (97.3 F) 11/29/2024 1:06 PM ERCO MACHINE OPERATOR Respiratory Rate - - Oxygen Saturation 99% 11/29/2024 1:06 PM ERCO MACHINE OPERATOR Inhaled Oxygen Concentration - - Weight 58.6 kg (129 lb 3 oz) 11/29/2024 1:06 PM ERCO MACHINE OPERATOR Height 156.5 cm (5' 1.61) 11/29/2024 1:06 PM CS T Body Mass Index 23.93 11/29/2024 1:06 PM ERCO MACHINE OPERATOR Plan of Treatment Health Maintenance Due Date [...] PROTEIN (CRP), S/P Routine 11/29/2024 2:25 PM ERCO MACHINE OPERATOR Bronchiectasis (HCC) RHEUMATOID FACTOR, S/P Routine 2:25 PM ERCO MACHINE OPERATOR Bronchiectasis (HCC) ANTINUCLEAR ABS (KATYA), S Routine 11/29/2024 2:25 PM ERCO MACHINE OPERATOR Bronchiectasis (HCC) IMMUNOGLOBULINS (IGG, IGA, AND IGM), S Routine 11/29/2024 2:25 PM ERCO MACHINE OPERATOR Bronchiectasis (HCC) [id number], S Routine 2:25 PM ERCO MACHINE OPERATOR Bronchiectasis (HCC) PULMONARY FUNCTION TESTS Routine 11/29/2024 8:51 AM ERCO MACHINE OPERATOR Disseminated Mycobacterium Avium Intracellulare Complex (HCC) OUTSIDE MG MAMMOGRAM Routine 07/27/2024 9:55 AM CDT from Last 3 Months or Most Recently Relevant to Health Maintenance Results * [id number] (11/29/2024 2:25 PM ERCO MACHINE OPERATOR) Pathologist [facility] Hrpdt-9-Mibspht psin, S 136 100 - 190 mg/dL 11/30/2024 8:38 AM ERCO MACHINE OPERATOR [facility] Blood (Blood, Venous) 11/29/2024 2:25 PM ERCO MACHINE OPERATOR 11/30/2024 6:19 AM ERCO MACHINE OPERATOR Michael Lovett M.D., M.P.H. LAB BLOOD ADD-ON Final Result Performing Organization Address City/[facility]/ZIP Co de Phone Number [facility] [address] [place] [address] [facility] [address] [place] [address] * Rheumatoid Factor (11/29/2024 2:25 PM ERCO MACHINE OPERATOR) [facility] Rheumatoid Factor, S <15 <15 IU/mL 11/29/2024 7:36 PM ERCO MACHINE OPERATOR [facility] Blood (Blood, Venous) 11/29/2024 2:25 PM ERCO MACHINE OPERATOR 11/29/2024 7:07 PM ERCO MACHINE OPERATOR Michael Lovett M.D., M.P.H. LAB BLOOD ADD-ON Final Result Performing Organization Address City/[facility]/ZIP Co de Phone Number [facility] [address] [place] [address] [facility] [address] [place] [address] * Immunoglobulins (IgG, IgA, and IgM) (11/29/2024 2:25 PM ERCO MACHINE OPERATOR) [facility] Immunoglobulin A (IgA), S 257 61 - 356 mg/dL 11/30/2024 7:47 AM ERCO MACHINE OPERATOR [facility] Immunoglobulin M (IgM), S 57 37 - 286 mg/dL 11/30/2024 7:47 AM ERCO MACHINE OPERATOR SDS Immunoglobulin G (IgG), S 806 767 - 1590 mg/dL 11/30/2024 7:47 AM ERCO MACHINE OPERATOR [facility] Blood (Blood, Venous) 11/29/2024 2:25 PM ERCO MACHINE OPERATOR 11/30/2024 6:20 AM ERCO MACHINE OPERATOR Michael Lovett M.D., M.P.H. LAB BLOOD ADD-ON Final Result Performing Organization Address City/[facility]/ZIP Co de Phone Number [facility] [address] [place], [place] [id number] [place] [address] [place] [address] * CRP (C-Reactive Protein) (11/29/2024 2:25 PM ERCO MACHINE OPERATOR) C-Reactive Protein (CRP), S <3.0 <5.0 mg/L 11/29/2024 3:15 PM ERCO MACHINE OPERATOR [facility] Blood (Blood, Venous) 11/29/2024 2:25 PM ERCO MACHINE OPERATOR 11/29/2024 2:58 PM ERCO MACHINE OPERATOR Michael Lovett M.D., M.P.H. LAB BLOOD ADD-ON Final Result Performing Organization Address City/[facility]/ZIP Co de Phone Number [facility] [address] [place] [address], [facility] [address] [place] [address] * KATYA (Antinuclear Antibodies) (11/29/2024 2:25 PM ERCO MACHINE OPERATOR) Antinuclear Ab, S 0.2 <=1.0 (Negative) U 11/30/2024 12:56 PM ERCO MACHINE OPERATOR [facility] Comment: ----ADDITIONAL INFORMATION---- Method: Enzyme-linked immunoassay using HEp-2 nuclear extract supplemented with purified antigens. Blood (Blood, Venous) 11/29/2024 2:25 PM ERCO MACHINE OPERATOR 11/30/2024 7:06 AM ERCO MACHINE OPERATOR Michael Lovett M.D., M.P.H. LAB BLOOD ADD-ON Final Result [facility] [address] [place] [address] [facility] [address] [place] [address] * Pulmonary Function Tests (11/29/2024 8:51 AM ERCO MACHINE OPERATOR) PostFVC 2.56 L 11/29/2024 10:05 AM ERCO MACHINE OPERATOR BREDA SENTRY SUITE PostFEV1 1.98 L 11/29/2024 10:05 AM [facility] S[address] SUITE FEV1/FVC POST 77.46 % 11/29/2024 10:05 AM ERCO MACHINE OPERATOR BREDA SENTRY SUITE FEF 25-75 % POST 1.53 L/s 11/29/2024 10:05 AM [facility] S[address] SUITE PEF POST 5.42 L/s 11/29/2024 10:05 AM ERCO MACHINE OPERATOR BREDA SENTRY SUITE PIF POST 3.34 L/s 11/29/2024 10:05 AM ERCO MACHINE OPERATOR [facility] 5.31 sec 11/29/2024 10:05 AM [facility] TLC POST 5.16 L 11/29/2024 10:05 AM [facility] SU[facility] RV 2.54 L 11/29/2024 10:05 AM [facility] RV % TLC POST 49.28 % 11/29/2024 10:05 AM [facility] SU[facility] DLCO 18.31 ml/(min*mm Hg) 11/29/2024 10:05 AM [facility] SENTRY SUITE FVC 2.58 L 11/29/2024 10:05 AM [facility] S[address] SUITE FEV1 1.85 L 11/29/2024 10:05 AM [facility] SU[facility] FEV1/FVC 71.71 % 11/29/2024 10:05 AM [facility] SENTRY SUITE DGR93-34% 1.27 L/s 11/29/2024 10:05 AM [facility] [address] SU[address] PEF PRE 4.91 L/s 11/29/2024 10:05 AM ERCO MACHINE OPERATOR [facility] PIF PRE 3.65 L/s 11/29/2024 10:05 AM ERCO MACHINE OPERATOR [facility] FET PRE 11.13 sec 11/29/2024 10:05 AM ERCO MACHINE OPERATOR [facility] SUBSTANCE POST Albuterol 11/29/2024 10:05 AM ERCO MACHINE OPERATOR [facility] 11/29/2024 8:51 AM ERCO MACHINE OPERATOR Impressions [facility] - 11/29/2024 10:05 AM ERCO MACHINE OPERATOR Normal studies without significant bronchodilator response. Narrative Procedure Note Ankit Gold M.D. - 11/29/2024 IMPRESSION: Normal studies without significant bronchodilator response. Michael Lovett M.D., M.P.H. PFT ORDERABLES Final Result Performing Organization Address [facility] Co de Phone Number [facility] NA * XR MAMMO BILAT SCREENING-Outside Mammogram (07/27/2024 9:55 AM CDT) Narrative [facility] - 10/08/2024 11:13 AM ERCO MACHINE OPERATOR This order has been created and auto-finalized [...] PROCEDURES Final R esult Performing Organization Address City/[facility]/ZIP Co de Phone Number [facility] NA from Last 3 Months or Most Recently Relevant to Health Maintenance Insurance MEDICARE MED[employer]
--- OUTSIDE RECORDS SUMMARY | 2024-12-03 23:54 | XMS_ITS | Encounter Summary ---
Author Organization [facility] Address [address] [place] [phone] Care Team Providers Care Lapping Machine Operator Name Role Phone Unavailable Primary Care Provider Unavailabl e Reason for Visit * Outpatient (Routine) - Closed Specialty Diagnoses / Procedures Referred By Contjael t Referred To Contact Pulmonary Medicine Diagnoses Bronchiectasis (HCC) Michael Lovett M.D., M.P.H. [address] [place] [phone] Phone: tel: fax: [facility] Referral ID Status Reason Start Date Expiration Date Visits Re quested Visits Authorized [id number] Closed 11/29/2024 05/31/2026 1 1 Encounter Details Date Type Department Care Team (Late st Contact Info) Description 12/01/2024 8:00 AM [facility] Telemedicine Division of Pulmonary Medicine in [place], [place] [address] [place] [phone] Michael Lovett M.D., M.P.H. [address] [place] [phone] Wero Elias R.R.T., L.R.T. [address] [place] [phone] Bronchiectasis (HCC) Social History Tobacco Use Types Packs/Day Years Used Date Smoking Tobacco: Never Passive Smoke Exposure: Never Smokeless Tobacco: Never [facility] Utilities Answer Date Recorded In the past [...] your living situation today? I have a [facility] place to live 11/28/2024 Comments Unknown Sex and Gender Information Value Date Recorded Sex Assigned at Female 08/28/2024 7:46 PM CRUSHER AND BINDER OPERATOR Legal Sex Female 3:29 PM CRUSHER AND BINDER OPERATOR Gender Identity Female 08/28/2024 7:46 PM CRUSHER AND BINDER OPERATOR Sexual Orientation Straight 08/28/2024 7: 46 PM CRUSHER AND BINDER OPERATOR documented as of this encounter Progress Notes [...] Aerobika OPEP, and newell coughing. Kendy did picking machine operator helper a home nebulizer. We discussed how to [...] to 3-4 times per day when ill. HER AND BINDER OPERATOR documented in this encounter Plan of Treatment Not on file documented as of this encounter Visit Diagnoses Diagnosis Bronchiectasis (HCC) documented in this encounter
--- OUTSIDE RECORDS SUMMARY | 2024-12-03 23:54 | XMS_ITS | Clinical Summary ---
Author Organization [facility] Address [place], [place] [address] Care Team Providers Care Improvement Specialist Name Role Phone Antonio Holbrook MD Unavailable [...] solution (FLONASE)Indicat ions:Rhinitis, unspecified type Inhale 1 [place] Sound into both nostrils 2 times daily. 48 [...] Type Department Care Team Description 12/01/2024 Telephone [facility] [place] [address] [address] Nancy Camara MD Medication Management (clarification ) 11/30/2024 8:30 AM INSPECTOR ASSEMBLY Ancillary Procedure [facility] [place] [address] [address] Arrived 11/30/2024 8:15 AM INSPECTOR ASSEMBLY Orders Only [facility] [place] [address] [address] [place], [place] [facility] 11/30/2024 Travel 11/25/2024 Travel 11/23/2024 Orders Only [facility] [place] [address] [address] Nancy Camara MD <No scans attached> 11/08/2024 11:00 AM INSPECTOR ASSEMBLY Orders Only [facility] [place] [address] [address] [place] [place] [facility] 11/08/2024 Travel 11/06/2024 10:50 AM INSPECTOR ASSEMBLY Office Visit [facility] [place] [address] [address] Nancy Camara MD Gi Problem ( Right side pain, Small soft Stool, going on, feels fiber did not help) 11/06/2024 Travel 11/02/2024 Travel 10/19/2024 8:15 AM INSPECTOR ASSEMBLY Ancillary Procedure [facility] [place] [address] [address] 10/18/2024 Travel 10/12/2024 9:10 AM INSPECTOR ASSEMBLY Office Visit [facility] [address] Nancy Camara MD ER Follow up (Right side is feeling better/Irregular stools, pain still on the LRQ, ) 10/11/2024 Travel 10/04/2024 Orders Only [facility] Scanner 1 scan: (1-Ord) [place], XR ABDOMEN 1V, 10/04/2024 10/04/2024 Telephone [facility] [address] [facility] [place] [address] Nancy Camara MD Appointment Request (POST ED) 10/02/2024 Travel 09/26/2024 Telephone [facility] [address] [facility] [address] Nancy Camara MD Questions 09/22/2024 Orders Only [facility] Scanner 1 scan: (1-Ord) [place], ECG, 09/22/2024 09/22/2024 Orders Only [facility] Scanner 1 scan: (1-Ord) [place], MULTIPLE LABS, 09/22/2024 09/22/2024 Orders Only [facility] Scanner 1 scan: (1-Ord) [facility], XR CHEST 2V, 09/22/2024 09/08/2024 9:00 AM INSPECTOR ASSEMBLY Orders Only [facility] [address] [place] [address] Lab, [place] [facility] 09/08/2024 Travel 09/04/2024 Telephone [facility] [address] [place] [address] Nancy Camara MD Questions (about CT scan [...] PM CDT Legal Sex Female 5:24 AM INSPECTOR ASSEMBLY Gender Identity Not on file Sexual Orientation [...] Comments Blood Pressure 131/75 11/06/2024 10:54 AM INSPECTOR ASSEMBLY Pulse 71 11/06/2024 10:54 AM INSPECTOR ASSEMBLY Temperature 36.4 C (97.5 F) 08/28/2024 10:00 AM INSPECTOR ASSEMBLY Respiratory Rate 20 04/10/2023 12:56 PM CDT Oxygen Saturation 100% 11/06/2024 10:54 AM INSPECTOR ASSEMBLY Inhaled Oxygen Concentration - - Weight 60.1 kg (132 lb 6.4 oz) 11/06/2024 10:54 AM INSPECTOR ASSEMBLY Height 156.2 cm (5' 1.5) 07/27/2024 9:52 [...] PELVIS W Routine 11/30/2024 8 :54 AM INSPECTOR ASSEMBLY Abdominal pain, RUQ (right upper quadrant) Change in stool CREATININE,ISTAT Routine 11/30/2024 8:25 AM INSPECTOR ASSEMBLY Observation or evaluation for suspected condition CLOSTRIDIOIDES DIFFICILE TOXIN PCR Routine 11/08/2024 11:03 AM INSPECTOR ASSEMBLY Change in stool CRYPTOSPORIDIUM GIARDIA RAPID ANTIGEN Routine 11/08/2024 11:03 AM INSPECTOR ASSEMBLY Change in stool STOOL PATHOGEN MULTIPLEX PCR PANEL Routine 11/08/2024 8:30 AM INSPECTOR ASSEMBLY Change in stool US ABDOMEN LIMITED RUQ Routine 9:26 AM INSPECTOR ASSEMBLY Abdominal pain, RUQ (right upper quadrant) COMP METABOLIC PANEL Routine 10/12/2024 10:08 AM INSPECTOR ASSEMBLY Abdominal pain, RUQ (right upper quadrant) Change in stool CBC WITH AUTO DIFFERENTIAL Routine 10/12/2024 10:08 AM INSPECTOR ASSEMBLY Abdominal pain, RUQ (right upper quadrant) Change in stool SCAN-RADIOLOGY REPORT 10/04/2024 12:00 AM INSPECTOR ASSEMBLY SCAN-ELECTROCARDIOGRAM EKG 09/22/2024 12:00 AM INSPECTOR ASSEMBLY SCAN-LABORATORY REPORT 12:00 AM INSPECTOR ASSEMBLY SCAN-RADIOLOGY REPORT 09/22/2024 12:00 AM INSPECTOR ASSEMBLY URINE CULTURE Routine 09/08/2024 9:09 AM INSPECTOR ASSEMBLY Pelvic pressure in female URINALYSIS MICROSCOPIC Routine 9:09 AM INSPECTOR ASSEMBLY Pelvic pressure in female XR MAMMO BILAT SCREENING Routine 07/27/2024 9:50 AM CDT Visit for screening mammogram COLONOSCOPY 11/12/2022 10:51 AM INSPECTOR ASSEMBLY XR DXA BONE DENSITY 2 SITES AXIAL Routine 06/09/2021 9:24 AM CDT Osteopenia, unspecified location Other specified disorders of bone density and structure, multiple sites LIPID PANEL W REFLEX MEASURED LDL Routine 12/26/2020 3:07 PM INSPECTOR ASSEMBLY Screening for lipid disorders ANTI HCV Routine 02/17/2018 4:26 PM CDT Need for hepatitis C screening test from Last 3 Months or Most Recently Relevant to Health Maintenance Results * CT ABDOMEN PELVIS W (11/30/2024 8:54 AM INSPECTOR ASSEMBLY) Anatomical Region Laterality Modality Abdomen, Pelvis, AORTA, LIVER, SPLEEN Computed Tomography 11/30/2024 10:5 4 AM INSPECTOR ASSEMBLY Impressions 11/30/2024 10:54 AM INSPECTOR ASSEMBLY 1. Etiology of abdominal pain not evident. [...] AM (Electronically Signed) Narrative 11/30/2024 10:54 AM INSPECTOR ASSEMBLY For Patients: As a result of the [...] t * POCT Creatinine (11/30/2024 8:25 AM INSPECTOR ASSEMBLY) [facility] POCT,CREATININ E, ISTAT 0.7 0.6 - 1.3 mg/dL [facility] Blood BLOOD SPECIMEN / Unknown 11/30/2024 8:25 AM INSPECTOR ASSEMBLY 11/30/2024 8:25 AM INSPECTOR ASSEMBLY Nancy Camara MD CHEMISTRY Final Resul t [facility] [address] [place] [address], [facility] [address] [place] [address] * CRYPTOSPORIDIUM GIARDIA RAPID ANTIGEN (11/08/2024 11:03 AM INSPECTOR ASSEMBLY) [facility] GIARDIA AND CRYPTOSPORIDIUM ANTIGEN PANEL SEE NOTE [facility] Comment: CRYPTOSPORIDIUM ANTIGEN, EIA Micro Number: [id number] Test Status: Final Specimen Source: Stool Specimen Quality: Adequate Cryptosporidium: Not Detected Reference Range: Not Detected NOTE: Due to intermittent shedding, one negative sample does not necessarily rule out the presence of a parasitic infection. GIARDIA AND CRYPTOSPORIDIUM ANTIGEN PANEL SEE NOTE [facility] Comment: GIARDIA AG, EIA, STOOL Micro Number: [id number] Test Status: Final Specimen Source: Stool Specimen Quality: Adequate Giardia Result 1: Not Detected Reference Range: Not Detected NOTE: Due to intermittent shedding, one negative sample does not necessarily rule out the presence of a parasitic infection. Stool STOOL SPECIMEN / Unknown 11/08/2024 11:03 AM INSPECTOR ASSEMBLY 11/08/2024 11:05 AM INSPECTOR ASSEMBLY Nancy Camara MD MICROBIOLOGY Final Resul t Performing Organization Address [facility] de Phone Number [facility] [address] [address], [facility] [address] * CLOSTRIDIOIDES DIFFICILE TOXIN PCR (11/08/2024 11:03 AM INSPECTOR ASSEMBLY) CLOSTRIDIUM DIFFICILE TOXIN/GDH W/REFL TO PCR SEE NOTE [facility] Comment: CLOSTRIDIUM DIFFICILE TOXIN/GDH W/REFL TO PCR Micro Number: [id number] Test Status: Final Specimen Source: Stool Specimen Quality: Adequate GDH Antigen: Not Detected Toxin A and B: Not Detected COMMENT: No toxigenic C. difficile detected For additional information, please refer to http://education.M87/faq/YRO960 (This link is being provided for informational/educational purposes only.) Stool STOOL SPECIMEN / Unknown 11/08/2024 11:03 AM INSPECTOR ASSEMBLY 11/08/2024 11:05 AM INSPECTOR ASSEMBLY Nancy Camara MD MICROBIOLOGY Final Resul t Performing Organization Address [facility] Co de Phone Number [facility] [place] [address] [place] [address], [facility] [address] [place] [address] * STOOL PATHOGEN MULTIPLEX PCR PANEL (11/08/2024 8:30 AM INSPECTOR ASSEMBLY) Campylobacter NOT Detected NOT Detected 11/09/2024 4:[address] [facility] Salmonella NOT Detected NOT Detected 11/09/2024 4:39 AM INSPECTOR ASSEMBLY [facility] Shigella NOT Detected NOT Detected 11/09/2024 4:[address] [facility] Vibrio NOT Detected NOT Detected 11/09/2024 4:[address] [facility] Yersinia Enterocolitica NOT Detected NOT Detected 11/09/2024 4:[address] [facility] Shiga Toxin 1 NOT Detected NOT Detected 11/09/2024 4:[address] [facility] Shiga Toxin 2 NOT Detected NOT Detected 11/09/2024 4:[address] [facility] Norovirus NOT Detected NOT Detected 11/09/2024 4:[address] [facility] Rotavirus NOT Detected NOT Detected 11/09/2024 4:[address] [facility] Stool STOOL SPECIMEN / Unknown Non-Blood / Unknown 11/08/2024 8:30 AM INSPECTOR ASSEMBLY 11/08/2024 11:01 AM INSPECTOR ASSEMBLY [facility] - 11/09/2024 4:39 AM INSPECTOR ASSEMBLY This test is a Culture Independent Diagnostic Test (CIDT) therefore isolates are not available for susceptibility testing. Antibiotic treatment is often contraindicated and may be detrimental in cases of enteric infections, thus routine susceptibility testing is not recommended. us Nancy Camara MD MICROBIOLOGY Final Resul t [facility] [address] [place] [address], [place] * US ABDOMEN LIMITED RUQ (10/19/2024 9:26 AM INSPECTOR ASSEMBLY) Anatomical Region Laterality Modality Abdomen, LIVER Ultrasound 10/19/2024 3:10 PM INSPECTOR ASSEMBLY Impressions 10/19/2024 3:10 PM INSPECTOR ASSEMBLY 1. Post cholecystectomy. 2. Pancreatic head and body grossly negative. Pancreatic tail suboptimally visualized. 3. 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 Dictated by Juarez Castelan MD @ 10/19/2024 3:10:22 PM (Electronically Signed) Narrative 10/19/2024 3:10 PM INSPECTOR ASSEMBLY For Patients: As a result of the [...] (ABNORMAL) CBC AND DIFFERENTIAL (10/12/2024 10:08 AM INSPECTOR ASSEMBLY) WHITE BLOOD CELL COUNT 5.3 3.8 - [...] BLOOD SPECIMEN / Unknown 10/12/2024 10:08 AM INSPECTOR ASSEMBLY 10/12/2024 10:09 AM INSPECTOR ASSEMBLY us Nancy Camara MD HEMATOLOGY Final Resul t [facility] [address] [place] [address], [facility] [address] [place] [address] * COMP METABOLIC PANEL (10/12/2024 10:08 AM INSPECTOR ASSEMBLY) Pathologist [facility] GLUCOSE 85 65 - 99 mg/dL [facility] [...] BLOOD SPECIMEN / Unknown 10/12/2024 10:08 AM INSPECTOR ASSEMBLY 10/12/2024 10:09 AM INSPECTOR ASSEMBLY us Nancy Camara MD CHEMISTRY Final Resul t [facility] [address] [place] [address], [facility] [address] [place] [address] * SCAN-RADIOLOGY REPORT (10/04/2024 12:00 AM INSPECTOR ASSEMBLY) Only the most recent of2 resultswithin the time period is included. Anatomical Region Laterality Modality Other us Scanner OTHER Final Result * SCAN-LABORATORY REPORT (09/22/2024 12:00 AM INSPECTOR ASSEMBLY) us Scanner OTHER Final Result * SCAN-ELECTROCARDIOGRAM EKG (09/22/2024 12:00 AM INSPECTOR ASSEMBLY) us Scanner OTHER Final Result * URINALYSIS MICROSCOPIC (09/08/2024 9:09 AM INSPECTOR ASSEMBLY) WBC UA NONE SEEN < OR = [...] URINE SPECIMEN / Unknown 09/08/2024 9:09 AM INSPECTOR ASSEMBLY 09/08/2024 9:10 AM INSPECTOR ASSEMBLY Nancy Camara MD URINE Final Resul t Performing Organization Address [facility] de Phone Number [facility] [address] [place] [address], [facility] [address] [place] [address] * URINE CULTURE (09/08/2024 9:09 AM INSPECTOR ASSEMBLY) CULTURE, URINE, ROUTINE SEE NOTE [facility] Comment: CULTURE, URINE, ROUTINE Micro Number: [id number] Test Status: Final Specimen Source: Urine Specimen Quality: Adequate Result: Less than 10,000 CFU/mL of single Gram positive organism isolated. No further testing will be performed. If clinically indicated, recollection using a method to minimize contamination, with prompt transfer to Urine Culture Transport Tube, is recommended. Urine URINE SPECIMEN / Unknown 09/08/2024 9:09 AM INSPECTOR ASSEMBLY 09/08/2024 9:10 AM INSPECTOR ASSEMBLY Nancy Camara MD MICROBIOLOGY Final Resul t Performing Organization Address [facility] de Phone Number [facility] [address] [place] [address], [facility] [address] [place] [address] * XR MAMMO BILAT SCREENING (07/27/2024 9:50 [...] health care provider. XR MAMMO BILAT SCREENING [460984] CLINICAL HISTORY: This is an asymptomatic 74 [...] Resul t * COLONOSCOPY (11/12/2022 10:51 AM INSPECTOR ASSEMBLY) 11/12/2022 10:5 1 AM INSPECTOR ASSEMBLY Narrative Transcriptions Vinod Saavedra MD - 11/12/2022 [...] adequate candidate for conscious sedation. The endoscope [id number] was passed through the anus and advanced [...] 10:51 AM Procedure Code(s): --- Professional --- 82401, Colonoscopy, flexible; diagnostic, including collection of specimen(s) bybrushing or washing, when performed (separateprocedure) Diagnosis Code(s): --- Professional --- Z86.010, Personal history of colonicpolyps K57.30, Diverticulosis of large intestine without perforation or abscess withoutbleeding CPT copyright 2020 [employer]. All rights reserved. The codes documented in this report are preliminary and upon educational consultant reviewmay be revised to meet current compliance [...] recommended in 3-5 years. Barb Abernathy PA-C [facility] 06/16/2021 Narrative 06/16/2021 10:10 AM CDT For Patients: Results are automatically released to your [employer] account once available, in compliance with federal regulations. This means that you may see your results before your provider has had a chance to review them. Please allow 2-3 business days for your provider to comment on the results. XR DXA Bone Mineral Density (BMD) EXAM LOCATION: [address] [address] PATIENT NAME: Kendy Kirkland DATE OF : [...] two scanners are made by the same resource coordinator. PROCEDURE: Dual-energy x-ray absorptiometry performed with routine [...] W REFLEX MEASURED LDL (12/26/2020 3:07 PM INSPECTOR ASSEMBLY) CHOLESTEROL,TOTAL 155 100 - 199 mg/dL 12/26/2020 10:26 PM INSPECTOR ASSEMBLY [facility] TRIGLYCERIDES 72 <150 mg/dL 12/26/2020 10:26 PM INSPECTOR ASSEMBLY [facility] HDL CHOLESTEROL 45 >40 mg/dL 10:26 PM INSPECTOR ASSEMBLY [facility] NON-HDL CHOLESTEROL 110 <145 mg/dl 12/26/2020 10:26 PM INSPECTOR ASSEMBLY [facility] CHOL/HDL RATIO 3.44 <4.50 12/26/2020 10:26 PM INSPECTOR ASSEMBLY [facility] LDL CHOLESTEROL 96 <=130 mg/dL 12/26/2020 10:26 PM [facility] PROVIDER ORDERED STATUS RANDOM 12/26/2020 10:26 PM INSPECTOR ASSEMBLY [facility] Blood BLOOD SPECIMEN / Unknown Venipuncture / Unknown 12/26/2020 3:07 PM INSPECTOR ASSEMBLY 12/26/2020 3:07 PM INSPECTOR ASSEMBLY us Nicole HAMEED CHEMISTRY Final Resu lt [facility] [address] [place] [address], [place] * ANTI HCV [92472.2] (02/17/2018 4:26 PM CDT) HEPATITIS C ANTIBODY Non-React rajiv Non-React rajiv 02/18/2018 2:40 PM CDT [facility] Comment:Antibodies to HCV no t detected; does not exclude the possibility of exposure to HCV. Blood BLOOD SPECIMEN / Unknown Venipuncture / Unknown 02/17/2018 4:26 PM CDT 02/17/2018 4:26 PM CDT us Radha Stockton MD SEND OUTS Final Result [facility] [address] [place] [address], [place] from Last 3 Months or Most Recently Relevant to Health Maintenance Insurance [employer] MR PB ONLY [employer] SOLUTION HB MEDICARE PART B HB ONLY MEDICARE PART A HB ONLY Care Teams Improvement Specialist Relationship Specialty Start Date End Date Nancy Camara MD [address] [place] [address] PCP - General Family Practice 03/08/23 Antonio Holbrook MD [address] [place] [address] Surgery - Urology 07/02/22 Vinod Saavedra MD [address] [place] [address] Gastroenterology 07/02/22 Inés Rust MD [address] [facility] [place] [address] Obstetrics and Gynecology 07/02/22
--- OUTSIDE RECORDS SUMMARY | 2024-12-03 23:54 | XMS_ITS | Encounter Summary ---
Author Organization [facility] Address [address] [place] [address] Care Team Providers Care Wastewater Superintendent Name Role Phone Unavailable Primary Care Provider Unavailabl e Encounter Details Date Type Department Care Team (Latest Contact Info) Description 11/29/2024 2:31 PM DIRECTOR OF RECRUITMENT - 11/29/2024 11:59 PM DIRECTOR OF RECRUITMENT Hospital Encounter Department of Laboratory Medicine and Pathology, [facility] in [place], [place] [address] [place] [phone] Michael Lovett M.D., M.P.H. [address] [place] [phone] Bronchiectasis (HCC) Discharge Disposition: Home or Self Care Social History Tobacco Use Types Packs/Day Years Used Date Smoking Tobacco: Never Passive Smoke Exposure: Never Smokeless Tobacco: Never [facility] Utilities Answer Date Recorded In the past 12 months has [employer], gas, oil, or water [employer] threatened to shut off services in your [...] your living situation today? I have a [facility] place to live 11/28/2024 Comments Unknown Sex and Gender Information Value Date Recorded Sex Assigned at Female 08/28/2024 7:46 PM DIRECTOR OF RECRUITMENT Legal Sex Female 3:29 PM DIRECTOR OF RECRUITMENT Gender Identity Female 08/28/2024 7:46 PM DIRECTOR OF RECRUITMENT Sexual Orientation Straight 08/28/2024 7: 46 PM DIRECTOR OF RECRUITMENT documented as of this encounter Medications at [...] fluocinolone (CAPEX) 0.01 % shampoo 05/06/2017 fluocinolone ([place]-Smoothe/F S) 0.01 % scalp oil Apply 1 [...]
--- OUTSIDE RECORDS SUMMARY | 2024-12-03 23:54 | XMS_ITS | Encounter Summary ---
Author Organization [facility] Address [address] [place] [address] Care Team Providers Care Dairy Products Maker Name Role Phone Unavailable Primary Care Provider Unavailabl e Reason for Referral * MRI/CAT/PET Scan (Routine) - Authorized Specialty Diagnoses / Procedures Referred By Louise jc Referred To Contact Radiology Diagnoses Bronchiectasis (HCC) Procedures CT Chest without IV Contrast Michael Lovett M.D., M.P.H. [address] [place] [address] Phone: tel: fax: [facility] Referral ID Status Reason Start Date Expiration Date V isits Requested Visits Authorized [id number] Authorized 11/29/2024 03/01/2026 1 1 N DYER * Outpatient (Routine) - Closed Specialty Diagnoses / Procedures Referred By Louise t Referred To Contact Pulmonary Medicine Diagnoses Bronchiectasis (HCC) Michael Lovett M.D., M.P.H. [address] [place] [address] Phone: tel: fax: [facility] Referral ID Status Reason Start Date Expiration Date Visits Re quested Visits Authorized [id number] Closed 11/29/2024 05/31/2026 1 1 N DYER Reason for Visit * Appointment Request (Routine) - Closed Specialty Diagnoses / Procedures Referred By Contac t Referred To Contact Pulmonary Medicine Diagnoses Mycobacterium Avium Complex (MAC) Nancy Camara M.D. [address] [place] [address] Phone: tel: fax: Referral ID Status Reason Start Date Expiration Date Visits Re quested Visits Authorized [id number] Closed 10/02/2024 10/02/2025 1 1 Encounter Details Date Type Department Care Team (Latest Contact Info) Description 11/29/2024 1:30 PM SKEIN DYER Comprehensive Visit Division of Pulmonary Medicine in [place], [place] [address] [place] [phone] Michael Lovett M.D., M.P.H. [address] [place] [address] Bronchiectasis (HCC) (Primary Dx) Social History Tobacco Use Types Packs/Day Years Used Date Smoking Tobacco: Never Passive Smoke Exposure: Never Smokeless Tobacco: Never [facility] Utilities Answer Date Recorded In the past 12 months has th e [employer], gas, oil, or water [employer] threatened to shut off services in your [...] your living situation today? I have a [facility] place to live 11/28/2024 Comments Unknown Sex and Gender Information Value Date Recorded Sex Assigned at Female 08/28/2024 7:46 PM SKEIN DYER Legal Sex Female 3:29 PM SKEIN DYER Gender Identity Female 08/28/2024 7:46 PM SKEIN DYER Sexual Orientation Straight 08/28/2024 7: 46 PM SKEIN DYER documented as of this encounter Last Filed Vital Signs Vital Sign Reading Time Taken Comments Blood Pressure 118/59 11/29/2024 1:06 PM SKEIN DYER Pulse 81 11/29/2024 1:06 PM SKEIN DYER Temperature 36.3 C (97.3 F) 11/29/2024 1:06 PM SKEIN DYER Respiratory Rate - - Oxygen Saturation 99% 11/29/2024 1:06 PM SKEIN DYER Inhaled Oxygen Concentration - - Weight 58.6 kg (129 lb 3 oz) 11/29/2024 1:06 PM SKEIN DYER Height 156.5 cm (5' 1.61) 11/29/2024 1:06 PM CS T Body Mass Index 23.93 11/29/2024 1:06 PM SKEIN DYER documented in this encounter Consult Notes * [...] after which she can continue follow-up locally. N DYER documented in this encounter Plan of Treatment Scheduled Orders Name Type Priority Associated Diagnoses Order Schedule Acid Fast Smear for Mycobacterium Microbiology Routine Bronchiectasis ([facility]) Expected: 11/29/2024 (Approximate), Expires: 02/26/2026 Mycobacterial Culture Microbiology Routine Bronchiectasis ([facility]) Expected: 11/29/2024 (Approximate), Expires: 02/26/2026 CT Chest without IV Contrast Imaging RAD - Routine (most inpatients and all outpatients) Bronchiectasis (HCC) Expected: 11/29/2025, Expires: 02/26/2026 Scheduled Referrals Name Type Priority Associated Diagnoses Order Schedule Pulmonary Medicine - Respiratory therapy consult (clinic) Outpatient Referral Routine Bronchiectasis ([facility]) Expected: 11/29/2024, Expires: 02/26/2026 documented as of this encounter Results * CRP (C-Reactive Protein) (11/29/2024 2:25 PM SKEIN DYER) C-Reactive Protein (CRP), S <3.0 <5.0 mg/L 11/29/2024 3:15 PM SKEIN DYER DT Blood (Blood, Venous) 11/29/2024 2:25 PM SKEIN DYER 11/29/2024 2:58 PM SKEIN DYER Michael Lovett M.D., M.P.H. LAB BLOOD ADD-ON Final Result [facility] [address] [place] [address], [facility] [address] [place] [address] * Rheumatoid Factor (11/29/2024 2:25 PM SKEIN DYER) Rheumatoid Factor, S <15 <15 IU/mL 11/29/2024 7:36 PM SKEIN DYER [facility] Blood (Blood, Venous) 11/29/2024 2:25 PM SKEIN DYER 11/29/2024 7:07 PM SKEIN DYER Michael Lovett M.D., M.P.H. LAB BLOOD ADD-ON Final Result Performing Organization Address City/Special Care Hospital/ZIP Co de Phone Number [facility] [address] [place] [address] [facility] [address] [place] [address] * KATYA (Antinuclear Antibodies) (11/29/2024 2:25 PM SKEIN DYER) Antinuclear Ab, S 0.2 <=1.0 (Negative) U 11/30/2024 12:56 PM SKEIN DYER [facility] Comment: ----ADDITIONAL INFORMATION---- Method: Enzyme-linked immunoassay using HEp-2 nuclear extract supplemented with purified antigens. Blood (Blood, Venous) 11/29/2024 2:25 PM SKEIN DYER 11/30/2024 7:06 AM SKEIN DYER Michael Lovett M.D., M.P.H. LAB BLOOD ADD-ON Final Result Performing Organization Address [facility] Co de Phone Number [facility] [address] [place] [address] [facility] [address] [place] [address] * Immunoglobulins (IgG, IgA, and IgM) (11/29/2024 2:25 PM SKEIN DYER) Immunoglobulin A (IgA), S 257 61 - 356 mg/dL 11/30/2024 7:47 AM SKEIN DYER [facility] Immunoglobulin M (IgM), S 57 37 - 286 mg/dL 11/30/2024 7:47 AM SKEIN DYER SDS Immunoglobulin G (IgG), S 806 767 - 1590 mg/dL 11/30/2024 7:47 AM SKEIN DYER [facility] Blood (Blood, Venous) 11/29/2024 2:25 PM SKEIN DYER 11/30/2024 6:20 AM SKEIN DYER Michael Lovett M.D., M.P.H. LAB BLOOD ADD-ON Final Result Performing Organization Address City/[facility] Care [facility]/ZIP Co de Phone Number [place] [address] [address] [place] [address] [facility] [address] [place] [address] * Uurno-2-Xcrxcfgsbvr (11/29/2024 2:25 PM SKEIN DYER) Fnkdx-2-Mifrdgr psin, S 136 100 - 190 mg/dL 11/30/2024 8:38 AM SKEIN DYER [facility] Blood (Blood, Venous) 11/29/2024 2:25 PM SKEIN DYER 11/30/2024 6:19 AM SKEIN DYER us Michael Lovett M.D., M.P.H. LAB BLOOD ADD-ON Final Result [facility] [address] [place] [address] [facility] [address] [place] [phone] documented in this encounter Visit Diagnoses Diagnosis Bronchiectasis (HCC)- Primary documented in this encounter
--- OUTSIDE RECORDS SUMMARY | 2024-12-03 23:54 | XMS_ITS | Encounter Summary ---
Author Organization [facility] Address [address] [place] [address] Care Team Providers Care Senior Manager Asset Protection Name Role Phone Unavailable Primary Care Provider Unavailabl e Reason for Visit * Reason Onset Date Comments Pre-visit Intake 11/27/2024 * Appointment Request (Routine) - Authorized Specialty Diagnoses / Procedures Referred By Louise jc Referred To Contact Pulmonary Medicine Referral ID Status Reason Start Date Expiration Date V isits Requested Visits Authorized [id number] Authorized 10/20/2024 10/20/2025 1 1 Encounter Details Date Type Department Care Team (Latest Contact Info) Description 11/27/2024 8:45 AM VP SCIENTIFIC Clinical Communication Virtual Review in [address] [phone] Pre-visit Intake Social History Tobacco Use Types Packs/Day Years Used Date Smoking Tobacco: Never Passive Smoke Exposure: Never Smokeless Tobacco: Never Tobacco Cessation:Counseling Given: Not Answered [facility] Utilities Answer Date Recorded In the past 12 months has e [employer], gas, oil, or water [employer] threatened to shut off services in your [...] your living situation today? I have a [facility] place to live 11/28/2024 Comments Unknown Sex and Gender Information Value Date Recorded Sex Assigned at Female 08/28/2024 7:46 PM VP SCIENTIFIC Legal Sex Female 3:29 PM VP SCIENTIFIC Gender Identity Female 08/28/2024 7:46 PM VP SCIENTIFIC Sexual Orientation Straight 08/28/2024 7: 46 PM VP SCIENTIFIC documented as of this encounter Plan of Treatment Not on file documented as of this encounter Visit Diagnoses Not on filedocumented in this encounter
--- OUTSIDE RECORDS SUMMARY | 2024-12-03 23:54 | XMS_ITS | Encounter Summary ---
Author Organization [facility] Address [address] [place] [address] Care Team Providers Care Transport Aircrewman Name Role Phone Unavailable Primary Care Provider Unavailabl e Reason for Visit * Reason Onset Date Comments Appt Request 10/20/2024 Encounter Details Date Type Department Care Team ([facility] st Contact Info) Description 10/20/2024 Clinical Communication Division of Pulmonary Medicine in [place], [place] [address] [place] [phone] Michael Lovett M.D., M.P.H. [address] [place] [phone] Appt Request Social History Tobacco Use Types Packs/Day Years Used Date Smoking Tobacco: Never Nutrition Answer Date Recorded Nutrition: EVOO Fat Source 13 05/21 Nutrition: Servings of Fruits/Vegetables per Day Not on file 05/21/2020 Dental Answer Date Recorded Dental: Regular Dentist Unknown 12/28/19 21 Comments Unknown Sex and Gender Information Value Date Recorded Sex Assigned at Female 08/28/2024 7:46 PM ASSISTANT ANALYST Legal Sex Female 3:29 PM ASSISTANT ANALYST Gender Identity Female 08/28/2024 7:46 PM ASSISTANT ANALYST Sexual Orientation Straight 08/28/2024 7: 46 PM ASSISTANT ANALYST documented as of this encounter Plan of [...] * Pulmonary Function Tests (11/29/2024 8:51 AM ASSISTANT ANALYST) PostFVC 2.56 L 11/29/2024 10:05 AM [facility]IST[facility] PostFEV1 1.98 L 11/29/2024 10:05 AM [facility] FEV1/FVC POST 77.46 % 11/29/2024 10:05 AM [facility] FEF 25-75 % POST 1.53 L/s 11/29/2024 10:05 AM [facility] PEF POST 5.42 L/s 11/29/2024 10:05 AM [facility] PIF POST 3.34 L/s 11/29/2024 10:05 AM [facility] FET POST 5.31 sec 11/29/2024 10:05 AM [facility] TLC POST 5.16 L 11/29/2024 10:05 AM [facility] RV 2.54 L 11/29/2024 10:05 AM [facility] RV % TLC POST 49.28 % 11/29/2024 10:05 AM [facility] DLCO 18.31 ml/(min*mm Hg) 11/29/2024 10:05 AM [facility] FVC 2.58 L 11/29/2024 10:05 AM [facility] FEV1 1.85 L 11/29/2024 10:05 AM ASSISTANT ANALYST [facility] FEV1/FVC 71.71 % 11/29/2024 10:05 AM ASSISTANT ANALYST [facility] TWT77-29% 1.27 L/s 11/29/2024 10:05 AM ASSISTANT ANALYST [facility] PEF PRE 4.91 L/s 11/29/2024 10:05 AM ASSISTANT ANALYST [facility] PIF PRE 3.65 L/s 11/29/2024 10:05 AM ASSISTANT ANALYST [facility] FET PRE 11.13 sec 11/29/2024 10:05 AM ASSISTANT ANALYST [facility] SUBSTANCE POST Albuterol 11/29/2024 10:05 AM ASSISTANT ANALYST [facility] 11/29/2024 8:51 AM ASSISTANT ANALYST Impressions [facility] - 11/29/2024 10:05 AM ASSISTANT ANALYST Normal studies without significant bronchodilator response. Narrative Procedure Note Ankit Gold M.D. - 11/29/2024 IMPRESSION: Normal studies without significant bronchodilator response. Michael Lovett M.D., M.P.H. 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
--- OUTSIDE RECORDS SUMMARY | 2024-12-03 23:54 | XMS_ITS | Encounter Summary ---
Author Organization [facility] Address [address] [place] [address] Care Team Providers Care Assistant At Surgery Name Role Phone Unavailable Primary Care Provider Unavailabl e Encounter Details Date Type Department Care Team (Latest Contact Info) Description 11/29/2024 7:09 AM HVAC TECHNICIAN RESIDENTIAL - 11/29/2024 2:02 PM [facility] Hospital Encounter Division of Pulmonary Medicine in [place], [place] [address] [place] [phone] Michael Lovett M.D., M.P.H. [address] [place] [phone] Disseminated Mycobacterium Avium Intracellulare Complex (HCC) Discharge Disposition: Home or Self Care Social History Tobacco Use Types Packs/Day Years Used Date Smoking Tobacco: Never Passive Smoke Exposure: Never Smokeless Tobacco: Never [facility] Utilities Answer Date Recorded In the past 12 months has [employer], [employer], oil, or water [employer] threatened to shut off services in your [...] your living situation today? I have a [facility] place to live 11/28/2024 Comments Unknown Sex and Gender Information Value Date Recorded Sex Assigned at Female 08/28/2024 7:46 PM HVAC TECHNICIAN RESIDENTIAL Legal Sex Female 3:29 PM HVAC TECHNICIAN RESIDENTIAL Gender Identity Female 08/28/2024 7:46 PM HVAC TECHNICIAN RESIDENTIAL Sexual Orientation Straight 08/28/2024 7: 46 PM HVAC TECHNICIAN RESIDENTIAL documented as of this encounter Medications at [...] fluocinolone (CAPEX) 0.01 % shampoo 05/06/2017 fluocinolone ([place]-Smoothe/F S) 0.01 % scalp oil Apply 1 [...] AM CST Mrs. Kendy Kirkland arrived in [facility] for out-patient sputum induction. Unable toobtain sample. Aerosol generating procedure done wearing N95 mask. Electronically signed by: Porter Titus R.R.T., L.R.T. 11/29/24 7:26 AM HVAC TECHNICIAN RESIDENTIAL TECHNICIAN RESIDENTIAL documented in this encounter Plan of Treatment [...]
--- OUTSIDE RECORDS SUMMARY | 2024-12-03 23:54 | XMS_ITS | Encounter Summary ---
Author Organization [facility] Address [address] [place] [address] Care Team Providers Care Munitions Handler Name Role Phone Unavailable Primary Care Provider Unavailabl e Encounter Details Date Type Department Care Team (Latest Contact Info) Description 11/29/2024 2:03 PM PROJECT MANAGER INDUSTRIAL - 11/29/2024 2:30 PM PROJECT MANAGER INDUSTRIAL Hospital Encounter Department of Laboratory Medicine and Pathology, [facility] in [place], [place] [address] [place] [phone] Michael Lovett M.D., M.P.H. [address] [place] [phone] Bronchiectasis (HCC) Discharge Disposition: Home or Self Care Social History Tobacco Use Types Packs/Day Years Used Date Smoking Tobacco: Never Passive Smoke Exposure: Never Smokeless Tobacco: Never [facility] Utilities Answer Date Recorded In the past 12 months has [employer], gas, oil, or water [employer] threatened to shut off services in your [...] your living situation today? I have a [facility] place to live 11/28/2024 Comments Unknown Sex and Gender Information Value Date Recorded Sex Assigned at Female 08/28/2024 7:46 PM PROJECT MANAGER INDUSTRIAL Legal Sex Female 3:29 PM PROJECT MANAGER INDUSTRIAL Gender Identity Female 08/28/2024 7:46 PM PROJECT MANAGER INDUSTRIAL Sexual Orientation Straight 08/28/2024 7: 46 PM PROJECT MANAGER INDUSTRIAL documented as of this encounter Medications at [...] fluocinolone (CAPEX) 0.01 % shampoo 05/06/2017 fluocinolone ([place]-Smoothe/F S) 0.01 % scalp oil Apply 1 [...] Procedure Name Priority Date/Time Associated Diagnosis Comments [id number], S Routine 2:25 PM PROJECT MANAGER INDUSTRIAL Bronchiectasis (HCC) RHEUMATOID FACTOR, S/P Routine 2:25 PM PROJECT MANAGER INDUSTRIAL Bronchiectasis (HCC) IMMUNOGLOBULINS (IGG, IGA, AND IGM), S Routine 11/29/2024 2:25 PM PROJECT MANAGER INDUSTRIAL Bronchiectasis (HCC) C-REACTIVE PROTEIN (CRP), S/P Routine 11/29/2024 2:25 PM PROJECT MANAGER INDUSTRIAL Bronchiectasis (HCC) ANTINUCLEAR ABS (KATYA), S Routine 11/29/2024 2:25 PM PROJECT MANAGER INDUSTRIAL Bronchiectasis (HCC) documented in this encounter Results * CRP (C-Reactive Protein) (11/29/2024 2:25 PM PROJECT MANAGER INDUSTRIAL) C-Reactive Protein (CRP), S <3.0 <5.0 mg/L 11/29/2024 3:15 PM PROJECT MANAGER INDUSTRIAL DTL Blood (Blood, Venous) 11/29/2024 2:25 PM PROJECT MANAGER INDUSTRIAL 11/29/2024 2:58 PM PROJECT MANAGER INDUSTRIAL us Michael Lovett M.D., M.P.H. LAB BLOOD ADD-ON Final Result [facility] [address] [place] [address], [place] [facility] [address] [place] [address] * Rheumatoid Factor (11/29/2024 2:25 PM PROJECT MANAGER INDUSTRIAL) Pathologist [facility] Rheumatoid Factor, S <15 <15 IU/mL 11/29/2024 7:36 PM PROJECT MANAGER INDUSTRIAL [facility] Blood (Blood, Venous) 11/29/2024 2:25 PM PROJECT MANAGER INDUSTRIAL 11/29/2024 7:07 PM PROJECT MANAGER INDUSTRIAL Michael Lovett M.D., M.P.H. LAB BLOOD ADD-ON Final Result Performing Organization Address City/[facility]/ZIP Co de Phone Number [facility] [address] [place] [address] [facility] [address] [place] [place] [address] * KATYA (Antinuclear Antibodies) (11/29/2024 2:25 PM PROJECT MANAGER INDUSTRIAL) Pathologist [facility] Antinuclear Ab, S 0.2 <=1.0 (Negative) U 11/30/2024 12:56 PM PROJECT MANAGER INDUSTRIAL [facility] Comment: ----ADDITIONAL INFORMATION---- Method: Enzyme-linked immunoassay using HEp-2 nuclear extract supplemented with purified antigens. Blood (Blood, Venous) 11/29/2024 2:25 PM PROJECT MANAGER INDUSTRIAL 11/30/2024 7:06 AM PROJECT MANAGER INDUSTRIAL us Michael Lovett M.D., M.P.H. LAB BLOOD ADD-ON Final Result [facility] [address] [place] [address] [facility] [address] [place] [address] * Immunoglobulins (IgG, IgA, and IgM) (11/29/2024 2:25 PM PROJECT MANAGER INDUSTRIAL) Immunoglobulin A (IgA), S 257 61 - 356 mg/dL 11/30/2024 7:47 AM PROJECT MANAGER INDUSTRIAL SDS Immunoglobulin M (IgM), S 57 37 - 286 mg/dL 11/30/2024 7:47 AM PROJECT MANAGER INDUSTRIAL SDS Immunoglobulin G (IgG), S 806 767 - 1590 mg/dL 11/30/2024 7:47 AM PROJECT MANAGER INDUSTRIAL SDS Blood (Blood, Venous) 11/29/2024 2:25 PM PROJECT MANAGER INDUSTRIAL 11/30/2024 6:20 AM PROJECT MANAGER INDUSTRIAL Michael Lovett M.D., M.P.H. LAB BLOOD ADD-ON Final Result [facility] [address] [place] [address] [facility] [address] [place] [address] * Jrxfm-9-Rcbwekfaxos (11/29/2024 2:25 PM PROJECT MANAGER INDUSTRIAL) Obypt-3-Twtdxni psin, S 136 100 - 190 mg/dL 11/30/2024 8:38 AM PROJECT MANAGER INDUSTRIAL [facility] Blood (Blood, Venous) 11/29/2024 2:25 PM PROJECT MANAGER INDUSTRIAL 11/30/2024 6:19 AM PROJECT MANAGER INDUSTRIAL Michael Lovett M.D., M.P.H. LAB BLOOD ADD-ON Final Result [facility] [address] [place] [address] [facility] [address] [place] [address] documented in this encounter Visit Diagnoses Diagnosis Bronchiectasis (HCC) documented in this encounter
[2024-12-04] VITALS: RESP 10
[2024-12-04 00:01] LABS: Albumin* 4.7 g/dL (3.3-5.0); Chloride* 101 mmol/L (96-114); Potassium* 3.6 mmol/L (3.6-5.1); Sodium* 138 mmol/L (135-149)
[2024-12-04 00:02] VITALS: BP 137/69; RESP 11
[2024-12-04 00:03] LABS: Creatinine* 0.7 mg/dL (0.5-1.5); Est. Creatinine Clearance* 38.37; Estimated Glomerular Filt Rate 92 ml/min
[2024-12-04 00:04] LABS: Alanine Aminotransferase* 20 U/L (4-35); Alkaline Phosphatase* 70 U/L (40-150); Anion Gap 10 mEq/L (7-15); Aspartate Amino Transferase* 23 U/L (12-35); Bilirubin Direct* 0.2 mg/dL (0.0-0.5); Bilirubin Total* 0.6 mg/dL (0.1-1.5); Blood Urea Nitrogen* 21 mg/dL (7-30); Carbon Dioxide* 27 mmol/L (20-32); Glucose* 95 mg/dL (60-115); Total Protein* 7.2 g/dL (6.0-8.3)
[2024-12-04 00:05] LABS: Calcium* 9.6 mg/dL (8.4-10.6)
[2024-12-04 00:13] LABS: C Reactive Protein* < 0.5 mg/dL (0.5-1.0); NT Pro B Type NatriureticPept* 42 pg/mL
[2024-12-04 00:22] LABS: PCR FLU A Negative PCR FLU A (Negative); PCR FLU B Negative PCR FLU B (Negative); PCR RSV Negative PCR RSV (Negative); SARS PCR* Negative SARS-CoV-2 (Negative)
[2024-12-04 00:33] VITALS: BP 136/67; PULSE 66; RESP 16; O2SAT 98
== END 2024-12-04 00:35 | disposition home or self-care (01) ==
PROVIDERS: Family Medicine; Emergency Provider Family Medicine; PCP Family Medicine
DX: K21.9 Gastro-esophageal reflux disease without esophagitis (principal); F43.9 Reaction to severe stress, unspecified; R07.89 Other chest pain
CPT/HCPCS: 36415; 71045; 80048; 80076; 83880; 84484; 85025; 86140; 87631; 99284; 99285

== ENCOUNTER 2025-05-02 08:58 | Outpatient (CLI) | payer MEDICARE, OTHER, SELFPAY ==
--- NOTE | 2025-05-02 09:15 | CRLHL7_ITS ---
For Patients: As a result of the Century Cures Act, medical imaging exams and procedure reports are released immediately into your electronic medical record. You may view this report before your referring provider. If you have questions, please contact your health care provider. Technique: Double-contrast esophagram performed after the uneventful administration of effervescent crystals and thick barium followed by thin barium. Fluoroscopy time 44 seconds. Indication: Throat discomfort Comparison: None. Findings: A small sliding hiatal hernia is present. No stricture or ulcer. Status post cholecystectomy. Reflux not observed during this exam. Normal esophageal clearance. Esophageal mucosa is smooth. Impression: Small sliding hiatal hernia without additional findings. Dictated by Attila Vora MD @ 05/02/2025 11:05:14 AM (Electronically Signed)
== END 2025-05-02 08:59 | disposition home or self-care (01) ==
LOC: RAD 08:59
PROVIDERS: PCP Family Medicine; Visit Provider Internal Medicine
DX: R10.13 Epigastric pain (principal); K44.9 Diaphragmatic hernia without obstruction or gangrene; R07.0 Pain in throat; R14.0 Abdominal distension (gaseous); R63.4 Abnormal weight loss
CPT/HCPCS: 74221